=== PATIENT | female | born 1955 | race Caucasian/White ===

== ENCOUNTER → 2020-12-12 08:47 | Outpatient (CLI) | payer MEDICARE, OTHER, SELFPAY ==
--- NOTE | 2020-12-12 08:55 | RAD_ITS ---
STUDY: X-RAY - ESOPHAGUS (BARIUM SWALLOW) WITH FLUOROSCOPY REASON FOR EXAM: Female, 65 years old. DYSPHAGIA FOR YEARS- GETTING WORSE -- 34 FLUORO SEC, 11.52mGy, 20 FLUORO IMAGES TECHNIQUE: 20 view(s) of the esophagus were obtained following swallowing of barium. FLUOROSCOPY TIME (if supplied): (0:34) minutes/seconds COMPARISON: None. FINDINGS: There is no demonstrated esophageal foreign body. There is no demonstrated stricture or mucosal abnormality. There is a small hiatal hernia of the fundus of the stomach. There is evidence of a small weblike stenosis at the gastroesophageal junction. The patient ingested a 12 mm tablet of barium without any difficulty. Normal visualized aortic arch and descending thoracic aorta. Normal visualized pulmonary parenchyma. Normal visualized osseous structures of the thorax. RAD/Esophagus Dual Contrast IMPRESSION: Small sliding hiatal hernia with a mild weblike stenosis at the gastroesophageal junction. The patient ingested a 12 mm tablet of barium without difficulty. Electronically Signed: Marvin Hart MD at 12:44 EST , Service support ,
== END ==
PROVIDERS: PCP Student in an Organized Health Care Education/Training Program; Referring Provider Nurse Practitioner Adult Health; Visit Provider Nurse Practitioner Adult Health
DX: R13.10 Dysphagia, unspecified (principal); R09.89 Other specified symptoms and signs involving the circulatory and respiratory systems
CPT/HCPCS: 74220; 74221

== ENCOUNTER 2022-04-21 10:43 | Emergency (ER) | payer MEDICARE, OTHER, SELFPAY ==
[2022-04-21 10:43] VITALS: BP 115/64; PULSE 67; RESP 16; TEMP 36.3; O2SAT 97; BMI 25.7
--- NOTE | 2022-04-21 11:01 | EKG12_ITS ---
Test Reason : DIZZY Blood Pressure : / mmHG Vent. Rate : 062 BPM Atrial Rate : 062 BPM P-R Int : 160 ms QRS Dur : 074 ms QT Int : 414 ms P-R-T Axes : 036 012 033 degrees QTc Int : 420 ms Normal sinus rhythm Normal ECG Confirmed by GRADY LITTLEJOHN, FELICE ([id number]), editor at large TERRANCE JI ([id number]) on 04/23/2022 9:53:33 AM Referred By: LOPEZ Confirmed By:FELICE RASMUSSEN MD
[2022-04-21 11:10] LABS: Absolute Lymphocyte Count 1.09 X10^3/uL (0.83-4.51); Absolute Neutrophil Count 2.3 X10^3/uL (2.0-7.7); Basophil# 0.03 X10^3/uL; Basophil% 0.8 % (0-1); Eosinophil# 0.11 X10^3/uL; Eosinophils% 2.8 % (0-5); Hematocrit 41.1 % (37-47); Hemoglobin 13.6 g/dL (12.0-15.0); Lymphocyte # 1.09 X10^3/ul (0.83-4.51); Lymphocyte % 27.3 % (19-41); Mean Corp Hgb Conc 33.1 g/dL (32-36); Mean Corpuscular Hgb 28.9 pg (27.0-32.0); Mean Corpuscular Volume 87.4 fL (81-99); Mean Platelet Vol. 10.3 fl (6.2-12.0); Monocyte# 0.44 X10^3/uL; NRBC Flagged by Analyzer 0 % (0-5); Neutrophil # 2.33 X10^3/uL (2.7-7.7); Neutrophil % 58.1 % (47-70); Platelet Count 195 K/mm3 (150-450); RBC Distribution Width CV 13.2 % (11.6-14.6); RBC Distribution Width SD 42.4 fl (35.1-43.9)
--- NOTE | 2022-04-21 11:11 | EKG12_ITS ---
Test Reason : DIZZY Blood Pressure : / mmHG Vent. Rate : 065 BPM Atrial Rate : 065 BPM P-R Int : 156 ms QRS Dur : 074 ms QT Int : 402 ms P-R-T Axes : 048 012 029 degrees QTc Int : 418 ms Normal sinus rhythm Normal ECG When compared with ECG of 25-JAN-2011 05:52, No significant change was found Confirmed by JAGDISH LITTLEJOHN, FABIOLA ([id number]), news video editor TERRANCE JI ([id number]) on 04/25/2022 9:33:18 AM Referred By: LOPEZ Confirmed By:FABIOLA DUBON MD
[2022-04-21] MEDS: 0.9% Normal Saline 1,000 ML 1000 ML IV (11:15)
[2022-04-21] MEDS: Meclizine HCl 25 MG Tablet PO (11:15)
[2022-04-21] MEDS: Ondansetron 4 MG/2 ML Vial IV (11:15)
--- NOTE | 2022-04-21 11:19 | EX.ED.DYSGE1 ---
HPI History of Present Illness Chief Complaint: Dizziness Informant: patient Onset/Context/Timing Onset: Yesterday Context: Gradual Onset Current Severity: Mild Maximum Severity: Moderate Narrative Narrative: Patient present secondary to dizziness. She states last evening she felt like she might be getting a migraine. She woke this morning feeling off balance and when she walks she feels like she is swaying. She has had some mild nausea. No recent head injury or fall. [facility] Medical History (Updated 04/21/22 @ 13:[address] Kirsten Sheth MD) Breast cancer Hypothyroidism Home Medications fluoxetine 20 mg PO DAILY 11/04/17 [History Last Taken Unknown] levothyroxine 88 mcg PO DAILY 11/04/17 [History Last Taken Unknown] hydrocodone-acetaminophen 1 tab PO Q6H PRN PRN #20 tab 11/10/17 [Rx Last Taken Unknown] meclizine 25 mg PO TID PRN #20 tab 04/21/22 [Rx Last Taken Unknown] Allergy/AdvReac Type Severity Reaction Status Date / Time No Known Allergies Allergy Verified 04/21/22 10:46 Social History Smoking Status: Former smoker ROS ROS ED Constitutional Constitutional ED: Denies chills or fever(s) Eyes Eyes: Denies change in vision ENT ENT ED: Denies rhinorrhea or sore throat Cardiovascular Cardiovascular: Denies chest pain or palpitations Respiratory/Chest Respiratory/Chest: Denies cough or dyspnea Gastrointestinal Gastrointestinal: Reports nausea; Denies abdominal pain, diarrhea or vomiting Genitourinary Genitourinary ED: Denies dysuria Musculoskeletal Musculoskeletal: Denies arthralgias or myalgias Integumentary Denies rash Neurologic Neurologic: Denies headache(s), paresthesias or weakness Allergic/Immunologic Allergic/Immunologic ED: Denies urticaria EXAM Physical Exam Const Vital Signs: 04/21/22 10:43 04/21/22 10:57 04/21/22 12:00 Temperature 97.4 F L Temperature Source Temporal Pulse Rate 67 68 Respiratory Rate 16 13 Respiratory Effort Normal Respiratory Pattern Normal Blood Pressure 115/64 116/66 Blood Pressure Mean 81 82 Pulse Ox 97 Positive well nourished and well developed General Appearance ED: well developed HEENT Reports moist mucous membranes Eyes PERRL and EOMs intact bilaterally Neck no lymphadenopathy and supple Chest Wall inspection of chest normal and palpation of chest normal Resp normal respiratory effort and clear to auscultation bilaterally Cardio regular rate and regular rhythm GI non-tender Palpation: soft Extremity normal to inspection Neuro oriented x3 and no sensory deficits noted Sensorium / Orientation: alert Motor Exam: strength 5/5 throughout Psych mental status grossly normal Skin no rashes or lesions noted MDM MDM MDM Narrative Medical decision making narrative: Patient was given IV fluids along with Antivert and Zofran. Lab work obtained. Lab Data Attestation: I reviewed the patient's lab results. Labs: Laboratory Results - last 24 hr 04/21/22 04/21/22 10:55 10:55 WBC 4.0 L RBC 4.70 Hgb 13.6 Hct 41.1 MCV 87.4 MCH 28.9 MCHC 33.1 RDW Std Deviation 42.4 RDW Coeff of Roseline 13.2 Plt Count 195 MPV 10.3 Immature Gran % (Auto) 0.000 Neut % (Auto) 58.1 Lymph % (Auto) 27.3 Elbert % (Auto) 11.0 H Eos % (Auto) 2.8 Baso % (Auto) 0.8 Absolute Neuts (auto) 2.3 Absolute Lymphs (auto) 1.09 Nucleated RBC % 0 Sodium 141 Potassium 4.2 Chloride 108 H Carbon Dioxide 30.0 Anion Gap 3 L BUN 13 Creatinine 0.84 Estim Creat Clear Calc 53.02 Est GFR (MDRD) Af Amer 86 Est GFR (MDRD) Non-Af 71 BUN/Creatinine Ratio 15.4 Glucose 95 Calcium 9.4 EKG Initial EKG: Attestation: I personally reviewed and interpreted this EKG as follows: Interpretation: Sinus Rhythm (Sinus at 62 with no acute ischemia.) Treatment and Re-Evaluation Narrative: On repeat evaluation patient reports significant improvement in her symptoms but just not quite yet back to baseline. She was able to ambulate to the restroom and back without difficulty. She will be treated with Antivert. EKG and lab work are unremarkable. Symptoms are consistent with peripheral vertigo. Discharge Plan Triage Chief Complaint: Dizziness ED Provider: Kirsten Sheth Dx/Rx/DC Orders Clinical Impression: Vertigo Instructions: ED Vertigo, Unspecified Prescriptions: New meclizine 25 mg tablet 25 mg PO TID PRN (Reason: dizziness) Qty: 20 RF: 0 No Action levothyroxine 88 MCG tablet 88 mcg PO DAILY RF: 0 fluoxetine 20 MG capsule 20 mg PO DAILY RF: 0 hydrocodone-acetaminophen 1 TABLET tablet 1 tab PO Q6H PRN PRN (Reason: Pain) Qty: 20 RF: 0 Primary Care Provider: Pablo Bates Referrals: Pablo Bates DO [Primary Care Provider] - 1-2 Weeks Disposition Disposition: Home, Self Care
[2022-04-21 11:22] LABS: Anion Gap 3 (5-15); BUN 13 mg/dL (7-18); BUN/Creat Ratio 15.4 RATIO (10-20); Calcium,Total 9.4 mg/dL (8.5-10.1); Chloride 108 mmol/L (98-107); Creatinine, Serum 0.84 mg/dL (0.55-1.02); EST Glomerular Filtration Rate 71 mL/min (>60); Est Glom Filt Rate - Afr Amer 86 mL/min (>60); Estimated Creatinine Clearance 53.02 ml/min; Glucose 95 mg/dL (74-106); Potassium 4.2 mmol/L (3.5-5.1); Sodium Level 141 mmol/L (136-145)
[2022-04-21 12:00] VITALS: BP 116/66; PULSE 68; RESP 13
[2022-04-21 13:08] LABS: Bacteria 0 SEEN /hpf (None Seen); Mucous, Urine 0 SEEN /hpf (<or=2+); Red Blood Cells-Urine 0 SEEN /hpf (0-5)
[2022-04-21 13:25] LABS: Color, Urine Yellow (Yellow); Glucose, Dipstick Normal (Normal); Ketone-Dipstick Negative (Negative); Leukocyte Esterase-Dipstick 25 /ul (Negative); Nitrite-Dipstick Negative (Negative); Occult Blood-Urine Negative /ul (Negative); Protein-Dipstick Negative (Negative); Specific Gravity, Urine 1.005 (1.002-1.030); Urine Bilirubin Dipstick Negative (Negative); Urine Clarity Clear (Clear); Urine Urobilinogen Normal (Normal)
[2022-04-21 13:48] LABS: Squamous Epithelial Cells - UA 0-5 SEEN /hpf (5-10); White Blood Cells 0-5 SEEN /hpf (0-5)
== END 2022-04-21 13:27 | disposition home or self-care (01) ==
PROVIDERS: Emergency Provider Emergency Medicine; PCP Student in an Organized Health Care Education/Training Program; Visit Provider Emergency Medicine
DX: R42 Dizziness and giddiness (principal); Z87.891 Personal history of nicotine dependence
CPT/HCPCS: 80048; 81001; 85025; 93005; 96361; 96374; 99284; J7030; J2405

== ENCOUNTER 2025-07-02 19:13 | Emergency (ER) | payer MEDICARE, OTHER, SELFPAY ==
[2025-07-02 19:15] VITALS: BP 112/56; PULSE 97; RESP 16; TEMP 36.6; O2SAT 99
--- NOTE | 2025-07-02 20:59 | EDS_ITS ---
HPI History of Present Illness Chief Complaint: Wound Narrative Narrative: 70-year-old female is postoperative day 4 from hiatal hernia repair by Dr. Ayala at [facility]. She states she had her surgery on Thursday, and was released from the hospital on Thursday. She states her pain is appropriate now improving, however she noticed small drainage of pus from 2 of her laparoscopic surgical incisions that were closed with Dermabond. Her noticed increased redness around the 1 in the right lower quadrant, and they noticed a small amount of pus drainage from the left. They placed Band- Aids over them. She denies any fevers or chills, no nausea or vomiting, no other symptoms. [facility] Medical History Breast cancer Hypothyroidism Home Medications ?Medication ?Instructions ?Recorded ?Last Taken ?Type fluoxetine 20 mg capsule 20 mg PO DAILY 11/04/17 Unkn own History levothyroxine 88 mcg tablet 88 mcg PO DAILY 11/04/17 U nknown History meclizine 25 mg tablet 25 mg PO TID PRN dizziness # 20 tabs 04/21/22 Unknown Rx azithromycin 250 mg tablet 250 mg PO QDAY #6 tabs 05/01 Unknown Rx [id number]-[id number] 1 tab PO Q6H PRN 05/01 Unknown History 50 mg-325 mg-40 mg tablet amoxicillin 875 mg-potassium 1 tab PO BID #14 tabs Unknown Rx clavulanate 125 mg tablet Allergy/AdvReac Type Severity Reaction Status Date / Time No Known Allergies Allergy Verified 07/02/25 19:18 Surgical History History of carpal tunnel release History of lumpectomy of right breast (~2017) History of cholecystectomy Social History Smoking Status: Former smoker ROS ROS ED ROS Narrative Review of systems positive for drainage of pus from postsurgical wounds, right lower quadrant wound with increased redness. No fevers or chills, no nausea or vomiting. No pain out of proportion. EXAM Physical Exam Narrative Exam Narrative: Afebrile. Vital signs noted. Nontoxic-appearing. Cardiovascular examination feels regular rate and rhythm. Lungs clear to auscultation bilaterally. The abdomen is soft with appropriate tenderness mainly on the left side of the abdomen, no guarding or rebound. Surgical incision wounds appear clean, dry, and intact with Dermabond. Mild erythema surrounding right lower quadrant surgical wound. No fluctuance. Const Vital Signs: 07/02/25 19:15 Temperature 97.8 F Temperature Source Oral Pulse Rate 97 Respiratory Rate 16 Blood Pressure 112/56 L Blood Pressure Mean 74 Pulse Ox 99 Oxygen Delivery Method Room Air MDM MDM MDM Narrative Medical decision making narrative: Differential diagnosis includes but not limited to hyperemia versus superficial infected surgical wound. I have low clinical suspicion for deep surgical wound or abscess. Given the increased redness, I do not feel that she requires any laboratory work. She is afebrile here. She is only postoperative day 4. I gave her her first dose of Augmentin here and wrote a prescription to take twice a day for the next 7 days. I suggested that she follow-up with her surgeon by calling the office tomorrow to see if they would like her to be evaluated any sooner and agree with the Augmentin. Return instructions to the emergency depar tment were reviewed. Patient and agreeable to the plan. Disposition is discharged home in stable condition. History & Record Review Discussion w/independent historian: Patient Discharge Plan Triage Chief Complaint: Wound ED Provider: Josh Novak Dx/Rx/DC Orders Clinical Impression: Superficial postoperative wound infection, History of repair of hiatal hernia Instructions: ED Wound Infection after surgery Prescriptions: New amoxicillin-pot clavulanate 875-125 mg tablet 1 tab PO BID Qty: 14 0RF No Action [id number]-ceujkpsjevdlr-jtbz 50-325-40 mg tablet 1 tab PO Q6H PRN azithromycin 250 mg tablet 250 mg PO QDAY Qty: 6 0RF Rx Instructions: 2 tablets today, then 1 tablet daily on days 2 through 5 levothyroxine 88 MCG tablet 88 mcg PO DAILY fluoxetine 20 MG capsule 20 mg PO DAILY meclizine 25 mg tablet 25 mg PO TID PRN (Reason: dizziness) Qty: 20 0RF Primary Care Provider: Pablo Bates Referrals: Pablo Bates DO [Primary Care Provider] - Activity Restrictions/Additional Instructions: Follow-up with your hiatal hernia surgeon Dr. Ayala within the next few days. Call the office tomorrow to see if he wants to see you prior to your 2-week postoperative follow-up. Return to the emergency department with fever, increased redness of your surgical wounds, increased drainage of pus, new or worsening symptoms. Antibiotics as directed. Print Language: Tunisian Disposition Disposition: Home, Self Care
[2025-07-02 21:00] VITALS: BP 112/56; PULSE 97; RESP 16; TEMP 36.6; O2SAT 99
--- OUTSIDE RECORDS SUMMARY | 2025-07-02 21:11 | XMS RPT_ITS | CCD ---
Author Organization [facility] Care Team Providers Care Hydroelectric Production Manager Name Role Phone Pablo Bates DO Primary Care Provider Tip LITTLEJOHN MD, Rosalee Unavailable Dolatoya RN, Delmi Unavailable Unavailable Dr. Pablo Bates Primary Care Provider Dr. Pablo Bates Referring Provider ALTON Izquierdo Attending Provider Pablo Bates DO Primary Care Provider Tip LITTLEJOHN MD, Rosalee Unavailable Doup RN, Delmi Unavailable Unavailable Pablo Bates DO Primary Care Provider Pablo Bates DO Primary Care Provider Tpi LITTLEJOHN MD, Rosalee Unavailable Doup RN, Delmi Unavailable Unavailable Pablo Bates DO Primary Care Provider Dolatoya RN, Delmi Unavailable Unavailable Norbert Aguirre Attending Unavailable Pablo Bates Referring Unavailable Pablo Bates Primary Care Unavailable Rosalee Whelan MD Unavailable Pablo Bates DO Primary Care Provider Johnny SLEEP TECHNOLOGIST.Aishwarya MORALES Unavailable Miladis SLEEP TECHNOLOGIST.Cata MORALES Unavailable Leif SLEEP TECHNOLOGIST.Alka MORALES Unavailable SARIKA ARRIETA Referring Unavailable PABLO BATES Primary Care Unavailable PABLO BATES Primary Care Unavailable COSME MONTAÑO Attending Unavailable CATA WHYTE Referring Unavailable PREET GODINEZ Attending Unava ilable KIMAPREET Admitting Unava ilable BATES, PABLO L Primary Care Unavailable BATES, PABLO L Primary Care Unavailable JACQUELINE CALDERON Referring Unavailable BATES, PABLO L Primary Care Unavailable LEIF ALKA KATELYN Referring Unavailable BATES, PABLO L Primary Care Unavailable ALKA YADAV Attending Unavailable BATES, PABLO L Primary Care Unavailable ALKA YADAV Referring Unavailable BATES, PABLO Jose Primary Care Unavailable JACQUELINE CALDERON Referring Unavailable BATES, PABLO Jose Primary Care Unavailable GRETA MONTAÑOEL Jazmin Referring Unavailable BATES, PABLO Jose Primary Care Unavailable COSME MONTAÑO Attending Unavailable BATES, PABLO L Primary Care Unavailable LEIF ALKA KATELYN Referring Unavailable FRANCISCO SONI Attending Unavailable BATES, PABLO L Primary Care Unavailable DANYEL, COSME Jazmin Referring Unavailable BECHUYAPREET Attending Unava ilable BATES, PABLO L Primary Care Unavailable BATSE, PABLO Jose Primary Care Unavailable BEFFAPREET Referring Unava ilable BATES, PABLO L Primary Care Unavailable ALKA YADAV Attending Unavailable BATES, PABLO L Primary Care Unavailable PRIYA YADAVANDA KATELYN Referring Unavailable CATA WHYTE Attending Unavailable BATES, PABLO Jose Primary Care Unavailable BATES, PABLO L Primary Care Unavailable SAMEERA MARTINI Referring Unavailable SAMEERA MARTINI Attending Unavailable BATES, PABLO Garcia Primary Care Unavailable SAMEERA MARTINI Referring Unavailable BATES, PABLO Garcia Primary Care Unavailable JACQUELINE CALDERON Attending Unavailable CATA WHYTE Referring Unavailable BATES, PABLO Jose Primary Care Unavailable JACQUELINE CALDERON Attending Unavailable Medications Current Medications Medication Drug Class(es) Dates Sig (Normalized) Sig (Original) acetaminophen 325 mg / HYDROcodone bitartrate 5 mg oral tablet (1 source) Opioid Agonist Start: 11-10-2017 take 1 tablet by mouth every six hours as needed Hydrocodone-Acetami nophen Active 1 TABLET PO EVERY 6 HOURS NEEDED November 10, 2017 12:57pm atorvastatin 10 mg oral tablet (20 sources) HMG-CoA Reductase Inhibitor Start: 12-18-2021 End: 05-01-2025 atorvastatin (LIPITOR) 10 mg tablet Indications: Mixed hyperlipidemia TAKE 1 TABLET DAILY AT BEDTIME FOR CHOLESTEROL 90 tablet 05/01/2025 Active Comment on above: Take 1 tablet by jose th daily at bedtime. For cholesterol. TAKE 1 TABLET EVERY DAY AT BEDTIME FOR CHOLESTEROL Calcium Carbonate (3 sources) take 1 tablet by mouth twice daily calcium carbonate (CALCIUM 500 PO) Take 1 tablet by mouth two times a day. Active calcium carbonate 625 mg / cholecalciferol 125 unt oral tablet (20 sources) Vitamin D Start: 05-14-2018 take 1 tablet by mouth once daily calcium-cholecalcif rudi, D3, (OSCAL+D 250) 250-125 mg-unit per tablet Take 1 tablet by mouth once daily. 100 tablet 05/14/2018 Active Comment on above: Take 1 tablet by jose th once daily. cetirizine hydrochloride 10 mg oral tablet (1 source) Histamine-1 Receptor Antagonist Start: 05-17-2023 End: 05-31-2023 take 1 tablet by mouth once daily cetirizine (ZYRTEC) 10 mg tablet Take 1 tablet by mouth once daily for 14 days. 14 tablet 0 05/17/2023 05/31/2023 Active Comment on above: Take 1 tablet by jose th once daily for 14 days. cholecalciferol, vitamin D3, (VITAMIN D3 PO) (3 sources) take 1 capsule by mouth once daily cholecalciferol, vitamin D3, (VITAMIN D3 PO) Take 1 capsule by mouth once daily. Active diazePAM 5 mg oral tablet (1 source) Benzodiazepine Start: 03-01-2025 End: 03-31-2025 take 1 tablet by mouth every twelve hours as needed for anxiety and anxiety diazePAM (VALIUM) 5 mg tablet Indications: Situational anxiety Take 1 tablet by mouth two times a day as needed for anxiety for up to 30 days. 20 tablet 03/01/2025 03/31/2025 Active Famotidine (3 sources) Histamine-2 Receptor Antagonist famotidine (PEPCID PO) Take 1 tablet by mouth as needed. Active FLUoxetine 40 mg oral capsule (20 sources) Serotonin Reuptake Inhibitor Start: 08-26-2021 End: 01-12-2025 take 1 capsule by mouth once daily FLUoxetine (PROZAC) 40 mg capsule Indications: IRISH (generalized anxiety disorder) Take 1 capsule by mouth once daily. 90 capsule 1 01/13/2025 Active Start: 11-04-2017 take 20 mg by mouth once daily Fluoxetine Active 20 MG PO DAILY November 04, 2017 9:56am Comment on above: Take 1 capsule by mo [facility] once daily. levothyroxine sodium 0.112 mg oral tablet (20 sources) l-Thyroxine Start: End: take 1 tablet by mouth once daily levothyroxine (SYNTHROID) 112 mcg tablet Take 1 tablet by mouth once daily. 30 tablet 2 04/21/2025 07/20/2025 Active Start: 09-03-2022 End: 04-21-2025 take 1 tablet by mouth once daily for thyroid dysfunction levothyroxine (LEVOXYL) 88 mcg tablet Indications: Hypothyroidism, unspecified type Take 1 tablet by mouth once daily. Take on empty stomach. For Thyroid 90 tablet 3 04/17/2025 04/21/2025 Discontinued (Dosage adjustment) Start: 11-04-2017 End: 02-17-2022 take 1 tablet by mouth once daily for thyroid dysfunction levothyroxine (LEVOXYL) 88 mcg tablet Indications: Hypothyroidism, unspecified type Take 1 tablet by mouth once daily. Take on empty stomach. For Thyroid 90 tablet 1 02/17/2022 Active Comment on above: [facility] Take on empty stomach. For Thyroid meclizine hydrochloride 25 mg oral tablet (20 sources) Antiemetic Start: 04-21-20 End: 06-30-20 take 1 tablet by mouth three times daily as needed for dizziness meclizine (ANTIVERT) 25 mg tab Indications: Dizziness TAKE 1 TABLET BY MOUTH THREE TIMES A DAY NEEDED FOR DIZZINESS 60 tablet 06/30/2022 Active Comment on above: TAKE 1 TABLET BY JOSE THREE TIMES A DAY NEEDED FOR DIZZINESS predniSONE 10 mg oral tablet (6 sources) Start: 04-20-20 End: 05-02-20 take 4 tablets by mouth once daily, then take 3 tablets by mouth once daily, then take 2 tablets by mouth once daily, then take 1 tablet by mouth once daily predniSONE (DELTASONE) 10 mg tablet Indications: Osteoarthritis of spine with radiculopathy, lumbar region , Chronic right-sided low back pain with right-sided sciatica Take 4 tablets by mouth once daily for 3 days, THEN 3 tablets once daily for 3 days, THEN 2 tablets once daily for 3 days, THEN 1 tablet once daily for 3 days. 30 tablet 04/20/2025 05/02/2025 Active Start: 05-17-2023 End: 05-26-2023 predniSONE (DELTASONE) 10 mg tablet Take 4 tabs daily for 3 days, then 2 tabs daily for 3 days, then 1 tab daily for 3 days with food. 21 tablet 0 05/17/2023 05/26/2023 Active Comment on above: Take 4 tabs daily fo r 3 days, then 2 tabs daily for 3 days, then 1 tab daily for 3 days with food. romosozumab (5 sources) Start: 06-08-2025 End: 06-03-2026 romosozumab-aqqg 210 mg injection (EVENITY) Start: 06-08-2025 End: 06-03-2026 210 mg, SUBCUTANEOUS, EVERY 1 MONTH, 12 doses, First dose on Thu06/08/25 at 1130, Last dose on Thu05/04/26 at 1130, Allow to sit for 30 minutes to reach room temperature before injection. Total dose is 2 syringes (210 mg total) injection into abdomen, thigh, or upper arm. Completed/Discontinued Medications Medication Drug Class(es) Dates Sig (Normalized) Sig (Original) acetaminophen 325 mg / butalbital 50 mg / caffeine 40 mg oral tablet (20 sources) Barbiturate, Central Nervous System Stimulant, Methylxanthine Start: 05-10-2025 End: 06-23-2025 take 1 tablet by mouth every four hours as needed acetaminophen 325 mg-caffeine 40 mg-butalbital 50 mg (FIORICET) per tablet Indications: IRISH (generalized anxiety disorder) , Chronic neck pain , Cervical radiculopathy , Migraine without aura, intractable, without status migrainosus Take 1 tablet by mouth every 4 hours as needed for up to 30 days. 60 tablet 1 05/24/2025 06/22/2025 Discontinued Start: 05-01-2025 End: 07-30-2025 take 1 capsule by mouth every four hours as needed for headache acetaminophen 325 mg-caffeine 40 mg-butalbital 50 mg (FIORICET) per capsule Indications: Chronic neck pain , Cervical radiculopathy , Migraine without aura, intractable, without status migrainosus Take 1 capsule by mouth every 4 hours as needed for headache. 30 capsule 2 05/01/2025 07/30/2025 Active Start: 11-01-2020 End: 10-31-2024 take 1 tablet by mouth every four hours as needed for headache acetaminophen 325 mg-caffeine 40 mg-butalbital 50 mg (FIORICET) per tablet Indications: Intractable migraine without aura and without status migrainosus Take 1 tablet by mouth every 4 hours as needed for headache for up to 90 days. 30 tablet 2 08/02/2024 10/31/2024 Active Comment on above: Take 1 tablet by [facility] every 4 hours as needed for Headache. anastrozole 1 mg oral tablet (3 sources) Aromatase Inhibitor Start: 2020 End: 2021 anastrozole (ARIMIDEX) 1 mg tablet TAKE 1 TABLET EVERY DAY 90 tablet 3 08/02/2021 05/20/2022 Discontinued Comment on above: TAKE 1 TABLET EVERY DAY Benzocaine (1 source) Standardized Chemical Allergen Start: 2024 End: 2024 1 spray, TOPICAL, DIRECTED, Starting on Cami 5 at 1200, Until Cami 5/25 at 1559, Dosing as directed for intraprocedural use only - Pharmaceutical Waste: Aerosol -, Intraprocedure calcium chloride 0.0014 meq/ml / potassium chloride 0.004 meq/ml / sodium chloride 0.103 meq/ml / sodium lactate 0.028 meq/ml injectable solution (1 source) Start: 2024 End: 2024 take 30 mL intravenously every hour 30 mL/hr, INTRAVENOUS, CONTINUOUS, Starting on Cami 525 at 1130, Until Cami 5/8/25 at 1212, Preprocedure diphenhydrAMINE (1 source) Histamine-1 Receptor Antagonist Start: 2024 End: 2024 12.5-50 mg, INTRAVENOUS, DIRECTED, Starting on Cami 525 at 1200, Until Cami 5/8/25 at 1559, DOSING DIRECTED BY PHYSICIAN FOR PROCEDURAL SEDATION ONLY, Intraprocedure 1 ml fentaNYL 0.05 mg/ml injection (1 source) Opioid Agonist Start: 2024 End: 2024 25-100 mcg, INTRAVENOUS, DIRECTED, Starting on Cami 03/16/25 at 1200, Until Cami 03/16/25 at 1559, DOSING DIRECTED BY PHYSICIAN FOR PROCEDURAL SEDATION ONLY, Intraprocedure gabapentin 100 mg oral capsule (20 sources) Anti-epileptic Agent Start: 2024 End: 2024 take 2 capsules by mouth once daily at bedtime gabapentin (NEURONTIN) 100 mg capsule Indications: Osteoarthritis of spine with radiculopathy, lumbar region , Chronic right-sided low back pain with right-sided sciatica , Chronic night sweats Take 2 capsules by mouth daily at bedtime for 90 days. 180 each 04/20/2025 06/22/2025 Discontinued (Discontinued by another Health Care Provider) letrozole 2.5 mg oral tablet (20 sources) Aromatase Inhibitor Start: 2021 End: 2024 letrozole (FEMARA) 2.5 mg tablet TAKE 1 TABLET DAILY 90 tablet 3 11/14/2024 04/17/2025 Discontinued (Discontinued by Patient) Comment on above: Take 1 tablet by jose th once daily. 5 ml midazolam 1 mg/ml injection (1 source) Benzodiazepine Start: 2024 End: 2024 1-5 mg, INTRAVENOUS, DIRECTED, Starting on Cami 03/16/25 at 1200, Until Cami 03/16/25 at 1559, DOSING DIRECTED BY PHYSICIAN FOR PROCEDURAL SEDATION ONLY, Intraprocedure naproxen 500 mg oral tablet (15 sources) Nonsteroidal Anti-inflammatory Drug Start: 2023 End: 2024 take 1 tablet by mouth twice daily at mealtime naproxen (NAPROSYN) 500 mg tablet Indications: Cervical radiculopathy , Chronic left shoulder pain , Neck pain , Left arm pain Take 1 tablet by mouth two times a day with meals. Take with food. 28 tablet 01/06/2024 11/16/2024 Discontinued (Other) Comment on above: Take 1 tablet by jose th two times a day with meals. Take with food. omeprazole 20 mg delayed release oral capsule (20 sources) Proton Pump Inhibitor Start: 2022 End: 2024 take 1 capsule by mouth once daily before breakfast omeprazole (PRILOSEC) 20 mg capsule Indications: GERD without esophagitis Take 1 capsule by mouth daily before breakfast. 1/2 hr before meal. 90 capsule 3 04/13/2023 11/16/2024 Discontinued (Other) Comment on above: Take 1 capsule by mo uth daily before breakfast. 1/2 hr before meal. traZODone hydrochloride 50 mg oral tablet (20 sources) Serotonin Reuptake Inhibitor Start: 2020 End: 2022 take 1 tablet by mouth at bedtime as needed traZODone (DESYREL) 50 mg tablet Indications: Chronic insomnia Take 1 tablet by mouth at bedtime as needed for sedation. 90 tablet 2 06/11/2022 09/03/2023 Discontinued Comment on above: Take 1 tablet by jose th at bedtime as needed for sedation. Problems Active Problems Problem Classification Problem Date Documented Da te Episodic/Chronic Abdominal hernia (20 sources) Paraesophageal hernia; Translations: [Diaphragmatic hernia without obstruction or gangrene] Onset: 5 03-17-2025 Episodic Anxiety disorders (20 sources) Generalized anxiety disorder; Translations: [Generalized anxiety disorder] Onset: 5 Chronic Cancer of breast (20 sources) Malignant neoplasm of upper-outer quadrant of female breast; Translations: [Malignant neoplasm of upper-outer quadrant of right female breast] Onset: 8 12-02-2017 Chronic Complications of surgical procedures or medical care (2 sources) Drug-induced hypotension; Translations: [Hypotension due to drugs] Onset: 5 06-22-2025 Episodic Conditions associated with dizziness or vertigo (5 sources) Vertigo; Translations: [Dizziness and giddiness] Onset: 5 Episodic Disorders of lipid metabolism (20 sources) Mixed hyperlipidemia; Translations: [Mixed hyperlipidemia] Onset: 0 Resolved: 5 07-25-2010 Chronic Esophageal disorders (20 sources) Gastroesophageal reflux disease without esophagitis; Translations: [Gastro-esophageal reflux disease without esophagitis] Onset: 5 Chronic Genitourinary symptoms and ill-defined conditions (20 sources) Mixed urinary incontinence; Translations: [Mixed incontinence] Onset: 1 04-01-2011 Chronic Headache; including migraine (20 sources) Refractory migraine; Translations: [Migraine, unspecified, intractable, without status migrainosus] Onset: 5 11-07-2015 Chronic Headache; including migraine (1 source) Headache; Translations: [Headache] Episodic Heart valve disorders (20 sources) Rheumatic mitral valve disease, unspecified; Translations: [Mitral valve disorders] Onset: 3 Resolved: 5 04-09-2006 Chronic Immunizations and screening for infectious disease (2 sources) Contact with and (suspected) exposure to other viral communicable diseases; Translations: [Contact with or suspected exposure to other viral communicable disease] Episodic Malaise and fatigue (2 sources) Fatigue; Translations: [Chronic fatigue, unspecified] Onset: 5 04-20-2025 Chronic Malaise and fatigue (2 sources) Fatigue; Translations: [Other fatigue] Episodic Miscellaneous mental health disorders (1 source) Chronic insomnia; Translations: [Psychophysiologic insomnia] Chronic Nutritional deficiencies (20 sources) Vitamin D deficiency; Translations: [Vitamin D deficiency, unspecified] Onset: 8 02-01-2018 Chronic Osteoarthritis (1 source) Degenerative joint disease involving multiple joints; Translations: [Primary generalized (osteo)arthritis] 06-08-2025 Chronic Osteoporosis (9 sources) Senile osteoporosis; Translations: [Age-related osteoporosis without current pathological fracture] Onset: 5 05-11-2025 Chronic Other aftercare (2 sources) Long-term current use of aromatase inhibitor; Translations: [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] 09-03-2023 Episodic Other aftercare (1 source) Other long term care administrator (current) drug therapy; Translations: [Medication management] Onset: 5 Episodic Other and ill-defined heart disease (20 sources) Diastolic dysfunction; Translations: [Heart disease, unspecified] Onset: 3 03-28-2013 Chronic Other circulatory disease (3 sources) Low blood pressure; Translations: [Hypotension, unspecified] Onset: 5 06-20-2025 Episodic Other connective tissue disease (20 sources) Recurrent falls ; Translations: [Repeated falls] Onset: 5 04-20-2025 Episodic Other connective tissue disease (6 sources) Fibromyalgia; Translations: [Fibromyalgia] 05-11-2025 Episodic Other connective tissue disease (1 source) Fibromyalgia; Translations: [Fibromyalgia] Onset: 5 Episodic Other connective tissue disease (1 source) Repeated falls; Translations: [Falls] Onset: 5 Episodic Other gastrointestinal disorders (1 source) Heartburn; Translations: [Heartburn] 03-16-2025 Episodic Other inflammatory condition of skin (20 sources) Rosacea; Translations: [Rosacea, unspecified] Onset: 8 07-25-2010 Chronic Other inflammatory condition of skin (7 sources) Psoriasis; Translations: [Psoriasis, unspecified] 05-11-2025 Chronic Other inflammatory condition of skin (1 source) Psoriasis, unspecified; Translations: [Psoriasis] Onset: Chronic Other lower respiratory disease (1 source) Dyspnea; Translations: [Shortness of breath] Episodic Other nervous system disorders (4 sources) Disorder of right sciatic nerve 05-11-2025 Chronic Other nervous system disorders (3 sources) Other chronic pain; Translations: [Chronic left shoulder pain] Onset: 5 Chronic Other nervous system disorders (1 source) Paresthesia; Translations: [Paresthesia of skin] 04-20-2025 Episodic Other nervous system disorders (6 sources) Numbness of face; Translations: [Anesthesia of skin] 05-11-2025 Episodic Other nervous system disorders (1 source) Facial paresthesia; Translations: [Paresthesia of skin] 06-22-2025 Episodic Other nervous system disorders (1 source) Other acute postprocedural pain; Translations: [Acute postoperative pain] Onset: 5 Episodic Other nervous system disorders (2 sources) Paresthesia of skin; Translations: [Facial paresthesia] Onset: 5 Episodic Other nervous system disorders (1 source) Anesthesia of skin; Translations: [Facial numbness] Onset: 5 Episodic Other non-traumatic joint disorders (7 sources) Joint pain; Translations: [Pain in unspecified joint] 05-11-2025 Episodic Other non-traumatic joint disorders (3 sources) Pain in right knee; Translations: [Pain in joint, lower leg] Onset: 5 05-11-2025 Episodic Other non-traumatic joint disorders (1 source) Pain in unspecified joint; Translations: [Arthralgia, unspecified joint] Onset: 5 Episodic Other screening for suspected conditions (not mental disorders or infectious disease) (14 sources) Patient encounter status; Translations: [Encounter 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 mammogram for malignant neoplasm of breast] Onset: 4 Episodic Other skin disorders (1 source) Eruption; Translations: [Rash and other nonspecific skin eruption] 05-17-2023 Episodic Other skin disorders (1 source) Night sweats; Translations: [Generalized hyperhidrosis] 04-20-2025 Episodic Other skin disorders (1 source) Generalized hyperhidrosis; Translations: [Chronic night sweats] Onset: 5 Episodic Other upper respiratory infections (2 sources) Acute upper respiratory infection; Translations: [Acute upper respiratory infection, unspecified] Episodic Otitis media and related conditions (1 source) Acute non-suppurative otitis media - serous; Translations: [Acute serous otitis media, left ear] 01-06-2024 Episodic Spondylosis; intervertebral disc disorders; other back problems (20 sources) Disorder of joint of spine; Translations: [Other spondylosis with radiculopathy, lumbar region] Onset: 3 Chronic Spondylosis; intervertebral disc disorders; other back problems (20 sources) Lumbago with sciatica; Translations: [Lumbago with sciatica, right side] Onset: 5 Resolved: 5 08-27-2015 Episodic Thyroid disorders (20 sources) Hypothyroidism; Translations: [Hypothyroidism, unspecified] Onset: 5 Chronic Unclassified (2 sources) Preprocedural examination done 05-03-2025 Unclassified (4 sources) Chronic pain of left upper limb 05-11-2025 Unclassified (4 sources) Chronic pain of right knee 05-11-2025 Unclassified (3 sources) Autogenerated Problem Onset: 5 06-18-2025 Past or Other Problems Problem Classification Problem Date Documented Da te Episodic/Chronic Biliary tract disease (20 sources) Biliary calculus; Translations: [Cholelithiasis] Onset: 09-21-1998 Resolved: 08-18-2012 08-18-2012 Episodic Diabetes mellitus without complication (20 sources) Impaired fasting glycemia; Translations: [Impaired fasting glucose] Onset: 04-14-2023 Episodic Esophageal disorders (20 sources) Disorder of esophagus; Translations: [Disease of esophagus, unspecified] Onset: 03-16-2025 03-16-2025 Episodic Other circulatory disease (20 sources) Finding of sensation of pharynx; Translations: [Other specified symptoms and signs involving the circulatory and respiratory systems] Onset: 03-16-2025 03-16-2025 Episodic Other circulatory disease (1 source) Other specified symptoms and signs involving the circulatory and respiratory systems; Translations: [Throat fullness] Onset: 03-16-2025 Episodic Other connective tissue disease (20 sources) Muscle pain; Translations: [Myalgia and myositis, unspecified] Resolved: 06-20-2025 04-09-2006 Episodic Other connective tissue disease (20 sources) Muscle weakness; Translations: [Muscle weakness (generalized)] Onset: 08-27-2015 08-27-2015 Episodic Other connective tissue disease (20 sources) Pain in left arm; Translations: [Pain in left arm] Onset: 01-19-2024 01-06-2024 Episodic Other connective tissue disease (1 source) Muscle weakness (generalized); Translations: [Muscle weakness (generalized)] Onset: 08-27-2015 Episodic Other gastrointestinal disorders (1 source) Heartburn; Translations: [Heartburn] Onset: 03-16-2025 Episodic Other non-traumatic joint disorders (20 sources) Chronic pain of left upper limb; Translations: [Pain in left shoulder] Onset: 01-19-2024 01-06-2024 Episodic Other non-traumatic joint disorders (1 source) Pain in left shoulder; Translations: [Chronic left shoulder pain] Onset: 01-19-2024 Episodic Other nutritional; endocrine; and metabolic disorders (20 sources) Overweight; Translations: [Overweight] Onset: 03-25-2013 03-25-2013 Episodic Residual codes; unclassified (20 sources) FH: premature coronary heart disease; Translations: [Family history of ischemic heart disease and other diseases of the circulatory system] Onset: 03-25-2013 03-25-2013 Episodic Residual codes; unclassified (1 source) Estrogen receptor positive status [ER+]; Translations: [Malignant neoplasm of upper-outer quadrant of right breast in female, estrogen receptor positive (HCC)] Onset: 12-02-2017 Episodic Screening and history of mental health and substance abuse codes (1 source) Encounter 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 for depression; Translations: [Screening for depression] Onset: 03-01-2025 Episodic Sprains and strains (20 sources) Injury of lower extremity; Translations: [Sprain and strain of unspecified site of knee and leg] Onset: 07-05-2010 Resolved: 06-20-2025 07-05-2010 Episodic Unclassified (1 source) Finding of sensation of pharynx 03-16-2025 Results Test Name Value Interpretation Reference Range Facility Basic metabolic 2000 panelon 06-30-2025 Anion gap [Moles/Vol] 12 mmol/L Normal 8-15 [facility] Comment on above: Order Comment: Speci men Type: BLOOD SPECIMEN Ordering Facility: [facility] Address: [address] [place] [address] Performed By: [id number] #### [facility] CLIA [id number] [address] [place] [address] [place] Calcium [Mass/Vol] 8.0 mg/dL Low 8.5-10.2 [facility] Comment on above: Order Comment: Speci men Type: BLOOD SPECIMEN Ordering Facility: [facility] Address: [address] [place] [address] Performed By: #### 4 5066-8 #### [facility] CLIA [id number] [address] [place] [address] [place] Chloride [Moles/Vol] 101 mmol/L Normal 98-107 [facility] Comment on above: Order Comment: Speci men Type: BLOOD SPECIMEN Ordering Facility: [facility] Address: [address] [place] [address] Performed By: #### 4 5066-8 #### [facility] CLIA [id number] [address] [place] [address] [place] CO2 [Moles/Vol] 20 mmol/L Low 22-30 [facility] Comment on above: Order Comment: Gavino men Type: BLOOD SPECIMEN Ordering Facility: [facility] Address: [address] [place] [address] Performed By: #### 4 5066-8 #### [facility] CLIA [id number] [address] [place] [address] [place] Creatinine [Mass/Vol] 0.49 mg/dL Low 0.58-0.96 [facility] Comment on above: Order Comment: Yuniori men Type: BLOOD SPECIMEN Ordering Facility: [facility] Address: [address] [place] [address] Performed By: #### 4 5066-8 #### [id number] [address] [place] [address] [place] eGFRcr SerPlBld CKD-EPI 2020 100 mL/min/1.73m??? Normal >=60 [facility] Comment on above: Order Comment: Gavino men Type: BLOOD SPECIMEN Ordering Facility: [facility] Address: [address] [place] [address] Result Comment: Saskia mated Glomerular Filtration Rate (eGFR) is calculated using the 2020 CKD-EPI creatinine equation. This equation utilizes serum creatinine, sex, and age as parameters. The creatinine assay has traceable calibration to isotope dilution-mass spectrometry. Refer to KDIGO guidelines for clinical interpretation. In patients with unstable renal function, e.g. those with acute kidney injury, the eGFR may not accurately reflect actual GFR. Performed By: #### 4 5066-8 #### [facility] CLIA [id number] [address] [place] [address] [place] Glucose [Mass/Vol] 119 mg/dL High 74-99 [facility] Comment on above: Order Comment: Yuniori men Type: BLOOD SPECIMEN Ordering Facility: [facility] Address: [address] [place] [address] Result Comment: The [place] Diabetes Association (ADA) provides guidance for cutoff values for fasting glucose and random glucose. The ADA defines fasting as no caloric intake for at least 8 hours. Fasting plasma glucose results between 100 to 125 mg/dL indicate increased risk for diabetes (prediabetes). Fasting plasma glucose results greater than or equal to 126 mg/dL meet the criteria for diagnosis of diabetes. In the absence of unequivocal hyperglycemia, results should be confirmed by repeat testing. In a patient with classic symptoms of hyperglycemia or hyperglycemic crisis, random plasma glucose results greater than or equal to 200 mg/dL meet the criteria for diagnosis of diabetes. Reference: Standards of Medical Care in Diabetes 2016, [place] Diabetes Association. Diabetes Care. 2016.39(Suppl 1). Performed By: #### 4 5066-8 #### [facility] CLIA [id number] [address] [place] [address] [place] Potassium [Moles/Vol] 4.0 mmol/L Normal 3.7-5.1 [facility] Comment on above: Order Comment: Gavino patel Type: BLOOD SPECIMEN Ordering Facility: [facility] Address: [address] [place] [address] Performed By: #### 4 5066-8 #### [facility] [id number] [address] [place] [address] [place] Sodium [Moles/Vol] 133 mmol/L Low 136-144 [facility] Comment on above: Order Comment: Gavino patel Type: BLOOD SPECIMEN Ordering Facility: [facility] Address: [address] [place] [address] Performed By: #### 4 5066-8 #### [facility] CLIA [id number] [address] [place] [address] [place] Urea nitrogen [Mass/Vol] 6 mg/dL Low 7-21 [facility] Comment on above: Order Comment: Gavino patel Type: BLOOD SPECIMEN Ordering Facility: [facility] Address: [address] [place] [address] Performed By: #### 4 5066-8 #### [facility] CLIA [id number] [address] [place] [address] [place] CNDSon 06-30-2025 [facility] HNO ID: [id number] Author: NAZ PEÑA APRN.SERVICE ORDER DISPATCHER CHIEF Service: General Surgery Author Type: Nurse Practitioner Type: Discharge Summary Filed: 06/30/2025 09:10 Note Text: -------- Attestation signed by Preet Godinez MD at 06/30/2025 10:36 AM Attending Note I evaluated the patient and personally participated in the orellana components. I agree with the resident's findings and plan as documented and have discussed the case and management of the patient's care with the resident. Signature: Preet Godinez MD Date: 06/30/2025 Time: 10:36 AM -------- GENERAL SURGERY DISCHARGE SUMMARY PATIENT NAME: Kathryn Whiting ADMISSION DATE: 06/28/2025 DISCHARGE DATE: 06/30/2025 ATTENDING PHYSICIAN: Preet Godinez* Code Status: Not on file Highest Readmission Risk Score: 11 The 30 day readmissions risk score is derived from an internally validated risk model which evaluates patient level characteristics, utilization history, medication orders and lab results up until the day of discharge. Patients with a score of 39 or above are considered highest risk for readmission. Specific patient level drivers will be listed at the bottom of the summary. REASON FOR HOSPITALIZATION: Surgery and recovery OPERATIONS DURING HOSPITALIZATION: Paraesophageal hernia Repair Gastropexy PROCEDURES DURING HOSPITALIZATION: IV access Intubation for surgery Anesthesia administration UGI HOSPITAL COURSE: Kathryn Whiting is a 70-year-old female with a PMHx of HLD, GERD, hypothyroidism, anxiety/depression, migraines, breast cancer s/p lumpectomy, and chronic neck pain who presented on 06/28/2025 for a paraesophageal hernia repair with Dr. Godinez. See operative report for details. She recovered in the PACU and transferred to the [facility] for the remainder of her postoperative care. She was started on a multimodal pain regimen and a CLD. On POD 1 she underwent an UGI study which showed no leak or obstruction. Her diet was advanced to full liquids as tolerated. Once she was tolerating a diet, her pain was controlled and she was voiding freely, she was safe for discharge. She will continue a FLD for 2 weeks until her follow up appointment. PHYSICAL EXAM: BP 107/65 Pulse 101 Temp 36.3 ?C (97.3 ?F) (Oral) Resp 16 Ht 160 cm (5' 3) Wt 66.7 kg (147 lb 0.8 oz) LMP 03/10/2006 SpO2 92% BMI 26.05 kg/m? Gen: Alert, awake, oriented. NAD. Resp: Chest rise symmetrical. Breathing non labored. Card: Well perfused, no edema Abd: Soft, appropriately tender. Non-distended. Incision sites well approximated with skin glue in place. Active Hospital Problems Diagnosis POA Paraesophageal hernia Yes Hypophosphataemia No S/P repair of paraesophageal hernia No Acute postoperative pain No History of breast cancer Yes Gastroesophageal reflux disease without esophagitis Yes Chronic neck pain Yes Mixed hyperlipidemia Yes Hypothyroidism Yes Anxiety and depression Yes Resolved Hospital Problems No resolved problems to display. Transitions of Care Critical Issues: FLD x 2 weeks and F/u in 2 weeks LABS AND PROCEDURES PENDING AT DISCHARGE: No pending results. CONSULTING TEAMS DURING HOSPITALIZATION: None Treatment Team: Attending Provider: Preet Godinez MD Primary Service: JAEL SEGAL Consulting: JAEL SEGAL PATIENT CONDITION AT DISCHARGE: Stable DISCHARGE DISPOSITION: Home with Self Care INFORMATION PROVIDED TO PATIENT: DCI DIET: Full liquids ACTIVITY: Lifting is restricted to: less than 10 lbs for 4-6 weeks May bathe and shower No walking restrictions No driving while on narcotics May use stairs WOUND/SURGICAL SITE CARE: Leave open to air ALLERGIES No Known Allergies DISCHARGE MEDICATION: Medication List START taking these medications ondansetron 4 mg tablet Commonly known as: ZOFRAN Take 1 tablet by mouth every 8 hours as needed for nausea/vomiting for up to 7 days. oxyCODONE 5 mg/5 mL oral solution Commonly known as: ROXICODONE Take 5 mL by mouth every 6 hours as needed for pain for up to 3 days. phosphorus 250 mg tablet Commonly known as: K PHOS NEUTRAL Take 1 tablet by mouth two times a day for 1 day. CONTINUE taking these medications acetaminophen 325 mg-caffeine 40 mg-butalbital 50 mg per capsule Commonly known as: FIORICET Take 1 capsule by mouth every 4 hours as needed for headache. atorvastatin 10 mg tablet Commonly known as: LIPITOR TAKE 1 TABLET DAILY AT BEDTIME FOR CHOLESTEROL CALCIUM 500 PO FLUoxetine 40 mg capsule Commonly known as: PROzac Take 1 capsule by mouth once daily. levothyroxine 112 mcg tablet Commonly known as: SYNTHROID Take 1 tablet by mouth once daily. meclizine 25 mg Tab Commonly known as: ANTIVERT TAKE 1 TABLET BY (more content not included)... Normal [facility] Creatinine Unsp time (U) [Ma ss/Vol]on 06-30-2025 Creatinine (U) [Mass/Vol] 29.6 mg/dL Normal 20.0-300.0 [facility] Comment on above: Order Comment: Speci men Type: URINE SPECIMENOrdering Facility: [facility] Address: [address] [place] [address] Performed By: #### 3 5674-1, 82035-1 ####[facility] [id number] [place] [address] [place] PT EDon 06-30-2025 PT ED HNO ID: [id number] Author: AMARILIS ROSALES DTR Service: Nutrition Therapy Author Type: Cold Roll Inspector Type: Patient Education Filed: 06/30/2025 10:16 Note Text: NUTRITION THERAPY PATIENT EDUCATION SERVICE DATE: 06/30/2025 SERVICE TIME: 949 TOPIC: Diet: Low Acid and Easy to Swallow LEARNING ASSESSMENT Individuals Assessed: Patient Preferred Learning Method: No Preference Barriers to Learning: None Evident LEARNING RESPONSE Instruction Provided to: Patient Patient / Family Response: Verbalizes Understanding Method of Instruction: Written instruction/Handouts Verbal instruction Material(s) Provided to Patient: Education Materials Provided Nutrition Education CCHS: Low Acid and Easy to Swallow Diet MNT Billing: $ Routine Care : 2 units SIGNATURE: Amarilis Rosales DTR PATIENT NAME: Kathryn Whiting DATE: June 30, 2025 TIME: 10:15 AM PAGER: Normal [facility] Sodium ?Tm Ur-sCncon 025 Sodium Unsp time (U) [Moles/Vol] 68 mmol/L Normal 14-216 [facility] Comment on above: Order Comment: Speci men Type: URINE SPECIMENOrdering Facility: [facility] Address: [address] [place] [address] Performed By: #### 3 5674-1, 73970-4 ####[facility] [id number] [place] [address] [place] URINALYSIS, REFLEX MICROSCOP ICon 06-30-2025 Bilirubin Ql (U) Negative Normal [facility] Comment on above: Order Comment: Speci men Type: URINE SPECIMEN Ordering Facility: [facility] Address: [address] [place] [address] Performed By: #### L [id number] #### [facility] CLIA [id number] [address] [place] [address] [place] Clarity (Unsp spec) Clear Normal Clear [facility] Comment on above: Order Comment: Speci men Type: URINE SPECIMEN Ordering Facility: [facility] Address: [address] [place] [address] Performed By: #### L [id number] #### [facility] CLIA [id number] [address] [place] [address] [place] Color (U) Yellow Normal Yellow [facility] Comment on above: Order Comment: Speci men Type: URINE SPECIMEN Ordering Facility: [facility] Address: [address] [place] [address] Performed By: #### L [id number] #### [facility] CLIA [id number] [address] [place] [address] [place] Glucose Test strip (U) [Mass/Vol] Negative Normal Negative [facility] Comment on above: Order Comment: Speci men Type: URINE SPECIMEN Ordering Facility: [facility] Address: [address] [place], [place] [address] Performed By: #### L [id number] #### [facility] CLIA [id number] [address] [place] [address] [place] Hemoglobin Ql (U) Negative Normal Negative [facility] Comment on above: Order Comment: Speci men Type: URINE SPECIMEN Ordering Facility: [facility] Address: [address] [place] [address] Performed By: #### L [id number] #### [facility] CLIA [id number] [address] [place] [address] [place] Ketones Ql (U) Trace Abnormal Negative [facility] Comment on above: Order Comment: Speci men Type: URINE SPECIMEN Ordering Facility: [facility] Address: [address] [place], [place] [address] Performed By: #### L [id number] #### [facility] CLIA [id number] [address] [place] [address] [place] Leukocyte esterase Test strip Ql (U) Negative Normal Negative [facility] Comment on above: Order Comment: Speci men Type: URINE SPECIMEN Ordering Facility: [facility] Address: [address] [place] [address] Performed By: #### L [id number] #### [facility] CLIA [id number] [address] [place], [place] [address] [place] Nitrite Ql (U) Negative Normal Negative [facility] Comment on above: Order Comment: Speci men Type: URINE SPECIMEN Ordering Facility: [facility] Address: [address] [place], [place] [address] Performed By: #### L [id number] #### [facility] CLIA [id number] [address] [place] [address] [place] pH (U) 7.0 [pH] Normal 5.0-8.0 [facility] Comment on above: Order Comment: Speci men Type: URINE SPECIMEN Ordering Facility: [facility] Address: [address] [place] [address] Performed By: #### L [id number] #### [facility] CLIA [id number] [address] [place] [address] [place] Protein (U) [Mass/Vol] Negative Normal Negative [facility] Comment on above: Order Comment: Speci men Type: URINE SPECIMEN Ordering Facility: [facility] Address: [address] [place] [address] Performed By: #### L [id number] #### [facility] CLIA [id number] [address] [place] [address] [place] Specific gravity (U) [Rel density] 1.010 Normal 1.005-1.030 [facility] Comment on above: Order Comment: Speci men Type: URINE SPECIMEN Ordering Facility: [facility] Address: [address] [place] [address] Performed By: #### L [id number] #### [facility] CLIA [id number] [address] [place] [address] [place] Urobilinogen Ql (U) 1.0 EU/dL Normal 0.2-1.0 EU/dL [facility] Comment on above: Order Comment: Speci men Type: URINE SPECIMEN Ordering Facility: [facility] Address: [address] [place] [address] Performed By: #### L [id number] #### [facility] CLIA [id number] [address] [place] [address] [place] Basic metabolic 2000 panelon 06-29-2025 Anion gap [Moles/Vol] 12 mmol/L Normal 8-15 [facility] Comment on above: Order Comment: Speci men Type: URINE SPECIMEN Ordering Facility: [facility] Address: [address] [place], [place] [address] Performed By: #### L [id number] #### [facility] CLIA [id number] [address] [place] [address] [place] Calcium [Mass/Vol] 8.3 mg/dL Low 8.5-10.2 [facility] Comment on above: Order Comment: Speci men Type: URINE SPECIMEN Ordering Facility: [facility] Address: [address] [place] [address] Performed By: #### L [id number] #### [facility] CLIA [id number] [address] [place] [address] [place] Chloride [Moles/Vol] 93 mmol/L Low 98-107 [facility] Comment on above: Order Comment: Speci men Type: URINE SPECIMEN Ordering Facility: [facility] Address: [address] [place] [address] Performed By: #### L [id number] #### [facility] CLIA [id number] [address] [place] [address] [place] CO2 [Moles/Vol] 19 mmol/L Low 22-30 [facility] Comment on above: Order Comment: Speci men Type: URINE SPECIMEN Ordering Facility: [facility] Address: [address] [place] [address] Performed By: #### L [id number] #### [facility] CLIA [id number] [address] [place], [place] [address] [place] Creatinine [Mass/Vol] 0.54 mg/dL Low 0.58-0.96 [facility] Comment on above: Order Comment: Speci men Type: URINE SPECIMEN Ordering Facility: [facility] Address: [address] [place], [place] [address] Performed By: #### L [id number] #### [facility] CLIA [id number] [address] [place], [place] [address] [place] eGFRcr SerPlBld CKD-EPI 2020 98 mL/min/1.73m??? Normal >=60 [facility] Comment on above: Order Comment: Gavino patel Type: URINE SPECIMEN Ordering Facility: [facility] Address: [address] [place] [address] Result Comment: Saskia mated Glomerular Filtration Rate (eGFR) is calculated using the 2020 CKD-EPI creatinine equation. This equation utilizes serum creatinine, sex, and age as parameters. The creatinine assay has traceable calibration to isotope dilution-mass spectrometry. Refer to KDIGO guidelines for clinical interpretation. In patients with unstable renal function, e.g. those with acute kidney injury, the eGFR may not accurately reflect actual GFR. Performed By: #### L [id number] #### [facility] CLIA [id number] [address] [place] [address] [place] Glucose [Mass/Vol] 117 mg/dL High 74-99 [facility] Comment on above: Order Comment: Gavino patel Type: URINE SPECIMEN Ordering Facility: [facility] Address: [address] [place] [address] Result Comment: The [place] Diabetes Association (ADA) provides guidance for cutoff values for fasting glucose and random glucose. The ADA defines fasting as no caloric intake for at least 8 hours. Fasting plasma glucose results between 100 to 125 mg/dL indicate increased risk for diabetes (prediabetes). Fasting plasma glucose results greater than or equal to 126 mg/dL meet the criteria for diagnosis of diabetes. In the absence of unequivocal hyperglycemia, results should be confirmed by repeat testing. In a patient with classic symptoms of hyperglycemia or hyperglycemic crisis, random plasma glucose results greater than or equal to 200 mg/dL meet the criteria for diagnosis of diabetes. Reference: Standards of Medical Care in Diabetes 2016, [place] Diabetes Association. Diabetes Care. 2016.39(Suppl 1). Performed By: #### L [id number] #### [facility] CLIA [id number] [address] [place] [address] [place] Potassium [Moles/Vol] 4.2 mmol/L Normal 3.7-5.1 [facility] Comment on above: Order Comment: Speci men Type: URINE SPECIMEN Ordering Facility: [facility] Address: [address] [place] [address] Performed By: #### L [id number] #### [facility] CLIA [id number] [address] [place] [address] [place] Sodium [Moles/Vol] 124 mmol/L Low 136-144 [facility] Comment on above: Order Comment: Speci men Type: URINE SPECIMEN Ordering Facility: [facility] Address: [address] [place] [address] Performed By: #### L [id number] #### [facility] CLIA [id number] [address] [place] [address] [place] Urea nitrogen [Mass/Vol] 7 mg/dL Normal 7-21 [facility] Comment on above: Order Comment: Speci men Type: URINE SPECIMEN Ordering Facility: [facility] Address: [address] [place] [address] Performed By: #### L [id number] #### [facility] CLIA [id number] [address] [place] [address] [place] CASE MGT INIT ASSESon 2024 CASE MGT INIT ASSES HNO ID: [id number] Author: DOT BENZ RN Service: Care Management Author Type: Registered Nurse Type: Care Mgt Initial Assessment Filed: 06/29/2025 14:51 Note Text: CARE MANAGEMENT: ASSESSMENT AND DISCHARGE PLAN SERVICE DATE: June 29, 2025 SERVICE TIME: 2:48 PM PCP: Pablo Bates DO Primary Contact: Extended Emergency Contact Information Primary Emergency Contact: Roque Whiting Mobile Relation: Spouse Secondary Emergency Contact: [place] Relation: Mother Admission Status: Inpatient Insurance Provider: MEDICARE A AND B Discharge Planning requested by: Per Department Practice Potential Transition Plans No Services Indicated Advance Directives Current Advance Directive: None Fitness Coach Attempted to Assist with AD Completion: Yes Action: Patient Unwilling, Education Provided Current Living Arrangements and Support Lives with: Spouse/significant other Type of Residence: Private Residence (House) Does the patient have to climb stairs at home?: Yes, stairs outside the home, stairs within the home Support: Spouse/significant other, Family members How do you manage to accomplish the following: Independent: Transportation to appointments/community, Medication Management, Going to the bathroom, Meals/Meal Prep, Dress, Bathe/Shower, Ambulation Current Services/Equipment Current Post-Acute Service(s): None Discharge Planning Patient Goal(s): General wellness, Be able to go home, Independent living, Go shopping with little to no assistance, Less pain Kaycee of Choice Explained: Kaycee of Choice Given: No Reason Not Given: No placements necessary Are you interested in bedside delivery of your medications? No Discharge Planning Participant(s): Spouse/significant other, Patient Patient/Family Comments: Caregiver Assessment: Caregiver is ready, willing and able to meet the patient's needs as recommended by the inter-professional team: No Caregiver needed Transport at Discharge: Transportation Arrangements: Car Date of Trip: (pending hospital course) Time of Trip: (TBD) Destination: Home Needs Prior to Discharge: Needs Prior to Discharge: None, Other: See Comment (Medical Clearance) Post-Acute Discharge Plan: Home self care Post-Acute Discharge Plan: Likely return home to prior level of function CM to bedside to introduce self, CM role and to discuss discharge planning and home care needs. Patient alert and oriented and engaged with questioning. Plan to discharge once medically stable, ANTICIPATE NO SKILLED NEEDS. Spouse at bedside and supportive. Questions and concerns addressed. Pt denies any new questions or concerns at this time. Pt reports being independent at home, and denies the need for assistance. Pt declines the use of assistive equipment. CM met with patient at bedside and discussed discharge planning needs. At patient's request: Patient is not medically ready for hospital discharge at this time. Case Management will continue to follow and update with DC plans and needs. Family will provide transportation home. SIGNATURE: Dot Nance RN PATIENT NAME: Kathryn Whiting DATE: June 29, 2025 TIME: 2:48 PM Normal [facility] CBC W Auto Differential pane l (d)on 06-29-2025 Basophils (Bld) [#/Vol] 0.04 10*3/uL Normal <0.11 [facility] Comment on above: Order Comment: Speci men Type: BLOOD SPECIMENOrdering Facility: [facility] Address: [address] [place] [address] Performed By: #### 5 7021-8 ####[facility] [id number] [facility] [place] [address] [place] Basophils/100 WBC (Bld) 0.3 % Normal [facility] Comment on above: Order Comment: Speci men Type: BLOOD SPECIMENOrdering Facility: [facility] Address: [address] [place] [address] Performed By: #### 5 7021-8 ####[facility] [id number] [place] [address] [place] Differential cell count method Nom (Bld) Auto Normal [facility] Comment on above: Order Comment: Speci men Type: BLOOD SPECIMENOrdering Facility: [facility] Address: [address] [place] [address] Performed By: #### 5 7021-8 ####[facility] [id number] [place] [address] [place] Eosinophils (Bld) [#/Vol] 10*3/uL Normal <0.46 [facility] Comment on above: Order Comment: Speci men Type: BLOOD SPECIMENOrdering Facility: [facility] Address: [address] [place] [address] Performed By: #### 5 7021-8 ####[facility] [id number] [place] [address] [place] Eosinophils/100 WBC (Bld) 0.1 % Normal [facility] Comment on above: Order Comment: Speci men Type: BLOOD SPECIMENOrdering Facility: [facility] Address: [address] [place] [address] Performed By: #### 5 7021-8 ####[facility] [id number] [place] [address] [place] Erythrocyte distribution width (RBC) [Ratio] 12.7 % Normal 11.5-15.0 [facility] Comment on above: Order Comment: Speci men Type: BLOOD SPECIMENOrdering Facility: [facility] Address: [address] [place] [address] Performed By: #### 5 7021-8 ####[facility] [id number] [place] [address] [place] Hematocrit (Bld) [Volume fraction] 38.3 % Normal 36.0-46.0 [facility] Comment on above: Order Comment: Speci men Type: BLOOD SPECIMENOrdering Facility: [facility] Address: [address] [place] [address] Performed By: #### 5 7021-8 ####[facility] [id number] [place] [address] [place] Hemoglobin (Bld) [Mass/Vol] 13.0 g/dL Normal 11.5-15.5 [facility] Comment on above: Order Comment: Speci men Type: BLOOD SPECIMENOrdering Facility: [facility] Address: [address] [place] [address] Performed By: #### 5 7021-8 ####[facility] [id number] [place] [address] [place] Immature granulocytes (Bld) [#/Vol] 0.07 10*3/uL Normal <0.10 [facility] Comment on above: Order Comment: Speci men Type: BLOOD SPECIMENOrdering Facility: [facility] Address: [address] [place] [address] Performed By: #### 5 7021-8 ####[facility] [id number] [place] [address] [place] Immature granulocytes/100 WBC (Bld) 0.5 % Normal [facility] Comment on above: Order Comment: Speci men Type: BLOOD SPECIMENOrdering Facility: [facility] Address: [address] [place] [address] Performed By: #### 5 7021-8 ####[facility] [id number] [place] [address] [place] Lymphocytes (Bld) [#/Vol] 0.99 10*3/uL Low 1.00-4.00 [facility] Comment on above: Order Comment: Speci men Type: BLOOD SPECIMENOrdering Facility: [facility] Address: [address] [place] [address] Performed By: #### 5 7021-8 ####[facility] [id number] [place] [address] [place] Lymphocytes/100 WBC (Bld) 6.9 % Normal [facility] Comment on above: Order Comment: Speci men Type: BLOOD SPECIMENOrdering Facility: [facility] Address: [address] [place] [address] Performed By: #### 5 7021-8 ####[facility] [id number] [place] [address] [place] MCH (RBC) [Entitic mass] 29.1 pg Normal 26.0-34.0 [facility] Comment on above: Order Comment: Speci men Type: BLOOD SPECIMENOrdering Facility: [facility] Address: [address] [place] [address] Performed By: #### 5 7021-8 ####[facility] [id number] [place] [address] [place] MCHC (RBC) [Mass/Vol] 33.9 g/dL Normal 30.5-36.0 [facility] Comment on above: Order Comment: Speci men Type: BLOOD SPECIMENOrdering Facility: [facility] Address: [address] [place] [address] Performed By: #### 5 7021-8 ####[facility] [id number] [address] [place] [address] [place] MCV (RBC) [Entitic vol] 85.7 fL Normal 80.0-100.0 [facility] Comment on above: Order Comment: Speci men Type: BLOOD SPECIMENOrdering Facility: [facility] Address: [address] [place] [address] Performed By: #### 5 7021-8 ####[facility] [id number] [address] [place] [address] [place] Monocytes (Bld) [#/Vol] 1.50 10*3/uL High <0.87 [facility] Comment on above: Order Comment: Speci men Type: BLOOD SPECIMENOrdering Facility: [facility] Address: [address] [place] [address] Performed By: #### 5 7021-8 ####[facility] [id number] [address], [facility] [place] Monocytes/100 WBC (Bld) 10.4 % Normal [facility] Comment on above: Order Comment: Speci men Type: BLOOD SPECIMENOrdering Facility: [facility] Address: [address] [place] [address] Performed By: #### 5 7021-8 ####[facility] [id number] [address] [place] [address] [place] Neutrophils (Bld) [#/Vol] 11.78 10*3/uL High 1.45-7.50 [facility] Comment on above: Order Comment: Speci men Type: BLOOD SPECIMENOrdering Facility: [facility] Address: [address] [place] [address] Performed By: #### 5 7021-8 ####[facility] [id number] [address] [place] [address] [place] Neutrophils/100 WBC (Bld) 81.8 % Normal [facility] Comment on above: Order Comment: Speci men Type: BLOOD SPECIMENOrdering Facility: [facility] Address: [address] [place] [address] Performed By: #### 5 7021-8 ####[facility] [id number] [place] [address] [place] Nucleated RBC (Bld) [#/Vol] 10*3/uL Normal <0.01 [facility] Comment on above: Order Comment: Speci men Type: BLOOD SPECIMENOrdering Facility: [facility] Address: [address] [place] [address] Performed By: #### 5 7021-8 ####[facility] [id number] [place] [address] [place] Nucleated RBC/100 WBC (Bld) [Ratio] 0.0 /100 WBC Normal [facility] Comment on above: Order Comment: Speci men Type: BLOOD SPECIMENOrdering Facility: [facility] Address: [address] [place] [address] Performed By: #### 5 7021-8 ####[facility] [id number] [place] [address] [place] Platelet mean volume (Bld) [Entitic vol] 10.1 fL Normal 9.0-12.7 [facility] Comment on above: Order Comment: Speci men Type: BLOOD SPECIMENOrdering Facility: [facility] Address: [address] [place] [address] Performed By: #### 5 7021-8 ####[facility] [id number] [place] [address] [place] Platelets (Bld) [#/Vol] 227 10*3/uL Normal 150-400 [facility] Comment on above: Order Comment: Speci men Type: BLOOD SPECIMENOrdering Facility: [facility] Address: [address] [place] [address] Performed By: #### 5 7021-8 ####[facility] [id number] [place] [id number] [place] RBC (Bld) [#/Vol] 4.47 10*6/uL Normal 3.90-5.20 [facility] Comment on above: Order Comment: Speci men Type: BLOOD SPECIMENOrdering Facility: [facility] Address: [address] [place] [address] Performed By: #### 5 7021-8 ####[facility] [id number] [place] [address] [place] WBC (Bld) [#/Vol] 14.40 10*3/uL High 3.70-11.00 [facility] Comment on above: Order Comment: Speci men Type: BLOOD SPECIMENOrdering Facility: [facility] Address: [address] [place] [address] Performed By: #### 5 7021-8 ####[facility] [id number] [place] [address] [place] Magnesium SerPl-mCncon 06-29 Magnesium [Mass/Vol] 2.2 mg/dL Normal 1.7-2.3 [facility] Comment on above: Order Comment: Speci men Type: URINE SPECIMEN Ordering Facility: [facility] Address: [address] [place] [address] Performed By: #### L [id number] #### [facility] CLIA [id number] [address] [place] [address] [place] Phosphate SerPl-mCncon 06-29 Phosphate [Mass/Vol] 1.8 mg/dL Low 2.7-4.8 [facility] Comment on above: Order Comment: Speci men Type: URINE SPECIMEN Ordering Facility: [facility] Address: [address] [place] [address] Performed By: #### L [id number] #### [facility] CLIA [id number] [address] [place], [place] [address] [place] XR UPPER GI SINGLE CONTRASTo n 06-29-2025 XR UPPER GI SINGLE CONTRAST * * *Final Report* * * DATE OF EXAM: Jun 29 2025 10:30AM HGX [id number] - XR UPPER GI SINGLE CONTRAST / PROCEDURE REASON: Assess for postoperative complication or leak * * * * Physician Interpretation * * * * UPPER GI HISTORY: Status post paraesophageal repair with mesh. COMPARISON: CT abdomen and pelvis 04/14/2025 TECHNIQUE: The patient ingested water-soluble contrast followed by low density barium under intermittent fluoroscopic monitoring. Contrast: ORAL: 25 ml of OMNIPAQUE 350 ORAL: 25 ml of EZPAQUE Fluoroscopy radiation summary: Fluoroscopy time: 2:36 (min:sec). Air kerma: 33.4 mGy. RESULT: Accounts Receivable Clerk: Moderate gaseous distention of the stomach. No gas-filled, dilated loops of bowel. Right upper quadrant surgical clips. Mildly delayed esophageal emptying likely related to postoperative edema. Luminal contrast transits to the stomach without leak or obstruction. The study was performed by PAWAN Cardoso, under the supervision of Dr. Penny, who was present for the critical portion of the exam. Images associated with this study were submitted for interpretation and reviewed by Dr. Penny. IMPRESSION: MODERATE GASEOUS DISTENTION OF THE STOMACH. NO LEAK OR OBSTRUCTION. DELAYED ESOPHAGEAL EMPTYING, LIKELY RELATED TO POSTOPERATIVE EDEMA. 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: GAMA Transcribe Date/Time: Jun 29 2025 10:34A Dictated by : PAWAN CARDOSO This examination was interpreted and the report reviewed and electronically signed by: SELINA PENNY MD on Jun 29 2025 11:11AM EST [id number] Normal [facility] ANES POSTPROC EVALon 025 ANES POSTPROC EVAL HNO ID: [id number] Author: LULI CABALLERO MD Service: ? Author Type: Anesthesiologist Type: Anesthesia Postprocedure Evaluation Filed: 06/28/2025 12:39 Note Text: POST ANESTHESIA EVALUATION NOTE : 1955 Procedure Summary Date: 06/28/25 Room / Location: MAIN OR40 / [facility] Anesthesia Start: 824 Anesthesia Stop: 1132 Procedure: LAPAROSCOPIC RPR PARAESOPHAGEAL HERNIA W/O FUNDOPLASTY W/ MESH (Abdomen) Diagnosis: Preoperative examination Hiatal hernia (Preoperative examination [Z01.818]) (Hiatal hernia [K44.9]) Surgeons: Preet Godinez MD Responsible Provider: Luli Caballero MD Anesthesia Type: general ASA Status: 3 Anesthesia Type: general Airway Type: ETT Last Vitals Vitals Value Taken Time BP 137/63 06/28/25 12:30 Temp 36 06/28/25 12:39 Pulse 95 06/28/25 12:37 Resp 18 06/28/25 12:37 SpO2 98 % 06/28/25 12:37 Vitals shown include unfiled device data. Post Anesthesia Patient Status Patient Evaluation: PACU. PACU/ICU Patient Condition: stable. Anticipated Disposition: phase 2 then home. Neurological Status: aware and responsive. Pulmonary Status: breathing comfortably on supplemental oxygen Airway Control: returned to baseline unsupported. Cardiovascular Status: stable. Pain Management: clinically adequate Postoperative Hydration: acceptable. Intraoperative Events: no significant anesthesia events Post Operative Nausea/Vomiting Status: no significant post operative nausea or vomiting Recommendation: continue current plan of care. Anesthesia Observations No Documentation SIGNATURE: Luli Caballero MD PATIENT NAME: Kathryn Whiting DATE: June 28, 2025 TIME: 12:39 PM CSN: [id number] Normal [facility] ANES PRE-OPon 06-28-2025 ANES PRE-OP HNO ID: [id number] Author: LULI CABALLERO MD Service: ? Author Type: Anesthesiologist Type: Anesthesia Preprocedure Evaluation Filed: 06/28/2025 08:24 Note Text: ANESTHESIOLOGY DAY OF SURGERY NOTE : 1955 Procedure Information Date/Time: 06/28/25829 Procedure: LAPAROSCOPIC RPR PARAESOPHAGEAL HERNIA W/O FUNDOPLASTY W/ MESH (Abdomen) Location: [facility] OR[facility] / [facility] Surgeons: Preet Godinez MD Estimated body mass index is 26.04 kg/m? as calculated from the following: Height as of this encounter: 160 cm (5' 3). Weight as of this encounter: 66.7 kg (147 lb). Most recent hematocrit and potassium results: Hematocrit 41.9 06/19/2025 Potassium 5.2 06/19/2025 Relevant Problems CARDIO (+) Mild mitral regurgitation ENDO (+) Hypothyroidism GI (+) Gastroesophageal reflux disease without esophagitis (+) Paraesophageal hernia I - PHYSICAL EVALUATION AIRWAY Patient intubated: No. Tracheostomy tube not present Mallampati: I. TM distance: >3 FB. Neck ROM: full ROM without neurological symptoms. Mouth opening: adequate. Short neck: no. Thick neck: no DENTAL Dental findings: teeth intact. II - ANESTHESIA PLAN ASA Score: 3 Anesthetic Plan: general Airway type: ETT NPO Status: adequate Beta Chan Monitoring Plan Monitoring plan: standard ASA. Post Procedure Analgesic Plan Postoperative analgesic plan: per surgical service, parenteral or oral opioids and multimodal analgesia. Informed Consent Anesthetic risks, benefits, alternatives, personnel and consent discussed: yes. Patient / Responsible Constitution Party agrees to proceed: yes Patient / Surrogate agrees to blood products: Yes Potential Anesthesia issues that may suggest increased risk of complications or contraindication to planned procedure: none. Vitals Value Taken Time BP 122/57 06/28/25 06:48 Pulse 83 06/28/25 06:48 Resp 18 06/28/25 06:48 Temp 36.4 ?C (97.5 ?F) 06/28/25 06:48 SpO2 97 % 06/28/25 06:48 Facility-Administered Medications as of 06/28/2025 Medication Dose Route Frequency - [COMPLETED] heparin 5,000 Units injection 5,000 Units SUBCUTANEOUS ONCE - lidocaine (PF) 10 mg/mL (1 %) 1-2 mg injection (XYLOCAINE) 0.1-0.2 mL INTRADERMAL PRN Or - lidocaine 1% 0.25 mL subcutaneous j-tip syringe (XYLOCAINE) 0.25 mL SUBCUTANEOUS PRN - lactated ringers iv infusion 5-30 mL/hr INTRAVENOUS CONTINUOUS - NaCl 0.9% iv flush bag 20 mL INTRAVENOUS PRN - ceFAZolin 2 g in dextrose (iso-osmotic) 50 mL (ANCEF,KEFZOL) 2 g INTRAVENOUS Pre-Op Once Outpatient Medications as of 06/28/2025 Medication Sig - atorvastatin (LIPITOR) 10 mg tablet TAKE 1 TABLET DAILY AT BEDTIME FOR CHOLESTEROL - acetaminophen 325 mg-caffeine 40 mg-butalbital 50 mg (FIORICET) per capsule Take 1 capsule by mouth every 4 hours as needed for headache. - levothyroxine (SYNTHROID) 112 mcg tablet Take 1 tablet by mouth once daily. - FLUoxetine (PROZAC) 40 mg capsule Take 1 capsule by mouth once daily. - meclizine (ANTIVERT) 25 mg tab TAKE 1 TABLET BY MOUTH THREE TIMES A DAY NEEDED FOR DIZZINESS I have interviewed and examined the patient. I have reviewed the medical record and/or the pre-anesthesia evaluation, pertinent labs, and test results. This contains updated information obtained within 48 hours of Surgery/Procedure. SIGNATURE: Luli Caballero MD PATIENT NAME: Kathryn Whiting DATE: June 28, 2025 TIME: 8:23 AM CSN: [id number] Normal [facility] BRIEF OP NOTon 06-28-2025 BRIEF OP NOT HNO ID: [id number] Author: BETAA SHAIKH MD Service: General Surgery Author Type: Fellow Type: Brief Op Note Filed: 06/28/2025 11:23 Note Text: BRIEF OPERATIVE / PROCEDURE NOTE LOG ID: [id number] SURGERY/PROCEDURE DATE: 06/28/2025 INCISION/PROCEDURE START TIME: 9:04 AM INCISION CLOSE/PROCEDURE END TIME: 11:13 AM SURGEON(S)/PROCEDURALIST (S) AND AUTOMOTIVE POWER ELECTRONICS ENGINEER(S): Surgeons and Role: * Preet Godinez MD - Primary * Beata Shaikh MD - Fellow No Additional Staff SURGERY/PROCEDURE(S): Paraesophageal hernia Repair Gastropexy ANESTHESIA: General FINDINGS: 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 ESTIMATED BLOOD LOSS: 10 mls SPECIMENS: None COMPLICATIONS: None CLOSURE TECHNIQUE: Primary PRE-OP/PRE-PROCEDURE DIAGNOSIS: Paraesophageal hernia POST-OP/POST-PROCEDURE DIAGNOSIS: Same as Preop Patient was accompanied to the next level of care by a licensed practitioner from the surgical team pending completion of this brief op note (or operative note) SIGNATURE: Beata Shaikh MD PATIENT NAME: Kathryn Whiting DATE: June 28, 2025 TIME: 11:22 AM [facility] Basic metabolic 2000 panelon 06-28-2025 Anion gap [Moles/Vol] 12 mmol/L Normal 8-15 [facility] Comment on above: Order Comment: Speci men Type: URINE SPECIMEN [facility]ing Facility: [facility] Address: [address] [place] [address] Performed By: #### L [id number] #### [facility] CLIA [id number] [address] [place] [address] [place] Calcium [Mass/Vol] 8.5 mg/dL Normal 8.5-10.2 [facility] Comment on above: Order Comment: Speci men Type: URINE SPECIMEN Ordering Facility: [facility] Address: [address] [place] [address] Performed By: #### L [id number] #### [facility] CLIA [id number] [address] [place] [address] [place] Chloride [Moles/Vol] 102 mmol/L Normal 98-107 [facility] Comment on above: Order Comment: Speci men Type: URINE SPECIMEN Ordering Facility: [facility] Address: [address] [place] [address] Performed By: #### L [id number] #### [facility] CLIA [id number] [address] [place] [address] [place] CO2 [Moles/Vol] 20 mmol/L Low 22-30 [facility] Comment on above: Order Comment: Speci men Type: URINE SPECIMEN Ordering Facility: [facility] Address: [address] [place], [place] [id number] Performed By: #### L [id number] #### [facility] CLIA [id number] [address] [place] [address] [place] Creatinine [Mass/Vol] 0.54 mg/dL Low 0.58-0.96 [facility] Comment on above: Order Comment: Speci men Type: URINE SPECIMEN Ordering Facility: [facility] Address: [address] [place] [address] Performed By: #### L [id number] #### [facility] CLIA [id number] [address] [place] [address] [place] eGFRcr SerPlBld CKD-EPI 2020 98 mL/min/1.73m??? Normal >=60 [facility] Comment on above: Order Comment: Gavino patel Type: URINE SPECIMEN Ordering Facility: [facility] Address: [address] [place] [address] Result Comment: Saskia mated Glomerular Filtration Rate (eGFR) is calculated using the 2020 CKD-EPI creatinine equation. This equation utilizes serum creatinine, sex, and age as parameters. The creatinine assay has traceable calibration to isotope dilution-mass spectrometry. Refer to KDIGO guidelines for clinical interpretation. In patients with unstable renal function, e.g. those with acute kidney injury, the eGFR may not accurately reflect actual GFR. Performed By: #### L [id number] #### [facility] CLIA [id number] [address] [place] [address] [place] Glucose [Mass/Vol] 149 mg/dL High 74-99 [facility] Comment on above: Order Comment: Gavino patel Type: URINE SPECIMEN Ordering Facility: [facility] Address: [address] [place] [address] Result Comment: The [place] Diabetes Association (ADA) provides guidance for cutoff values for fasting glucose and random glucose. The ADA defines fasting as no caloric intake for at least 8 hours. Fasting plasma glucose results between 100 to 125 mg/dL indicate increased risk for diabetes (prediabetes). Fasting plasma glucose results greater than or equal to 126 mg/dL meet the criteria for diagnosis of diabetes. In the absence of unequivocal hyperglycemia, results should be confirmed by repeat testing. In a patient with classic symptoms of hyperglycemia or hyperglycemic crisis, random plasma glucose results greater than or equal to 200 mg/dL meet the criteria for diagnosis of diabetes. Reference: Standards of Medical Care in Diabetes 2016, [place] Diabetes Association. Diabetes Care. 2016.39(Suppl 1). Performed By: #### L [id number] #### [facility] CLIA [id number] [address] [place] [address] [place] Potassium [Moles/Vol] 4.5 mmol/L Normal 3.7-5.1 [facility] Comment on above: Order Comment: Speci men Type: URINE SPECIMEN Ordering Facility: [facility] Address: [address] [place] [address] Performed By: #### L [id number] #### [facility] CLIA [id number] [address] [place] [address] [place] Sodium [Moles/Vol] 134 mmol/L Low 136-144 [facility] Comment on above: Order Comment: Speci men Type: URINE SPECIMEN Ordering Facility: [facility] Address: [address] [place] [address] Performed By: #### L [id number] #### [facility] CLIA [id number] [address] [place] [address] [place] Urea nitrogen [Mass/Vol] 12 mg/dL Normal 7-21 [facility] Comment on above: Order Comment: Speci men Type: URINE SPECIMEN Ordering Facility: [facility] Address: [address] [place] [address] Performed By: #### L [id number] #### [facility] CLIA [id number] [address] [place] [address] [place] CBC W Auto Differential pane l (Bld)on 06-28-2025 Basophils (Bld) [#/Vol] 0.03 10*3/uL Normal <0.11 [facility] Comment on above: Order Comment: Speci men Type: URINE SPECIMEN Ordering Facility: [facility] Address: [address] [place] [address] Performed By: #### L [id number] #### [facility] CLIA [id number] [address] [place] [address] [place] Basophils/100 WBC (Bld) 0.2 % Normal [facility] Comment on above: Order Comment: Speci men Type: URINE SPECIMEN Ordering Facility: [facility] Address: [address] [place] [address] Performed By: #### L [id number] #### [facility] CLIA [id number] [address] [place] [address] [place] Differential cell count method Nom (Bld) Auto Normal [facility] Comment on above: Order Comment: Speci men Type: URINE SPECIMEN Ordering Facility: [facility] Address: [address] [place] [address] Performed By: #### L [id number] #### [facility] CLIA [id number] [address] [place] [address] [place] Eosinophils (Bld) [#/Vol] 10*3/uL Normal <0.46 [facility] Comment on above: Order Comment: Speci men Type: URINE SPECIMEN Ordering Facility: [facility] Address: [address] [place] [address] Performed By: #### L [id number] #### [facility] CLIA [id number] [address] [place] [address] [place] Eosinophils/100 WBC (Bld) 0.0 % Normal [facility] Comment on above: Order Comment: Speci men Type: URINE SPECIMEN Ordering Facility: [facility] Address: [address] [place] [address] Performed By: #### L [id number] #### [facility] CLIA [id number] [address] [place] [address] [place] Erythrocyte distribution width (RBC) [Ratio] 13.0 % Normal 11.5-15.0 [facility] Comment on above: Order Comment: Speci men Type: URINE SPECIMEN Ordering Facility: [facility] Address: [address] [place] [address] Performed By: #### L [id number] #### [facility] CLIA [id number] [address] [place] [address] [place] Hematocrit (Bld) [Volume fraction] 37.5 % Normal 36.0-46.0 [facility] Comment on above: Order Comment: Speci men Type: URINE SPECIMEN Ordering Facility: [facility] Address: [address] [place] [address] Performed By: #### L [id number] #### [facility] CLIA [id number] [address] [place] [address] [place] Hemoglobin (Bld) [Mass/Vol] 12.6 g/dL Normal 11.5-15.5 [facility] Comment on above: Order Comment: Speci men Type: URINE SPECIMEN Ordering Facility: [facility] Address: [address] [place] [address] Performed By: #### L [id number] #### [facility] CLIA [id number] [address] [place] [address] [place] Immature granulocytes (Bld) [#/Vol] 0.06 10*3/uL Normal <0.10 [facility] Comment on above: Order Comment: Speci men Type: URINE SPECIMEN Ordering Facility: [facility] Address: [address] [place] [address] Performed By: #### L [id number] #### [facility] CLIA [id number] [address] [place] [address] [place] Immature granulocytes/100 WBC (Bld) 0.4 % Normal [facility] Comment on above: Order Comment: Speci men Type: URINE SPECIMEN Ordering Facility: [facility] Address: [address] [place] [address] Performed By: #### L [id number] #### [facility] CLIA [id number] [address] [place] [address] [place] Lymphocytes (Bld) [#/Vol] 0.55 10*3/uL Low 1.00-4.00 [facility] Comment on above: Order Comment: Speci men Type: URINE SPECIMEN Ordering Facility: [facility] Address: [address] [place] [address] Performed By: #### L [id number] #### [facility] CLIA [id number] [address] [place] [address] [place] Lymphocytes/100 WBC (Bld) 4.0 % Normal [facility] Comment on above: Order Comment: Speci men Type: URINE SPECIMEN Ordering Facility: [facility] Address: [address] [place] [address] Performed By: #### L [id number] #### [facility] CLIA [id number] [address] [place] [address] [place] MCH (RBC) [Entitic mass] 29.4 pg Normal 26.0-34.0 [facility] Comment on above: Order Comment: Speci men Type: URINE SPECIMEN Ordering Facility: [facility] Address: [address] [place] [address] Performed By: #### L [id number] #### [facility] CLIA [id number] [address] [place] [address] [place] MCHC (RBC) [Mass/Vol] 33.6 g/dL Normal 30.5-36.0 [facility] Comment on above: Order Comment: Speci men Type: URINE SPECIMEN Ordering Facility: [facility] Address: [address] [place] [address] Performed By: #### L [id number] #### [facility] CLIA [id number] [address] [place] [address] [place] MCV (RBC) [Entitic vol] 87.4 fL Normal 80.0-100.0 [facility] Comment on above: Order Comment: Speci men Type: URINE SPECIMEN Ordering Facility: [facility] Address: [address] [place] [address] Performed By: #### L [id number] #### [facility] CLIA [id number] [address] [place] [address] [place] Monocytes (Bld) [#/Vol] 1.06 10*3/uL High <0.87 [facility] Comment on above: Order Comment: Speci men Type: URINE SPECIMEN Ordering Facility: [facility] Address: [address] [place] [address] Performed By: #### L [id number] #### [facility] CLIA [id number] [address] [place] [address] [place] Monocytes/100 WBC (Bld) 7.8 % Normal [facility] Comment on above: Order Comment: Speci men Type: URINE SPECIMEN Ordering Facility: [facility] Address: [address] [place] [address] Performed By: #### L [id number] #### [facility] CLIA [id number] [address] [place] [address] [place] Neutrophils (Bld) [#/Vol] 11.97 10*3/uL High 1.45-7.50 [facility] Comment on above: Order Comment: Speci men Type: URINE SPECIMEN Ordering Facility: [facility] Address: [address] [place] [address] Performed By: #### L [id number] #### [facility] CLIA [id number] [address] [place] [address] [place] Neutrophils/100 WBC (Bld) 87.6 % Normal [facility] Comment on above: Order Comment: Speci men Type: URINE SPECIMEN Ordering Facility: [facility] Address: [address] [place] [address] Performed By: #### L [id number] #### [facility] CLIA [id number] [address] [place] [address] [place] Nucleated RBC (Bld) [#/Vol] 10*3/uL Normal <0.01 [facility] Comment on above: Order Comment: Speci men Type: URINE SPECIMEN Ordering Facility: [facility] Address: [address] [place] [address] Performed By: #### L [id number] #### [facility] CLIA [id number] [address] [place] [address] [place] Nucleated RBC/100 WBC (Bld) [Ratio] 0.0 /100 WBC Normal [facility] Comment on above: Order Comment: Speci men Type: URINE SPECIMEN Ordering Facility: [facility] Address: [address] [place] [address] Performed By: #### L [id number] #### [facility] CLIA [id number] [address] [place] [address] [place] Platelet mean volume (Bld) [Entitic vol] 9.9 fL Normal 9.0-12.7 [facility] Comment on above: Order Comment: Speci men Type: URINE SPECIMEN Ordering Facility: [facility] Address: [address] [place] [address] Performed By: #### L [id number] #### [facility] CLIA [id number] [address] [place] [address] [place] Platelets (Bld) [#/Vol] 213 10*3/uL Normal 150-400 [facility] Comment on above: Order Comment: Speci men Type: URINE SPECIMEN Ordering Facility: [facility] Address: [address] [place] [address] Performed By: #### L [id number] #### [facility] CLIA [id number] [address] [place] [address] [place] RBC (Bld) [#/Vol] 4.29 10*6/uL Normal 3.90-5.20 [facility] Comment on above: Order Comment: Speci men Type: URINE SPECIMEN Ordering Facility: [facility] Address: [address] [place] [address] Performed By: #### L [id number] #### [facility] CLIA [id number] [address] [place] [address] [place] WBC (Bld) [#/Vol] 13.67 10*3/uL High 3.70-11.00 [facility] Comment on above: Order Comment: Speci men Type: URINE SPECIMEN Ordering Facility: [facility] Address: [address] [place] [address] Performed By: #### L [id number] #### [facility] CLIA [id number] [address] [place] [address] [place] CONFIRM BLOOD TYPEon 025 ABO O Normal [facility] Comment on above: Order Comment: Speci men Type: BLOOD SPECIMENOrdering Facility: [facility] Address: [address] [place] [address] Result Comment: Bharati ected result: Previously reported as Invalid on 06/28/2025 at 9:45 AM EDT. Performed By: #### C ONABO ####[facility]IA [id number] [place] [address] [place] Rh Nom (Bld) Negative Normal [facility] Comment on above: Order Comment: Speci men Type: BLOOD SPECIMENOrdering Facility: [facility] Address: [address] [place] [address] Performed By: #### C ONABO ####[facility]ANKCLIA [id number] [place] [address] [place] Magnesium SerPl-mCncon 06-28 Magnesium [Mass/Vol] 1.8 mg/dL Normal 1.7-2.3 [facility] Comment on above: Order Comment: Speci men Type: BLOOD SPECIMEN Ordering Facility: [facility] Address: [address] [place] [address] Performed By: #### 3 3935-8 #### [facility] CLIA [id number] [address] [place] [address] [place] OPERATIVE NOon 06-28-2025 OPERATIVE NO HNO ID: [id number] Author: PREET GODINEZ MD Service: General Surgery Author Type: Physician Type: Operative Report Filed: 06/28/2025 16:31 Note Text: OPERATIVE/PROCEDURE REPORT LOG ID: [id number] SURGERY/PROCEDURE DATE: 06/28/2025 INCISION/PROCEDURE START TIME: 9:04 AM INCISION CLOSE/PROCEDURE END TIME: 11:13 AM SURGEON(S)/PROCEDURALIST (S) AND AUTOMOTIVE POWER ELECTRONICS ENGINEER(S): Surgeons and Role: * Preet Godinez MD - Primary * Beata Shaikh MD - Fellow No Additional Staff SURGERY/PROCEDURE(S): Laparoscopic paraesophageal hernia repair with mesh ANESTHESIA: General SURGERY/PROCEDURE DETAILS: The patient was supine, padded and secured to the bed. Safety check performed. General anesthesia was induced. Ernst placed. The patient was then placed in split leg and secured to the bed. The abdomen was widely prepped and draped. A time out procedure was performed. The abdomen was entered in the right hypochondrium, utilizing a 5 mm optical-viewing trocar. Upon safe entry into the abdomen, it was insufflated completely. Under direct visualization, a 12 mm trocar was placed off of midline, 10 cm below the xiphoid process. 5 mm trocars were placed in the left and right subcostal regions. An custody assistant 5 mm trocar was placed in the left lower abdomen. A 5 mm Romana-Pencer Margaux Flex liver retractor was placed through the lateral 5 mm trocar and utilized to retract the left lobe of the liver anteriorly. It was held in position with a laparoscopic holding device clamped to the side of the bed. Beginning at the twelve o'clock position on the donya, the hernia sac was grasped and reduced form the mediastinum. The hernia sac was divided to enter the plane between the sac and the mediastinum. The hernia sac was divided towards the left and right with continued traction on the hernia sac to reduce it. A mediastinal dissection was performed to further reduce the hernia sac which facilitated reduction of the stomach as well. The hernia sac was disconnected from the right and left crura and subsequently, the hernia sac was dissected from the stomach and esophagus, and excised. The left donya was further delineated. A retroesophageal window was created and a 1/4? Lonny drain was used to encircle the esophagus for retraction. A high, circumferential mediastinal dissection was performed in an effort to mobilize the esophagus and provide for adequate intraabdominal esophageal length. The mediastinal dissection was performed bluntly, with little to no thermal energy. The anterior and posterior vagus nerves were both identified and preserved. The crural defect was reapproximated with multiple, interrupted, 0 Ethibond sutures (5 posterior). The crural pillars came together well without tearing of the adjacent diaphragmatic tissue. Next a Ovitex mesh was open, trimmed, and cut to accommodate the esophagus. It was placed into the reverse C position, covering the anterior and posterior elements of the diaphragm. It was glued into place with Tisseal. A anterior gastropexy was performed with two 2-0 prolene sutures in transfascial fashion. The operative field was inspected for hemostasis. The Bangor drain was removed along with the liver retractor. A figure of eight 0 vicryl suture was used on a suture passer to close the 12 mm port site fascia. The peritoneal cavity was desufflated and the trocars removed. The incisions were closed with 4-0 Monocryl subcuticular sutures and skin glue. I was present and participated in all critical portions of the case. No qualified residents were available to assist with this complex procedure thus the fellow was required to assist with this case. The custody assistant performed retraction and assisted with exposure. PRE-OP/PRE-PROCEDURE DIAGNOSIS: Symptomatic type III PEH POST-OP/POST-PROCEDURE DIAGNOSIS: Same as Preop ESTIMATED BLOOD LOSS: 10 mls SPECIMENS: None IMPLANTABLE DEVICES: Ovitex DRAINS: None COMPLICATIONS: None CLOSURE TECHNIQUE: Primary PARTICIPATION IN SURGERY/PROCEDURE: I/primary surgeon/proceduralist performed the procedure with assistance. SIGNATURE: Preet Godinez MD PATIENT NAME: Kathryn Whiting DATE: June 28, 2025 TIME: 4:21 PM Normal [facility] Phosphate SerPl-mCncon 06-28 Phosphate [Mass/Vol] 2.3 mg/dL Low 2.7-4.8 [facility] Comment on above: Order Comment: Speci men Type: BLOOD SPECIMEN Ordering Facility: [facility] Address: [address] [place] [address] [place] [address] Performed By: #### 3 3935-8 #### [facility] CLIA [id number] [address] [place] [address] [place] [id number] [facility] CNOVon 06-22-2025 CNOV Office Visit (FAMPWS ) -------- JOHANNEKATHRYN CABRERA ([id number]) 1955 F Date Time Provider Department 06/22/25 12:20 PM [facility] During your visit today, we recorded the following information about you: Pulse Respiration Blood pressure Weight 88/minute 16/minute 100/64 67.2 kg Alka Yadav, BRUNO.SERVICE ORDER DISPATCHER CHIEF 06/22/2025 1:03 PM Signed This is a 70 year old female who presents today with: Kathryn Roe Johanne is a 70-year-old female with a history of hypothyroidism, osteoarthritis, and migraines, presenting for follow-up on lab results and symptoms of facial numbing and night sweats HISTORY OF PRESENT ILLNESS: Facial Numbness: - Persistent facial numbness, left sided mostly - No improvement after increasing Synthroid dosage 2 months ago - Carotid artery ultrasound showed no abnormalities. - Reports episodes of facial numbness without associated migraines. Hypothyroidism: - Recent increase in Synthroid dosage x2 months. - doing fine on current dose Osteoarthritis: - Diagnosed with osteoarthritis in the knee and back. - X-rays of ankles and knees showed no abnormalities; ankles described as weak. - Using Voltaren for knee pain. - Taking calcium and vitamin D supplements. - Receiving Evenity injections monthly for a year. Migraines: - History of migraines with aura, described as fuzz eyes. - Recent increase in frequency and duration of migraines. Night Sweats: - Previously taking gabapentin 2 capsules at bedtime for night sweats. - Discontinued gabapentin due to low blood pressure readings and per telephone note increased migraines and dizziness - Reports partial relief from night sweats with gabapentin and would be open to looking into another intervention at a later date Upcoming Surgery: - Scheduled for paraesophageal hernia repair on the PAST MEDICAL HISTORY: PAST MEDICAL HISTORY Diagnosis Date Breast cancer (HCC) Diarrhea Hypercholesteraemia 03/2015 Migraine, unspecified, with intractable migraine, so stated, without mention of status migrainosus Migraine Mild diastolic dysfunction echo 03/2013 Mild mitral regurgitation echo 03/2013 Mild tricuspid regurgitation echo 03/2013 Mitral valve disorders(424.0) MVP Myalgia and myositis, unspecified Panic disorder without agoraphobia Panic disorder Unspecified hypothyroidism PAST SURGICAL HISTORY Procedure Laterality Date BREAST LUMPECTOMY HX 11/10/2017 with lymph node removal CHOLECYSTECTOMY Cholecystectomy -- lap (Dr. Bear?) COLONOSCOPY FLX DX W/COLLJ SPEC WHEN PFRMD 09/16/2007 COLONOSCOPY FLX DX W/COLLJ SPEC WHEN PFRMD 03/17/2019 normal EGD W/O BRSH SPEC VARICIES INJ 03/16/2025 ESOPHAGOGASTRODUODENOSCO PY TRANSORAL DIAGNOSTIC 09/01/2013 EGD ESOPHAGOGASTRODUODENOSCO PY TRANSORAL DIAGNOSTIC 03/17/2019 EGD NEUROPLASTY AND/TRANSPOS MEDIAN NRV CARPAL TUNNE Carpal tunnel decomp, Right REDUCTION OF LARGE BREAST Breast reduction REVISE MEDIAN N/CARPAL TUNNEL SURG Right ALLERGIES Patient has no known allergies. MEDICATIONS Current Outpatient Medications Medication Sig calcium carbonate (CALCIUM 500 PO) Take 1 tablet by mouth two times a day. cholecalciferol, vitamin D3, (VITAMIN D3 PO) Take 1 capsule by mouth once daily. famotidine (PEPCID PO) Take 1 tablet by mouth as needed. atorvastatin (LIPITOR) 10 mg tablet TAKE 1 TABLET DAILY AT BEDTIME FOR CHOLESTEROL acetaminophen 325 mg-caffeine 40 mg-butalbital 50 mg (FIORICET) per capsule Take 1 capsule by mouth every 4 hours as needed for headache. levothyroxine (SYNTHROID) 112 mcg tablet Take 1 tablet by mouth once daily. FLUoxetine (PROZAC) 40 mg capsule Take 1 capsule by mouth once daily. meclizine (ANTIVERT) 25 mg tab TAKE 1 TABLET BY MOUTH THREE TIMES A DAY NEEDED FOR DIZZINESS Current Facility-Administered Medications Medication Dose Route Frequency romosozumab-aqqg 210 mg injection (EVENITY) 210 mg SUBCUTANEOUS q 1 MONTH FAMILY HISTORY Problem Relation Age of Onset Thyroid Mother Mother's side of family Anesthesia Mother Heart disease Mother Heart Mother atrial fibrilation Heart Father other (Multiple myeloma) Father 1983 -- multiple myeloma in remission, then amyloidosis Coronary Artery Disease Sister 2 TN's, starting age 40 Breast Cancer Paternal Aunt Cancer Paternal Aunt Leukemia other (Multiple myeloma) Paternal Uncle Heart Other Mother's side of family Anesthesia Problems No Family History SOCIAL HISTORY[1] REVIEW OF SYSTEMS Constitutional: (+) night sweats Head: (+) migraines Neurological: (+) facial numbness, (+) ankle weakness See HPI EXAM: BP 100/64 Pulse 88 Resp 16 Wt 67.2 kg (148 lb 3.2 oz) LMP 03/10/2006 BMI 26.25 kg/m? PHYSICAL EXAM: General Appearance: Well appearing, alert, in no acute distress, well-hydrated, well nourished.. Lungs: Lungs clear (more content not included)... Normal [facility] CBC W Auto Differential pane l (Bld)on 06-19-2025 Basophils (Bld) [#/Vol] 0.05 10*3/uL Normal <0.11 [facility] Comment on above: Order Comment: Speci men Type: BLOOD SPECIMEN Ordering Facility: [facility] Address: [address] [place] [address] Performed By: #### 4 5066-8 #### [facility] CLIA [id number] [address] [place] [address] [place] Basophils/100 WBC (Bld) 0.7 % Normal [facility] Comment on above: Order Comment: Speci men Type: BLOOD SPECIMEN Ordering Facility: [facility] Address: [address] [place] [address] Performed By: #### 4 5066-8 #### [facility] CLIA [id number] [address] [place] [address] [place] Differential cell count method Nom (Bld) Auto Normal [facility] Comment on above: Order Comment: Speci men Type: BLOOD SPECIMEN Ordering Facility: [facility] Address: [address] [place] [address] Performed By: #### 4 5066-8 #### [facility] CLIA [id number] [address] [place] [address] [place] Eosinophils (Bld) [#/Vol] 0.14 10*3/uL Normal <0.46 [facility] Comment on above: Order Comment: Speci men Type: BLOOD SPECIMEN Ordering Facility: [facility] Address: [address] [place] [address] Performed By: #### 4 5066-8 #### [facility] CLIA [id number] [address] [place] [address] [place] Eosinophils/100 WBC (Bld) 2.0 % Normal [facility] Comment on above: Order Comment: Speci men Type: BLOOD SPECIMEN Ordering Facility: [facility] Address: [address] [place] [address] Performed By: #### 4 5066-8 #### [facility] CLIA [id number] [address] [place] [address] [place] Erythrocyte distribution width (RBC) [Ratio] 13.2 % Normal 11.5-15.0 [facility] Comment on above: Order Comment: Speci men Type: BLOOD SPECIMEN Ordering Facility: [facility] Address: [address] [place] [address] Performed By: #### 4 5066-8 #### [facility] CLIA [id number] [address] [place] [address] [place] Hematocrit (Bld) [Volume fraction] 41.9 % Normal 36.0-46.0 [facility] Comment on above: Order Comment: Speci men Type: BLOOD SPECIMEN Ordering Facility: [facility] Address: [address] [place] [address] Performed By: #### 4 5066-8 #### [facility] CLIA [id number] [address] [place] [address] [place] Hemoglobin (Bld) [Mass/Vol] 13.7 g/dL Normal 11.5-15.5 [facility] Comment on above: Order Comment: Speci men Type: BLOOD SPECIMEN Ordering Facility: [facility] Address: [address] [place] [address] Performed By: #### 4 5066-8 #### [facility] CLIA [id number] [address] [place] [address] [place] Immature granulocytes (Bld) [#/Vol] 10*3/uL Normal <0.10 [facility] Comment on above: Order Comment: Speci men Type: BLOOD SPECIMEN Ordering Facility: [facility] Address: [address] [place] [address] Performed By: #### 4 5066-8 #### [facility] [id number] [address] [place] [address] [place] Immature granulocytes/100 WBC (Bld) 0.3 % Normal [facility] Comment on above: Order Comment: Speci men Type: BLOOD SPECIMEN Ordering Facility: [facility] Address: [address] [place] [address] Performed By: #### 4 5066-8 #### [facility] CLIA [id number] [address] [place] [address] [place] Lymphocytes (Bld) [#/Vol] 1.18 10*3/uL Normal 1.00-4.00 [facility] Comment on above: Order Comment: Speci men Type: BLOOD SPECIMEN Ordering Facility: [facility] Address: [address] [place] [address] Performed By: #### 4 5066-8 #### [facility] [id number] [address] [place] [address] [place] Lymphocytes/100 WBC (Bld) 17.2 % Normal [facility] Comment on above: Order Comment: Speci men Type: BLOOD SPECIMEN Ordering Facility: [facility] Address: [address] [place] [address] [place] [address] Performed By: #### 4 5066-8 #### [facility] CLIA [id number] [address] [place] [address] [place] [facility] MCH (RBC) [Entitic mass] 29.2 pg Normal 26.0-34.0 [facility] Comment on above: Order Comment: Speci men Type: BLOOD SPECIMEN Ordering Facility: [facility] Address: [address] [place] [address] Performed By: #### 4 5066-8 #### [facility] CLIA [id number] [address] [place] [address] [place] MCHC (RBC) [Mass/Vol] 32.7 g/dL Normal 30.5-36.0 [facility] Comment on above: Order Comment: Speci men Type: BLOOD SPECIMEN Ordering Facility: [facility] Address: [address] [place] [address] Performed By: #### 4 5066-8 #### [facility] [id number] [address] [place] [address] [place] MCV (RBC) [Entitic vol] 89.3 fL Normal 80.0-100.0 [facility] Comment on above: Order Comment: Speci men Type: BLOOD SPECIMEN Ordering Facility: [facility] Address: [address] [place] [address] Performed By: #### 4 5066-8 #### [facility] CLIA [id number] [address] [place] [address] [place] Monocytes (Bld) [#/Vol] 0.54 10*3/uL Normal <0.87 [facility] Comment on above: Order Comment: Speci men Type: BLOOD SPECIMEN Ordering Facility: [facility] Address: [address] [place] [address] Performed By: #### 4 5066-8 #### [facility] CLIA [id number] [address] [place] [address] [place] Monocytes/100 WBC (Bld) 7.9 % Normal [facility] Comment on above: Order Comment: Speci men Type: BLOOD SPECIMEN Ordering Facility: [facility] Address: [address] [place] [address] Performed By: #### 4 5066-8 #### [facility] CLIA [id number] [address] [place] [address] [place] Neutrophils (Bld) [#/Vol] 4.93 10*3/uL Normal 1.45-7.50 [facility] Comment on above: Order Comment: Speci men Type: BLOOD SPECIMEN Ordering Facility: [facility] Address: [address] [place] [address] Performed By: #### 4 5066-8 #### [facility] CLIA [id number] [address] [place] [address] [place] Neutrophils/100 WBC (Bld) 71.9 % Normal [facility] Comment on above: Order Comment: Speci men Type: BLOOD SPECIMEN Ordering Facility: [facility] Address: [address] [place] [address] Performed By: #### 4 5066-8 #### [facility] [id number] [address] [place] [address] [place] Nucleated RBC (Bld) [#/Vol] 10*3/uL Normal <0.01 [facility] Comment on above: Order Comment: Speci men Type: BLOOD SPECIMEN Ordering Facility: [facility] Address: [address] [place] [address] Performed By: #### 4 5066-8 #### [facility] CLIA [id number] [address] [place] [address] [place] Nucleated RBC/100 WBC (Bld) [Ratio] 0.0 /100 WBC Normal [facility] Comment on above: Order Comment: Speci men Type: BLOOD SPECIMEN Ordering Facility: [facility] Address: [address] [place] [address] Performed By: #### 4 5066-8 #### [facility] CLIA [id number] [address] [place] [address] [place] Platelet mean volume (Bld) [Entitic vol] 9.8 fL Normal 9.0-12.7 [facility] Comment on above: Order Comment: Speci men Type: BLOOD SPECIMEN Ordering Facility: [facility] Address: [address] [place], [place] [address] Performed By: #### 4 5066-8 #### [facility] CLIA [id number] [address] [place] [address] [place] Platelets (Bld) [#/Vol] 211 10*3/uL Normal 150-400 [facility] Comment on above: Order Comment: Speci men Type: BLOOD SPECIMEN Ordering Facility: [facility] Address: [address] [place], [place] [address] Performed By: #### 4 5066-8 #### [facility] CLIA [id number] [address] [place] [address] [place] RBC (Bld) [#/Vol] 4.69 10*6/uL Normal 3.90-5.20 [facility] Comment on above: Order Comment: Speci men Type: BLOOD SPECIMEN Ordering Facility: [facility] Address: [address] [place] [address] Performed By: #### 4 5066-8 #### [facility] CLIA [id number] [address] [place] [address] [place] WBC (Bld) [#/Vol] 6.86 10*3/uL Normal 3.70-11.00 [facility] Comment on above: Order Comment: Speci men Type: BLOOD SPECIMEN Ordering Facility: [facility] Address: [address] [place] [address] Performed By: #### 4 5066-8 #### [facility] RAKESH [id number] [address] Nanci 06-19-2025 BETO Telephone (MARIANNAO) -------- KATHRYN WHITING ([id number]) 1955 F Date Time Provider Department 06/19/25 TAMANNA LION During your visit today, we recorded the following information about you: Tamanna Lion APRN.CNP 06/19/2025 12:[address] Bates, I saw Ms. Whiting June 19, 2025 in [facility] for pre-testing as she is scheduled for a laparoscopic paraesophageal hernia repair with Dr. Godinez on 06/28/25. Patient's BP was lower than normal at today's visit. She reports she was recently started on Gabapentin for night sweats but is unsure if it is helping. She has noticed some increase in lightheaded and dizziness and also an increase in migraines. She is unsure if these symptoms are related to the start of Gabapentin. The patient reports she is able to check her BP at home and will do so 1-2 x day. I advised I would check in with her in a couple of days to see how her BP was doing and how she is feeling. Is there anything further you would advise at this time? Thank you for your time. Tamanna Lion APRN.CARMEN Last 10 Encounter BP Readings: Date: BP: 06/19/2025 88/62 AND 88/64 06/08/2025 113/76 05/11/2025 110/68 05/01/2025 143/63 04/20/2025 128/62 03/16/2025 136/65 03/01/2025 107/73[bp machine reading[ 11/16/2024 106/73 01/06/2024 118/82 09/03/2023 105/65 Pablo Bates DO 06/20/2025 1:38 PM Signed Patient can hold the gabapentin to see if her symptoms improve. Her BLOOD PRESSURE overall is stable below, no major concerns that I can see DO Aleah Torres [place], [place] 06/20/2025 2:37 PM Signed PT INFORMED, VERBALIZED UNDERSTANDING. FUNMI León Kim E, LPN 06/27/2025 2:45 PM Signed Patient called back with blood pressure readings for Tamanna. Patient notified of 's recommendations. Home blood pressures: 06/21/25 104/72 06/22/25 102/71 06/23/25 124/71 06/24/25 100/72 06/25/25 124/73 06/26/25 100/68 06/27/25 96/63 Please review and advise further Torri Meyers LPN Allergies As of Date: 06/19/2025 (No Known Allergies) Date Reviewed: 06/19/2025 Reviewed by: Tamanna Lion APRN.SERVICE ORDER DISPATCHER CHIEF - Fully Assessed Reason for Visit: Pre-Op Update [997] Prescriptions as of 06/27/2025 - calcium carbonate (CALCIUM 500 PO) Take 1 tablet by mouth two times a day. - cholecalciferol, vitamin D3, (VITAMIN D3 PO) Take 1 capsule by mouth once daily. - famotidine (PEPCID PO) Take 1 tablet by mouth as needed. - atorvastatin (LIPITOR) 10 mg tablet TAKE 1 TABLET DAILY AT BEDTIME FOR CHOLESTEROL - acetaminophen 325 mg-caffeine 40 mg-butalbital 50 mg (FIORICET) per capsule Take 1 capsule by mouth every 4 hours as needed for headache. - levothyroxine (SYNTHROID) 112 mcg tablet Take 1 tablet by mouth once daily. - FLUoxetine (PROZAC) 40 mg capsule Take 1 capsule by mouth once daily. - meclizine (ANTIVERT) 25 mg tab TAKE 1 TABLET BY MOUTH THREE TIMES A DAY NEEDED FOR DIZZINESS Facility-Administered Medications as of 06/27/2025 - romosozumab-aqqg 210 mg injection (EVENITY) Problem List As Of Date 06/19/2025 Noted Resolved Rosacea [L71.9] 07/19/1998 Cholelithiasis [574] 09/21/1998 08/18/2012 Hypothyroidism [E03.9] MITRAL VALVE DISORDER [I05.9] PANIC DISORDER WITHOUT AGORAPHOBIA [F41.0] Intractable migraine [G43.919] MYALGIA AND MYOSITIS NOS [[id number]] Sprain and Strain of Unspecified Site of Knee a*07/05/2010 Routine general medical examination at [facility]*07/25/2010 08/18/2012 Class: Chronic Routine gynecological examination [Z01.419] 07/25/2010 08/18/2012 Class: Chronic Mixed Hyperlipidemia [E78.2] 07/25/2010 Mixed stress and urge urinary incontinence [N39*04/01/2011 Hyperlipidemia [E78.5] 03/25/2013 Family history of premature coronary heart dise*03/25/2013 Overweight [E66.3] 03/25/2013 Mild diastolic dysfunction [I51.9] 03/28/2013 Mild tricuspid regurgitation [I07.1] 03/28/2013 Mild mitral regurgitation [I34.0] 03/28/2013 Right-sided low back pain with right-sided scia*08/27/2015 Muscle weakness (generalized) [M62.81] 08/27/2015 Malignant neoplasm of upper-outer quadrant of r*12/02/2017 Vitamin D deficiency [E55.9] 02/01/2018 Osteoarthritis of spine with radiculopathy, lum*04/14/2023 Chronic neck pain [M54.2, G89.29] 04/14/2023 Chronic midline low back pain with bilateral sc*04/14/2023 IFG (impaired fasting glucose) [R73.01] 04/14/2023 Cervical radiculopathy [M54.12] 01/19/2024 Chronic left shoulder pain [M25.512, G89.29] 01/19/2024 Neck pain [M54.2] 01/19/2024 Left arm pain [M79.602] 01/19/2024 Esophageal spasm [K22.4] 03/16/2025 Esophagus disorder [K22.9] 03/16/2025 Gastroesophageal reflux disease without esophag*03/16/2025 Throat fullness [R09.89] 03/16/2025 Paraesophageal hernia [K44.9] 05/01/2025 Falls [R29.6] 05/09/2025 Encounter Status:Closed by TAMANNA LION on 06/19 (more content not included)... Normal [facility] Comprehensive metabolic 2000 panelon 06-19-2025 Albumin [Mass/Vol] 4.5 g/dL Normal 3.9-4.9 [facility] Comment on above: Order Comment: Speci men Type: BLOOD SPECIMEN Ordering Facility: [facility] Address: [address] [place] [address] Performed By: #### 4 5066-8 #### [facility] CLIA [id number] [address] [place] [address] [place] ALP [Catalytic activity/Vol] 133 U/L High 34-123 [facility] Comment on above: Order Comment: Speci men Type: BLOOD SPECIMEN Ordering Facility: [facility] Address: [address] [place] [address] Performed By: #### 4 5066-8 #### [facility] CLIA [id number] [address] [place] [address] [place] ALT [Catalytic activity/Vol] 10 U/L Normal 7-38 [facility] Comment on above: Order Comment: Speci men Type: BLOOD SPECIMEN Ordering Facility: [facility] Address: [address] [place] [address] Performed By: #### 4 5066-8 #### [facility] CLIA [id number] [address] [place] [address] [place] Anion gap [Moles/Vol] 13 mmol/L Normal 8-15 [facility] Comment on above: Order Comment: Speci men Type: BLOOD SPECIMEN Ordering Facility: [facility] Address: [facility] [place] [address] Performed By: #### 4 5066-8 #### [facility] CLIA [id number] [address] [place] [address] [place] AST [Catalytic activity/Vol] 17 U/L Normal 13-35 [facility] Comment on above: Order Comment: Speci men Type: BLOOD SPECIMEN Ordering Facility: [facility] Address: [address] [place] [address] Performed By: #### 4 5066-8 #### [facility] CLIA [id number] [address] [place] [address] [place] Bilirubin [Mass/Vol] 0.7 mg/dL Normal 0.2-1.3 [facility] Comment on above: Order Comment: Speci men Type: BLOOD SPECIMEN Ordering Facility: [facility] Address: [address] [place] [address] Performed By: #### 4 5066-8 #### [facility] CLIA [id number] [address] [place] [address] [place] Calcium [Mass/Vol] 9.8 mg/dL Normal 8.5-10.2 [facility] Comment on above: Order Comment: Speci men Type: BLOOD SPECIMEN Ordering Facility: [facility] Address: [address] [place] [address] Performed By: #### 4 5066-8 #### [facility] CLIA [id number] [address] [place] [address] [place] Chloride [Moles/Vol] 103 mmol/L Normal 98-107 [facility] Comment on above: Order Comment: Speci men Type: BLOOD SPECIMEN Ordering Facility: [facility] Address: [address] [place] [address] Performed By: #### 4 5066-8 #### [facility] CLIA [id number] [address] [place] [address] [place] CO2 [Moles/Vol] 24 mmol/L Normal 22-30 [facility] Comment on above: Order Comment: Speci men Type: BLOOD SPECIMEN Ordering Facility: [facility] Address: [address] [place] [address] Performed By: #### 4 5066-8 #### [facility] [id number] [address] [place] [address] [place] Creatinine [Mass/Vol] 0.79 mg/dL Normal 0.58-0.96 [facility] Comment on above: Order Comment: Gavino patel Type: BLOOD SPECIMEN Ordering Facility: [facility] Address: [address] [place] [address] Performed By: #### 4 5066-8 #### [facility] [id number] [address] [place] [address] [place] eGFRcr SerPlBld CKD-EPI 2020 80 mL/min/1.73m??? Normal >=60 [facility] Comment on above: Order Comment: Gavino patel Type: BLOOD SPECIMEN Ordering Facility: [facility] Address: [address] [place] [address] Result Comment: Saskia mated Glomerular Filtration Rate (eGFR) is calculated using the 2020 CKD-EPI creatinine equation. This equation utilizes serum creatinine, sex, and age as parameters. The creatinine assay has traceable calibration to isotope dilution-mass spectrometry. Refer to KDIGO guidelines for clinical interpretation. In patients with unstable renal function, e.g. those with acute kidney injury, the eGFR may not accurately reflect actual GFR. Performed By: #### 4 5066-8 #### [facility] CLIA [id number] [address] [place] [address] [place] Glucose [Mass/Vol] 104 mg/dL High 74-99 [facility] Comment on above: Order Comment: Gavino patel Type: BLOOD SPECIMEN Ordering Facility: [facility] Address: [address] [place] [address] Result Comment: The [place] Diabetes Association (ADA) provides guidance for cutoff values for fasting glucose and random glucose. The ADA defines fasting as no caloric intake for at least 8 hours. Fasting plasma glucose results between 100 to 125 mg/dL indicate increased risk for diabetes (prediabetes). Fasting plasma glucose results greater than or equal to 126 mg/dL meet the criteria for diagnosis of diabetes. In the absence of unequivocal hyperglycemia, results should be confirmed by repeat testing. In a patient with classic symptoms of hyperglycemia or hyperglycemic crisis, random plasma glucose results greater than or equal to 200 mg/dL meet the criteria for diagnosis of diabetes. Reference: Standards of Medical Care in Diabetes 2016, [place] Diabetes Association. Diabetes Care. 2016.39(Suppl 1). Performed By: #### 4 5066-8 #### [facility] CLIA [id number] [address] [place] [address] [place] Potassium [Moles/Vol] 5.2 mmol/L High 3.7-5.1 [facility] Comment on above: Order Comment: Gavino patel Type: BLOOD SPECIMEN Ordering Facility: [facility] Address: [address] [place] [address] Performed By: #### 4 5066-8 #### [facility] [id number] [address] [place] [address] [place] Protein [Mass/Vol] 7.2 g/dL Normal 6.3-8.0 [facility] Comment on above: Order Comment: Gavino patel Type: BLOOD SPECIMEN Ordering Facility: [facility] Address: [address] [place] [address] Performed By: #### 4 5066-8 #### [facility] [id number] [address] [place] [address] [place] Sodium [Moles/Vol] 140 mmol/L Normal 136-144 [facility] Comment on above: Order Comment: Gavino patel Type: BLOOD SPECIMEN Ordering Facility: [facility] Address: [address] [place] [address] Performed By: #### 4 5066-8 #### [facility] CLIA [id number] [address] [place] [address] [place] Urea nitrogen [Mass/Vol] 9 mg/dL Normal 7-21 [facility] Comment on above: Order Comment: Speci men Type: BLOOD SPECIMEN Ordering Facility: [facility] Address: [facility] [place] [address] Performed By: #### 4 5066-8 #### [facility] CLIA [id number] [address] [id number] 06-19-2025 ECG01 Ventricular Rate : 8 7 BPM Atrial Rate : 87 BPM P-R Interval : 134 ms QRS Duration : 74 ms Q-T Interval : 360 ms QTC Calculation(Bazett) : 433 ms Calculated P [place] : 42 degrees Calculated R [place] : 8 degrees Calculated T [place] : 42 degrees NORMAL SINUS RHYTHM POSSIBLE LEFT ATRIAL ENLARGEMENT BORDERLINE ECG Confirmed by MD NESBITT QARAB ([id number]) on 06/20/2025 9:53:07 AM NAME : KATHRYN WHITING PID : [id number] : 1955 Gender : Female Race : ORD : Procedure Date : Jun 19 2025 10:22:46 Edit Date : Jun 20 2025 09:53:12 Diagnosis: NORMAL SINUS RHYTHM POSSIBLE LEFT ATRIAL ENLARGEMENT BORDERLINE ECG Confirmed by MD NESBITT QARAB ([id number]) on 06/20/2025 9:53:07 AM Test Reason : Location : 6 : [facility] Overread By : MD NESBITT QARAB Edited By : MD NESBITT QARAB Referred By : PRETE GODINEZ Acquired by : Sheri lucio [facility] HISTORY PHYSICALon HISTORY PHYSICAL HNO ID: [id number] Author: TAMANNA LION APRN.SERVICE ORDER DISPATCHER CHIEF Service: ? Author Type: Nurse Practitioner Type: H&P Filed: 06/20/2025 16:12 Note Text: [facility] HISTORY AND PHYSICAL EXAMINATION SERVICE DATE: 06/19/2025 SERVICE TIME: 9:53 AM PRIMARY CARE PHYSICIAN: Pablo Bates DO Assessment Patient has the following medical conditions which may affect justyna-operative course: 1. Mixed hyperlipidemia (E78.2) - Stable on atorvastatin 10 mg daily. 2. Paraesophageal hernia (K44.9) 3. Gastroesophageal reflux disease without esophagitis (K21.9) - Scheduled for surgical repair on the . - GERD symptoms currently stable on Rx. - Reports dyspnea and a fullness in her chest at times making it difficult to take a deep breath due to the hernia. - CT scan shows most of the stomach has herniated into the chest. 4. Acquired hypothyroidism (E03.9) - Compliant with levothyroxine 112 mcg daily. Lab Results Component Value Date TSH 0.331 05/15/2025 TSH 23.500 (H) 04/20/2025 TSH 0.201 (L) 03/12/2023 5. Malignant neoplasm of upper-outer quadrant of right breast in female, estrogen receptor positive (HCC) (C50.411) - History of breast cancer with prior lumpectomy and radiation. 6. Intractable migraine without aura and without status migrainosus (G43.019) - Increased frequency and duration of migraines over the past month; currently managed with Fioricet PRN. - Patient thinks potentially related to initiation of Gabapentin. 7. Anxiety and depression (F41.9) - Compliant with Rx. Feels mood is stable. Patient is pleasant and appropriate during today's appointment. 8. Hypotension, unspecified hypotension type (I95.9) - BP lower than normal at today's visit. Patient does report lightheaded and dizziness which has worsened since the initiation of Gabapentin. No syncopal episodes. - Advised to monitor blood pressure at home daily and maintain adequate hydration. Confirmed patient has BP cuff at home. - Advised to contact primary care if blood pressure readings are lower than usual or if symptoms worsen; instructed to go to the emergency department if fainting or passing out occurs. - Will follow up in a few days to review blood pressure readings. - Will coordinate with Dr. Bates for additional recommendations. Addendum June 20, 2025 - Per Dr. Bates, patient instructed to hold Gabapentin to see if symptoms improve. BP overall is stable, no major concerns. 9. Chronic neck pain (M54.2) - Chronic osteoarthritis contributing to neck pain; good range of motion on exam. ANESTHESIA FINDINGS: Intubation History: No history of difficult intubation. No abnormal airway history Significant Anesthesia Considerations: potential slow emergence Airway History: No history of difficult airway No abnormal airway history Avila Activity Status Index: METS: Walk indoors, such as around the house (1.75 METs) Do light work around the house, such as dusting or washing dishes (2.70 METs) Take care of self; that is eating, dressing, bathing, using the toilet (2.75 METs) Walk a block or two on level ground (2.75 METs) Do moderate work around the house, such as vacuuming, sweeping floors, or carrying in groceries (3.50 METs) Cannot do yardwork, such as raking leaves, weeding, or pushing a power mower Cannot climb a flight of stairs or walk up a hill DASI Score: 13.45 Patient denies any chest pain or undue shortness of breath with the above physical activity. Clinical Frailty Scale: 4. Apparently vulnerable STOP-Bang Score: Patient over 50 years old Denies snoring loudly Denies feeling tired, fatigued, or sleepy during the daytime Has not been observed to stop breathing or choking/gasping during sleep Denies having high blood pressure BMI less than or equal to 35 kg/m2 Does not have a large neck Non-male patient STOP-Bang Score: 1 I - PHYSICAL EVALUATION AIRWAY Patient intubated: No. Tracheostomy tube not present Mallampati: I. TM distance: >3 FB. Neck ROM: full ROM without neurological symptoms. Mouth opening: adequate. Short neck: no. Thick neck: no Kuhn present: no Lip Bite Test: II Microretrognathia/Micron agthia/Recessed Chin: No DENTAL Dental findings: teeth intact. Additional comments: Implant. II - ANESTHESIA PLAN Beta Chan Monitoring Plan Post Procedure Analgesic Plan Prepared for Surgery: optimally prepared for surgery, pending [see comment]. Labs and EKG ordered by the surgeon Addendum June 20, 2025 3:59 PM Labs and EKG reviewed and acceptable for proposed procedure. CONSULTS: Patient does not require consults for optimization at this time Planned Anesthetic: anesthesia choice The Following Tests/Procedures Have Been Initiated: Orders Placed This Encounter calcium carbonate (CALCIUM 500 PO) Sig: Take 1 tablet by mouth two times a day. cholecalcifer (more content not included)... Normal [facility] PT panel Coag (PPP)on 2024 INR Coag (PPP) [Relative time] 1.0 {INR} Normal 0.9-1.3 [facility] Comment on above: Order Comment: Gavino patel Type: BLOOD SPECIMENOrdering Facility: [facility] Address: [address] [place], [place] [id number] Result Comment: Kelley min K Antagonist (VKA) Therapeutic Range: INR 2 to 3 (Target INR of 2.5) Note: For patients treated with VKA drugs, such as warfarin, the [employer] 2012 Guideline recommends a therapeutic INR range of 2 to 3 (target INR of 2.5). This recommendation includes high-risk patients with antiphospholipid syndrome with previous arterial or venous thromboembolism, current-generation mechanical or bioprosthetic aortic heart valve replacement. Note: Patients with mechanical aortic valve replacement and additional risk factors for thromboembolic events (atrial fibrillation, previous thromboembolism, LV dysfunction, hypercoagulable conditions) or an older generation mechanical AVR (i.e., ball in-Cage) or any mechanical MVR should have a INR therapeutic range of 2.5 to 3.5 (target INR of 3). Rob GH, et al. Chest 2012, 141:7S-47S Paul RA, et al. [facility] 2017, 70: 252-289 Performed By: #### 1 4979-9, 56008-2 ####[facility] [id number] [place] [address] [place] PT Coag (PPP) [Time] 10.4 s Normal <13.1 [facility] Comment on above: Order Comment: Gavino patel Type: BLOOD SPECIMENOrdering Facility: [facility] Address: [address] [place], [place] [id number] Performed By: #### 1 4979-9, 38707-0 ####[facility] [id number] [place] [address] [place] TYPE AND SCREEN,30 DAYon ABO O Normal [facility] Comment on above: Order Comment: Gavino patel Type: BLOOD SPECIMEN Ordering Facility: [facility] Address: [address] [place] [address] Result Comment: Bharati ected result: Previously reported as Invalid on 06/19/2025 at 7:19 PM EDT. Performed By: #### T SCR30 #### [facility] CLIA [id number] [address] [place], [place] [address] [address] [place] Rh Nom (Bld) Negative Normal [facility] Comment on above: Order Comment: Speci men Type: BLOOD SPECIMEN Ordering Facility: [facility] Address: [address] [place] [address] Result Comment: Bharati ected result: Previously reported as Invalid on 06/19/2025 at 7:19 PM EDT. Performed By: #### T SCR30 #### [facility] CLIA [id number] [address] [place] [address] [place] aPTT PPPon 06-19-2025 aPTT Coag (PPP) [Time] 25.0 s Normal 23.0-32.4 [facility] Comment on above: Order Comment: Speci men Type: BLOOD SPECIMENOrdering Facility: [facility] Address: [address] [place] [address] Performed By: #### 1 4979-9, 13582-3 ####[facility] [id number] [place] [address] [place] CNOVon 06-08-2025 CNOV Office Visit (RHWSTR ) -------- KATHRYN WHITING ([id number]) 1955 F Date Time Provider Department 06/08/25 10:30 AM JACQUELINE CALDERON RHWSTR During your visit today, we recorded the following information about you: Pulse Blood pressure Weight 98/minute 113/76 66.7 kg Jacqueline Calderon PA-C 06/08/2025 8:43 PM Signed Rheumatology Clinic Visit June 08, 2025 Last seen: 05/11/2025 (with Jacqueline Calderon) CC: Established Patient HPI: Kathryn Whiting is a 69 year old female who follows with rheumatology for joint pain (osteoarthritis/fibromya lgia) as well as osteoporosis . Brief Rheum history: - bilateral shoulder, bilateral neck, low back pain/sciatica without joint swelling - occsional weakness in ankles and knee giving out - History of psoriasis - Labs from consultation: Rf negative, CCP negative, RUFINO negative, CK/aldolase normal, ESR/CRP normal Imaging from consultation: normal ankle XR - no significant osteoarthritis Knee XR osteoarthritis progressing Osteoporosis history: Severe osteoporosis - T-score of -3.8, particularly in the femoral neck. - No history of fractures. Increased risk due to postmenopausal status and previous anastrozole use. - Prior breast cancer - No history of TN/CVA in last year - Labs neg for secondary causes - normal phosphorus, SPEP, UPEP magnesium, Current Rheum treatment: Tylenol 1000 mg TID prn Avoid NSAID d/t hiatal hernia Bone Health Treatment: No prior osteoporosis treatment Started Vitamin D 1000 international unit(s) Calcium 1200 mg daily divided doses Planning for Evenity injection #1 today Past treatments: N/A Current clinical: reviewed results No obvious rheum etiology of symptoms, weakness, joint pain. Knee pain comes and goes. Takes tylenol as needed. Still has weakness in ankles and occasional facial numbness. Prior workup with Carotid ultrasound negative. Thyroid function negative. ? Neurologic etiology - FU with PCP Monitoring: Labs 05/15 labs reviewed CTX: Latest Ref Rng 05/15/2025 C Telopeptide, Beta Cross Linked 152 - 858 pg/mL 330 Latest Ref Rng 05/15/2025 Osteocalcin 8.6 - 37.6 ng/mL 17.6 Last Bone Density: 10/14/2023 Sed rate/CRP Latest Ref Rng AND Units 05/15/2025 ESR, WSR WSR 0 - 20 mm/hr 5 Latest Ref Rng AND Units 03/27/2015 05/15/2025 CRP CRP <0.9 mg/dL 0.2 <0.3 Review Of Systems: RHEUMATOLOGIC REVIEW OF SYSTEMS (From consult 05/11/25): + skin photosensenitivity No history of blood clots No miscarriages + fatigue No history of Raynaud's - feet, finger, and noes feel cold, but no color changes + history of psoriasis Not significant morning stiffness + neuropathy PROMIS Assessments 08/02/2019 04/20/2023 01/19/2024 PROMIS Assessments Physical Health Percentile 53.19 31 22 Mental Health Percentile 33.72 26 19 Pain Score 2 4 4 Physical Function Percentile 12 14 Proxy-reported PAST MEDICAL HISTORY Diagnosis Date Breast cancer (HCC) Diarrhea Hypercholesteraemia 03/2015 Migraine, unspecified, with intractable migraine, so stated, without mention of status migrainosus Migraine Mild diastolic dysfunction echo 03/2013 Mild mitral regurgitation echo 03/2013 Mild tricuspid regurgitation echo 03/2013 Mitral valve disorders(424.0) MVP Myalgia and myositis, unspecified Panic disorder without agoraphobia Panic disorder Unspecified hypothyroidism PAST SURGICAL HISTORY Procedure Laterality Date BREAST LUMPECTOMY HX 11/10/2017 CHOLECYSTECTOMY Cholecystectomy -- lap (Dr. Bear?) COLONOSCOPY FLX DX W/COLLJ SPEC WHEN PFRMD 09/16/2007 COLONOSCOPY FLX DX W/COLLJ SPEC WHEN PFRMD 03/17/2019 normal EGD W/O BRSH SPEC VARICIES INJ 03/16/2025 ESOPHAGOGASTRODUODENOSCO PY TRANSORAL DIAGNOSTIC 09/01/2013 EGD ESOPHAGOGASTRODUODENOSCO PY TRANSORAL DIAGNOSTIC 03/17/2019 EGD NEUROPLASTY AND/TRANSPOS MEDIAN NRV CARPAL TUNNE Carpal tunnel decomp, Right REDUCTION OF LARGE BREAST Breast reduction REVISE MEDIAN N/CARPAL TUNNEL SURG Right Family history: Denies family history of RA, SLE, and IBD. Grandmother with PsO SOCIAL HISTORY: Marital status: Tobacco: Tobacco Use: Medium Risk (06/08/2025) Patient History Smoking Tobacco Use: Former Smokeless Tobacco Use: Never Passive Exposure: Not on file ETOH: Alcohol Use: Not At Risk (03/01/2025) AUDIT-C Frequency of Alcohol Consumption: Never Average Number of Drinks: Patient does not drink Frequency of Binge Drinking: Never Allergies: ALLERGIES No Known Allergies Medications: Current Outpatient Medications Medication Sig acetaminophen 325 mg-caffeine 40 mg-butalbital 50 mg (FIORICET) per tablet Take 1 tablet by mouth every 4 hours as needed for up to 30 days. atorvastatin (LIPITOR) 10 mg tablet TAKE 1 TABLET DAILY AT BEDTIME FOR CHOLESTEROL levothyroxine (SYNTHROID) 112 mcg tablet Take 1 tablet by mouth once daily. gabapent (more content not included)... Normal [facility] 05-23-2025 [facility] KATHRYN WHITING ([id number]) 1955 F Date Time Provider Department 05/23/25 [facility]KA [facility]ADAV [facility] During your visit today, we recorded the following information about you: Allergies As of Date: 05/23/2025 (No Known Allergies) Date Reviewed: 05/11/2025 Reviewed by: Isabell Torres, AYDIN - Fully Assessed Prescriptions as of 05/23/2025 - acetaminophen 325 mg-caffeine 40 mg-butalbital 50 mg (FIORICET) per tablet Take 1 tablet by mouth every 4 hours as needed for up to 30 days. - acetaminophen 325 mg-caffeine 40 mg-butalbital 50 mg (FIORICET) per tablet Take 1 tablet by mouth every 4 hours as needed for up to 30 days. - atorvastatin (LIPITOR) 10 mg tablet TAKE 1 TABLET DAILY AT BEDTIME FOR CHOLESTEROL - acetaminophen 325 mg-caffeine 40 mg-butalbital 50 mg (FIORICET) per capsule Take 1 capsule by mouth every 4 hours as needed for headache. - levothyroxine (SYNTHROID) 112 mcg tablet Take 1 tablet by mouth once daily. - gabapentin (NEURONTIN) 100 mg capsule Take 2 capsules by mouth daily at bedtime for 90 days. - FLUoxetine (PROZAC) 40 mg capsule Take 1 capsule by mouth once daily. - meclizine (ANTIVERT) 25 mg tab TAKE 1 TABLET BY MOUTH THREE TIMES A DAY NEEDED FOR DIZZINESS Problem List As Of Date 05/23/2025 Noted Resolved Rosacea [L71.9] 07/19/1998 Cholelithiasis [574] 09/21/1998 08/18/2012 Hypothyroidism [E03.9] MITRAL VALVE DISORDER [I05.9] PANIC DISORDER WITHOUT AGORAPHOBIA [F41.0] Intractable migraine [G43.919] MYALGIA AND MYOSITIS NOS [[id number]] Sprain and Strain of Unspecified Site of Knee a*07/05/2010 Routine general medical examination at [facility]*07/25/2010 08/18/2012 Class: Chronic Routine gynecological examination [Z01.419] 07/25/2010 08/18/2012 Class: Chronic Mixed Hyperlipidemia [E78.2] 07/25/2010 Mixed stress and urge urinary incontinence [N39*04/01/2011 Hyperlipidemia [E78.5] 03/25/2013 Family history of premature coronary heart dise*03/25/2013 Overweight [E66.3] 03/25/2013 Mild diastolic dysfunction [I51.9] 03/28/2013 Mild tricuspid regurgitation [I07.1] 03/28/2013 Mild mitral regurgitation [I34.0] 03/28/2013 Right-sided low back pain with right-sided scia*08/27/2015 Muscle weakness (generalized) [M62.81] 08/27/2015 Malignant neoplasm of upper-outer quadrant of r*12/02/2017 Vitamin D deficiency [E55.9] 02/01/2018 Osteoarthritis of spine with radiculopathy, lum*04/14/2023 Chronic neck pain [M54.2, G89.29] 04/14/2023 Chronic midline low back pain with bilateral sc*04/14/2023 IFG (impaired fasting glucose) [R73.01] 04/14/2023 Cervical radiculopathy [M54.12] 01/19/2024 Chronic left shoulder pain [M25.512, G89.29] 01/19/2024 Neck pain [M54.2] 01/19/2024 Left arm pain [M79.602] 01/19/2024 Esophageal spasm [K22.4] 03/16/2025 Esophagus disorder [K22.9] 03/16/2025 Gastroesophageal reflux disease without esophag*03/16/2025 Throat fullness [R09.89] 03/16/2025 Paraesophageal hernia [K44.9] 05/01/2025 Falls [R29.6] 05/09/2025 Encounter Status:Closed by ALKA YADAV on 05/23/25 Normal [facility] 25(OH)D3 SerPl-mCncon 2024 25-hydroxyvitamin D3 [Mass/Vol] 31.2 ng/mL Normal 31.0-80.0 [facility] Comment on above: Order Comment: Gavino patel Type: BLOOD SPECIMEN Ordering Facility: [facility] Address: [address] [place] [address] Result Comment: Clas sification of 25 [place] Vitamin D status: Deficiency/Insufficiency: < or = 30 ng/ml. Sufficiency/Optimal Levels: 31-80 ng/mL Toxicity: > 100 ng/mL. Test performed by chemiluminescent immunoassay. Performed By: #### 3 3935-8 #### [facility] CLIA [id number] [address] [place] [address] [place] RUFINO BY IFA SCREENon 05-15-20 25 Nuclear Ab Ql (S) Negative Normal Negative [facility] Comment on above: Order Comment: Yuniori jorge Type: BLOOD SPECIMEN Ordering Facility: [facility] Address: [address] [place] [address] Result Comment: Anti -nuclear antibody test is used as an aid in diagnosis of systemic autoimmune diseases. Where positive and clinically warranted, follow-up using disease-specific testing is recommended. Low positive titers are not uncommon with advanced age, certain chronic infections, and malignancies among others. Test methodology: Indirect fluorescence immunoassay (IFA) using HEp-2 cells. Performed By: #### 3 3935-8 #### [facility] CLIA [id number] [address] [place] [address] [place] Aldolase SerPl-cCncon 2024 Aldolase [Catalytic activity/Vol] 3.3 mU/mL Normal 1.5-8.1 [facility] Comment on above: Order Comment: Gavino patel Type: BLOOD SPECIMEN Ordering Facility: [facility] Address: [address] [place] [address] Result Comment: This test was developed, and its performance characteristics determined by the [facility] Department of Pathology and Laboratory Medicine. It has not been cleared or approved by the FDA. The [facility] Department of Pathology and Laboratory Medicine is regulated under CLIA as qualified to perform high-complexity testing. This test is used for clinical purposes. It should not be regarded as investigational or for research. Performed By: #### 3 3935-8 #### [facility] CLIA [id number] [address] [place] [address] [place] CK SerPl-cCncon 05-15-2025 CK [Catalytic activity/Vol] 58 U/L Normal 42-196 [facility] Comment on above: Order Comment: Speci men Type: BLOOD SPECIMEN Ordering Facility: [facility] Address: [address] [place] [address] Performed By: #### 3 3935-8 #### [facility] CLIA [id number] [address] [place] [address] OF [place] CNPMarybel 05-15-2025 CNPN Telephone (FAMPBR) -------- KATHRYN WHITING ([id number]) 1955 F Date Time Provider Department 05/15/25 PABLO BATES [facility] During your visit today, we recorded the following information about you: Riya Rubin RN 05/15/2025 4:09 PM Signed [facility] calling from [phone] regarding reference number [id number]. [facility] does not Fioricet. The alternatives are meloxicam, ibuprofen or naproxen. Please advise if an alternative can be sent Ricarda Palma 05/16/2025 1:48 PM Addendum [facility] called due to Fioricet is not covered under her plan. They stated the PCP can submit a prior authorization to see if this can get covered. Please see message below. [employer] stated if they submit a prior authorization, a new prescription must be sent to them due to they do not hold on to the previous denied prescription. Aishwarya Turner APRN.CARMEN 05/17/2025 9:13 AM Signed Please call patient and see what she would like us to do. Thank you, Aishwarya Turner APRN.Dorothy Segal MA 05/24/2025 1:14 PM Signed Reviewed chart to see if PA was started since pharmacy faxed another request. No one called patient and I gave message below regarding fiorcet not covered. [facility] and will pay out pocket. Made new encounter Dorothy Hargrove MA Allergies As of Date: 05/15/2025 (No Known Allergies) Date Reviewed: 05/11/2025 Reviewed by: Isabell Torres, AYDIN - Fully Assessed Reason for Visit: Medication Problem [65] Prescriptions as of 05/24/2025 - acetaminophen 325 mg-caffeine 40 mg-butalbital 50 mg (FIORICET) per tablet Take 1 tablet by mouth every 4 hours as needed for up to 30 days. - acetaminophen 325 mg-caffeine 40 mg-butalbital 50 mg (FIORICET) per tablet Take 1 tablet by mouth every 4 hours as needed for up to 30 days. - atorvastatin (LIPITOR) 10 mg tablet TAKE 1 TABLET DAILY AT BEDTIME FOR CHOLESTEROL - acetaminophen 325 mg-caffeine 40 mg-butalbital 50 mg (FIORICET) per capsule Take 1 capsule by mouth every 4 hours as needed for headache. - levothyroxine (SYNTHROID) 112 mcg tablet Take 1 tablet by mouth once daily. - gabapentin (NEURONTIN) 100 mg capsule Take 2 capsules by mouth daily at bedtime for 90 days. - FLUoxetine (PROZAC) 40 mg capsule Take 1 capsule by mouth once daily. - meclizine (ANTIVERT) 25 mg tab TAKE 1 TABLET BY MOUTH THREE TIMES A DAY NEEDED FOR DIZZINESS Problem List As Of Date 05/15/2025 Noted Resolved Rosacea [L71.9] 07/19/1998 Cholelithiasis [574] 09/21/1998 08/18/2012 Hypothyroidism [E03.9] MITRAL VALVE DISORDER [I05.9] PANIC DISORDER WITHOUT AGORAPHOBIA [F41.0] Intractable migraine [G43.919] MYALGIA AND MYOSITIS NOS [QEC0838] Sprain and Strain of Unspecified Site of Knee a*07/05/2010 Routine general medical examination at [facility]*07/25/2010 08/18/2012 Class: Chronic Routine gynecological examination [Z01.419] 07/25/2010 08/18/2012 Class: Chronic Mixed Hyperlipidemia [E78.2] 07/25/2010 Mixed stress and urge urinary incontinence [N39*04/01/2011 Hyperlipidemia [E78.5] 03/25/2013 Family history of premature coronary heart dise*03/25/2013 Overweight [E66.3] 03/25/2013 Mild diastolic dysfunction [I51.9] 03/28/2013 Mild tricuspid regurgitation [I07.1] 03/28/2013 Mild mitral regurgitation [I34.0] 03/28/2013 Right-sided low back pain with right-sided scia*08/27/2015 Muscle weakness (generalized) [M62.81] 08/27/2015 Malignant neoplasm of upper-outer quadrant of r*12/02/2017 Vitamin D deficiency [E55.9] 02/01/2018 Osteoarthritis of spine with radiculopathy, lum*04/14/2023 Chronic neck pain [M54.2, G89.29] 04/14/2023 Chronic midline low back pain with bilateral sc*04/14/2023 IFG (impaired fasting glucose) [R73.01] 04/14/2023 Cervical radiculopathy [M54.12] 01/19/2024 Chronic left shoulder pain [M25.512, G89.29] 01/19/2024 Neck pain [M54.2] 01/19/2024 Left arm pain [M79.602] 01/19/2024 Esophageal spasm [K22.4] 03/16/2025 Esophagus disorder [K22.9] 03/16/2025 Gastroesophageal reflux disease without esophag*03/16/2025 Throat fullness [R09.89] 03/16/2025 Paraesophageal hernia [K44.9] 05/01/2025 Falls [R29.6] 05/09/2025 Encounter Status:Closed by RIYA RUBIN on 05/15/25 Normal [facility] CRP SerPl-mCncon 05-15-2025 CRP [Mass/Vol] mg/L Normal <0.9 [facility] Comment on above: Order Comment: Speci men Type: BLOOD SPECIMEN Ordering Facility: [facility] Address: [address] [place] [address] Performed By: #### 3 3935-8 #### [facility] CLIA [id number] [address] [place] [address] [place] Collagen crosslinked C-telop eptide [Mass/Vol]on 05-15-2025 C TELOPEPTIDE, BETA CROSS LINKED 330 pg/mL Normal 152-858 [facility] Comment on above: Order Comment: Speci men Type: BLOOD SPECIMENOrdering Facility: [facility] Address: [address] [place] [address] Performed By: #### 4 1171-0 ####[facility] [id number] [place] [address] [place] Cyclic citrullinated peptide IgG Qnon 05-15-2025 CCP ANTIBODY IGG QUALITATIVE Negative Normal Negative [facility] Comment on above: Order Comment: Speci men Type: BLOOD SPECIMEN Ordering Facility: [facility] Address: [address] [place] [address] Performed By: #### 3 3935-8 #### [facility] CLIA [id number] [address] [place] [address] [place] ESR Westergren method (Bld) [Velocity]on 05-15-2025 ESR (Bld) [Velocity] 5 mm/h Normal 0-20 [facility] Comment on above: Order Comment: Speci men Type: BLOOD SPECIMENOrdering Facility: [facility] Address: [address] [place] [address] Performed By: #### 4 537-7 ####[facility] [id number] [place] [address] [place] Magnesium SerPl-mCncon 05-15 Magnesium [Mass/Vol] 1.9 mg/dL Normal 1.7-2.3 [facility] Comment on above: Order Comment: Speci men Type: BLOOD SPECIMEN Ordering Facility: [facility] Address: [address] [place] [address] Performed By: #### 3 3935-8 #### [facility] CLIA [id number] [address] [place] [address] [place] Osteocalcin SerPl-mCncon Osteocalcin [Mass/Vol] 17.6 ng/mL Normal 8.6-37.6 [facility] Comment on above: Order Comment: Speci men Type: BLOOD SPECIMEN Ordering Facility: [facility] Address: [address] [place] [address] Performed By: #### 2 697-1 #### [facility] CLIA [id number] [address] [place] [address] [place] PROTEIN ELECTROPHORESIS SERU M (P)on 05-15-2025 Albumin [Mass/Vol] 3.97 g/dL Normal 3.43-5.41 [facility] Comment on above: Order Comment: Speci men Type: URINE SPECIMEN Ordering Facility: [facility] Address: [address] [place] [address] Performed By: #### L [id number] #### [facility] CLIA [id number] [address] [place] [address] [place] Alpha 1 globulin Elph [Mass/Vol] 0.27 g/dL Normal 0.18-0.43 [facility] Comment on above: Order Comment: Speci men Type: URINE SPECIMEN Ordering Facility: [facility] Address: [address] [place] [address] Performed By: #### L [id number] #### [facility] CLIA [id number] [address] [place] [address] [place] Alpha 2 globulin Elph [Mass/Vol] 0.65 g/dL Normal 0.42-0.98 [facility] Comment on above: Order Comment: Speci men Type: URINE SPECIMEN Ordering Facility: [facility] Address: [address] [place] [address] Performed By: #### L [id number] #### [facility] CLIA [id number] [address] [place] [address] [place] Beta globulin Elph [Mass/Vol] 0.86 g/dL Normal 0.61-1.17 [facility] Comment on above: Order Comment: Speci men Type: URINE SPECIMEN Ordering Facility: [facility] Address: [address] [place] [address] Performed By: #### L [id number] #### [facility] CLIA [id number] [address] [place] [address] [place] Gamma globulin Elph [Mass/Vol] 0.64 g/dL Normal 0.53-1.51 [facility] Comment on above: Order Comment: Speci men Type: URINE SPECIMEN Ordering Facility: [facility] Address: [address] [place] [address] Performed By: #### L [id number] #### [facility] CLIA [id number] [address] [place] [address] [place] M-PROTEIN LOCATION Normal [facility] Comment on above: Order Comment: Speci men Type: URINE SPECIMEN Ordering Facility: [facility] Address: [address] [place] [address] Result Comment: Not Applicable. Performed By: #### L [id number] #### [facility] CLIA [id number] [address] [place] [address] [place] Protein Fractions [Interp] No definitive M protein is identified on protein electrophoresis. Normal No definitive M protein is identified on protein electrophoresi s. [facility] Comment on above: Order Comment: Speci men Type: URINE SPECIMEN Ordering Facility: [facility] Address: [address] [place] [address] Performed By: #### L [id number] #### [facility] CLIA [id number] [address] [place] [address] [place] Protein.monoclonal Elph [Mass/Vol] 0.00 g/dL Normal <=0.00 [facility] Comment on above: Order Comment: Speci men Type: URINE SPECIMEN Ordering Facility: [facility] Address: [address] [place] [address] Performed By: #### L [id number] #### [facility] CLIA [id number] [address] [place] [address] [place] SPE STAFF REVIEW Reviewed by Marquita Ferrari MD [facility] Comment on above: Order Comment: Speci men Type: URINE SPECIMEN Ordering Facility: [facility] Address: [address] [place] [address] Performed By: #### L [id number] #### [facility] CLIA [id number] [address] [place] [address] [place] Phosphate SerPl-mCncon 05-15 Phosphate [Mass/Vol] 2.9 mg/dL Normal 2.7-4.8 [facility] Comment on above: Order Comment: Speci men Type: BLOOD SPECIMEN Ordering Facility: [facility] Address: [address] [place] [address] Performed By: #### 3 3935-8 #### [facility] CLIA [id number] [address] [place] [address] [place] Prot SerPl-mCncon 05-15-2025 Protein [Mass/Vol] 6.4 g/dL Normal 6.3-8.0 [facility] Comment on above: Order Comment: Speci men Type: BLOOD SPECIMEN Ordering Facility: [facility] Address: [address] [place] [address] Performed By: #### 3 3935-8 #### [facility] CLIA [id number] [address] [id number] [place] Prot Ur-mCncon 05-15-2025 Protein (U) [Mass/Vol] 7 mg/dL Normal 0-20 [facility] Comment on above: Order Comment: Speci men Type: URINE SPECIMENOrdering Facility: [facility] Address: [address] [place] [address] Performed By: #### 2 888-6 ####[facility] [id number] [place] [address] [place] Rheumatoid fact SerPl-aCncon 05-15-2025 Rheumatoid factor Qn [IU]/mL Normal <16 [facility] Comment on above: Order Comment: Speci men Type: BLOOD SPECIMEN Ordering Facility: [facility] Address: [address] [place] [address] Performed By: #### 4 5066-8 #### [facility] CLIA [id number] [address] [place] [address] [place] T3Free SerPl-mCncon 05-15-20 25 Free T3 [Mass/Vol] 2.9 pg/mL Normal 2.3-4.1 [facility] Comment on above: Order Comment: Speci men Type: BLOOD SPECIMEN Ordering Facility: [facility] Address: [address] [place] [address] Performed By: #### 4 5066-8 #### [facility] CLIA [id number] [address] [place] [address] [place] T4 Free SerPl-mCncon 025 Free T4 [Mass/Vol] 1.7 ng/dL Normal 0.9-1.7 [facility] Comment on above: Order Comment: Speci men Type: BLOOD SPECIMEN Ordering Facility: [facility] Address: [address] [place] [address] Performed By: #### 4 5066-8 #### [facility] [id number] [address] [place] [address] [place] TSH SerPl-aCncon 05-15-2025 TSH Qn 0.331 m[IU]/L Normal 0.270-4.200 [facility] Comment on above: Order Comment: Speci men Type: BLOOD SPECIMEN Ordering Facility: [facility] Address: [address] [place] [address] Performed By: #### 4 5066-8 #### [facility] CLIA [id number] [address] [place] [address] [place] URINE PROTEIN ELECTROPHORESI S RANDOM (P)on 05-15-2025 Albumin Elph (U) [Mass fraction] 46.96 % Normal [facility] Comment on above: Order Comment: Speci men Type: URINE SPECIMEN Ordering Facility: [facility] Address: [address] [place] [address] Performed By: #### L [id number] #### [facility] CLIA [id number] [address] [place] [address] [place] Alpha 1 globulin Elph (U) [Mass fraction] 5.50 % Normal [facility] Comment on above: Order Comment: Speci men Type: URINE SPECIMEN Ordering Facility: [facility] Address: [address] [place] [address] Performed By: #### L [id number] #### [facility] CLIA [id number] [address] [place] [address] [place] Alpha 2 globulin Elph (U) [Mass fraction] 19.05 % Normal [facility] Comment on above: Order Comment: Speci men Type: URINE SPECIMEN Ordering Facility: [facility] Address: [address] [place] [address] Performed By: #### L [id number] #### [facility] CLIA [id number] [address] [place] [address] [place] Beta globulin Elph (U) [Mass fraction] 18.66 % Normal [facility] Comment on above: Order Comment: Speci men Type: URINE SPECIMEN Ordering Facility: [facility] Address: [address] [place] [address] Performed By: #### L [id number] #### [facility] CLIA [id number] [address] [place] [address] [place] Gamma globulin Elph (U) [Mass fraction] 9.83 % Normal [facility] Comment on above: Order Comment: Speci men Type: URINE SPECIMEN Ordering Facility: [facility] Address: [address] [place] [address] Performed By: #### L [id number] #### [facility] CLIA [id number] [address] [place] [address] STATES [facility] INTERPRETATION COMMENT FOR PROTEIN ELECTROPHORESIS The absence of M-protein on urine protein electrophoresis does not entirely exclude the presence of monoclonal gammopathy in urine. Monoclonal protein analysis (immunofixation), a more definitive test to exclude monoclonal gammopathy, may be requested on this specimen if clinically indicated. Normal [facility] Comment on above: Order Comment: Speci men Type: URINE SPECIMEN Ordering Facility: [facility] Address: [address] [place] [address] Performed By: #### L [id number] #### [facility] CLIA [id number] [address] [place] [address] Protein Fractions Elph Otto (U) [Interp] No definitive M protein is identified on protein electrophoresis. Normal No definitive M protein is identified on protein electrophoresi s. [facility] Comment on above: Order Comment: Speci men Type: URINE SPECIMEN Ordering Facility: [facility] Address: [address] [place] [address] Performed By: #### L [id number] #### [facility] CLIA [id number] [address] [place] [address] OF [place] STAFF REVIEW (URINE ELECTRO) Reviewed by Marquita Ferrari MD Normal [facility] Comment on above: Order Comment: Speci men Type: URINE SPECIMEN Ordering Facility: [facility] Address: [address] [place] [address] Performed By: #### L [id number] #### [facility] CLIA [id number] [address] [place] [address] [place] cCP IgG SerPl-aCncon 025 Cyclic citrullinated peptide IgG Qn <15 Normal <20 [facility] Comment on above: Order Comment: Speci men Type: BLOOD SPECIMEN Ordering Facility: [facility] Address: [address] [place] [address] Performed By: #### 3 3935-8 #### [facility] CLIA [id number] [address] [place] [address] OF [place] CNOVon 05-11-2025 CNOV Office Visit (RHWSTR ) -------- KATHRYN WHITING ([id number]) 1955 F Date Time Provider Department 05/11/25 11:00 AM JACQUELINE CALDERON RHWSTR During your visit today, we recorded the following information about you: Pulse Respiration Blood pressure Weight 90/minute 17/minute 110/68 66.9 kg Jacqueline Calderon PA-C 05/11/2025 12:32 PM Signed Rheumatology CONSULTATION Date of Service: 05/11/2025 Patient: Kathryn Whiting Medical Record: [id number] Primary Care Physician: Pablo Bates DO Last Rheumatology visit: None at [facility] Referring Provider: Cata Whyte [address] [place] [address] Kathryn Whiting is here today at request of Cata Whyte APRN.SERVICE ORDER DISPATCHER CHIEF specifically for consultation of my opinion in regards to the chief complaint listed below. Correspondence will be shared today via the [employer] electronic health record or through regular mail, where applicable. Recording using 24h00 software for draft documentation of the visit was discussed with the patient/authorized arborist representative; all questions welcomed and answered. Patient/authorized arborist representative agreed to proceed History of Present Illness Kathryn Whiting is a 69-year-old female with a history of osteoarthritis, degenerative disc disease, sciatica, and psoriasis, presenting for evaluation of joint and muscle pain. Kathryn reports a current pain level of 3 . She describes the pain as Dull, Aching, Stiffness. The pain is Continuous . Kathryn is RF negative - 9 (03/27/2015). Her most recent RUFINO was negative (03/27/2015). Kathryn reports chronic joint and muscle pain, primarily in both shoulders, neck, and lower back, with a history of a left shoulder injury at work several years ago. She was previously diagnosed with fibromyalgia but did not pursue treatment at that time. She notes that the pain is exacerbated by activity and occasionally experiences flare-ups. She denies visible swelling in the joints but describes a persistent aching sensation, particularly in the left shoulder and muscles. She also reports weakness in her ankles and occasional episodes of her right knee giving out. Kathryn has a history of sciatica, currently undergoing physical therapy, and recently completed a prednisone pack. She takes Tylenol 1000 mg once daily as needed for pain, which provides variable relief. She is also on gabapentin 2 capsules at bedtime for hot flashes, which has not alleviated her sciatica symptoms. Kathryn reports a significant reaction to a COVID-19 vaccine in her left arm and a flu shot in her right arm last year, resulting in an inability to lift her arms for months. She underwent physical therapy for this issue and notes that while her arm function has improved, she still experiences a sensation of weakness and a sprain-like feeling in her arms. Kathryn has a history of psoriasis diagnosed by dermatology 5-10 years ago, previously treated with shampoo but currently not causing issues. She denies current rashes or sun sensitivity but notes increased skin sensitivity and redness due to rosacea. She reports hair loss with regrowth and denies nail changes, nosebleeds, or mouth sores. Kathryn experiences dysphagia associated with a hiatal hernia, scheduled for repair in June. She reports heartburn and three episodes of severe abdominal pain, prompting the decision for surgical intervention. She denies diarrhea, hematuria, or hematochezia. Kathryn reports chronic fatigue, moderate in severity, and wakes up feeling unrefreshed. She experiences moderate difficulty with thinking and memory. She denies depression but reports frequent headaches and occasional numbness on the left side of her face, unrelated to her migraines. A recent carotid artery ultrasound was clear. She denies Raynaud's phenomenon but notes cold extremities without color changes. Kathryn has a history of osteoporosis, with a bone density scan in 2022 showing a T-score of -3.8. She has not received treatment for osteoporosis but previously took vitamin D supplements while on estrogen-blocking medication for breast cancer. She denies current calcium supplementation and has not had recent dental extractions or implants. She denies a history of fractures since childhood, when she broke her wrist. Kathryn is postmenopausal, having gone through menopause at age 52-53, and reports more frequent hot flashes now than during menopause. She denies a history of blood clots or miscarriages. Kathryn denies a family history of autoimmune diseases, rheumatoid arthritis, lupus, Crohn's disease, or colitis. She, has a family history of psoriasis in her grandmother and cousin. Current medications include furosemide, Antivert, fluoxetine, gabapentin, Synthroid, and Lipitor. She denies a history of cardiac disease. She is scheduled for cataract surgery after her hiatal hernia repa (more content not included)... Normal [facility] 05-11-2025 [facility] Telephone (RHWSTR) -------- KATHRYN WHITING ([id number]) 1955 F Date Time Provider Department 05/11/25 ISABELL TORRES RENUKA During your visit today, we recorded the following information about you: Isabell Torres RN 05/11/2025 1:33 PM Signed Referral placed for [facility]. IsabellAYDIN Titus Danelle, RN 05/15/2025 8:02 AM Signed Precertification is not required. The referral has been updated. The Pharmacy Prior Authorization Team. Allergies As of Date: 05/11/2025 (No Known Allergies) Date Reviewed: 05/11/2025 Reviewed by: Isabell Torres RN - Fully Assessed Reason for Visit: Evenity Referral [Other] Prescriptions as of 05/24/2025 - acetaminophen 325 mg-caffeine 40 mg-butalbital 50 mg (FIORICET) per tablet Take 1 tablet by mouth every 4 hours as needed for up to 30 days. - acetaminophen 325 mg-caffeine 40 mg-butalbital 50 mg (FIORICET) per tablet Take 1 tablet by mouth every 4 hours as needed for up to 30 days. - atorvastatin (LIPITOR) 10 mg tablet TAKE 1 TABLET DAILY AT BEDTIME FOR CHOLESTEROL - acetaminophen 325 mg-caffeine 40 mg-butalbital 50 mg (FIORICET) per capsule Take 1 capsule by mouth every 4 hours as needed for headache. - levothyroxine (SYNTHROID) 112 mcg tablet Take 1 tablet by mouth once daily. - gabapentin (NEURONTIN) 100 mg capsule Take 2 capsules by mouth daily at bedtime for 90 days. - FLUoxetine (PROZAC) 40 mg capsule Take 1 capsule by mouth once daily. - meclizine (ANTIVERT) 25 mg tab TAKE 1 TABLET BY MOUTH THREE TIMES A DAY NEEDED FOR DIZZINESS Problem List As Of Date 05/11/2025 Noted Resolved Rosacea [L71.9] 07/19/1998 Cholelithiasis [574] 09/21/1998 08/18/2012 Hypothyroidism [E03.9] MITRAL VALVE DISORDER [I05.9] PANIC DISORDER WITHOUT AGORAPHOBIA [F41.0] Intractable migraine [G43.919] MYALGIA AND MYOSITIS NOS [FFA2290] Sprain and Strain of Unspecified Site of Knee a*07/05/2010 Routine general medical examination at [facility]*07/25/2010 08/18/2012 Class: Chronic Routine gynecological examination [Z01.419] 07/25/2010 08/18/2012 Class: Chronic Mixed Hyperlipidemia [E78.2] 07/25/2010 Mixed stress and urge urinary incontinence [N39*04/01/2011 Hyperlipidemia [E78.5] 03/25/2013 Family history of premature coronary heart dise*03/25/2013 Overweight [E66.3] 03/25/2013 Mild diastolic dysfunction [I51.9] 03/28/2013 Mild tricuspid regurgitation [I07.1] 03/28/2013 Mild mitral regurgitation [I34.0] 03/28/2013 Right-sided low back pain with right-sided scia*08/27/2015 Muscle weakness (generalized) [M62.81] 08/27/2015 Malignant neoplasm of upper-outer quadrant of r*12/02/2017 Vitamin D deficiency [E55.9] 02/01/2018 Osteoarthritis of spine with radiculopathy, lum*04/14/2023 Chronic neck pain [M54.2, G89.29] 04/14/2023 Chronic midline low back pain with bilateral sc*04/14/2023 IFG (impaired fasting glucose) [R73.01] 04/14/2023 Cervical radiculopathy [M54.12] 01/19/2024 Chronic left shoulder pain [M25.512, G89.29] 01/19/2024 Neck pain [M54.2] 01/19/2024 Left arm pain [M79.602] 01/19/2024 Esophageal spasm [K22.4] 03/16/2025 Esophagus disorder [K22.9] 03/16/2025 Gastroesophageal reflux disease without esophag*03/16/2025 Throat fullness [R09.89] 03/16/2025 Paraesophageal hernia [K44.9] 05/01/2025 Falls [R29.6] 05/09/2025 Encounter Status:Closed by MANUEL ANTUNEZ on 05/24/25 Normal [facility] XR ANKLE 3V AP/LAT/OBL LTon 05-11-2025 XR ANKLE 3V AP/LAT/OBL LT * * *Final Report* * * DATE OF EXAM: May 11 2025 12:52PM [id number] - XR ANKLE 3V AP/LAT/OBL LT / PROCEDURE REASON: multiple diagnoses * * * * Physician Interpretation * * * * EXAMINATION / TECHNIQUE: XR ANKLE 3V AP/LAT/OBL RT, XR ANKLE 3V AP/LAT/OBL LT HISTORY: PT STATES BILAT ANKLE WEAKNESS Chronic left shoulder pain Chronic left shoulder pain Neck pain Muscle weakness (generalized) COMPARISON: None RESULT: No acute fracture or malalignment in either ankle. Joint spaces are maintained bilaterally. Plantar calcaneal enthesophytes. COMBINED IMPRESSION: No acute bony abnormality. 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: [employer] Transcribe Date/Time: May 18 2025 8:40P Dictated by : GETACHEW BARNETT MD This examination was interpreted and the report reviewed and electronically signed by: GETACHEW BARNETT MD on May 18 2025 8:41PM EST [id number] Normal [facility] XR ANKLE 3V AP/LAT/OBL RTon 05-11-2025 XR ANKLE 3V AP/LAT/OBL RT * * *Final Report* * * DATE OF EXAM: May 11 2025 12:51PM [id number] - XR ANKLE 3V AP/LAT/OBL RT / PROCEDURE REASON: multiple diagnoses * * * * Physician Interpretation * * * * EXAMINATION / TECHNIQUE: XR ANKLE 3V AP/LAT/OBL RT, XR ANKLE 3V AP/LAT/OBL LT HISTORY: PT STATES BILAT ANKLE WEAKNESS Chronic left shoulder pain Chronic left shoulder pain Neck pain Muscle weakness (generalized) COMPARISON: None RESULT: No acute fracture or malalignment in either ankle. Joint spaces are maintained bilaterally. Plantar calcaneal enthesophytes. COMBINED IMPRESSION: No acute bony abnormality. 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: [employer] Transcribe Date/Time: May 18 2025 8:40P Dictated by : GETACHEW BARNETT MD This examination was interpreted and the report reviewed and electronically signed by: GETACHEW BARNETT MD on May 18 2025 8:41PM EST [id number] Normal [facility] XR KNEE 4V AP/PA BOTH+LAT/ME R RTon 05-11-2025 XR KNEE 4V AP/PA BOTH+LAT/CHITO RT * * *Final Report* * * DATE OF EXAM: May 11 2025 12:49PM WRX [id number] - XR KNEE 4V AP/PA BOTH+LAT/CHITO RT / PROCEDURE REASON: multiple diagnoses * * * * Physician Interpretation * * * * PROCEDURE: Right knee INDICATION: ).PT STATES RIGHT KNEE PAIN TECHNIQUE: XR KNEE 4V AP/PA BOTH+LAT/CHITO RT COMPARISON: 09/30/2010 FINDINGS: Moderate lateral and mild patellofemoral joint compartment narrowing with minimal marginal spurring. No fracture or dislocation. No joint effusion. IMPRESSION: Osteoarthrosis, showing interval progression 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: [employer] Transcribe Date/Time: May 18 2025 7:16A Dictated by : UBALDO WONG MD This examination was interpreted and the report reviewed and electronically signed by: UBALDO WONG MD on May 18 2025 7:17AM EST [id number] Normal [facility] [id number] 05-09-2025 [id number] HNO ID: [id number] Author: FRANCISCO SONI PT Service: ? Author Type: Physical Therapist Type: [id number] Filed: 05/09/2025 09:24 Note Text: [facility] Physical Therapy Plan of Care Certification Patient Name: Kathryn Whiting : 1955 [facility] #: [id number] Date: 05/08/2025 To: Alka Yadav AP* From Therapist: Francisco Soni PT RE: Patient Certification/ Recertification Your review, approval and electronic signature are required in order to comply with Payor: MEDICARE / Plan: MEDICARE A AND B / Product Type: Medicare / regulations. The identified Physical Therapy PLAN OF CARE for the patient is as follows: M47.26 Osteoarthritis of spine with radiculopathy, lumbar region M54.41, G89.29 Chronic right-sided low back pain with right-sided sciatica R29.6 Falls PLAN OF CARE: Assessment: Kathryn Whiting presents with chief complaint of LBP and RLE radiculopathy that interferes with standing, walking . The patient presents with impairments in coordination, independence in exercise, range of motion, and strength. Patient did not complete the PROMIS? (Patient Reported Outcome Measures Information System). Prognosis for therapy is Good due to: current objective clinical presentation . Pt demonstrates some hypermobility at segments L4 and L5 with PA assessment. The patient will benefit from skilled therapy services to meet the goals established for this plan of care as noted below. Classification Pain Mechanism Classification: Neuropathic Goals for Episode of Care: established 05/08/25 Patient will decrease pain rating by 2 points to meet minimal clinical important difference for numeric pain rating scale. Restore pain-free lumbar ROM to WNL to allow for ease of bending, twisting and lifting Stand / Walk for 1 hour without pain/symptoms. Pt will demo RA strength of 4/5 or greater for improved lumbar stability and decreased nerve compression with ADLs Patient Goals: Get rid of the pain Time Frame for Goals and Treatment : 07/03/25 Planned Interventions, Frequency, and Duration: Current Frequency: 1x/week Duration: 4 weeks Total Number of Visits Planned: 4 Planned Treatment Interventions: Therapeutic exercise (64237), Therapeutic activities (77715), Manual therapy (80218), Neuromuscular re-education (41787), Self-fpc management (64472), Gait Training (14249), Patient/Family/Caregiver Education PLAN FOR NEXT VISIT: Trial lumbar traction Patient demonstrates good understanding of plan of care and treatment. The above goals and plan of care were discussed and agreed upon by patient/family. For further details regarding this patient refer to the Physical Therapy electronically documented visit dated 05/08/2025. Provider Attestation I have reviewed the treatment plan for Kathryn Roe Johanne, [facility]# [id number] for the period of 05/09/25 -- 06/13/25, established on 05/08/2025. Signature certifies the need for therapy services. Normal [facility] KATHRYN WHITING ([id number]) 1955 F Date Time Provider Department 05/09/25 ANTONETTE ZUNIGA During your visit today, we recorded the following information about you: Antonette Zuniga PA-C 05/09/2025 2:35 PM Signed Let patient know that her Carotid US is stable. Thanks. HIRAL Frazier Amanda, RN 05/09/2025 4:07 PM Signed Called and left a voicemail for the Patient to call back and ask for a nurse to receive the providers message. AYDIN Strickland Krystle, RN 05/10/2025 3:21 PM Signed Patient calls and notified of results. Patient verbalizes understanding. Yenifer Batista RN Allergies As of Date: 05/09/2025 (No Known Allergies) Date Reviewed: 05/01/2025 Reviewed by: Carolynn Carrasco - Fully Assessed Reason for Visit: Results [95] Prescriptions as of 05/10/2025 - acetaminophen 325 mg-caffeine 40 mg-butalbital 50 mg (FIORICET) per tablet Take 1 tablet by mouth every 4 hours as needed for up to 30 days. - atorvastatin (LIPITOR) 10 mg tablet TAKE 1 TABLET DAILY AT BEDTIME FOR CHOLESTEROL - acetaminophen 325 mg-caffeine 40 mg-butalbital 50 mg (FIORICET) per capsule Take 1 capsule by mouth every 4 hours as needed for headache. - levothyroxine (SYNTHROID) 112 mcg tablet Take 1 tablet by mouth once daily. - gabapentin (NEURONTIN) 100 mg capsule Take 2 capsules by mouth daily at bedtime for 90 days. - FLUoxetine (PROZAC) 40 mg capsule Take 1 capsule by mouth once daily. - meclizine (ANTIVERT) 25 mg tab TAKE 1 TABLET BY MOUTH THREE TIMES A DAY NEEDED FOR DIZZINESS Problem List As Of Date 05/09/2025 Noted Resolved Rosacea [L71.9] 07/19/1998 Cholelithiasis [574] 09/21/1998 08/18/2012 Hypothyroidism [E03.9] MITRAL VALVE DISORDER [I05.9] PANIC DISORDER WITHOUT AGORAPHOBIA [F41.0] Intractable migraine [G43.919] MYALGIA AND MYOSITIS NOS [[id number]] Sprain and Strain of Unspecified Site of Knee a*07/05/2010 Routine general medical examination at [facility]*07/25/2010 08/18/2012 Class: Chronic Routine gynecological examination [Z01.419] 07/25/2010 08/18/2012 Class: Chronic Mixed Hyperlipidemia [E78.2] 07/25/2010 Mixed stress and urge urinary incontinence [N39*04/01/2011 Hyperlipidemia [E78.5] 03/25/2013 Family history of premature coronary heart dise*03/25/2013 Overweight [E66.3] 03/25/2013 Mild diastolic dysfunction [I51.9] 03/28/2013 Mild tricuspid regurgitation [I07.1] 03/28/2013 Mild mitral regurgitation [I34.0] 03/28/2013 Right-sided low back pain with right-sided scia*08/27/2015 Muscle weakness (generalized) [M62.81] 08/27/2015 Malignant neoplasm of upper-outer quadrant of r*12/02/2017 Vitamin D deficiency [E55.9] 02/01/2018 Osteoarthritis of spine with radiculopathy, lum*04/14/2023 Chronic neck pain [M54.2, G89.29] 04/14/2023 Chronic midline low back pain with bilateral sc*04/14/2023 IFG (impaired fasting glucose) [R73.01] 04/14/2023 Cervical radiculopathy [M54.12] 01/19/2024 Chronic left shoulder pain [M25.512, G89.29] 01/19/2024 Neck pain [M54.2] 01/19/2024 Left arm pain [M79.602] 01/19/2024 Esophageal spasm [K22.4] 03/16/2025 Esophagus disorder [K22.9] 03/16/2025 Gastroesophageal reflux disease without esophag*03/16/2025 Throat fullness [R09.89] 03/16/2025 Paraesophageal hernia [K44.9] 05/01/2025 Falls [R29.6] 05/09/2025 Encounter Status:Closed by YENIFER BATISTA on 05/10/25 [facility] CNTHERAPYon 05-08-2025 CNTHERAPY OT/PT/Speech Visit (PTWS) -------- KATHRYN WHITING ([id number]) 1955 F Date Time Provider Department 05/08/25 3:30 PM FRANCISCO SONI PTWS Date Time Provider Department Center 05/08/2025 3:30 PM [id number], COREY PTWS Margaux James Reason for Visit: PT Isael [[id number]] Visit Diagnoses:Osteoarthritis of spine with radiculopathy, lumbar region [M47.26] Chronic right-sided low back pain with right-sided sciatica [M54.41, G89.29] Falls [R29.6] Allergies As of Date: 05/08/2025 (No Known Allergies) Date Reviewed: 05/01/2025 Reviewed by: Carolynn Carrasco - Fully Assessed Prescriptions as of 05/09/2025 - atorvastatin (LIPITOR) 10 mg tablet TAKE 1 TABLET DAILY AT BEDTIME FOR CHOLESTEROL - acetaminophen 325 mg-caffeine 40 mg-butalbital 50 mg (FIORICET) per capsule Take 1 capsule by mouth every 4 hours as needed for headache. - levothyroxine (SYNTHROID) 112 mcg tablet Take 1 tablet by mouth once daily. - gabapentin (NEURONTIN) 100 mg capsule Take 2 capsules by mouth daily at bedtime for 90 days. - FLUoxetine (PROZAC) 40 mg capsule Take 1 capsule by mouth once daily. - meclizine (ANTIVERT) 25 mg tab TAKE 1 TABLET BY MOUTH THREE TIMES A DAY NEEDED FOR DIZZINESS Manager Event: Therapy (PT/OT/Speech/Resp) ID: [id number] 05/08/2025 4:22 PM Author: FRANCISCO SONI Signed by FRANCISCO SONI PT on 05/08/2025 at 4:22 PM Document text: Program_ID:[id number] Access Code: [email or web address] URL: [email or web address] [employer]/ Date: 05-08-2025 Prepared By: Francisco Soni Program Notes Exercises - Supine March with Posterior Pelvic Tilt - 1 x daily - 7 x weekly - 4 sets - 10 reps - Supine March with Posterior Pelvic Tilt - 1 x daily - 7 x weekly - 4 sets - 10 reps Normal [facility] THERAPY NTon 05-08-2025 THERAPY NT HNO ID: [id number] Author: FRANCISCO SONI PT Service: ? Author Type: Physical Therapist Type: Therapy (PT/OT/Speech/Resp) Filed: 05/08/2025 16:22 Note Text: Program_ID:[id number] Access Code: [email or web address] URL: [email or web address] [employer]/ Date: 05-08-2025 Prepared By: Francisco Soni Program Notes Exercises - Supine January with Posterior Pelvic Tilt - 1 x daily - 7 x weekly - 4 sets - 10 reps - Supine January with Posterior Pelvic Tilt - 1 x daily - 7 x weekly - 4 sets - 10 reps Normal [facility] US CAROTID ARTERIES [facility]on 05-08-2025 US CAROTID ARTERIES [facility] Non-Invasive Vascular Laboratory [facility] Carotid Duplex Bilateral/Complete Date of service/time: 05/08/2025 2:36:07 PM Name: MRS. KATHRYN WHITING Date of : 1955 Age: 69 years Gender: F Clinical Indication Numbness. TECHNIQUE -------- A carotid duplex ultrasound examination was performed, including grayscale imaging and color Doppler and spectral Doppler examination of the below mentioned arteries. FINDINGS -------- RIGHT SIDE Common carotid artery: Origin: PSV: 92 cm/s. EDV: 22 cm/s. Proximal: PSV: 87 cm/s. EDV: 21 cm/s. Mid: PSV: 86 cm/s. EDV: 24 cm/s. Distal: PSV: 77 cm/s. EDV: 24 cm/s. Internal carotid artery: Origin: PSV: 55 cm/s. EDV: 19 cm/s. Proximal: PSV: 82 cm/s. EDV: 33 cm/s. Mid: PSV: 72 cm/s. EDV: 30 cm/s. Distal: PSV: 76 cm/s. EDV: 28 cm/s. ICA/CCA Ratio: 1.1 External carotid artery: Proximal: PSV: 69 cm/s. EDV: 9 cm/s. Subclavian artery: Proximal: PSV: 106 cm/s. EDV: 0 cm/s. Mild heterogeneous plaque at origin. Innominate artery: PSV: 97 cm/s. EDV: 0 cm/s. Vertebral artery: PSV: 48 cm/s. EDV: 13 cm/s. LEFT SIDE Common carotid artery: Proximal: PSV: 94 cm/s. EDV: 24 cm/s. Mid: PSV: 100 cm/s. EDV: 29 cm/s. Distal: PSV: 78 cm/s. EDV: 27 cm/s. Internal carotid artery: Origin: PSV: 70 cm/s. EDV: 21 cm/s. Proximal: PSV: 71 cm/s. EDV: 28 cm/s. Mid: PSV: 100 cm/s. EDV: 41 cm/s. Distal: PSV: 67 cm/s. EDV: 22 cm/s. Mild heterogeneous plaque at origin. ICA/CCA Ratio: 0.9 External carotid artery: Proximal: PSV: 82 cm/s. EDV: 11 cm/s. Subclavian artery: Proximal: PSV: 146 cm/s. Vertebral artery: PSV: 76 cm/s. EDV: 22 cm/s. IMPRESSION Please note: the new carotid interpretation criteria are used as recommended by [employer]. When compared with the prior study, of 07/03/2022 no significant change is noted on the right side and no significant change is noted on the left side. RIGHT SIDE Common carotid artery: Patent. Internal carotid artery: Normal study. External carotid artery: Patent. Vertebral artery: Patent and antegrade flow noted. Innominate artery: Patent. Subclavian artery: Plaque visualized without evidence of hemodynamically significant stenosis. LEFT SIDE Common carotid artery: Patent. Internal carotid artery: <50% stenosis consistent with mild carotid artery disease. External carotid artery: Patent. Vertebral artery: Patent and antegrade flow noted. Subclavian artery: Patent. Technologist: Shanita Esquivel RVT Ordering physician: ALKA YADAV Interpreting physician: Dionisio Andre MD, RPVI Final CC [facility] Image : [id number] ID See Link below for Image Normal [facility] CNOVon 05-01-2025 CNOV Office Visit (GENN ) -------- KATHRYN WHITING ([id number]) 1955 F Date Time Provider Department 05/01/25 10:00 AM [facility] During your visit today, we recorded the following information about you: Temperature Pulse Blood pressure Weight 97.6 degrees 66/minute 143/63 67.3 kg Height 1.605 m Carolynn Carrasco 05/01/2025 10:44 AM Signed What is the reason for your visit today? consult Who is your referring physician? SELF Are you having poor oral intake? NO Have you had unintentional weight loss of 15 lbs/7 Kg in the last 3-6 months? NO Bowels: regular Wound: clean AND dry Temperature: No Drains: No Dequan Devi 05/01/2025 10:30 AM Signed GENERAL SURGERY HP 05/01/2025 HPI: Kathryn Whiting is a female with a history of a paraesophageal hernia, presenting to discuss potential surgical intervention. Kathryn reports three episodes of severe pain in the stomach area, described as very, very painful. She also experiences dysphagia, with a sensation of food getting stuck in the throat, and frequent heartburn. She denies cough, wheezing, hematemesis, or melena. She has not experienced any weight loss. Kathryn has a history of a lap cholecystectomy and a lumpectomy for breast cancer. 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 ROS: Constitutional: (-) weight loss Respiratory: (-) cough, (-) wheezing Gastrointestinal: (+) abdominal pain, (+) dysphagia, (+) heartburn, (-) hematemesis, (-) hematochezia .Review of Systems Constitutional: Negative. HENT: Negative. Eyes: Negative. Endocrine: Negative. Genitourinary: Negative. Musculoskeletal: Negative. Allergic/Immunologic: Negative. Neurological: Negative. Hematological: Negative. Psychiatric/Behavioral: Negative. Physical Exam: Physical Exam HENT: Head: Normocephalic. Nose: Nose normal. Mouth/Throat: Mouth: Mucous membranes are moist. Cardiovascular: Rate and Rhythm: Normal rate and regular rhythm. Pulmonary: Effort: Pulmonary effort is normal. No respiratory distress. Breath sounds: No wheezing. Skin: General: Skin is warm. Capillary Refill: Capillary refill takes less than 2 seconds. Neurological: General: No focal deficit present. Mental Status: She is alert and oriented to person, place, and time. Abd: No masses palpated, scars from prior cholecystectomy noted. Diagnostics: Tests EGD: Paraesophageal hernia identified; otherwise unremarkable. Imaging CT Scan: Nearly the entire stomach herniated into the chest, consistent with a large hiatal hernia. Assessment/Plan: 1. 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 CT scan shows most of the stomach has herniated into the chest. Patient is symptomatic with episodes of severe pain, dysphagia - Discussed minimally invasive paraesophageal hernia repair, potentially using mesh or pledgets - Surgery to be performed minimally invasively via laparoscopy or robotics. - Hospital stay expected to be approximately 2 days; post-operative contrast study to ensure no complications. - Initiate full liquid diet for 2 weeks post-surgery, followed by gradual reintroduction of solid foods. - Scheduled follow-up in 2 weeks post-surgery with EGD to assess the hiatal aperture. - Discussed participation in a study comparing mesh vs. pledgets during surgery. - Advised no heavy lifting post-surgery; patient may need assistance with caregiving duties. 2. Dysphagia (R13.10) Experiencing sensation of food getting stuck in the throat. 3. Heartburn (R12) Frequent episodes reported. 4. Personal history of malignant neoplasm of breast (Z85.3) History of breast cancer treated with lumpectomy. Final plan: Plan for minimally invasive paraesophageal hernia repair. Discussed participation on MVP trial. Dequan Devi MD General Surgery [facility], Preet York MD 05/01/2025 10:44 AM Signed Consultation requested by Dr. Pablo Bates for an opinion regarding paraesophageal hernia. My final recommendations will be communicated back to the requesting physician by way of shared medical record or letter via US mail. Kathryn Whiting is a 69 year old female who presents with a type III PEH. She reports mostly dysphagia, and some early satiety. Intermittent GERD that is well controlled with intermittent Pepcid. GERD is not her major complaint. No previous repairs. I dicussed surgery and the recurrence rates being very high. She understands and wishes to proceed with lap or robotic PEH, possible EGD, possible mesh, possible open I have seen and evaluated the patient and discussed the case with the resident physician. I agree with the assessment and plan as documented in the resident?s note including a ROS that was reviewed and negative other than what was indicated in our notes. P (more content not included)... Normal [facility] CBC panel Auto (Bld)on 04-20 Erythrocyte distribution width (RBC) [Ratio] 14.1 % Normal 11.5-15.0 [facility] Comment on above: Order Comment: Speci men Type: BLOOD SPECIMEN Ordering Facility: [facility] Address: [address] [place] [address] Performed By: #### 2 697-1 #### [facility] CLIA [id number] [address] [place] [address] [place] Hematocrit (Bld) [Volume fraction] 42.0 % Normal 36.0-46.0 [facility] Comment on above: Order Comment: Speci men Type: BLOOD SPECIMEN Ordering Facility: [facility] Address: [address] [place] [address] Performed By: #### 2 697-1 #### [facility] CLIA [id number] [address] [place] [address] [place] Hemoglobin (Bld) [Mass/Vol] 13.4 g/dL Normal 11.5-15.5 [facility] Comment on above: Order Comment: Speci men Type: BLOOD SPECIMEN Ordering Facility: [facility] Address: [address] [place] [address] Performed By: #### 2 697-1 #### [facility] CLIA [id number] [address] [place] [address] [place] MCH (RBC) [Entitic mass] 28.7 pg Normal 26.0-34.0 [facility] Comment on above: Order Comment: Speci men Type: BLOOD SPECIMEN Ordering Facility: [facility] Address: [address] [place] [address] Performed By: #### 2 697-1 #### [facility] CLIA [id number] [address] [place] [address] [place] MCHC (RBC) [Mass/Vol] 31.9 g/dL Normal 30.5-36.0 [facility] Comment on above: Order Comment: Speci men Type: BLOOD SPECIMEN Ordering Facility: [facility] Address: [address] [place] [address] Performed By: #### 2 697-1 #### [facility] CLIA [id number] [address] [place] [address] [place] MCV (RBC) [Entitic vol] 89.9 fL Normal 80.0-100.0 [facility] Comment on above: Order Comment: Speci men Type: BLOOD SPECIMEN Ordering Facility: [facility] Address: [address] [place] [address] Performed By: #### 2 697-1 #### [facility] CLIA [id number] [address] [place] [address] [place] Nucleated RBC (Bld) [#/Vol] 10*3/uL Normal <0.01 [facility] Comment on above: Order Comment: Speci men Type: BLOOD SPECIMEN Ordering Facility: [facility] Address: [address] [place] [address] Performed By: #### 2 697-1 #### [facility] CLIA [id number] [address] [place] [address] [place] Platelet mean volume (Bld) [Entitic vol] 10.9 fL Normal 9.0-12.7 [facility] Comment on above: Order Comment: Speci men Type: BLOOD SPECIMEN Ordering Facility: [facility] Address: [address] [place] [address] Performed By: #### 2 697-1 #### [facility] CLIA [id number] [address] [place] [address] [place] Platelets (Bld) [#/Vol] 235 10*3/uL Normal 150-400 [facility] Comment on above: Order Comment: Speci men Type: BLOOD SPECIMEN Ordering Facility: [facility] Address: [address] [place] [address] Performed By: #### 2 697-1 #### [facility] CLIA [id number] [address] [place] [address] [place] RBC (Bld) [#/Vol] 4.67 10*6/uL Normal 3.90-5.20 [facility] Comment on above: Order Comment: Speci men Type: BLOOD SPECIMEN Ordering Facility: [facility] Address: [address] [place] [address] Performed By: #### 2 697-1 #### [facility] CLIA [id number] [address] [place] [address] [place] WBC (Bld) [#/Vol] 5.79 10*3/uL Normal 3.70-11.00 [facility] Comment on above: Order Comment: Speci men Type: BLOOD SPECIMEN Ordering Facility: [facility] Address: [address] [place] [address] Performed By: #### 2 697-1 #### [facility] CLIA [id number] [address] [place] [address] [place] [id number] [facility] CNOVon 04-20-2025 CNOV Office Visit (FAMPWS ) -------- JOHANNEKATHRYN VALENZUELA ([id number]) 1955 F Date Time Provider Department 04/20/25 10:20 AM ALKA YADAV During your visit today, we recorded the following information about you: Pulse Respiration Blood pressure Weight 89/minute 14/minute 128/62 66.8 kg Alka Yadav, BRUNO.SERVICE ORDER DISPATCHER CHIEF 04/20/2025 2:23 PM Signed This is a 69 year old female who presents today with: Kathryn Roe Johanne is a 69-year-old female with a history of osteoporosis, fibromyalgia, and breast cancer, presenting for evaluation of right-sided sciatica, facial numbness, and night sweats. HISTORY OF PRESENT ILLNESS: Sciatica: - Right-sided sciatica pain, radiating from the buttock down to the foot. - Pain exacerbated by bending over and gardening activities. - Reports foot turning inward and locking sensation. - Nocturnal mild pain present but not significantly disruptive to sleep. - Last lumbar spine X-ray in 2022. - Diagnosed with plantar fasciitis 6 months ago; managed with orthotics and two prior injections. Fibromyalgia: -has been told she may have this, she has a consult with rheumatology in May, says she is in pain almost all the time Breast Cancer: - Completed 7 years of Femara treatment, discontinued in January. Night Sweats: - Severe nocturnal diaphoresis, waking up drenched. - Requests non-estrogenic treatment options. Facial Numbness: - Intermittent left-sided facial numbness, occurring at rest. - Associated with generalized weakness, fatigue, and balance issues. - Recent falls resulting in injuries, including a black eye. - History of migraines and frequent headaches. - Carotid artery study in 2021 showed left-sided mild stenosis skilled nursing history of femara use s/p breast CA (stopped in january) No longer taking calcium and vitamin D Degenerative changes and scoliosis xray 04/13/2023 OA of spine with radiculopathy Labs are in process, obtained this morning PAST MEDICAL HISTORY: PAST MEDICAL HISTORY Diagnosis Date Breast cancer (HCC) Diarrhea Hypercholesteraemia 03/2015 Migraine, unspecified, with intractable migraine, so stated, without mention of status migrainosus Migraine Mild diastolic dysfunction echo 03/2013 Mild mitral regurgitation echo 03/2013 Mild tricuspid regurgitation echo 03/2013 Mitral valve disorders(424.0) MVP Myalgia and myositis, unspecified Panic disorder without agoraphobia Panic disorder Unspecified hypothyroidism PAST SURGICAL HISTORY Procedure Laterality Date BREAST LUMPECTOMY HX 11/10/2017 CHOLECYSTECTOMY Cholecystectomy -- lap (Dr. Bear?) COLONOSCOPY FLX DX W/COLLJ SPEC WHEN PFRMD 09/16/2007 COLONOSCOPY FLX DX W/COLLJ SPEC WHEN PFRMD 03/17/2019 normal EGD W/O BRSH SPEC VARICIES INJ 03/16/2025 ESOPHAGOGASTRODUODENOSCO PY TRANSORAL DIAGNOSTIC 09/01/2013 EGD ESOPHAGOGASTRODUODENOSCO PY TRANSORAL DIAGNOSTIC 03/17/2019 EGD NEUROPLASTY AND/TRANSPOS MEDIAN NRV CARPAL TUNNE Carpal tunnel decomp, Right REDUCTION OF LARGE BREAST Breast reduction REVISE MEDIAN N/CARPAL TUNNEL SURG Right ALLERGIES Patient has no known allergies. MEDICATIONS Current Outpatient Medications Medication Sig levothyroxine (LEVOXYL) 88 mcg tablet Take 1 tablet by mouth once daily. Take on empty stomach. For Thyroid atorvastatin (LIPITOR) 10 mg tablet TAKE 1 TABLET DAILY AT BEDTIME FOR CHOLESTEROL FLUoxetine (PROZAC) 40 mg capsule Take 1 capsule by mouth once daily. acetaminophen 325 mg-caffeine 40 mg-butalbital 50 mg (FIORICET) per capsule Take by mouth every 4 hours as needed. meclizine (ANTIVERT) 25 mg tab TAKE 1 TABLET BY MOUTH THREE TIMES A DAY NEEDED FOR DIZZINESS gabapentin (NEURONTIN) 100 mg capsule Take 2 capsules by mouth daily at bedtime for 90 days. predniSONE (DELTASONE) 10 mg tablet Take 4 tablets by mouth once daily for 3 days, THEN 3 tablets once daily for 3 days, THEN 2 tablets once daily for 3 days, THEN 1 tablet once daily for 3 days. No current facility-administered medications for this visit. FAMILY HISTORY Problem Relation Age of Onset Heart Father other (Multiple myeloma) Father 1983 -- multiple myeloma in remission, then amyloidosis Thyroid Mother Mother's side of family Anesthesia Mother Heart disease Mother Heart Mother atrial fibrilation Breast Cancer Paternal Aunt Cancer Paternal Aunt Leukemia Heart Other Mother's side of family Coronary Artery Disease Sister 2 TN's, starting age 40 other (Multiple myeloma) Paternal Uncle Social History Tobacco Use Smoking status: Former Current packs/day: 0.00 Average packs/day: 0.5 packs/day for 10.0 years (5.0 ttl pk-yrs) Types: Cigarettes Start date: 08/13/1980 Quit date: 08/13/1990 Years since quittin.7 Smokeless tobacco: Never Vaping Use Vaping status: Never Used Substance Use Topics Alcohol use: No Drug u (more content not included)... Normal [facility] Comprehensive metabolic 2000 panelon 04-20-2025 Albumin [Mass/Vol] 4.3 g/dL Normal 3.9-4.9 [facility] Comment on above: Order Comment: Speci jorge Type: BLOOD SPECIMEN Ordering Facility: [facility] Address: [address] [place] [address] Performed By: #### 4 5066-8 #### [facility] [id number] [address] [place] [address] [place] ALP [Catalytic activity/Vol] 106 U/L Normal 34-123 [facility] Comment on above: Order Comment: Speci men Type: BLOOD SPECIMEN Ordering Facility: [facility] Address: [address] [place] [address] Performed By: #### 4 5066-8 #### [facility] [id number] [address] [place] [address] [place] ALT [Catalytic activity/Vol] 10 U/L Normal 7-38 [facility] Comment on above: Order Comment: Speci men Type: BLOOD SPECIMEN Ordering Facility: [facility] Address: [address] [place] [address] Performed By: #### 4 5066-8 #### [facility] CLIA [id number] [address] [place] [address] [place] Anion gap [Moles/Vol] 12 mmol/L Normal 8-15 [facility] Comment on above: Order Comment: Speci men Type: BLOOD SPECIMEN Ordering Facility: [facility] Address: [address] [place] [id number] Performed By: #### 4 5066-8 #### [facility] CLIA [id number] [address] [place] [address] [place] AST [Catalytic activity/Vol] 24 U/L Normal 13-35 [facility] Comment on above: Order Comment: Speci men Type: BLOOD SPECIMEN Ordering Facility: [facility] Address: [facility] [place] [id number] Performed By: #### 4 5066-8 #### [facility] CLIA [id number] [address] [place] [address] [place] Bilirubin [Mass/Vol] 1.3 mg/dL Normal 0.2-1.3 [facility] Comment on above: Order Comment: Speci men Type: BLOOD SPECIMEN Ordering Facility: [facility] Address: [address] [place] [address] Performed By: #### 4 5066-8 #### [facility] CLIA [id number] [address] [place] [address] [place] Calcium [Mass/Vol] 9.5 mg/dL Normal 8.5-10.2 [facility] Comment on above: Order Comment: Speci men Type: BLOOD SPECIMEN Ordering Facility: [facility] Address: [address] [place] [address] Performed By: #### 4 5066-8 #### [facility] CLIA [id number] [address] [place] [address] [place] Chloride [Moles/Vol] 102 mmol/L Normal 98-107 [facility] Comment on above: Order Comment: Speci men Type: BLOOD SPECIMEN Ordering Facility: [facility] Address: [address] [place] [address] Performed By: #### 4 5066-8 #### [facility] CLIA [id number] [address] [place] [address] [place] CO2 [Moles/Vol] 22 mmol/L Normal 22-30 [facility] Comment on above: Order Comment: Speci men Type: BLOOD SPECIMEN Ordering Facility: [facility] Address: [address] [place] [address] Performed By: #### 4 5066-8 #### [facility] CLIA [id number] [address] [place] [address] [place] Creatinine [Mass/Vol] 0.79 mg/dL Normal 0.58-0.96 [facility] Comment on above: Order Comment: Speci men Type: BLOOD SPECIMEN Ordering Facility: [facility] Address: [address] [place] [address] Performed By: #### 4 5066-8 #### [facility] CLIA [id number] [address] [place] [address] OF [facility] Creatinine and Glomerular filtration rate.predicted panel (S/P/Bld) 80 mL/min/1.73m??? Normal >=60 [facility] Comment on above: Order Comment: Speci men Type: BLOOD SPECIMEN Ordering Facility: [facility] Address: [address] [place] [address] Result Comment: Saskia mated Glomerular Filtration Rate (eGFR) is calculated using the 2020 CKD-EPI creatinine equation. This equation utilizes serum creatinine, sex, and age as parameters. The creatinine assay has traceable calibration to isotope dilution-mass spectrometry. Refer to KDIGO guidelines for clinical interpretation. In patients with unstable renal function, e.g. those with acute kidney injury, the eGFR may not accurately reflect actual GFR. Performed By: #### 4 5066-8 #### [facility] CLIA [id number] [address] [place] [address] [place] Glucose [Mass/Vol] 98 mg/dL Normal 74-99 [facility] Comment on above: Order Comment: Gavino patel Type: BLOOD SPECIMEN Ordering Facility: [facility] Address: [address] [place] [address] Result Comment: The [place] Diabetes Association (ADA) provides guidance for cutoff values for fasting glucose and random glucose. The ADA defines fasting as no caloric intake for at least 8 hours. Fasting plasma glucose results between 100 to 125 mg/dL indicate increased risk for diabetes (prediabetes). Fasting plasma glucose results greater than or equal to 126 mg/dL meet the criteria for diagnosis of diabetes. In the absence of unequivocal hyperglycemia, results should be confirmed by repeat testing. In a patient with classic symptoms of hyperglycemia or hyperglycemic crisis, random plasma glucose results greater than or equal to 200 mg/dL meet the criteria for diagnosis of diabetes. Reference: Standards of Medical Care in Diabetes 2016, [place] Diabetes Association. Diabetes Care. 2016.39(Suppl 1). Performed By: #### 4 5066-8 #### [facility] [id number] [address] [place] [address] [place] Potassium [Moles/Vol] 4.3 mmol/L Normal 3.7-5.1 [facility] Comment on above: Order Comment: Gavino patel Type: BLOOD SPECIMEN Ordering Facility: [facility] Address: [address] [place], [place] [address] Performed By: #### 4 5066-8 #### [facility] [id number] [address] [place] [address] [place] Protein [Mass/Vol] 7.4 g/dL Normal 6.3-8.0 [facility] Comment on above: Order Comment: Gavino patel Type: BLOOD SPECIMEN Ordering Facility: [facility] Address: [address] [place], [place] [address] Performed By: #### 4 5066-8 #### [facility] CLIA [id number] [address] [place] [address] [place] Sodium [Moles/Vol] 136 mmol/L Normal 136-144 [facility] Comment on above: Order Comment: Speci men Type: BLOOD SPECIMEN Ordering Facility: [facility] Address: [address] [place] [address] Performed By: #### 4 5066-8 #### [facility] CLIA [id number] [address] [place] [address] [place] Urea nitrogen [Mass/Vol] 12 mg/dL Normal 7-21 [facility] Comment on above: Order Comment: Speci men Type: BLOOD SPECIMEN Ordering Facility: [facility] Address: [address] [place] [address] Performed By: #### 4 5066-8 #### [facility] CLIA [id number] [address] [place] [address] [place] HbA1c (Bld)on 04-20-2025 Average glucose Estimated from glycated hemoglobin (Bld) [Mass/Vol] 108 mg/dL Normal [facility] Comment on above: Order Comment: Speci men Type: BLOOD SPECIMEN Ordering Facility: [facility] Address: [address] [place] [address] Result Comment: eAG: (Estimated average glucose) is a calculated value from HgbA1c and is arborist representative of the average blood glucose level in the last 2-3 month period. Performed By: #### 4 5066-8 #### [facility] CLIA [id number] [address] [place] [address] [place] HbA1c (Bld) [Mass fraction] 5.4 % Normal 4.3-5.6 [facility] Comment on above: Order Comment: Yuniori men Type: BLOOD SPECIMEN Ordering Facility: [facility] Address: [address] [place] [address] Result Comment: Amer ican Diabetes Association guidelines indicate that patients with HgbA1c in the range 5.7-6.4% are at increased risk for development of diabetes, and intervention by lifestyle modification may be beneficial. HgbA1c greater or equal to 6.5% is considered diagnostic of diabetes. Performed By: #### 4 5066-8 #### [facility] CLIA [id number] [address] [place] [address] [place] Lipid 1996 panelon 5 Cholesterol [Mass/Vol] 217 mg/dL High <200 [facility] Comment on above: Order Comment: Gavino patel Type: BLOOD SPECIMEN Ordering Facility: [facility] Address: [address] [place] [address] Result Comment: <200 mg/dL, Desirable 200-239 mg/dL, Borderline high >239 mg/dL, High Performed By: #### 4 5066-8 #### [facility] CLIA [id number] [address] [place] [address] [place] Cholesterol in HDL [Mass/Vol] 71 mg/dL Normal >39 [facility] Comment on above: Order Comment: Gavino patel Type: BLOOD SPECIMEN Ordering Facility: [facility] Address: [address] [place] [address] Result Comment: 40-5 9 mg/dL, Acceptable >59 mg/dL, High: Negative risk factor for coronary heart disease <40 mg/dL, Low: Positive risk factor for coronary heart disease Performed By: #### 4 5066-8 #### [facility] CLIA [id number] [address] [place] [address] [place] Cholesterol in LDL [Mass/Vol] 123 mg/dL High <100 [facility] Comment on above: Order Comment: Gavino patel Type: BLOOD SPECIMEN Ordering Facility: [facility] Address: [address] [place] [address] Result Comment: <100 mg/dL, Optimal 100-129 mg/dL, Near optimal/above optimal 130-159 mg/dL, Borderline high 160-189 mg/dL, High >189 mg/dL, Very high Secondary prevention optimal LDL Cholesterol levels are recommended to be <70 mg/dL LDL cholesterol is calculated using the Haque-NIH equation. Performed By: #### 4 5066-8 #### [facility] CLIA [id number] [address] [place] [address] [place] Cholesterol in LDL/Cholesterol in HDL [Mass ratio] 1.73 {ratio} Normal <2.54 [facility] Comment on above: Order Comment: Gavino patel Type: BLOOD SPECIMEN Ordering Facility: [facility] Address: [address] [place] [address] Result Comment: Vikas gay: 1. National Cholesterol Education Program ATP III Guideline At-A-Glance Quick Desk Reference: National Heart, Lung, and Blood [place]. National Institutes of Health. 2001: NIH Publication No. 01-3305. 2. An International Atherosclerosis Society position paper: global recommendations for the management of dyslipidemia: executive summary, Atherosclerosis. 2014: 232(2):410-413. Performed By: #### 4 5066-8 #### [facility] [id number] [address] [place] [address] [place] Cholesterol in VLDL [Mass/Vol] 23 mg/dL Normal <30 [facility] Comment on above: Order Comment: Gavino patel Type: BLOOD SPECIMEN Ordering Facility: [facility] Address: [address] [place] [address] Performed By: #### 4 5066-8 #### [facility] [id number] [address] [place] [address] [place] Cholesterol non HDL [Mass/Vol] 146 mg/dL High <130 [facility] Comment on above: Order Comment: Gavino patel Type: BLOOD SPECIMEN Ordering Facility: [facility] Address: [address] [place] [address] Result Comment: <130 mg/dL, Optimal 130-159 mg/dL, Near optimal/above optimal 160-189 mg/dL, Borderline high 190-219 mg/dL, High >219 mg/dL, Very high Secondary prevention optimal non HDL Cholesterol levels are recommended to be <100 mg/dL Performed By: #### 4 5066-8 #### [facility] CLIA [id number] [address] [place] [address] Cholesterol.total/Ch olesterol in HDL [Mass ratio] 3.06 {ratio} Normal <5.10 [facility] Comment on above: Order Comment: Speci men Type: BLOOD SPECIMEN Ordering Facility: [facility] Address: [address] [place] [address] Performed By: #### 4 5066-8 #### [facility] CLIA [id number] [address] [place] [address] [place] FASTING TIME 14 hrs Normal [facility] Comment on above: Order Comment: Speci men Type: BLOOD SPECIMEN Ordering Facility: [facility] Address: [address] [place] [address] Performed By: #### 4 5066-8 #### [facility] [id number] [address] [place] [address] [place] Triglyceride [Mass/Vol] 133 mg/dL Normal <150 [facility] Comment on above: Order Comment: Speci men Type: BLOOD SPECIMEN Ordering Facility: [facility] Address: [address] [place] [address] Result Comment: <150 mg/dL, Normal 150-199 mg/dL, Borderline high 200-499 mg/dL, High >499 mg/dL, Very high Performed By: #### 4 5066-8 #### [facility] [id number] [address] [place] [address] [place] [facility] 04-20-20 25 Free T3 [Mass/Vol] 1.6 pg/mL Low 2.3-4.1 [facility] Comment on above: Order Comment: Speci men Type: URINE SPECIMEN Ordering Facility: [facility] Address: [address] [place] [address] Performed By: #### L [id number] #### [facility] CLIA [id number] [address] [place] [address] [place] TSH SerPl-aCncon 04-20-2025 TSH Qn 23.500 m[IU]/L High 0.270-4.200 [facility] Comment on above: Order Comment: Speci men Type: URINE SPECIMEN Ordering Facility: [facility] Address: [address] [place] [address] Performed By: #### L [id number] #### [facility] CLIA [id number] [address] [place], [place] [address] [place] Vit B12 SerPl-mCncon 025 Cobalamin (Vitamin B12) [Mass/Vol] 459 pg/mL Normal 232-1245 [facility] Comment on above: Order Comment: Speci men Type: URINE SPECIMEN Ordering Facility: [facility] Address: [address] [place] [address] Performed By: #### L [id number] #### [facility] CLIA [id number] [address] [place] [address] [place] XR LUMBAR 3V AP/LAT/L5-S1on 04-20-2025 XR LUMBAR 3V AP/LAT/L5-S1 * * *Final Report* * * DATE OF EXAM: Apr 20 2025 12:19PM WOX [id number] - XR LUMBAR 3V AP/LAT/L5-S1 / PROCEDURE REASON: multiple diagnoses * * * * Physician Interpretation * * * * EXAM: LUMBAR SPINE, 3 VIEWS CLINICAL: 69-year-old female with osteoarthritis and radiculopathy lumbar region TECHNIQUE: AP, lateral coned down lateral COMPARISON: 04/13/2023 RESULTS: Counting reference: Anatomic Variant: None. L4-5 is considered the level of the iliac crest and assume there are 5 lumbar-type vertebrae. Levoscoliosis centered at L3/L4. Marked disc space narrowing at L1/L2 through L4/L5. 5 mm, grade 1 anterolisthesis of L5 on S1. Osteophytes throughout the lumbar spine. Vertebral bodies and pedicles are intact. Facet degenerative changes at L3/L4 through L5/S1 on the right L4/L5 and L5/S1 on the left. Surgical clips right upper quadrant. Degenerative changes in visualized thoracic spine. IMPRESSION: MULTILEVEL DEGENERATIVE DISC AND FACET DISEASE. LEVOSCOLIOSIS, NO CHANGE COMPARED TO THE PREVIOUS EXAM.. 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: GAMA Transcribe Date/Time: Apr 26 2025 3:56P Dictated by : GORAN PEÑALOZA MD This examination was interpreted and the report reviewed and electronically signed by: GORAN PEÑALOZA MD on Apr 26 2025 3:58PM EST [id number] Normal [facility] CT ABD/PEL W IVCONon 025 CT ABD/PEL W IVCON * * *Final Report* * * DATE OF EXAM: Apr 14 2025 3:05PM [facility] 0530 - CT ABD/PEL W IVCON / PROCEDURE REASON: Paraesophageal hernia * * * * Physician Interpretation * * * * EXAMINATION: CT ABDOMEN AND PELVIS WITH IV CONTRAST CLINICAL HISTORY: Paraesophageal hernia TECHNIQUE: CT of the abdomen and pelvis was performed using standard technique, scanning from just above the dome of the diaphragm to the upper thighs. Contrast: IV: 100 ml of Omnipaque 350 Oral: 10 ml of Omni 240 10-25ml diluted with water CT Radiation dose: Integrated Dose-length product (DLP) for this visit = 582 mGy*cm. CT Dose Reduction Employed: Automated exposure control(AEC) and iterative recon COMPARISON: None FINDINGS: LOWER CHEST: There is what appears to be a large hiatal hernia containing nearly the entirety of the stomach. The GE is not well seen due to limitation of CT facial resolution. However, appears to be above the esophageal hiatus (5:16). HEPATOBILIARY: A subcentimeter hypodensity at the lateral periphery of segment 6 measures water attenuation and likely reflects a small cyst. Otherwise, the liver is normal in appearance. The gallbladder is absent. No biliary ductal dilatation. SPLEEN, PANCREAS, ADRENAL GLANDS: Within normal limits. KIDNEYS, URETERS, BLADDER: Symmetric parenchymal enhancement with no obstructing calculus or hydronephrosis. Ureters and bladder within normal limits. UTERUS, ADNEXA: The uterus is unremarkable. No adnexal mass. BOWEL: No evidence of obstruction. Normal appendix. PERITONEAL/EXTRAPERITONE AL SPACE: No free air or free fluid. LYMPH NODES: No adenopathy. VASCULAR: Grossly unremarkable. Retroaortic left renal vein noted, normal variant. ABDOMINAL WALL: Free of hernias. MUSCULOSKELETAL: No acute osseous abnormality. Multilevel degenerative disease of the thoracolumbar spine is noted. IMPRESSION: Large likely hiatal hernia containing nearly the entirety of the stomach. Though the GE junction is not well seen due to the limitations of CT spatial resolution, it appears to be above the esophageal hiatus. 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: PSCB Transcribe Date/Time: Apr 19 2025 8:32P Dictated by : ALLYSON LIND MD This examination was interpreted and the report reviewed and electronically signed by: ALLYSON LIND MD on Apr 19 2025 8:40PM EST [id number] Normal [facility] Creatinine + eGFR Pnl SerPlB ldon 04-14-2025 Creatinine and Glomerular filtration rate.predicted panel (S/P/Bld) 83 mL/min/1.73m??? Normal >=60 [facility] Comment on above: Order Comment: Speci jorge Type: BLOOD SPECIMEN Ordering Facility: [facility] Address: [address] [place] [address] Result Comment: Saskia mated Glomerular Filtration Rate (eGFR) is calculated using the 2020 CKD-EPI creatinine equation. This equation utilizes serum creatinine, sex, and age as parameters. The creatinine assay has traceable calibration to isotope dilution-mass spectrometry. Refer to KDIGO guidelines for clinical interpretation. In patients with unstable renal function, e.g. those with acute kidney injury, the eGFR may not accurately reflect actual GFR. Performed By: #### 4 5066-8 #### [facility] CLIA [id number] [address] [place] [address] [place] Creatinine and Glomerular fi ltration rate.predicted panel (S/P/Bld)on 04-14-2025 Creatinine [Mass/Vol] 0.77 mg/dL Normal 0.58-0.96 [facility] Comment on above: Order Comment: Gavino patel Type: BLOOD SPECIMEN Ordering Facility: [facility] Address: [address] [place] [address] Performed By: #### 4 5066-8 #### [facility] RAKESH [id number] [address] OF [facility] CNOVon 04-04-2025 CNOV Office Visit (GENSWS ) -------- KATHRYN WHITING ([id number]) 1955 F Date Time Provider Department 04/04/25 2:00 PM COSME MONTAÑO GENSWS During your visit today, we recorded the following information about you: Cosme Montaño MD 04/05/2025 7:27 AM Signed Subjective: Patient is status post an EGD completed on 03/16/2025. This showed a significant change in her hiatal hernia area. I believe she has a paraesophageal hernia now significantly larger than it was when she was scoped previously. She is not having any symptoms. All the biopsies that I did of the esophagus as well as the stomach and duodenum were all normal. Objective:Last menstrual period 03/10/2006. Abdomen is soft nontender Assessment:Paraesophagea l hernia (primary encounter diagnosis) Plan: I am going to refer her up to the main campus for evaluation of a paraesophageal hernia. I have not ordered any other test such as manometry nor a 48-hour pH study. Cosme Montaño MD 04/07/2025 10:08 AM Signed Addended by: COSME MONTAÑO on: 04/07/2025 10:08 AM Modules accepted: Orders Allergies As of Date: 04/04/2025 (No Known Allergies) Date Reviewed: 04/04/2025 Reviewed by: Tracie Moreno, RN - Fully Assessed Reason for Visit: Follow Up (DSRS) [180] Cmt: EGD follow up. 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 Discontinue saline lock post exam. If Pt. has a central line or IVAD, may access for administration according to line specific nursing protocol. Once exam is complete flush line and de-access according to line specific nursing protocol in theCT contrast administration guidelines link.Disp: 1 eachRfl: 0 enteric contrast (will be provided with radiology test)For CT ABD/PEL W IVCON Routine order Administer, As Directed One Time Only, via Oral, Rectal, both Oral and Rectal, Enteric Tube, Stoma or Indwelling Catheter, Enteric Contrast as designated per enteric contrast guidelinesDisp: 1 eachRfl: 0 CREATININE BLD [SQCRET] Order #: [id number] FUTURE Prescriptions as of 04/07/2025 - iv contrast (will be provided with radiology test) CT ABD/PEL -Inject, intravenously, once for 1 dose.No IV access, insert saline lock prior to the beginning of sedation, infusion, injection of imaging exam. Discontinue saline lock post exam. If Pt. has a central line or IVAD, may access for administration according to line specific nursing protocol. Once exam is complete flush line and de-access according to line specific nursing protocol in theCT contrast administration guidelines link. - enteric contrast (will be provided with radiology test) For CT ABD/PEL W IVCON Routine order Administer, As Directed One Time Only, via Oral, Rectal, both Oral and Rectal, Enteric Tube, Stoma or Indwelling Catheter, Enteric Contrast as designated per enteric contrast guidelines - atorvastatin (LIPITOR) 10 mg tablet TAKE 1 TABLET DAILY AT BEDTIME FOR CHOLESTEROL - FLUoxetine (PROZAC) 40 mg capsule Take 1 capsule by mouth once daily. - acetaminophen 325 mg-caffeine 40 mg-butalbital 50 mg (FIORICET) per capsule Take by mouth every 4 hours as needed. - letrozole (FEMARA) 2.5 mg tablet TAKE 1 TABLET DAILY - levothyroxine (LEVOXYL) 88 mcg tablet Take 1 tablet by mouth once daily. Take on empty stomach. For Thyroid - meclizine (ANTIVERT) 25 mg tab TAKE 1 TABLET BY MOUTH THREE TIMES A DAY NEEDED FOR DIZZINESS Problem List As Of Date 04/04/2025 Noted Resolved Rosacea [L71.9] 07/19/1998 Cholelithiasis [574] 09/21/1998 08/18/2012 Hypothyroidism [E03.9] MITRAL VALVE DISORDER [I05.9] PANIC DISORDER WITHOUT AGORAPHOBIA [F41.0] Intractable migraine [G43.919] MYALGIA AND MYOSITIS NOS [TTZ0747] Sprain and Strain of Unspecified Site of Knee a*07/05/2010 Routine general medical examination at [facility]*07/25/2010 08/18/2012 Class: Chronic Routine gynecological examination [Z01.419] 07/25/2010 08/18/2012 Class: Chronic Mixed Hyperlipidemia [E78.2] 07/25/2010 Mixed stress and urge urinary incontinence [N39*04/01/2011 Hyperlipidemia [E78.5] 03/25/2013 Family history of premature coronary heart dise*03/25/2013 Overweight [E66.3] 03/25/2013 Mild diastolic dysfunction [I51.9] 03/28/2013 Mild tricuspid regurgitation [I07.1] 03/28/2013 Mild mitral regurgitation [I34.0] 03/28/2013 Right-sided low back pain with right-sided scia*08/27/2015 Muscle weakness (generalized) [M62.81] 08/27/2015 Malignant neoplasm of upper-outer quadrant of r*12/02/2017 Vitamin D deficiency [E55.9] 02/01/2018 Osteoarthritis of spine with radiculopathy, lum*04/14/2023 Chron (more content not included)... Normal [facility] [id number] 03-16-2025 [id number] HNO ID: [id number] Author: DELFINA BARTLETT RN Service: ? Author Type: Registered Nurse Type: [id number] Filed: 03/16/2025 12:17 Note Text: The patient received a copy of EGD discharge instructions that contain information for how to contact the physician who performed the procedure and when to seek medical care. Normal [facility] EGD Study observation Narrat viry [facility] Patient Name: Kathryn Whiting Procedure Date: 03/16/2025 11:39 AM Date of : 1955 Admit Type: Outpatient Age: 69 Gender: Female Note Status: Finalized Procedure: Upper GI endoscopy Indications: Dysphagia Providers: Cosme Montaño MD Patient Profile: This is a 69 year old female. Refer to note in patient chart for documentation of history and physical. Referring Physician: Cata Whyte (Referring MD) Medicines: Fentanyl 50 micrograms IV, Midazolam 5 mg IV, Diphenhydramine 50 mg IV Complications: No immediate complications. Estimated blood loss: Minimal. Requesting Provider: Procedure: Pre-Anesthesia Assessment: - Prior to the procedure, a History and Physical was performed, and patient medications and allergies were reviewed. The patient's tolerance of previous anesthesia was also reviewed. The risks and benefits of the procedure and the sedation options and risks were discussed with the patient. All questions were answered, and informed consent was obtained. Prior Anticoagulants: The patient has taken no anticoagulant or antiplatelet agents. ASA Grade Assessment: III - A patient with severe systemic disease. After reviewing the risks and benefits, the patient was deemed in satisfactory condition to undergo the procedure. After obtaining informed consent, the endoscope was passed under direct vision. Throughout the procedure, the patient's blood pressure, pulse, and oxygen saturations were monitored continuously. The Endoscope was introduced through the mouth, and advanced to the second part of duodenum. The upper GI endoscopy was accomplished without difficulty. The patient tolerated the procedure well. Moderate Sedation: The administration of moderate sedation was initiated at 11:49. Moderate (conscious) sedation was personally administered by the endoscopist. The following parameters were monitored: oxygen saturation, heart rate, blood pressure, respiratory rate, EKG, adequacy of pulmonary ventilation, and response to care. Total physician intraservice time was 9 minutes. Findings: The Z-line was regular and was found 34 cm from the incisors. Biopsies were taken with a cold forceps for histology. A medium-sized paraesophageal hernia was found. The proximal extent of the gastric folds (end of tubular esophagus) was 35 cm from the incisors. The hiatal narrowing was 38 cm from the incisors. The Z-line was 34 cm from the incisors. Biopsies were taken with a cold forceps for histology. The examined duodenum was normal. Biopsies for histology were taken with a cold forceps for evaluation of celiac disease. Impression: - Z-line regular, 34 cm from the incisors. Biopsied. - Medium-sized paraesophageal hernia. Biopsied. - Normal examined duodenum. Biopsied. Recommendation: - Patient has a contact number available for emergencies. The signs and symptoms of potential delayed complications were discussed with the patient. Return to normal activities tomorrow. Written discharge instructions were provided to the patient. - Resume previous diet. - Continue present medications. - Await pathology results. - Repeat upper endoscopy PRN for surveillance. - Refer to a surgeon at appointment to be scheduled. Procedure Code(s): --- Professional --- 06358, Esophagogastroduodenosco py, flexible, transoral; with biopsy, single or multiple Diagnosis Code(s): --- Professional --- K44.9, Diaphragmatic hernia without obstruction or gangrene R13.10, Dysphagia, unspecified CPT copyright 2020 [employer]. All rights reserved. The codes documented in this report are preliminary and upon computer language coder review may be revised to meet current compliance requirements. Attending Participation: I personally performed the entire proce (more content not included)... PROVATION [facility] Radiology Study observation (narrative) [facility] HISTORY PHYSICALon HISTORY PHYSICAL HNO ID: [id number] Author: COSME MONTAÑO MD Service: General Surgery Author Type: Physician Type: H&P Filed: 03/16/2025 11:01 Note Text: Chief Complaint Patient presents with: Medicare Wellness Exam: Stress, epigastric pain HPI Kathryn Whiting is a 69 year old female who presents here today for Above Complaints.. Pt reports increase in anxiety recently d/t caring for her mother who recently needed a feeding tube placed. Takes prozac 40mg once daily and tolerating well, wishes to continue with this. States she needs something more on certain days to help control her anxiety. Would like script for valium, has taken this in the past which helped. Throat fullness- Patient complains of throat fullness and a tightness sensation in her chest. Reports that food will get stuck in her throat and feels like nothing will move, will have to gag herself sometimes to get it out. Has had GERD for a long time, but states this feels different than usual. Past medical history, appointments, medications, allergies reviewed. Previous Medical History PAST MEDICAL HISTORY PAST MEDICAL HISTORY Diagnosis Date Breast cancer (HCC) Diarrhea Hypercholesteraemia 03/2015 Migraine, unspecified, with intractable migraine, so stated, without mention of status migrainosus Migraine Mild diastolic dysfunction echo 03/2013 Mild mitral regurgitation echo 03/2013 Mild tricuspid regurgitation echo 03/2013 Mitral valve disorders(424.0) MVP Myalgia and myositis, unspecified Panic disorder without agoraphobia Panic disorder Unspecified hypothyroidism Previous Surgical History PAST SURGICAL HISTORY PAST SURGICAL HISTORY Procedure Laterality Date BREAST LUMPECTOMY HX 11/10/2017 CHOLECYSTECTOMY Cholecystectomy -- lap (Dr. Bear?) COLONOSCOPY FLX DX W/COLLJ SPEC WHEN PFRMD 09/16/07 COLONOSCOPY FLX DX W/COLLJ SPEC WHEN PFRMD 03/17/2019 normal ESOPHAGOGASTRODUODENOSCO PY TRANSORAL DIAGNOSTIC 09/01/13 EGD ESOPHAGOGASTRODUODENOSCO PY TRANSORAL DIAGNOSTIC 03/17/2019 EGD NEUROPLASTY AND/TRANSPOS MEDIAN NRV CARPAL TUNNE Carpal tunnel decomp, Right REDUCTION OF LARGE BREAST Breast reduction Family History FAMILY HISTORY FAMILY HISTORY Problem Relation Age of Onset Heart Father other (Multiple myeloma) Father 1983 -- multiple myeloma in remission, then amyloidosis Thyroid Mother Mother's side of family Anesthesia Mother Heart disease Mother Heart Mother atrial fibrilation Breast Cancer Paternal Aunt Cancer Paternal Aunt Leukemia Heart Other Mother's side of family Coronary Artery Disease Sister 2 TN's, starting age 40 other (Multiple myeloma) Paternal Uncle Patient Allergies ALLERGIES ALLERGIES No Known Allergies Current Medications Current Outpatient Medications on File Prior to Visit Medication Sig atorvastatin (LIPITOR) 10 mg tablet TAKE 1 TABLET DAILY AT BEDTIME FOR CHOLESTEROL FLUoxetine (PROZAC) 40 mg capsule Take 1 capsule by mouth once daily. acetaminophen 325 mg-caffeine 40 mg-butalbital 50 mg (FIORICET) per capsule Take by mouth every 4 hours as needed. letrozole (FEMARA) 2.5 mg tablet TAKE 1 TABLET DAILY levothyroxine (LEVOXYL) 88 mcg tablet Take 1 tablet by mouth once daily. Take on empty stomach. For Thyroid meclizine (ANTIVERT) 25 mg tab TAKE 1 TABLET BY MOUTH THREE TIMES A DAY NEEDED FOR DIZZINESS calcium-cholecalciferol, D3, (OSCAL+D 250) 250-125 mg-unit per tablet Take 1 tablet by mouth once daily. (Patient not taking: Reported on 11/16/2024) No current facility-administered medications on file prior to visit. Social History SOCIAL HISTORY Social History Tobacco Use Smoking status: Former Current packs/day: 0.00 Average packs/day: 0.5 packs/day for 10.0 years (5.0 ttl pk-yrs) Types: Cigarettes Start date: 08/13/1980 Quit date: 08/13/1990 Years since quittin.5 Smokeless tobacco: Never Vaping Use Vaping status: Never Used Substance Use Topics Alcohol use: No Drug use: No Review of Symptoms REVIEW OF SYSTEMS See HPI, otherwise negative EXAM: BP 107/73 (BP Site: Right Arm, BP Position: Sitting, BP Cuff Size: Regular Adult) Pulse 95 Ht 160.5 cm (5' 3.19) Wt 66.2 kg (146 lb) LMP 03/10/2006 SpO2 97% BMI 25.71 kg/m? General Appearance: Well appearing, alert, in no acute distress, well-hydrated, well nourished.. Lungs: Lungs clear to auscultation. No wheezing, rhonchi, rales.. Heart: RRR without murmur, gallop, or rubs. No ectopy. Psychiatric: [facility] Health Maintenance List Depression Screening Never done Hepatitis C Screening Never done Pneumococcal Vaccine: 50+(1 of 1 - PCV) Never done DTaP,Tdap,Td Vaccine(2 - Td or Tdap) due on 07/01/2017 Covid-19 Vaccine(2023- season) due on 07/10/2024 Mammogram Screening due on 10/17/2025 Annual PCP Team Chronic Disease Visit due on 03/01/2026 Diabetes Screening due on 03/12/2026 Lipid Screening (more content not included)... Normal [facility] Pathology biopsy report Otto (Tiss)on 03-16-2025 AP DISCLAIMER Normal [facility] Comment on above: Order Comment: Speci men Type: TISSUE SPECIMENOrdering Facility: [facility] Address: [address] [place] [address] Result Comment: Deena ferguson Developed Test (LDT) Disclaimer: Performance characteristics of immunohistochemical, immunofluorescent, and chromogenic in-situ hybridization tests have been determined by the performing laboratory within [facility]'s [facility] Holder [facility] Laboratory Medicine Department ([facility], [facility], [facility], [facility], [facility], [facility], or [facility]) in a manner consistent with CLIA requirements. One or more of these tests may not have been cleared or approved by the FDA. [facility] is regulated under CLIA as qualified to perform high-complexity testing. These tests are used for clinical purposes. These should not be regarded as investigational or for research. Positive and negative controls stain appropriately. Performed By: #### 6 6121-5 ####[facility] LABCLIA [id number] [address] LABCLIA [id number] [address] STATES OF [place] CASE REPORT Normal [facility] Comment on above: Order Comment: Speci men Type: TISSUE SPECIMENOrdering Facility: [facility] Address: [address] [place] [address] Result Comment: Surg [facility] Pathology Report Case: [id number] Authorizing Provider: Cosme Montaño MD Collected: 03/16/2025 11:55 AM Ordering Location: Ambulatory Surgery Received: 03/16/2025 12:22 PM Pathologist: Mulugeta Jones MD Specimens: A) - Small Bowel, Duodenum, Biopsy B) - Stomach, Antrum, Biopsy, Antral for H/H C) - Esophagus, Distal, Biopsy D) - Esophagus, Mid, Biopsy Performed By: #### 6 6121-5 ####[facility] LABCLIA [id number] [address] LABCLIA [id number] [address] FINAL DIAGNOSIS Normal [facility] Comment on above: Order Comment: Speci men Type: TISSUE SPECIMENOrdering Facility: [facility] Address: [address] [place] [address] Result Comment: A. D uodenum, biopsy: - No significant pathologic change. B. Gastric antrum, biopsy: - No significant pathologic change. - No morphologic evidence of Helicobacter pylori. C-D. Distal and mid esophagus, biopsies: - Fragments of unremarkable squamous mucosa. - No evidence of eosinophilia. JRG/bs 03/17/2025 at 1152 EDT Performed By: #### 6 6121-5 ####[facility] LABCLIA [id number] [address] LABCLIA [id number] [address] OF [place] FINAL PERFORMING LAB Normal [facility] Comment on above: Order Comment: Speci men Type: TISSUE SPECIMENOrdering Facility: [facility] Address: [address] [place] [address] Result Comment: Diag nostic interpretation performed at: [facility], [address] [place] [address] CLIA# [id number] Corporation Officer: Al Linares MD Performed By: #### 6 6121-5 ####[facility] LABCLIA [id number] [address] LABCLIA [id number] [address] GROSS DESCRIPTION Normal [facility] Comment on above: Order Comment: Speci men Type: TISSUE SPECIMENOrdering Facility: [facility] Address: [address] [place] [address] Result Comment: A. S mall Bowel, Duodenum, Biopsy Received in formalin is one piece of [place], soft tissue measuring 0.5 x 0.4 x 0.2 cm. Totally submitted in one cassette. B. Stomach, Antrum, Biopsy Received in formalin is one piece of [place], soft tissue measuring 0.4 x 0.4 x 0.2 cm. Totally submitted in one cassette. C. Esophagus, Distal, Biopsy Received in formalin are two pieces of [place], soft tissue aggregating to 0.6 x 0.3 x 0.2 cm. Totally submitted in one cassette. D. Esophagus, Mid, Biopsy Received in formalin is one piece of [place], soft tissue measuring 0.5 x 0.3 x 0.1 cm. Totally submitted in one cassette. SS March 16, 2025 9:03 PM Gross examination performed at [facility], [address] [place] [address] Performed By: #### 6 6121-5 ####[facility] LABCLIA [id number] [place] [id number] [facility] LABCLIA [id number] [facility] [address] Upper GI endoscopyon 08-2 025 Upper GI endoscopy [facility] Gastrointestinal Endoscopy Patient Name: Kathryn Whiting Procedure Date: 03/16/2025 11:39 AM Date of : 1955 Admit Type: Outpatient Age: 69 Gender: Female Note Status: Finalized Procedure: Upper GI endoscopy Indications: Dysphagia Providers: Cosme Montaño MD Patient Profile: This is a 69 year old female. Refer to note in patient chart for documentation of history and physical. Referring Physician: Cata (carmen) Miladis (Referring MD) Medicines: Fentanyl 50 micrograms IV, Midazolam 5 mg IV, Diphenhydramine 50 mg IV Complications: No immediate complications. Estimated blood loss: Minimal. Requesting Provider: Procedure: Pre-Anesthesia Assessment: - Prior to the procedure, a History and Physical was performed, and patient medications and allergies were reviewed. The patient's tolerance of previous anesthesia was also reviewed. The risks and benefits of the procedure and the sedation options and risks were discussed with the patient. All questions were answered, and informed consent was obtained. Prior Anticoagulants: The patient has taken no anticoagulant or antiplatelet agents. ASA Grade Assessment: III - A patient with severe systemic disease. After reviewing the risks and benefits, the patient was deemed in satisfactory condition to undergo the procedure. After obtaining informed consent, the endoscope was passed under direct vision. Throughout the procedure, the patient's blood pressure, pulse, and oxygen saturations were monitored continuously. The Endoscope was introduced through the mouth, and advanced to the second part of duodenum. The upper GI endoscopy was accomplished without difficulty. The patient tolerated the procedure well. Moderate Sedation: The administration of moderate sedation was initiated at 11:49. Moderate (conscious) sedation was personally administered by the endoscopist. The following parameters were monitored: oxygen saturation, heart rate, blood pressure, respiratory rate, EKG, adequacy of pulmonary ventilation, and response to care. Total physician intraservice time was 9 minutes. Findings: The Z-line was regular and was found 34 cm from the incisors. Biopsies were taken with a cold forceps for histology. A medium-sized paraesophageal hernia was found. The proximal extent of the gastric folds (end of tubular esophagus) was 35 cm from the incisors. The hiatal narrowing was 38 cm from the incisors. The Z-line was 34 cm from the incisors. Biopsies were taken with a cold forceps for histology. The examined duodenum was normal. Biopsies for histology were taken with a cold forceps for evaluation of celiac disease. Impression: - Z-line regular, 34 cm from the incisors. Biopsied. - Medium-sized paraesophageal hernia. Biopsied. - Normal examined duodenum. Biopsied. Recommendation: - Patient has a contact number available for emergencies. The signs and symptoms of potential delayed complications were discussed with the patient. Return to normal activities tomorrow. Written discharge instructions were provided to the patient. - Resume previous diet. - Continue present medications. - Await pathology results. - Repeat upper endoscopy PRN for surveillance. - Refer to a surgeon at appointment to be scheduled. Procedure Code(s): --- Professional --- 70066, Esophagogastroduodenosco py, flexible, transoral; with biopsy, single or multiple Diagnosis Code(s): --- Professional --- K44.9, Diaphragmatic hernia without obstruction or gangrene R13.10, Dysphagia, unspecified CPT copyright 2020 [employer]. All rights reserved. The codes documented in this report are preliminary and upon computer language coder review may be revised to meet current compliance requirements. Attending Participation: I personally performed the entire procedure. Scope In: 11:54:12 AM Scope Out: 11:58:20 AM MD Cosme Palm MD 03/16/2025 12:05:05 PM This report has been signed electronically by Cosme Montaño MD Number of Addenda: 0 Note Initiated On: 03/16/2025 11:39 AM Estimated Blood Loss: Estimated blood loss was minimal. Normal [facility] 03-02-2025 [facility] Telephone (INTMWS) -------- KATHRYN WHITING ([id number]) 1955 F Date Time Provider Department 03/02/25 PABLO BATES INTMWS During your visit today, we recorded the following information about you: Sheba Ramon LPN 03/02/2025 8:27 AM Signed Electronic PA rec'd and completed for diazepam. This was approved with pts insurance. Prior authorization approved Payer: [facility] Note from payer: Approved. This drug has been approved under the Member's Medicare Part D benefit. Approved quantity: 20 units per 10 day(s). You may fill up to a 90 day supply except for those on Specialty Tier 5, which can be filled up to a 30 day supply. Please call the pharmacy to process the prescription claim. Approval Details Authorized from February 15, 2025 to June 29, 2025 Electronic appeal: Not supported View History Notes Time User Attachment Attachment received from payer. 03/01/2025 6:58 PM [facility], Rx Priorauth In Document Medication Being Authorized diazePAM (VALIUM) 5 mg tablet Take 1 tablet by mouth two times a day as needed for anxiety for up to 30 days. Dispense: 20 tablet Refills: 0 Start: 03/01/2025 End: 03/31/2025 Class: Normal Diagnoses: Situational anxiety This order has been released to its destination. To be filled at: [facility] [place] [address] [id number] [facility] [phone] Allergies As of Date: 03/02/2025 (No Known Allergies) Date Reviewed: 03/01/2025 Reviewed by: Melanie Bullard MA - Fully Assessed Reason for Visit: Insurance Authorization [[id number]] Prescriptions as of 03/02/2025 - diazePAM (VALIUM) 5 mg tablet Take 1 tablet by mouth two times a day as needed for anxiety for up to 30 days. - atorvastatin (LIPITOR) 10 mg tablet TAKE 1 TABLET DAILY AT BEDTIME FOR CHOLESTEROL - FLUoxetine (PROZAC) 40 mg capsule Take 1 capsule by mouth once daily. - acetaminophen 325 mg-caffeine 40 mg-butalbital 50 mg (FIORICET) per capsule Take by mouth every 4 hours as needed. - letrozole (FEMARA) 2.5 mg tablet TAKE 1 TABLET DAILY - levothyroxine (LEVOXYL) 88 mcg tablet Take 1 tablet by mouth once daily. Take on empty stomach. For Thyroid - meclizine (ANTIVERT) 25 mg tab TAKE 1 TABLET BY MOUTH THREE TIMES A DAY NEEDED FOR DIZZINESS Problem List As Of Date 03/02/2025 Noted Resolved Rosacea [L71.9] 07/19/1998 Cholelithiasis [574] 09/21/1998 08/18/2012 Hypothyroidism [E03.9] MITRAL VALVE DISORDER [I05.9] PANIC DISORDER WITHOUT AGORAPHOBIA [F41.0] Intractable migraine [G43.919] MYALGIA AND MYOSITIS NOS [LZU9983] Sprain and Strain of Unspecified Site of Knee a*07/05/2010 Routine general medical examination at [facility]*07/25/2010 08/18/2012 Class: Chronic Routine gynecological examination [Z01.419] 07/25/2010 08/18/2012 Class: Chronic Mixed Hyperlipidemia [E78.2] 07/25/2010 Mixed stress and urge urinary incontinence [N39*04/01/2011 Hyperlipidemia [E78.5] 03/25/2013 Family history of premature coronary heart dise*03/25/2013 Overweight [E66.3] 03/25/2013 Mild diastolic dysfunction [I51.9] 03/28/2013 Mild tricuspid regurgitation [I07.1] 03/28/2013 Mild mitral regurgitation [I34.0] 03/28/2013 Right-sided low back pain with right-sided scia*08/27/2015 Muscle weakness (generalized) [M62.81] 08/27/2015 Malignant neoplasm of upper-outer quadrant of r*12/02/2017 Vitamin D deficiency [E55.9] 02/01/2018 Osteoarthritis of spine with radiculopathy, lum*04/14/2023 Chronic neck pain [M54.2, G89.29] 04/14/2023 Chronic midline low back pain with bilateral sc*04/14/2023 IFG (impaired fasting glucose) [R73.01] 04/14/2023 Cervical radiculopathy [M54.12] 01/19/2024 Chronic left shoulder pain [M25.512, G89.29] 01/19/2024 Neck pain [M54.2] 01/19/2024 Left arm pain [M79.602] 01/19/2024 Encounter Status:Closed by SHEBA RAMON on 03/02/25 Normal [facility] CNOVon 03-01-2025 CNOV Office Visit (FAMPWS ) -------- KATHRYN WHITING ([id number]) 1955 F Date Time Provider Department 03/01/25 2:40 PM CATA WHYTE During your visit today, we recorded the following information about you: Pulse Blood pressure Weight Height 95/minute 107/73 66.2 kg 1.605 m Cata Whyte APRN.SERVICE ORDER DISPATCHER CHIEF 03/02/2025 1:08 PM Signed Kathryn Whiting is a 69 year old female here for a Medicare wellness visit. Medicare Health Risk Assessment General Health Fair Exercise: Minutes/Day 0 min Exercise: Days/Week 0 days Alcohol: Daily Use Never Alcohol: Drinks/Day Patient does not drink Alcohol: 6 or more drinks Never Feel off balance Yes Concerns: Teeth/Dentures No Concerns: Sexual function No Troubled by feelings Stressed Frequency: Eating healthy diet Several days ADLs requiring help None of the above Safety precautions in home/vehicle Yes Smoke, vape, chews tobacco No Difficulty hearing Yes Difficulty seeing Yes (last eye exam 1 month ago) Current Providers Specialists: I have reviewed specialist-related care of the patient in the medical record. Medical/Family history review Reviewed and updated problem list, medical/surgical/family/ social history, medications, and allergies. Opioid use review Opioid Medications (last 90 days) No data to display Anxiety/Depression screening PHQ-2 Score: 0 (Lower risk for depression) Recommendation: no further intervention at this time Cognitive screening Mini Cog Score: 4 Cognitive screening reviewed and No further action needed (score 3-5). Functional Observation Was the patient's Timed Up AND Go test unsteady or >= 12 seconds? No Advance Care Planning Surrogate decision maker and/or advance care plan documented - Roque Mario Measurements BP 107/73 (BP Site: Right Arm, BP Position: Sitting, BP Cuff Size: Regular Adult) Pulse 95 Ht 160.5 cm (5' 3.19) Wt 66.2 kg (146 lb) LMP 03/10/2006 SpO2 97% BMI 25.71 kg/m? Vision Screening: Follows with optometry/ophthalmology, Last eye exam x1 month ago Assessment/Plan Medicare annual wellness visit, subsequent (Z00.00) - Counseled on healthy diet and regular exercise - Fall avoidance information provided - Personalized prevention plan provided RICO Hanley Rebekah, APRN.CNP 03/02/2025 1:08 PM Signed Chief Complaint Patient presents with: Medicare Wellness Exam: Stress, epigastric pain HPI Kathryn Whiting is a 69 year old female who presents here today for Above Complaints.. Pt reports increase in anxiety recently d/t caring for her mother who recently needed a feeding tube placed. Takes prozac 40mg once daily and tolerating well, wishes to continue with this. States she needs something more on certain days to help control her anxiety. Would like script for valium, has taken this in the past which helped. Throat fullness- Patient complains of throat fullness and a tightness sensation in her chest. Reports that food will get stuck in her throat and feels like nothing will move, will have to gag herself sometimes to get it out. Has had GERD for a long time, but states this feels different than usual. Past medical history, appointments, medications, allergies reviewed. Previous Medical History PAST MEDICAL HISTORY Diagnosis Date Breast cancer (HCC) Diarrhea Hypercholesteraemia 03/2015 Migraine, unspecified, with intractable migraine, so stated, without mention of status migrainosus Migraine Mild diastolic dysfunction echo 03/2013 Mild mitral regurgitation echo 03/2013 Mild tricuspid regurgitation echo 03/2013 Mitral valve disorders(424.0) MVP Myalgia and myositis, unspecified Panic disorder without agoraphobia Panic disorder Unspecified hypothyroidism Previous Surgical History PAST SURGICAL HISTORY Procedure Laterality Date BREAST LUMPECTOMY HX 11/10/2017 CHOLECYSTECTOMY Cholecystectomy -- lap (Dr. Bear?) COLONOSCOPY FLX DX W/COLLJ SPEC WHEN PFRMD 09/16/07 COLONOSCOPY FLX DX W/COLLJ SPEC WHEN PFRMD 03/17/2019 normal ESOPHAGOGASTRODUODENOSCO PY TRANSORAL DIAGNOSTIC 09/01/13 EGD ESOPHAGOGASTRODUODENOSCO PY TRANSORAL DIAGNOSTIC 03/17/2019 EGD NEUROPLASTY AND/TRANSPOS MEDIAN NRV CARPAL TUNNE Carpal tunnel decomp, Right REDUCTION OF LARGE BREAST Breast reduction Family History FAMILY HISTORY Problem Relation Age of Onset Heart Father other (Multiple myeloma) Father 1983 -- multiple myeloma in remission, then amyloidosis Thyroid Mother Mother's side of family Anesthesia Mother Heart disease Mother Heart Mother atrial fibrilation Breast Cancer Paternal Aunt Cancer Paternal Aunt Leukemia Heart Other Mother's side of family Coronary Artery Disease Sister 2 TN's, starting age 40 other (Multiple myeloma) Paternal Uncle Patient Allergies ALLERGIES No Known Allergies (more content not included)... Normal [facility] CNOVSPon 11-16-2024 CNOVSP Visit (SP) Office (ROBERTO) -------- KATHRYN WHITING ([id number]) 1955 F Date Time Provider Department 11/16/24 1:00 PM SAMEERA MARTINI During your visit today, we recorded the following information about you: Temperature Pulse Blood pressure Weight 97.7 degrees 83/minute 106/73 66.5 kg Sameera Martini APRN.SERVICE ORDER DISPATCHER CHIEF 11/16/2024 1:39 PM Signed Chief Complaint Patient presents with: Established Patient HPI: Kathryn Whiting is a 69 year old female who presents here today for follow up breast cancer. Per Dr. Winchester's previous note: H/o hypercholesterinemia presented with stage I, ER/NV positive HER-2 negative breast cancer. Patient has been getting annual mammograms and self breast examinations. she presented last fall with an abnormal right breast mammograms/US and underwent 10/05/17 US guided needle core breast biopsy. Mammograms - asymetry in the right breast at 11:00 middle depth US right breast 6mm x 4mm right breast lesion, 10:00 middle depth, hypoechoic with posterior acoustic shadowing. Pathology revealed - (upper outer quadrant) Right breast, ultrasound-guided needle core biopsy: Invasive lobular carcinoma: Maximal length - 9 mm Nuclear Grade - 2/3 Other findings - atypical lobular hyperplasia. ER (clone [id number]) >95%, strong NV (clone 16/1E2) >95%, strong Her-2Neu (clone [id number]) 0 MRI breast:showed a 0.6 cm irregular mass in the right breast is consistent with the known carcinoma and is a known biopsy positive for malignancy. A surgical consult is recommended. Please note the biopsy clip appears migrated posterior from the biopsy site. As such, a post biopsy right mammogram is recommended for correlation of findings/clip placement prior to potential wire localization and surgical intervention. No MRI evidence of malignancy in the left breast. She had a right breast lumpectomy and sentinel lymph node biopsy on 11/10/17. Pathology reveals - Invasive tumor size: 9 x 4 x 3 mm, Grade 1 (total score of 5),Margins: Uninvolved by invasive carcinoma. Distance from closest (inferior-anterior) margin - 2.0 mm Distance from next closest (posterior ) margin - 2.5 mm, Lymph-Vascular invasion: Not identified Dermal lymph-vascular invasion: Not applicable , ER: >95%, strong NV: >95%, strong Fxy9xhs: negative [address] negative The patient is recovering well from her surgery with no complications. Minimal postoperative pain no numbness, swelling or lymphedema. menstrual history: Menarche at age 11, first at age 15, menopause age 53. She was on control for 10 years, no hormonal replacement therapy after menopause. No family history of breast or ovarian cancer. Last colonoscopy 7 years ago-normal Recent pelvic exam last year; normal with no abnormal discharge or uterine bleeding. bone density - 2007 showed osteopenia RADIATION:12/21/17 to 01/18/18 Current therapy:Femara Began May 2022. Previous therapy:arimidex Began after radiation. No new concerns today. Appetite:It's fine. Wt. stable. Energy level:I could have more. Denies fevers or recent illness. Resp:denies cough or sob Cardiac:denies chest pain/palpitations GI:denies abd pain, n/v, moving bowels regularly :denies dysuria/hematuria Extrem:denies pain, +plantar fascitis, h/o fibromyalgia-has not been followed for this in a long time Endo:+hot flashes-At night. Neuro:denies symptoms of neuropathy, L hand carpal tunnel Skin:denies rashes/lesions Heme:denies bleeding The ROS is otherwise negative. Past medical history, appointments, medications, allergies reviewed. No changes. EXAM: BP 106/73 Pulse 83 Temp 36.5 ?C (97.7 ?F) (Temporal) Wt 66.5 kg (146 lb 9.7 oz) LMP 03/10/2006 SpO2 97% BMI 25.98 kg/m? APPEARANCE Well appearing, alert, in no acute distress, well-hydrated, well nourished. HEART RRR with normal S1 and S2, no murmurs LUNG clear to auscultation BREAST FEMALE no mass/nodule b/l, R radiation changes LYMPH NODES No cervical lymphadenopathy, No supraclavicular lymphadenopathy, and No axillary lymphadenopathy. ABDOMEN bowel sounds normoactive, soft, non-tender EXTREMITIES No edema NEURO Awake, alert and oriented x 3, Normal gait, and No involuntary motions. SKIN Skin color, texture, turgor normal, no suspicious rashes or lesions ASSESSMENT/PLAN: 1. Malignant neoplasm of upper-outer quadrant of right breast in female, estrogen receptor positive (HCC) - ICD9: 174.4, V86.0, ICD10: C50.411, Z17.0 (primary diagnosis) Stage I, pT2, pN0, ER NV positive HER-2 negative, Invasive ductal carcinoma - No concerning findings on exam. - Tolerated arimidex fair except for fatigue and word finding issues. - Tolerating femara overall well. - Reviewed mammogram with pt. - Continue femara through January 2025-will then complete 7 years of therapy. - Mammogram due in (more content not included)... Normal [facility] DBT Breast - bilateral haley pierre 10-17-2024 IMPRESSION: There is no mammographic evidence of malignancy. Routine screening mammogram is recommended. Annual mammogram will be due in 1 year. BI-RADS Category 2: Benign Interpreting Radiologist: Anne Minaya M.D. Electronically signed on: 10/17/2024 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: KIKO Transcribe Date/Time: Oct 17 2024 1:25P Dictated by: ANNE MINAYA MD This examination was interpreted and the report reviewed and electronically signed by: ANNE MINAYA MD on Oct 17 2024 3:05PM [facility] DIVISION OF RADIOLOGY * * *Final Report* * * DATE OF EXAM: Oct 17 2024 1:36PM [facility] 0582 - [facility] SCREENING W ROSEANNA / PROCEDURE REASON: multiple diagnoses * * * * Physician Interpretation * * * * RESULT: [place] [address] #[id number] - [facility] SCREENING W ROSEANNA HISTORY: Patient is 69 years old and is seen 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 and is asymptomatic in both breasts. The patient has a history of right breast cancer. COMPARISON STUDIES: The present examination has been compared to prior imaging studies dated 10/01/2020 (mammogram), 10/10/2021 (mammogram), 10/13/2022 (mammogram) and 10/14/2023 (mammogram). MAMMOGRAM TECHNIQUE: The study was acquired using full field digital technology and interpreted from soft copy. Digital Breast Tomosynthesis (DBT) images were obtained and used to assist in the interpretation of this examination. Computer-aided detection was utilized by the radiologist in the interpretation of this examination. MAMMOGRAM FINDINGS: There are scattered areas of fibroglandular density. There are post-operative changes in the right breast. No suspicious masses, calcifications or other abnormalities are seen in either breast. DIVISION OF RADIOLOGY Provider, [facility] - 10/17/2024 * * *Final Report* * * DATE OF EXAM: Oct 17 2024 1:36PM [facility] 0582 - [facility] SCREENING W ROSEANNA / PROCEDURE REASON: multiple diagnoses * * * * Physician Interpretation * * * * RESULT: [facility] [address] [place] [address] #[id number] - [facility] SCREENING W ROSEANNA HISTORY: Patient is 69 years old and is seen 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 and is asymptomatic in both breasts. The patient has a history of right breast cancer. COMPARISON STUDIES: The present examination has been compared to prior imaging studies dated 10/01/2020 (mammogram), 10/10/2021 (mammogram), 10/13/2022 (mammogram) and 10/14/2023 (mammogram). MAMMOGRAM TECHNIQUE: The study was acquired using full field digital technology and interpreted from soft copy. Digital Breast Tomosynthesis (DBT) images were obtained and used to assist in the interpretation of this examination. Computer-aided detection was utilized by the radiologist in the interpretation of this examination. MAMMOGRAM FINDINGS: There are scattered areas of fibroglandular density. There are post-operative changes in the right breast. No suspicious masses, calcifications or other abnormalities are seen in either breast. IMPRESSION IMPRESSION: There is no mammographic evidence of malignancy. Routine screening mammogram is recommended. Annual mammogram will be due in 1 year. BI-RADS Category 2: Benign Interpreting Radiologist: Anne Minaya M.D. Electronically signed on: 10/17/2024 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: KIKO Transcribe Date/Time: Oct 17 2024 1:25P Dictated by: ANNE MINAYA MD This examination was interpreted and the report reviewed and electronically signed by: ANNE MINAYA MD on Oct 17 2024 3:05PM EST [facility] Radiology Study observation (narrative) [facility] DBT Breast - bilateral scree ningOrdered By: Ccf Provider on 10-17-2024 [facility] SCREENING W TOMOon 10-17 [facility] SCREENING W ROSEANNA * * *Final Report* * * DATE OF EXAM: Oct 17 2024 1:36PM W 0582 - [facility] SCREENING W ROSEANNA / PROCEDURE REASON: multiple diagnoses * * * * Physician Interpretation * * * * RESULT: [facility] [address] [place] [address] #[id number] - [facility] SCREENING W ROSEANNA HISTORY: Patient is 69 years old and is seen 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 and is asymptomatic in both breasts. The patient has a history of right breast cancer. COMPARISON STUDIES: The present examination has been compared to prior imaging studies dated 10/01/2020 (mammogram), 10/10/2021 (mammogram), 10/13/2022 (mammogram) and 10/14/2023 (mammogram). MAMMOGRAM TECHNIQUE: The study was acquired using full field digital technology and interpreted from soft copy. Digital Breast Tomosynthesis (DBT) images were obtained and used to assist in the interpretation of this examination. Computer-aided detection was utilized by the radiologist in the interpretation of this examination. MAMMOGRAM FINDINGS: There are scattered areas of fibroglandular density. There are post-operative changes in the right breast. No suspicious masses, calcifications or other abnormalities are seen in either breast. IMPRESSION: There is no mammographic evidence of malignancy. Routine screening mammogram is recommended. Annual mammogram will be due in 1 year. BI-RADS Category 2: Benign Interpreting Radiologist: Anne Minaya M.D. Electronically signed on: 10/17/2024 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: KIKO Transcribe Date/Time: Oct 17 2024 1:25P Dictated by: ANNE MINAYA MD This examination was interpreted and the report reviewed and electronically signed by: ANNE MINAYA MD on Oct 17 2024 3:05PM EST [id number] Normal [facility] Nanci 08-05-2024 BETO Telephone (ROBERTO) -------- KATHRYN WHITING ([id number]) 1955 F Date Time Provider Department 08/05/24 SAMEERA MARTINI During your visit today, we recorded the following information about you: Marjorie Ireland 08/05/2024 2:[address] mamm order and advise patient for scheduling. Madelin North LPN 08/05/2024 2:29 PM Signed Please sign order. JESSICA Da Silva Darby, APRN.CARMEN 08/08/2024 7:50 AM Signed Done. Sameera Martini APRN.Karen Lopez 08/08/2024 9:36 AM Signed Left message for patient to return call. When patient calls, felipe advise her mammogram needs to be no sooner than 10/15/24 for insurance purposes and schedule accordingly. Alexa Ho 08/08/2024 11:54 AM Signed Patient called back and scheduled Alexa Calerolins Allergies As of Date: 08/05/2024 (No Known Allergies) Date Reviewed: 01/06/2024 Reviewed by: Cata Whyte APRN.SERVICE ORDER DISPATCHER CHIEF - Fully Assessed Reason for Visit: Orders [681] Primary Visit Diagnosis:Encounter 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 mammogram for high-risk patient [Z12.31] Other Visit Diagnosis:Malignant neoplasm of upper-outer quadrant of right breast in female, estrogen receptor positive (HCC) [C50.411, Z17.0] Order(s):[facility] SCREENING W ROSEANNA [[id number]] Order #: [id number] FUTURE Prescriptions as of 08/08/2024 - acetaminophen 325 mg-caffeine 40 mg-butalbital 50 mg (FIORICET) per tablet Take 1 tablet by mouth every 4 hours as needed for headache for up to 90 days. - FLUoxetine (PROZAC) 40 mg capsule Take 1 capsule by mouth once daily. - FLUoxetine (PROZAC) 40 mg capsule Take 1 capsule by mouth once daily. - levothyroxine (LEVOXYL) 88 mcg tablet Take 1 tablet by mouth once daily. Take on empty stomach. For Thyroid - atorvastatin (LIPITOR) 10 mg tablet TAKE 1 TABLET EVERY DAY AT BEDTIME FOR CHOLESTEROL - naproxen (NAPROSYN) 500 mg tablet Take 1 tablet by mouth two times a day with meals. Take with food. - letrozole (FEMARA) 2.5 mg tablet Take 1 tablet by mouth once daily. - omeprazole (PRILOSEC) 20 mg capsule Take 1 capsule by mouth daily before breakfast. 1/2 hr before meal. - levothyroxine (LEVOXYL) 88 mcg tablet Take 1 tablet by mouth once daily. Take on empty stomach. For Thyroid - levothyroxine (LEVOXYL) 88 mcg tablet Take 1 tablet by mouth once daily. Take on empty stomach. For Thyroid - meclizine (ANTIVERT) 25 mg tab TAKE 1 TABLET BY MOUTH THREE TIMES A DAY NEEDED FOR DIZZINESS - calcium-cholecalciferol, D3, (OSCAL+D 250) 250-125 mg-unit per tablet Take 1 tablet by mouth once daily. Problem List As Of Date 08/05/2024 Noted Resolved Rosacea [L71.9] 07/19/1998 Cholelithiasis [574] 09/21/1998 08/18/2012 Hypothyroidism [E03.9] MITRAL VALVE DISORDER [I05.9] PANIC DISORDER WITHOUT AGORAPHOBIA [F41.0] Intractable migraine [G43.919] MYALGIA AND MYOSITIS NOS [ACR8008] Sprain and Strain of Unspecified Site of Knee a*07/05/2010 Routine general medical examination at [facility]*07/25/2010 08/18/2012 Class: Chronic Routine gynecological examination [Z01.419] 07/25/2010 08/18/2012 Class: Chronic Mixed Hyperlipidemia [E78.2] 07/25/2010 Mixed stress and urge urinary incontinence [N39*04/01/2011 Hyperlipidemia [E78.5] 03/25/2013 Family history of premature coronary heart dise*03/25/2013 Overweight [E66.3] 03/25/2013 Mild diastolic dysfunction [I51.9] 03/28/2013 Mild tricuspid regurgitation [I07.1] 03/28/2013 Mild mitral regurgitation [I34.0] 03/28/2013 Right-sided low back pain with right-sided scia*08/27/2015 Muscle weakness (generalized) [M62.81] 08/27/2015 Malignant neoplasm of upper-outer quadrant of r*12/02/2017 Vitamin D deficiency [E55.9] 02/01/2018 Osteoarthritis of spine with radiculopathy, lum*04/14/2023 Chronic neck pain [M54.2, G89.29] 04/14/2023 Chronic midline low back pain with bilateral sc*04/14/2023 IFG (impaired fasting glucose) [R73.01] 04/14/2023 Cervical radiculopathy [M54.12] 01/19/2024 Chronic left shoulder pain [M25.512, G89.29] 01/19/2024 Neck pain [M54.2] 01/19/2024 Left arm pain [M79.602] 01/19/2024 Encounter Status:Closed by ALEXA ESCOBAR on 08/08/24 Normal [facility] No Panel Informationon 01-06 Radiology Study observation (narrative) [facility] XR Cervical spine AP and Lat eral and obliqueon 01-06-2024 IMPRESSION: 1. No acute osseous findings or significant change 2. Disc space and facet joint degeneration as above and secondary degenerative bony foraminal encroachment as above. Left foramina better profiled today. 3. Nonprogressive C3-4 degenerative listhesis 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: GAMA Transcribe Date/Time: Jan 06 2024 1:17P Dictated by : CY CHAVEZ MD This examination was interpreted and the report reviewed and electronically signed by: CY CHAVEZ MD on Jan 06 2024 1:29PM [facility] DIVISION OF RADIOLOGY * * *Final Report* * * DATE OF EXAM: Jan 06 2024 1:05PM [facility] [id number] - XR CERVICAL 4V AP/LAT/OBL / PROCEDURE REASON: multiple diagnoses * * * * Physician Interpretation * * * * EXAMINATION: XR CERVICAL 4V AP/LAT/OBL HISTORY: Neck pain x6 months, no known injury. Cervical radiculopathy Chronic left shoulder pain Chronic left shoulder pain Neck pain. TECHNIQUE: XR CERVICAL 4V AP/LAT/OBL Laterality: NOT APPLICABLE Number of different views (projections): 4 M: XB_1 COMPARISON: Cervical spine radiographs 04/13/2023 RESULT: 4 images. Include obliques. Images unlabeled regarding weightbearing/upright or recumbant. No identified acute osseous abnormality and no significant change. Counting reference: Craniocervical junction. Anatomic Variants: None. No cervical scoliosis. Straightened lordosis. Degenerative C3-4 mild anterolisthesis. Disc space degeneration as follows. C3-4 mild disc space narrowing and mild posterior/uncovertebral osteophytosis. C4-5 moderate to severe disc space narrowing, mild to moderate anterior osteophytosis, mild to moderate predominantly leftward posterior/uncovertebral osteophytosis. C5-6 moderate to severe disc space narrowing, mild to moderate anterior osteophytosis, mild to moderate predominantly rightward posterior/uncovertebral osteophytosis. C6-7 moderate to severe disc space narrowing, mild anterior osteophytosis, probably mild posterior/intervertebral osteophytosis. Facet joint degeneration moderate left C3-4 and mild to moderate left C2-3. Minimal to mild otherwise. Provided oblique views. Left foramina better profiled today. Osseous degenerative left foraminal encroachment mild C2-3, mild to moderate C3-4, mild to moderate C4-5. On the right, bony foraminal encroachment mild C3-4, C4-5, C5-6, C6-7 DIVISION OF RADIOLOGY [facility] * * *Final Report* * * DATE OF EXAM: Jan 06 2024 1:05PM [facility] [id number] - XR CERVICAL 4V AP/LAT/OBL / PROCEDURE REASON: multiple diagnoses * * * * Physician Interpretation * * * * EXAMINATION: XR CERVICAL 4V AP/LAT/OBL HISTORY: Neck pain x6 months, no known injury. Cervical radiculopathy Chronic left shoulder pain Chronic left shoulder pain Neck pain. TECHNIQUE: XR CERVICAL 4V AP/LAT/OBL Laterality: NOT APPLICABLE Number of different views (projections): 4 M: XB_1 COMPARISON: Cervical spine radiographs 04/13/2023 RESULT: 4 images. Include obliques. Images unlabeled regarding weightbearing/upright or recumbant. No identified acute osseous abnormality and no significant change. Counting reference: Craniocervical junction. Anatomic Variants: None. No cervical scoliosis. Straightened lordosis. Degenerative C3-4 mild anterolisthesis. Disc space degeneration as follows. C3-4 mild disc space narrowing and mild posterior/uncovertebral osteophytosis. C4-5 moderate to severe disc space narrowing, mild to moderate anterior osteophytosis, mild to moderate predominantly leftward posterior/uncovertebral osteophytosis. C5-6 moderate to severe disc space narrowing, mild to moderate anterior osteophytosis, mild to moderate predominantly rightward posterior/uncovertebral osteophytosis. C6-7 moderate to severe disc space narrowing, mild anterior osteophytosis, probably mild posterior/intervertebral osteophytosis. Facet joint degeneration moderate left C3-4 and mild to moderate left C2-3. Minimal to mild otherwise. Provided oblique views. Left foramina better profiled today. Osseous degenerative left foraminal encroachment mild C2-3, mild to moderate C3-4, mild to moderate C4-5. On the right, bony foraminal encroachment mild C3-4, C4-5, C5-6, C6-7 IMPRESSION IMPRESSION: 1. No acute osseous findings or significant change 2. Disc space and facet joint degeneration as above and secondary degenerative bony foraminal encroachment as above. Left foramina better profiled today. 3. Nonprogressive C3-4 degenerative listhesis 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: J[facility] MEMORIAL HOSPITALEric Transcribe Date/Time: Jan 06 2024 1:17P Dictated by : CY CHAVEZ MD This examination was interpreted and the report reviewed and electronically signed by: CY CHAVEZ MD on Jan 06 2024 1:29PM [facility] XR Shoulder - left 3 Viewson 01-06-2024 IMPRESSION: 1. Minimal glenohumeral osteoarthritis. 2. No acute osseous findings 3. Suboptimal Grashey view; no provided external rotation view of the proximal humerus and therefore limited assessment of the humeral medial articular surface and the humeral greater tuberosity. 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: GAMA Transcribe Date/Time: Jan 06 2024 1:11P Dictated by : CY CHAVEZ MD This examination was interpreted and the report reviewed and electronically signed by: CY CHAVEZ MD on Jan 06 2024 1:17PM [facility] DIVISION OF RADIOLOGY * * *Final Report* * * DATE OF EXAM: Jan 06 2024 1:05PM [facility] 5252 - XR SHLDR >/=3V AP/LAKSHMI AP/OTHR LT / PROCEDURE REASON: multiple diagnoses * * * * Physician Interpretation * * * * EXAMINATION: XR SHLDR >/=3V AP/LAKSHMI AP/OTHR LT HISTORY: Left shoulder pain x6 months. No known injury. Cervical radiculopathy Chronic left shoulder pain Chronic left shoulder pain Neck pain. TECHNIQUE: XR SHLDR >/=3V AP/LAKSHMI AP/OTHR LT Laterality: LEFT Number of different views (projections): 3 M: XB_1 COMPARISON: Chest radiograph 09/24/2021 RESULT: 3 images including Grashey and axillary. Grashey view humerus internally rotated as opposed to usual external rotation. No identified acute osseous abnormality. Maintained joint spaces. Minimal inferior glenoid osteophytosis. No unusual soft tissue calcification. Unremarkable regional soft tissue planes. DIVISION OF RADIOLOGY Provider, [facility] - 01/06/2024 * * *Final Report* * * DATE OF EXAM: Jan 06 2024 1:05PM [facility] 5252 - XR SHLDR >/=3V AP/LAKSHMI AP/OTHR LT / PROCEDURE REASON: multiple diagnoses * * * * Physician Interpretation * * * * EXAMINATION: XR SHLDR >/=3V AP/LAKSHMI AP/OTHR LT HISTORY: Left shoulder pain x6 months. No known injury. Cervical radiculopathy Chronic left shoulder pain Chronic left shoulder pain Neck pain. TECHNIQUE: XR SHLDR >/=3V AP/LAKSHMI AP/OTHR LT Laterality: LEFT Number of different views (projections): 3 M: XB_1 COMPARISON: Chest radiograph 09/24/2021 RESULT: 3 images including Grashey and axillary. Grashey view humerus internally rotated as opposed to usual external rotation. No identified acute osseous abnormality. Maintained joint spaces. Minimal inferior glenoid osteophytosis. No unusual soft tissue calcification. Unremarkable regional soft tissue planes. IMPRESSION IMPRESSION: 1. Minimal glenohumeral osteoarthritis. 2. No acute osseous findings 3. Suboptimal Grashey view; no provided external rotation view of the proximal humerus and therefore limited assessment of the humeral medial articular surface and the humeral greater tuberosity. 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: PSCB Transcribe Date/Time: Jan 06 2024 1:11P Dictated by : CY CHAVEZ MD This examination was interpreted and the report reviewed and electronically signed by: CY CHAVEZ MD on Jan 06 2024 1:17PM EST [facility] XR Shoulder - left 3 ViewsOr dered By: Ccf Provider on 01-06-2024 [facility] DXA-AXIAL SKELETONon 12-06-2 023 LOWEST T-SCORE -3.8 [facility] Urgent Care Visit Reporton 1 12-15-2022 Urgent Care Visit Report [facility] [address], [address] [place] [address] OFFICE VISIT Date of Service: 10/14/23 MR#: [id number] Acct: [id number] Name: KATHRYN WHITING Rep #: [id number] : 1955 Provider: ALTON Garcia Age/Sex: 68/F Location: [facility] [place] Status: Signed Intake Vital Signs 04/21/22 10:43 10/14/23 11:16 Height 5 ft 3 in 5 ft 3 in Weight: 148 lb 4 oz BMI 26.2 BP 112/62 Blood Pressure Location Lt brachial Position Sitting Respiration 17 Pulse 90 Pulse Source NIBP Temp 98.1 F Temp Source Temporal Pulse Oximetry (%) 97 Oxygen Delivery Method room air Intake Visit Reasons: LEFT EAR CONCERN Chief Complaint: left ear, left face, ST 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 Is patient in pain?: No Allergies No Known Allergies Allergy (Verified 10/14/23 11:17) Medications fluoxetine 20 mg capsule 20 mg PO DAILY 11/04/17 [History Confirmed 10/14/23] levothyroxine 88 mcg tablet 88 mcg PO DAILY 11/04/17 [History Confirmed 10/14/23] meclizine 25 mg tablet 25 mg PO TID PRN dizziness #20 tabs 04/21/22 [Rx Confirmed 10/14/23] azithromycin 250 mg tablet 250 mg PO QDAY #6 tabs 10/14/23 [Rx Confirmed 10/14/23] butalbital-acetaminophen -caffeine 50 mg-325 mg-40 mg tablet 1 tab PO Q6H PRN 10/14/23 [History Confirmed 10/14/23] Is last menstrual period known: No Post menopausal: Yes Patient : No Nurse's Note: ANGELES, left ear discomfort, left face puffiness, ST denies mucus PFSH Medical History (Updated 04/29/22 @ 00:00 by Regulo Stein) Breast cancer Hypothyroidism Surgical History (Updated 10/14/23 @ 11:19 by Destinee Vera) History of carpal tunnel release History of cholecystectomy History of lumpectomy of right breast ( 2017) Social History Smoking Status: Former smoker HPI HPI Chief Complaint: left ear, left face, ST Details: KATHRYN WHITING, is a 68 F who presents to the office today for initial evaluation approximately 1- week history of progressively worsening left facial pressure/congestion with purulent postnasal drip, sore throat, and left ear pressure. No complaints of fever, chills, myalgias, fatigue, runny nose, or nausea/vomiting/diarrhea . No complaints of chest pain/shortness of breath/dyspnea on exertion. Requesting COVID-19 screening. Nonsmoker. No close contacts with similar complaints. No other associated symptoms and no other alleviating/aggravating factors. ROS Const Constitutional: No other (as above) Exam Const General: cooperative, healthy appearing and no acute distress Nutritional Appearance: average body habitus Orientation: alert, awake and oriented x3 HENMT Head: normal to inspection Ears: hearing grossly normal bilaterally, external ears normal, TM's normal bilaterally and EAC's normal Nose: external nose normal, nares normal, septum normal and no nasal discharge Face and sinus: normal facial exam, sinuses nontender (Though left maxillary fullness to palpation) and face symmetric Mouth: oral mucosae normal, lip normal, tongue normal and oropharynx normal Throat: posterior oropharynx normal, tonsils normal, uvula midline and postnasal drainage (scant amount purulent) Eyes General: appearance normal, both eyes and all related structures Neck Neck: normal visual inspection, full ROM, no meningeal signs, supple and lymphadenopathy (L>R anterior cervical lymph node swelling/nontender to palpation) Neck mass: No Thyroid: thyroid normal Chest Chest palpation inspection: normal inspection of the chest Resp Effort Inspection: normal respiratory effort and able to speak in complete sentences Auscultation: Bilateral: Clear to Auscultation Cardio Palpation: normal PMI Rate: regular rate Rhythm: regular rhythm Heart Sounds: S1 normal, S2 normal, no gallops, no murmurs and no rubs Pulses: radial pulses present GI Inspection: normal to inspection Skin General: no rashes or lesions noted Neuro General: patient alert, patient awake and patient oriented x3 Cognition: normal cognition Speech: speech normal Psych Appearance: grossly normal Mental Status: mental status grossly normal Mood: congruent mood Affect: normal affect Speech and Movement: speech and movement normal Attitude: cooperative Diagnoses Acute maxillary sinusitis, unspecified J01.00 Contact with and (suspected) exposure to other viral communicable diseases Z20.828 Assessment and Plan Assessment and Plan (1) Acute maxillary sinusitis, unspecified: Status: Acute (2) Contact with and (suspected) exposure to other viral communicable diseases: Status: Acute Plan: See POC results. Azithromycin as prescribed today. Supportive measures as instructed today. Follow-up with PCP in 3 to 5 days should symptoms n (more content not included)... Normal [facility] XR Cervical spine AP and Lat eral and obliqueon 04-15-2023 IMPRESSION: MULTILEV EL ADVANCED DEGENERATIVE DISC DISEASE. MULTILEVEL FACET DEGENERATIVE CHANGES. NEUROFORAMINAL NARROWING. 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: PSCEric Transcribe Date/Time: Apr 15 2023 8:09P Dictated by : GORAN PEÑALOZA MD This examination was interpreted and the report reviewed and electronically signed by: GORAN PEÑALOZA MD on Apr 15 2023 8:11PM [facility] DIVISION OF RADIOLOGY * * *Final Report* * * DATE OF EXAM: Apr 13 2023 1:46PM WOX 5311 - XR CERVICAL 4V AP/LAT/OBL / PROCEDURE REASON: multiple diagnoses * * * * Physician Interpretation * * * * EXAM: CERVICAL SPINE, 4 VIEWS CLINICAL: 67-year-old female with chronic neck pain TECHNIQUE: AP, lateral, obliques COMPARISON: None RESULTS: Counting reference: Craniocervical junction.. Bones are osteopenic. Straightening of normal lumbar lordosis. Marked narrowing of L4/L5 through C6/C7 disc spaces with anterior osteophytes and uncovertebral. 2 mm anterior subluxation C3 and C4. Facet degenerative changes throughout the cervical spine. Oblique views ON the left are under rotated however there is neuroforaminal narrowing levels. Mild neuroforaminal narrowing at C3/C4 and C5/C6 and C6/C7 on the right. DIVISION OF RADIOLOGY Provider, [facility] - 04/15/2023 * * *Final Report* * * DATE OF EXAM: Apr 13 2023 1:46PM WOX 5311 - XR CERVICAL 4V AP/LAT/OBL / PROCEDURE REASON: multiple diagnoses * * * * Physician Interpretation * * * * EXAM: CERVICAL SPINE, 4 VIEWS CLINICAL: 67-year-old female with chronic neck pain TECHNIQUE: AP, lateral, obliques COMPARISON: None RESULTS: Counting reference: Craniocervical junction.. Bones are osteopenic. Straightening of normal lumbar lordosis. Marked narrowing of L4/L5 through C6/C7 disc spaces with anterior osteophytes and uncovertebral. 2 mm anterior subluxation C3 and C4. Facet degenerative changes throughout the cervical spine. Oblique views ON the left are under rotated however there is neuroforaminal narrowing levels. Mild neuroforaminal narrowing at C3/C4 and C5/C6 and C6/C7 on the right. IMPRESSION IMPRESSION: MULTILEVEL ADVANCED DEGENERATIVE DISC DISEASE. MULTILEVEL FACET DEGENERATIVE CHANGES. NEUROFORAMINAL NARROWING. 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: [employer] Transcribe Date/Time: Apr 15 2023 8:09P Dictated by : GORAN PEÑALOZA MD This examination was interpreted and the report reviewed and electronically signed by: GORAN PEÑALOZA MD on Apr 15 2023 8:11PM [facility] [place] XR Lumbar spine 3 Viewson * * *Final Report* * * DATE OF EXAM: Apr 13 2023 1:46PM WOX 5228 - XR LUMBAR 3V AP/LAT/L5-S1 / PROCEDURE REASON: multiple diagnoses * * * * Physician Interpretation * * * * Examination: XR LUMBAR 3V AP/LAT/L5-S1 History: Osteoarthritis of spine with radiculopathy, 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 Chronic midline low back pain with bilateral sciatica Chronic midline low back pain with bilateral sciatica Technique: XR LUMBAR 3V AP/LAT/L5-S1 Comparison: 07/22/2015 RESULT: 5 nonrib-bearing lumbar-type vertebrae. For numbering purposes, L4-5 is at the level of the iliac crest. Levoscoliosis in the lower lumbar region of 14 degrees as measured from inferior L2 to superior L5. Moderate to severe disc space narrowing throughout the lumbar region. No fracture or focal bony abnormality. Diffuse osteopenia. Degenerative change involving the posterior elements from L4 through S1. DIVISION OF RADIOLOGY Provider, [facility] - 04/14/2023 * * *Final Report* * * DATE OF EXAM: Apr 13 2023 1:46PM WOX 5228 - XR LUMBAR 3V AP/LAT/L5-S1 / PROCEDURE REASON: multiple diagnoses * * * * Physician Interpretation * * * * Examination: XR LUMBAR 3V AP/LAT/L5-S1 History: Osteoarthritis of spine with radiculopathy, 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 Chronic midline low back pain with bilateral sciatica Chronic midline low back pain with bilateral sciatica Technique: XR LUMBAR 3V AP/LAT/L5-S1 Comparison: 07/22/2015 RESULT: 5 nonrib-bearing lumbar-type vertebrae. For numbering purposes, L4-5 is at the level of the iliac crest. Levoscoliosis in the lower lumbar region of 14 degrees as measured from inferior L2 to superior L5. Moderate to severe disc space narrowing throughout the lumbar region. No fracture or focal bony abnormality. Diffuse osteopenia. Degenerative change involving the posterior elements from L4 through S1. IMPRESSION IMPRESSION: DEGENERATIVE CHANGES AND SCOLIOSIS DESCRIBED. SOME PROGRESSION FROM THE PRIOR STUDY 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: GAMA Transcribe Date/Time: Apr 14 2023 10:49A Dictated by : SERGIO AYALA MD This examination was interpreted and the report reviewed and electronically signed by: SERGIO AYALA MD on Apr 14 2023 10:57AM EST [facility] XR Lumbar spine 3 ViewsOrder ed By: [facility] Provider on 04-14-2023 [facility] No Panel Informationon 04-13 Radiology Study observation (narrative) [facility] XR LUMBAR GENERAL 3V AP/LAT/ L5-S1on 04-13-2023 [facility] KARAN SCREENING W TOMOon 10-13 [facility] Absolute lymphocyte counton 04-21-2022 Lymphocytes Auto (Unsp spec) [#/Vol] 1.09 10*3/uL 0.83-4.51 [facility] Work Phone: Basophil percentageon 2021 Basophils/100 WBC (Bld) 0.8 % 0-1 [facility] Work Phone: Chloride [Moles/Vol] 108 mmol/L 98-107 [facility] Work Phone: Eosinophils/100 WBC (Bld) 2.8 % 0-5 [facility] Work Phone: Glucose [Mass/Vol] 95 mg/dL 74-106 [facility] Work Phone: Neutrophils (Bld) [#/Vol] 2.3 10*3/uL 2.0-7.7 [facility] Work Phone: Neutrophils/100 WBC (Bld) 58.1 % 47-70 [facility] Work Phone: Potassium [Moles/Vol] 4.2 mmol/L 3.5-5.1 [facility] Work Phone: Comment on above: Moderate Hemolysis, Result may be falsely increased. Sodium [Moles/Vol] 141 mmol/L 136-145 [facility] Work Phone: WBC (Bld) [#/Vol] 4.0 10*3/uL 4.4-11.0 [facility] Work Phone: Blood erythrocytes count (nu mber/volume)on 04-21-2022 RBC (Bld) [#/Vol] 4.70 10*6/uL 4.2-5.4 [facility] Work Phone: Blood hemoglobin measurement (mass/volume)on 04-21-2022 Hemoglobin (Bld) [Mass/Vol] 13.6 g/dL 12.0-15.0 [facility] Work Phone: Blood lymphocytes/100 leukoc yteson 04-21-2022 Lymphocytes/100 WBC (Bld) 27.3 % 19-41 [facility] Work Phone: Blood monocytes/100 leukocyt eson 04-21-2022 Monocytes/100 WBC (Bld) 11.0 % 0-10 [facility] Work Phone: Blood platelet mean volumeon 04-21-2022 Platelet mean volume (Bld) [Entitic vol] 10.3 fL 6.2-12.0 [facility] Work Phone: Determination of erythrocyte mean corpuscular volume (MCV)on 04-21-2022 MCV (RBC) [Entitic vol] 87.4 fL 81-99 [facility] Work Phone: [phone] Hematocrit Auto (Bld) [Volum e fraction]on 04-21-2022 Hematocrit (Bld) [Volume fraction] 41.1 % 37-47 [facility] Work Phone: [phone] Laboratory - Chemistry and C hemistry - challengeon 04-21-2022 CO2 [Moles/Vol] 30.0 mmol/L 21.0-32.0 [facility] Work Phone: [phone] Urea nitrogen/Creatinine [Mass ratio] 15.4 mg/mg 10-20 [facility] Work Phone: [phone] Laboratory - Hematology and Cell countson 04-21-2022 Erythrocyte distribution width (RBC) [Entitic vol] 42.4 fL 35.1-43.9 [facility] Work Phone: [phone] Erythrocyte distribution width (RBC) [Ratio] 13.2 % 11.6-14.6 [facility] Work Phone: [phone] Immature granulocytes/100 WBC (Bld) 0.000 % 0.0-0.9 [facility] Work Phone: [phone] Comment on above: IG% - Immature Granu locytes (promyelocytes, myelocytes and metamyelocytes) > 1% indicates that a LEFT SHIFT is Present. MCH (RBC) [Entitic mass] 28.9 pg 27.0-32.0 [facility] Work Phone: [phone] Nucleated RBC/100 WBC (Bld) [Ratio] 0 % 0-5 [facility] Work Phone: [phone] MCHC Auto (RBC) [Mass/Vol]on 04-21-2022 MCHC (RBC) [Mass/Vol] 33.1 g/dL 32-36 [facility] Work Phone: [phone] No Panel Informationon 04-21 Estimated Creatinine Clearance Calc 53.02 ml/min [facility] Work Phone: [phone] Estimated GFR (MDRD) Amer 86 mL/min >60 [facility] Work Phone: [phone] Comment on above: GFR Calc Estimated GFR (MDRD) Non-Af Amer 71 mL/min >60 [facility] Work Phone: Comment on above: Non- GFR Calc Platelets bldon 04-21-2022 Platelets (Bld) [#/Vol] 195 10*3/uL 150-450 [facility] Work Phone: Serum or plasma calcium grisel urement (mass/volume)on 04-21-2022 Calcium [Mass/Vol] 9.4 mg/dL 8.5-10.1 [facility] Work Phone: Serum or plasma creatinine m easurement (mass/volume)on 04-21-2022 Creatinine [Mass/Vol] 0.84 mg/dL 0.55-1.02 [facility] Work Phone: Comment on above: The validity of the calculated GFR & GFRAA in patients over 70 years has not been determined. Clinical correlation is essential. Serum or plasma urea nitroge n measurement (mass/volume)on 04-21-2022 Urea nitrogen [Mass/Vol] 13 mg/dL 7-18 [facility] Work Phone: Thin prep Papanicolaou smear with manual screeningon 04-21-2022 Thin prep Papanicolaou smear with manual screening 3 5-15 [facility] Work Phone: Laboratory - Microbiology an d Antimicrobial susceptibilityon 02-21-2022 SARS-CoV-2 (COVID-19) RNA DARIUS+probe Ql (Unsp spec) Not detected [facility] Work Phone: No Panel Informationon 02-21 Influenza Types A,B Rapid (Clinic) Not detected [facility] Work Phone: XR CHEST 2V FRONTAL/LATon XR CHEST 2V FRONTAL/LAT * * *Final Report* * * DATE OF EXAM: Sep 24 2021 12:05PM ANTONIO 5291 - XR CHEST 2V FRONTAL/LAT / PROCEDURE REASON: multiple diagnoses * * * * Physician Interpretation * * * * EXAMINATION: CHEST RADIOGRAPH (2 VIEW FRONTAL and LATERAL) CLINICAL HISTORY: Cough Dyspnea and respiratory abnormalities MQ: XC2_6 EXAM DATE/TIME: 09/24/2021 12:05 PM COMPARISON: No relevant prior studies available. RESULT: Lines, tubes, and devices: None. Lungs and pleura: No consolidation. No lung mass. No pleural effusion. No pneumothorax. Cardiomediastinal silhouette: Normal cardiomediastinal silhouette. Bones and soft tissues: Hiatal hernia.. IMPRESSION: No acute radiographic abnormality. 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: GAMA Transcribe Date/Time: Sep 24 2021 12:13P Dictated by : UBALDO WONG MD This examination was interpreted and the report reviewed and electronically signed by: UBALDO WONG MD on Sep 24 2021 12:13PM EST [id number] Normal [facility] NM CARDIAC PERF STRESS/PHARM on 10-25-2020 NM CARDIAC PERF STRESS/PHARM * * *Final Report* * * DATE OF EXAM: Oct 25 2020 2:05PM JUAN 0006 - NM CARDIAC PERF STRESS/PHARM / PROCEDURE REASON: multiple diagnoses * * * * Physician Interpretation * * * * PATIENT: Name: MRS. KATHRYN WHITING Age: 65 years Gender: F CONCLUSIONS: 1. SPECT Perfusion Study: Normal. 2. There is no scintigraphic evidence for inducible ischemia. 3. No evidence of scarred myocardium. 4. Left ventricle is normal in size. The left ventricle systolic function is hyperdynamic. 5. This is a low risk scan. LVEF % 77 Prior Study Comparison No prior nuclear cardiology exam available for comparison. Nuclear Med Report:1-Day Tc-Tetrofosmin Gated SPECT Myocardial Perfusion with Regadenoson Stress: Myocardial perfusion imaging was performed at rest 30 minutes following the IV injection of Tc-99m tetrofosmin. The patient received 0.4 mg of regadenoson, via rapid IV push, immediately followed by Tc-99m tetrofosmin IV. Gated post stress tomographic imaging was performed 30 to 60 minutes later. See administered doses below. [facility] Date of service: 10/25/2020 12:32:31 PM Ordering Physician: Bonita Ingram Requesting Physician: Indication: of breath produced by exertion or stress; Chest pain or palpitations, high prob, uninterpretable ECG or cannot exercise Interpreting physician: Radha Nesbitt MD Height: 157.48 cm BSA: 1.78 m? Weight: 72.58 kg BMI: 29.3 kg/m? Imaging Protocol Limitation Reason Breast attenuation. Exam Type: Rest Stress Radiopharm: Tc-99m Tetrofosmin Tc-99m Tetrofosmin Dosage(mCi): 12.4 32.2 Atten Correction: not performed not performed Stress Agent: Regadenoson 0.4mg Supply provided from [facility] Resting Blood Press: 123/60 mmHg Image Quality The overall study imaging quality was deemed to be good. The following technical issues were noted: Breast attenuation. FINDINGS: LVEF: 77 % LEFT VENTRICLE The left ventricle is normal in size. Left ventricular systolic function is hyperdynamic. Stress Test Findings: There is no scintigraphic evidence for inducible ischemia. There is no evidence of scarring. Final -- Stress ECG Report: [facility] Date of service: 10/25/2020 12:32:31 PM Ordering physician: BONITA INGRAM Specialist: Madelin Dale Milking Machine Technician: Xena Rodriguez Stress ECG interpreting physician: Radha Nesbitt MD PATIENT: Name: MRS. KATHRYN WHITING Age: 65 years Gender: F Height: 157.48 cm BSA: 1.78 m? Weight: 72.58 kg BMI: 29.3 kg/m? STRESS ECG CONCLUSION: Conclusion: Normal STRESS ECG SUMMARY: The patient's resting heart rate was 59 bpm and blood pressure was 123/60 mmHg. The maximum heart rate was 96 bpm, which is 63% predicted for age. The double product achieved was [address]. Peak heart rate was 96 bpm and peak blood pressure was 129/64 mmHg. STRESS ECG FINDINGS: Indications: Dyspnea Diagnosis: Hyperlipidemia, Mitral Regurgitation, Tricuspid Regurgitation and Hypothyroidism Medications: potassium, magnesium and calcium supplements and Antidepressants Resting ECG: Normal Sinus Rhythm Pharamcologic Protocol: Regadenoson Stress Test: +----+--+---+---+ Step HR SYS ÁNGEL +----+--+---+---+ 1 94 129 64 +----+--+---+---+ 2 96 119 66 +----+--+---+---+ 3 85 112 59 +----+--+---+---+ 4 88 114 67 +----+--+---+---+ 5 82 101 57 +----+--+---+---+ 6 83 110 66 +----+--+---+---+ +-----+--+---+---+ HR SYS ÁNGEL +-----+--+---+---+ Final 96 129 64 +-----+--+---+---+ Resting HR: 59 bpm Peak HR: 96 bpm (63% MPHR) Resting BP: 123 / 60 mmHg Peak BP: 129 / 64 mmHg Chronotropic response index (CRI): 0.52 Rate Pressure Product (RPP): 66354 Reason for test termination: End of Protocol. Symptoms during test: No symptoms. Final -- Stress Flare Breaker Report: [facility] Date of service: 10/25/2020 12:32:31 PM Supervising physician: Radha Nesbitt MD PATIENT: Name: MRS. KATHRYN WHITING Age: 65 years Gender: F The supervising physician was present during the stress procedure. Final 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: ANGELA Transcribe Date/Time: Oct 25 2020 12:32P Dictated by : RADHA NESBITT MD This examination was interpreted and the report reviewed and electronically signed by: RADHA NESBITT MD on Oct 25 2020 5:17PM EST [id number] [facility] 10-24-2020 CNPN Telephone ([facility]ME) -------- KATHRYN WHITING ([id number]) 1955 F Date Time Provider Department 10/24/20 MADELIN DALE (RN) CDLBME During your visit today, we recorded the following information about you: Madelin Dale RN, RN 10/24/2020 1:04 PM Signed Left message regarding reminder for stress test tomorrow and given instructions. Allergies As of Date: 10/24/2020 (No Known Allergies) Date Reviewed: 10/22/2020 Reviewed by: Ranjit Quiroz LPN - Fully Assessed Reason for Visit: Reminder Call [[id number]] Prescriptions as of 10/24/2020 Sig: BUTALBITAL-ACETAMINOPHEN -CAFF* Take 1 tablet by mouth every * DIAZEPAM 5 MG TABLET Take 1 tablet by mouth once d* OMEPRAZOLE 20 MG CAPSULE,JEANETH* Take 1 capsule by mouth daily* LEVOTHYROXINE 75 MCG TABLET Take 1 tablet by mouth once d* FLUOXETINE 20 MG CAPSULE Take 1 capsule by mouth once * ANASTROZOLE 1 MG TABLET Take 1 tablet by mouth once d* CALCIUM CARBONATE-VITAMIN D3 * Take 1 tablet by mouth once d* Problem List As Of Date 10/24/2020 Noted Resolved Rosacea [L71.9] 07/19/1998 Cholelithiasis [574] 09/21/1998 08/18/2012 Hypothyroidism [E03.9] MITRAL VALVE DISORDER [I05.9] PANIC DISORDER WITHOUT AGORAPHOBIA [F41.0] More... Intractable migraine [G43.919] More... MYALGIA AND MYOSITIS NOS [[id number]] Sprain and Strain of Unspecified Site of Knee a*07/05/2010 Routine general medical examination at [facility]*07/25/2010 08/18/2012 Class: Chronic More... Routine gynecological examination [Z01.419] 07/25/2010 08/18/2012 Class: Chronic More... Mixed Hyperlipidemia [E78.2] 07/25/2010 Mixed stress and urge urinary incontinence [N39*04/01/2011 Hyperlipidemia [E78.5] 03/25/2013 Family history of premature coronary heart dise*03/25/2013 Overweight [E66.3] 03/25/2013 Mild diastolic dysfunction [I51.9] 03/28/2013 Mild tricuspid regurgitation [I07.1] 03/28/2013 Mild mitral regurgitation [I34.0] 03/28/2013 Right-sided low back pain with right-sided scia*08/27/2015 Muscle weakness (generalized) [M62.81] 08/27/2015 Malignant neoplasm of upper-outer quadrant of r*12/02/2017 Vitamin D deficiency [E55.9] 02/01/2018 Encounter Status:Closed by MADELIN DALE on 10/24/20 [facility] Vital Signs Date Time Vital Sign Value Performing Clinician Facility 06-22-2025 12:07-0400 Body mass index (BMI) [Ratio] 26.25 kg/m2 Alka Yadav APRN.CNP Work Phone: [facility] 06-22-2025 12:07-0400 Body weight 67.22 kg Alka Yadav APRN.CNP Work Phone: [facility] 06-22-2025 12:07-0400 Diastolic blood pressure 64 mm[Hg] Alka Yadav APRN.CNP Work Phone: [facility] 06-22-2025 12:07-0400 Heart rate 88 /min Alka Yadav APRN.SERVICE ORDER DISPATCHER CHIEF Work Phone: [facility] 06-22-2025 12:07-0400 Respiratory rate 16 /min Alka Yadav APRN.CNP Work Phone: [facility] 06-22-2025 12:07-0400 Systolic blood pressure 100 mm[Hg] Alka Yadav APRN.SERVICE ORDER DISPATCHER CHIEF Work Phone: [facility] 06-19-2025 10:34-0400 Diastolic blood pressure 62 mm[Hg] Pacc 1 Work Phone: [facility] 06-19-2025 10:34-0400 Systolic blood pressure 88 mm[Hg] Pacc 1 Work Phone: [facility] 06-19-2025 09:52-0400 Body height 160 cm Pacc 1 Work Phone: [facility] 06-19-2025 09:52-0400 Body mass index (BMI) [Ratio] 26.04 kg/m2 Pacc 1 Work Phone: [facility] 06-19-2025 09:52-0400 Body temperature 96.91 [degF] Pacc 1 Work Phone: [facility] 06-19-2025 09:52-0400 Body weight 66.68 kg Pacc 1 Work Phone: [facility] 06-19-2025 09:52-0400 Heart rate 91 /min Pacc 1 Work Phone: [facility] 06-19-2025 09:52-0400 Respiratory rate 14 /min Pacc 1 Work Phone: [facility] 06-19-2025 09:52-0400 SaO2% (BldA) [Mass fraction] 95 % Pacc 1 Work Phone: [facility] 06-08-2025 10:51-0400 Body mass index (BMI) [Ratio] 25.88 kg/m2 Jacqueline Kvng PA-C Work Phone: [facility] 06-08-2025 10:51-0400 Body weight 66.68 kg Jacqueline Kvng PA-C Work Phone: [facility] 06-08-2025 10:51-0400 Diastolic blood pressure 76 mm[Hg] Jacqueline Kvng PA-C Work Phone: [facility] 06-08-2025 10:51-0400 Heart rate 98 /min Jacqueline Kvng PA-C Work Phone: [facility] 06-08-2025 10:51-0400 SaO2% (BldA) [Mass fraction] 97 % Jacqueline Kvng PA-C Work Phone: [facility] 06-08-2025 10:51-0400 Systolic blood pressure 113 mm[Hg] Jacqueline Kvng PA-C Work Phone: [facility] 05-11-2025 10:55-0400 Body mass index (BMI) [Ratio] 25.95 kg/m2 Jacqueline Kvng PA-C Work Phone: [facility] 05-11-2025 10:55-0400 Body weight 66.86 kg Jacqueline Kvng PA-C Work Phone: [facility] 05-11-2025 10:55-0400 Diastolic blood pressure 68 mm[Hg] Jacqueline Kvng PA-C Work Phone: [facility] 05-11-2025 10:55-0400 Heart rate 90 /min Jacqueline Kvng PA-C Work Phone: [facility] 05-11-2025 10:55-0400 Respiratory rate 17 /min Jacqueline Kvng PA-C Work Phone: [facility] 05-11-2025 10:55-0400 SaO2% (BldA) [Mass fraction] 96 % Jacqueline Kvng PA-C Work Phone: [facility] 05-11-2025 10:55-0400 Systolic blood pressure 110 mm[Hg] Jacqueline Kvng PA-C Work Phone: [facility] 05-01-2025 09:30-0400 Body height 160.5 cm Preet Godinez MD Work Phone: [facility] 05-01-2025 09:30-0400 Body mass index (BMI) [Ratio] 26.13 kg/m2 Preet Godinez MD Work Phone: [facility] 05-01-2025 09:30-0400 Body temperature 97.59 [degF] Preet Godinez MD Work Phone: [facility] 05-01-2025 09:30-0400 Body weight 67.31 kg Preet Godinez MD Work Phone: [facility] 05-01-2025 09:30-0400 Diastolic blood pressure 63 mm[Hg] Preet Godinez MD Work Phone: [facility] 05-01-2025 09:30-0400 Heart rate 66 /min Preet Godinez MD Work Phone: [facility] 05-01-2025 09:30-0400 Systolic blood pressure 143 mm[Hg] Preet Godinez MD Work Phone: [facility] 04-20-2025 10:38-0400 Body mass index (BMI) [Ratio] 25.92 kg/m2 Alka Leif 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 Work Phone: [facility] 04-20-2025 10:38-0400 Body weight 66.77 kg Alka Leif 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 Work Phone: [facility] 04-20-2025 10:38-0400 Diastolic blood pressure 62 mm[Hg] Alka Leif 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 Work Phone: [facility] 04-20-2025 10:38-0400 Heart rate 89 /min Alka Leif 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 Work Phone: [facility] 04-20-2025 10:38-0400 Respiratory rate 14 /min Alka Leif 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 Work Phone: [facility] 04-20-2025 10:38-0400 SaO2% (BldA) [Mass fraction] 97 % Alka Leif 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 Work Phone: [facility] 04-20-2025 10:38-0400 Systolic blood pressure 128 mm[Hg] Alka Leif 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 Work Phone: [facility] 03-16-2025 12:35-0400 Diastolic blood pressure 65 mm[Hg] Cosme Montaño MD Work Phone: [facility] 03-16-2025 12:35-0400 Heart rate 72 /min Cosme Montaño MD Work Phone: [facility] 03-16-2025 12:35-0400 Respiratory rate 16 /min Cosme Montaño MD Work Phone: [facility] 03-16-2025 12:35-0400 SaO2% (BldA) [Mass fraction] 96 % Cosme Montaño MD Work Phone: [facility] 03-16-2025 12:35-0400 Systolic blood pressure 136 mm[Hg] Cosme Montaño MD Work Phone: [facility] 03-16-2025 11:12-0400 Body temperature 97.5 [degF] Cosme Montaño MD Work Phone: [facility] 11-16-2024 13:05-0500 Body mass index (BMI) [Ratio] 25.98 kg/m2 Sameera Martini 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 Work Phone: [facility] 11-16-2024 13:05-0500 Body temperature 97.7 [degF] Sameera Martini 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 Work Phone: [facility] 11-16-2024 13:05-0500 Body weight 66.5 kg Sameera Martini 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 Work Phone: [facility] 11-16-2024 13:05-0500 Diastolic blood pressure 73 mm[Hg] Sameera Martini 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 Work Phone: [facility] 11-16-2024 13:05-0500 Heart rate 83 /min Sameera Martini 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 Work Phone: [facility] 11-16-2024 13:05-0500 SaO2% (BldA) [Mass fraction] 97 % Sameera Martini 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 Work Phone: [facility] 11-16-2024 13:05-0500 Systolic blood pressure 106 mm[Hg] Mayville Martini 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 Work Phone: [facility] 01-06-2024 12:08-0500 Body weight 68.86 kg Cata Miladis 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 Work Phone: [facility] 01-06-2024 12:08-0500 Diastolic blood pressure 82 mm[Hg] Cata Miladis 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 Work Phone: [facility] 01-06-2024 12:08-0500 Heart rate 91 /min Cata Miladis 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 Work Phone: [facility] 01-06-2024 12:08-0500 Respiratory rate 16 /min Cata Miladis 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 Work Phone: [facility] 01-06-2024 12:08-0500 SaO2% (BldA) [Mass fraction] 94 % Cata Miladis 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 Work Phone: [facility] 01-06-2024 12:08-0500 Systolic blood pressure 118 mm[Hg] Cata Miladis 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 Work Phone: [facility] 09-03-2023 11:26-0400 Body height 160 cm Mayville Martini 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 Work Phone: [facility] 09-03-2023 11:26-0400 Body temperature 98.01 [degF] Mayville Martini 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 Work Phone: [facility] 09-03-2023 11:26-0400 Body weight 67.13 kg Sameera Martini 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 Work Phone: [facility] 09-03-2023 11:26-0400 Diastolic blood pressure 65 mm[Hg] Mayville Martini 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 Work Phone: [facility] 09-03-2023 11:26-0400 Heart rate 54 /min Sameera Martini 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 Work Phone: [facility] 09-03-2023 11:26-0400 Systolic blood pressure 105 mm[Hg] Sameera Martini SLEEP TECHNOLOGISTNellySERVICE ORDER DISPATCHER CHIEF Work Phone: [facility] 05-17-2023 11:11-0400 Body temperature 98.71 [degF] Brianda Athy PA-C Work Phone: [facility] 05-17-2023 11:11-0400 Body weight 64.86 kg Brianda Athy PA-C Work Phone: [facility] 05-17-2023 11:11-0400 Diastolic blood pressure 80 mm[Hg] Brianda Athy PA-C Work Phone: [facility] 05-17-2023 11:11-0400 Heart rate 80 /min Brianda Athy PA-C Work Phone: [facility] 05-17-2023 11:11-0400 Respiratory rate 16 /min Brianda Athy PA-C Work Phone: [facility] 05-17-2023 11:11-0400 SaO2% (BldA) [Mass fraction] 97 % Brianda Athy PA-C Work Phone: [facility] 05-17-2023 11:11-0400 Systolic blood pressure 122 mm[Hg] Brianda Athy PA-C Work Phone: [facility] 04-13-2023 11:51-0400 Body temperature 97 [degF] Pablo Bates DO Work Phone: [facility] 04-13-2023 11:51-0400 Body weight 64.86 kg Pablo Bates DO Work Phone: [facility] 04-13-2023 11:51-0400 Diastolic blood pressure 82 mm[Hg] Pablo Bates DO Work Phone: [facility] 04-13-2023 11:51-0400 Heart rate 76 /min Pablo Bates DO Work Phone: [facility] 04-13-2023 11:51-0400 Respiratory rate 16 /min Pablo Bates DO Work Phone: [facility] 04-13-2023 11:51-0400 Systolic blood pressure 120 mm[Hg] Pablo Bates DO Work Phone: [facility] 01-07-2023 11:10-0500 Body weight 66.13 kg Aishwarya Turner 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 Work Phone: [facility] 01-07-2023 11:10-0500 Diastolic blood pressure 60 mm[Hg] Aishwarya Turner 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 Work Phone: [facility] 01-07-2023 11:10-0500 Heart rate 68 /min Aishwarya Turner 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 Work Phone: [facility] 01-07-2023 11:10-0500 Respiratory rate 14 /min Aishwarya Turner 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 Work Phone: [facility] 01-07-2023 11:10-0500 Systolic blood pressure 110 mm[Hg] Aishwarya Turner 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 Work Phone: [facility] 06-30-2022 13:40-0400 Diastolic blood pressure 62 mm[Hg] Aishwarya Zurawick 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 Work Phone: [facility] 06-30-2022 13:40-0400 Systolic blood pressure 90 mm[Hg] Aishwarya Zurawick 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 Work Phone: [facility] 06-30-2022 13:03-0400 Body weight 63.96 kg Aishwarya Zurawick 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 Work Phone: [facility] 06-30-2022 13:03-0400 Heart rate 62 /min Aishwarya Zurawick 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 Work Phone: [facility] 06-30-2022 13:03-0400 Respiratory rate 14 /min Aishwarya Zurawick 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 Work Phone: [facility] 04-30-2022 13:26-0400 Body temperature 97.81 [degF] Mayville Martini 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 Work Phone: [facility] 04-30-2022 13:26-0400 Body weight 65.09 kg Sameera Jeronimoenter 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 Work Phone: [facility] 04-30-2022 13:26-0400 Diastolic blood pressure 60 mm[Hg] Sameera Martini 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 Work Phone: [facility] 04-30-2022 13:26-0400 Heart rate 68 /min Sameera Martini 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 Work Phone: [facility] 04-30-2022 13:26-0400 Systolic blood pressure 127 mm[Hg] Sameera Jeronimoenter 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 Work Phone: [facility] 04-21-2022 12:00-0400 Diastolic blood pressure 66 mm[Hg] Dr. Pablo Bates Work Phone: [facility] Work Phone: 04-21-2022 12:00-0400 Heart rate 68 /min Dr. Pablo Bates Work Phone: [facility] Work Phone: 04-21-2022 12:00-0400 Respiratory rate 13 /min Dr. Pablo Bates Work Phone: [facility] Work Phone: 04-21-2022 12:00-0400 Systolic blood pressure 116 mm[Hg] Dr. Pbalo Bates Work Phone: [facility] Work Phone: 04-21-2022 10:43-0400 Body height 160.[address] Pablo Bates Work Phone: [facility] Work Phone: 04-21-2022 10:43-0400 Body mass index (BMI) [Ratio] 25.7 kg/m2 Dr. Pablo Bates Work Phone: [facility] Work Phone: 04-21-2022 10:43-0400 Body temperature 97.4 [degF] Dr. Pablo Bates Work Phone: [facility] Work Phone: 04-21-2022 10:43-0400 Body weight 65.[address] Pablo Bates Work Phone: [facility] Work Phone: 04-21-2022 10:43-0400 SaO2% (BldA) [Mass fraction] 97 % Dr. Pablo Bates Work Phone: [facility] Work Phone: 02-21-2022 12:03-0400 Body mass index (BMI) [Ratio] 25.7 kg/m2 Dr. Pablo Bates Work Phone: [facility] Work Phone: 02-21-2022 12:03-0400 Body temperature 98 [degF] Dr. Pablo Bates Work Phone: [facility] Work Phone: 02-21-2022 12:03-0400 Body weight 65.[address] Pablo Bates Work Phone: [facility] Work Phone: 02-21-2022 12:03-0400 Diastolic blood pressure 74 mm[Hg] Dr. Pablo Bates Work Phone: [facility] Work Phone: 02-21-2022 12:03-0400 Heart rate 78 /min Dr. Pablo Bates Work Phone: [facility] Work Phone: 02-21-2022 12:03-0400 Respiratory rate 16 /min Dr. Pablo Bates Work Phone: [facility] Work Phone: 02-21-2022 12:03-0400 SaO2% (BldA) [Mass fraction] 98 % Dr. Pablo Bates Work Phone: [facility] Work Phone: 02-21-2022 12:03-0400 Systolic blood pressure 108 mm[Hg] Dr. Pablo Bates Work Phone: [facility] Work Phone: Encounters Encounter Date Encounter Type Care Provider Facility Start: 06-28-2025 End: 06-30-2025 Evaluation and management of inpatient PREET GODINEZ Facility:[facility] Start: 06-22-2025 End: 06-22-2025 Office outpatient visit 25 minutes Alka Yadav APRN.CNP Work Phone: [facility] [place] Comment on above: Osteoarthritis of sp ine with radiculopathy, lumbar region (Primary Dx); Hypotension due to drugs; Migraine with aura, not intractable, without status migrainosus; Facial paresthesia; Malignant neoplasm of upper-outer quadrant of right breast in female, estrogen receptor positive (HCC); Acquired hypothyroidism; Osteoporosis without current pathological fracture, unspecified osteoporosis type Start: 06-22-2025 End: 06-22-2025 ambulatory PABLO BATES Facility:[facility] Start: 06-19-2025 End: 06-19-2025 Telephone encounter Tamanna Lion APRN.SERVICE ORDER DISPATCHER CHIEF Work Phone: Pre Anesthesia Comment on above: Pre-Op Update Start: 06-19-2025 Encounter for other preprocedural examination [facility] Start: 06-19-2025 End: 06-19-2025 [place]mission to [place] [id number] Work Phone: Pre Anesthesia Start: 06-19-2025 End: 06-19-2025 Anesthesia consultation [place] [id number] Work Phone: Pre Anesthesia Comment on above: Paraesophageal herni a (Primary Dx); Mixed hyperlipidemia; Gastroesophageal reflux disease without esophagitis; Acquired hypothyroidism; Malignant neoplasm of upper-outer quadrant of right breast in female, estrogen receptor positive (HCC); Intractable migraine without aura and without status migrainosus; Anxiety and depression; Hypotension, unspecified hypotension type; Chronic neck pain Start: 06-19-2025 End: 06-19-2025 ambulatory [facility] Facility:[facility] Start: 06-08-2025 End: 06-08-2025 ambulatory PABLO BATES Facility:[facility] Start: 06-08-2025 End: 06-08-2025 Patient encounter procedure Jacquelineakila Calderon PA-C Work Phone: Rheumatology Comment on above: Age-related osteopor osis without current pathological fracture (Primary Dx); Arthralgia, unspecified joint; Psoriasis; Primary osteoarthritis involving multiple joints Start: 06-06-2025 End: 06-06-2025 ambulatory Jacquelineakila Calderon PA-C Work Phone: Rheumatology Start: 06-06-2025 End: 06-06-2025 E-mail encounter from caregiver Jacquelineradha Marshalllen BLACKMAN Work Phone: Rheumatology Start: 05-24-2025 End: 05-24-2025 Refill Pablo Bates DO Work Phone: [facility] [place] Comment on above: Refill Request Start: 05-23-2025 End: 05-23-2025 Telephone encounter Alka Yadav APRN.CNP Work Phone: [facility] [place] Start: 05-15-2025 End: 05-15-2025 Telephone encounter Pablo Bates DO Work Phone: [facility] Comment on above: Medication Problem Refill Request (Wait ing for mail order, requesting short-term supply only) Start: 05-15-2025 End: 05-15-2025 ambulatory PABLO BATES Facility:[facility] Start: 05-11-2025 End: 05-24-2025 Telephone encounter Isabell Torres RN Rheumatology Comment on above: Evenity Referral Start: 05-11-2025 ambulatory PABLO BATES Facil ity:[facility] Start: 05-11-2025 End: 05-11-2025 Subsequent hospital visit by physician Leander [facility] [place] Work Phone: Radiology Comment on above: Chronic left shoulde r pain [M25.512, G89.29] Start: 05-11-2025 End: 05-11-2025 Patient encounter procedure Jacqueline DANG-C Work Phone: Rheumatology Comment on above: Arthralgia, unspecif ied joint (Primary Dx); Chronic left shoulder pain; Chronic pain of right knee; Neck pain; Muscle weakness (generalized); Facial numbness; Age-related osteoporosis without current pathological fracture; Hiatal hernia; Vitamin D deficiency; Fibromyalgia; Sciatica of right side; Psoriasis Start: 05-11-2025 End: 05-11-2025 ambulatory PABLO BATES Facility:[facility] Start: 05-09-2025 End: 05-09-2025 E-mail encounter from caregiver Jacqueline Calderon HIRAL Work Phone: Rheumatology Start: 05-09-2025 End: 05-10-2025 Patient encounter procedure Jacqueline Marshalllen BLACKMAN Work Phone: Rheumatology Comment on above: Upcoming Rheumatolog y Appointment Refill Request Start: 05-09-2025 End: 05-10-2025 Telephone encounter Antonette Zuniga PA-C Work Phone: [facility] [place] Comment on above: Results Start: 05-08-2025 End: 05-08-2025 ambulatory Francisco Soni PT Work Phone: [place] [facility] Physical Therapy Comment on above: Osteoarthritis of sp ine with radiculopathy, lumbar region; Chronic right-sided low back pain with right-sided sciatica; Falls Start: 05-08-2025 End: 05-08-2025 ambulatory PABLO BATES Facility:[facility] Start: 05-02-2025 End: 05-03-2025 ambulatory Preet Godinez MD Work Phone: [facility] Comment on above: 06.28.25 Cure (Lap P araesophageal Hernia Repair/EGD 4 hours los 1) Start: 05-02-2025 End: 05-03-2025 Preprocedural examination done Preet Godinez MD Work Phone: [facility] Start: 05-01-2025 End: 05-01-2025 Office outpatient new 45 minutes Preet Godinez MD Work Phone: General Surgery Comment on above: Paraesophageal herni a (Primary Dx) Start: 05-01-2025 End: 05-01-2025 Refill Pablo L Bates DO Work Phone: [facility] [place] Comment on above: Refill Request Start: 04-21-2025 End: 04-24-2025 Follow-up encounter Alka Yadav APRN.CNP Work Phone: [facility] [place] Start: 04-20-2025 ambulatory PABLO L BATES Facil ity:[facility] Start: 04-20-2025 End: 04-20-2025 Subsequent hospital visit by physician Xr [facility] [place] Work Phone: Radiology Comment on above: Osteoarthritis of sp ine with radiculopathy, lumbar region [M47.26] Start: 04-20-2025 End: 04-20-2025 Office outpatient visit 40 minutes Alka Yadav APRN.CNP Work Phone: [facility] [place] Comment on above: Osteoarthritis of sp ine with radiculopathy, lumbar region (Primary Dx); Chronic right-sided low back pain with right-sided sciatica; Dizziness; Vitamin D deficiency; Chronic night sweats; Paresthesia; Chronic fatigue; Falls Start: 04-20-2025 End: 04-20-2025 ambulatory PABLO L BATES Facility:[facility] Start: 04-17-2025 End: 04-17-2025 Refill Pablo L Bates DO Work Phone: [facility] [place] Comment on above: Refill Request Start: 04-14-2025 End: 04-14-2025 ambulatory PABLO L BATES Facility:[facility] Start: 04-14-2025 End: 04-14-2025 Subsequent hospital visit by physician Ct Prep [facility] Comment on above: Paraesophageal herni a [K44.9] Start: 04-04-2025 End: 04-04-2025 ambulatory PABLO L BATES Facility:[facility] Start: 04-04-2025 End: 04-04-2025 Patient encounter procedure Cosme Montaño MD Work Phone: General Surgery Comment on above: Paraesophageal herni a (Primary Dx) Start: 03-16-2025 ambulatory PABLO BATES [facility] it:[facility] Start: 03-16-2025 End: 03-16-2025 Subsequent hospital visit by physician Cosme Montaño MD Work Phone: Ambulatory Surgery Comment on above: Throat fullness [R09 .89] Start: 03-01-2025 End: 03-01-2025 ambulatory [facility] Facility:[facility] Start: 03-01-2025 Patient encounter procedure [facility] Start: 02-13-2025 End: 02-13-2025 Refill Aishwarya Turner 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 Work Phone: [facility] Comment on above: Refill Request Start: 01-12-2025 End: 01-13-2025 Refill Pablo Bates DO Work Phone: [facility] Comment on above: Refill Request Start: 11-16-2024 End: 11-16-2024 ambulatory Sameera Martini 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 Work Phone: Hematology/Oncology Comment on above: Malignant neoplasm o f upper-outer quadrant of right breast in female, estrogen receptor positive (HCC) (Primary Dx); Encounter 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 mammogram for high-risk patient Start: 11-16-2024 End: 11-16-2024 Patient encounter procedure Sameera Martini 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 Work Phone: Hematology/Oncology Start: 11-14-2024 End: 11-14-2024 Refill Sameera Martini 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 Work Phone: Hematology/Oncology Comment on above: Refill Request Start: 10-17-2024 End: 10-17-2024 ambulatory PABLO BATES Facility:[facility] Start: 10-17-2024 End: 10-17-2024 Subsequent hospital visit by physician Screen Mammo [facility] Mammogram Comment on above: Encounter for screen ing mammogram for high-risk patient [Z12.31] Start: 08-05-2024 End: 08-08-2024 Telephone encounter Sameera Martini 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 Work Phone: Hematology/Oncology Comment on above: Orders Start: 08-01-2024 End: 08-02-2024 Refill Pablo Bates DO Work Phone: [facility] [place] Comment on above: Refill Request Start: 06-14-2024 Refill Pablo ward DO Work Phone: [facility] [place] Comment on above: Refill Request Start: 05-30-2024 Telephone encounter Pablo nathan DO Work Phone: [facility] [place] Comment on above: Pharmacy Call Start: 05-25-2024 Refill Pablo ward DO Work Phone: [facility] [place] Comment on above: Refill Request Start: 02-18-2024 End: 02-18-2024 ambulatory Francisco Soni PT Work Phone: [facility] Physical Therapy Comment on above: Cervical radiculopat hy (Primary Dx); Chronic left shoulder pain; Neck pain; Left arm pain Start: 02-17-2024 Refill Pablo marlow MD Work Phone: [facility] Comment on above: Refill Request Start: 02-11-2024 End: 02-11-2024 ambulatory Francisco Soni PT Work Phone: [facility] Physical Therapy Comment on above: Cervical radiculopat hy (Primary Dx); Chronic left shoulder pain; Neck pain; Left arm pain Start: 01-19-2024 End: 01-19-2024 ambulatory Francisco Soni PT Work Phone: [facility] Physical Therapy Comment on above: Cervical radiculopat hy; Chronic left shoulder pain; Neck pain; Left arm pain Start: 01-11-2024 Telephone encounter Cata Cisneros APRN.SERVICE ORDER DISPATCHER CHIEF Work Phone: [facility] Comment on above: Results Start: 01-06-2024 End: 01-06-2024 Subsequent hospital visit by physician Leander [facility] [place] Work Phone: Radiology Comment on above: Cervical radiculopat hy [M54.12] Start: 01-06-2024 End: 01-06-2024 Patient encounter procedure Cata Whyte APRN.SERVICE ORDER DISPATCHER CHIEF Work Phone: [facility] [place] Comment on above: Cervical radiculopat hy (Primary Dx); Chronic left shoulder pain; Neck pain; Left arm pain; Non-recurrent acute serous otitis media of left ear Start: 12-10-2023 Refill Sameera Carpny r 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 Work Phone: Hematology/Oncology Comment on above: Refill Request Start: 10-14-2023 End: 10-14-2023 ambulatory Norbert DANG Facility:[facility] [place] Start: 10-14-2023 End: 10-14-2023 Subsequent hospital visit by physician Bone Density [facility] Work Phone: Radiology Comment on above: Malignant neoplasm o f upper-outer quadrant of right breast in female, estrogen receptor positive (HCC) [C50.411, Z17.0] Encounter for screen ing mammogram for high-risk patient [Z12.31] Start: 09-03-2023 End: 09-03-2023 ambulatory Sameera Martini APRN.SERVICE ORDER DISPATCHER CHIEF Work Phone: Hematology/Oncology Comment on above: Malignant neoplasm o f upper-outer quadrant of right breast in female, estrogen receptor positive (HCC) (Primary Dx); Encounter 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 mammogram for high-risk patient; skilled nursing (current) use of aromatase inhibitors Start: 09-03-2023 End: 09-03-2023 Patient encounter procedure Sameera Martini APRN.SERVICE ORDER DISPATCHER CHIEF Work Phone: [facility] Start: 08-25-2023 Refill Sameera Gordon r 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 Work Phone: Hematology/Oncology Comment on above: Refill Request Start: 05-17-2023 End: 05-17-2023 Patient encounter procedure Brianda Hernández PA-C Work Phone: [facility] Comment on above: Rash (Primary Dx) Start: 04-27-2023 Refill Pablo Jackson son DO Work Phone: [facility] Comment on above: Refill Request Start: 04-14-2023 Telephone encounter Pablo nathan DO Work Phone: [facility] Comment on above: Shingles (Vaccine up date ) Start: 04-13-2023 End: 04-13-2023 Subsequent hospital visit by physician Xr [facility] [place] Work Phone: Radiology Comment on above: Osteoarthritis of sp ine with radiculopathy, lumbar region [M47.26] Start: 04-13-2023 End: 04-13-2023 Patient encounter procedure Pablo Bates DO Work Phone: [facility] Comment on above: IFG (impaired fastin g glucose) (Primary Dx); GERD without esophagitis; Hypothyroidism, unspecified type; Osteoarthritis of spine with radiculopathy, lumbar region; Chronic neck pain; Chronic midline low back pain with bilateral sciatica; Mixed hyperlipidemia Start: 03-04-2023 Refill Pablo ward DO Work Phone: [facility] Comment on above: Refill Request Start: 02-04-2023 Refill Aishwarya Turner APRN.SERVICE ORDER DISPATCHER CHIEF Work Phone: [facility] Comment on above: Refill Request Start: 01-07-2023 End: 01-07-2023 Patient encounter procedure Aishwarya Turner APRN.SERVICE ORDER DISPATCHER CHIEF Work Phone: [facility] Comment on above: GERD without esophag itis (Primary Dx) Start: 10-13-2022 End: 10-13-2022 Subsequent hospital visit by physician Screen Mammo [facility] M[facility]ogram Comment on above: Malignant neoplasm o f upper-outer quadrant of right breast in female, estrogen receptor positive (HCC) [C50.411, Z17.0] Start: 10-06-2022 Refill Pablo ward DO Work Phone: [facility] Comment on above: Refill Request Start: 09-03-2022 Telephone encounter Aishwarya meza APRN.SERVICE ORDER DISPATCHER CHIEF Work Phone: [facility] Comment on above: Results Start: 08-12-2022 Refill Sameera melissa 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 Work Phone: Hematology/Oncology Comment on above: Refill Request Start: 07-04-2022 Telephone encounter Aishwarya meza 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 Work Phone: [facility] Comment on above: Results Start: 06-30-2022 End: 06-30-2022 Patient encounter procedure Aishwarya Greene 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 Work Phone: [facility] Comment on above: Dizziness (Primary D x); Mixed hyperlipidemia; Intractable migraine without aura and without status migrainosus; Hypothyroidism, unspecified type; IFG (impaired fasting glucose) Start: 06-23-2022 Telephone encounter Pablo nathan DO Work Phone: [facility] Comment on above: change in appointmen t (Appointment moved from [facility] to [facility]) Appointment Start: 06-19-2022 Refill Aishwarya roe 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 Work Phone: [facility] Comment on above: Refill Request Start: 06-10-2022 Refill Pablo wrad DO Work Phone: [facility] Comment on above: Prescription Refills Start: 05-19-2022 Telephone encounter Sameera zaldivar APRN.SERVICE ORDER DISPATCHER CHIEF Work Phone: Hematology/Oncology Comment on above: Patient Update Start: 04-30-2022 End: 04-30-2022 ambulatory Sameera Martini APRN.SERVICE ORDER DISPATCHER CHIEF Work Phone: Hematology/Oncology Comment on above: Malignant neoplasm o f upper-outer quadrant of right breast in female, estrogen receptor positive (HCC) (Primary Dx); Encounter 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 mammogram for high-risk patient Start: 04-30-2022 End: 04-30-2022 Patient encounter procedure Sameera Martini APRN.SERVICE ORDER DISPATCHER CHIEF Work Phone: [facility] Start: 04-21-2022 End: 04-21-2022 Emergency department patient visit Dr. Pablo Bates Work Phone: [facility] Start: 02-21-2022 End: 02-21-[address] Pablo Bates Work Phone: [facility] Start: 02-17-2022 Refill Pablo Jackson ed DO Work Phone: [facility] Comment on above: Prescription Refills Start: 07-25-2010 End: 08-18-2012 Patient encounter status Pablo Bates DO Work Phone: [facility] Procedures Date Procedure Procedure Detail Performing Clinician Start: 06-19-2025 Antibody screen SARIKA ARRIETA Comment on above: Order Comment: Specimen Type: BLOOD SPEC IMEN Ordering Facility: [facility] Address: [address] [place] [address] Performed By: #### T [id number] #### [facility] CLIA [id number] [address] [place] [address] [place] Start: 04-20-2025 Lipid 1996 panel - Serum or Plasma Roberto Carlos Gordon 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 Work Phone: Start: 03-16-2025 Esophagogastroduodenoscopy transoral diagnostic Cata Whyte APRN.SERVICE ORDER DISPATCHER CHIEF Work Phone: Start: 03-01-2025 Adult depression screening assessment Cosme Montaño MD Work Phone: Start: 10-17-2024 Screening digital breast tomosynthesis yesy Martini 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 Work Phone: Start: 01-06-2024 Radex spine cervical 4 or 5 views Mercedes Whyte APRN.SERVICE ORDER DISPATCHER CHIEF Work Phone: Start: 10-14-2023 Dxa bone density study 1/> sites axial kirsty Martini APRN.SERVICE ORDER DISPATCHER CHIEF Work Phone: Start: 04-13-2023 Radex spine cervical 4 or 5 views Pablo Bates DO Work Phone: Start: 03-12-2023 Lipid 1996 panel - Serum or Plasma Sameera Martini APRN.SERVICE ORDER DISPATCHER CHIEF Work Phone: Start: 10-13-2022 KARAN SCREENING W ROSEANNA Martini 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 Work Phone: Start: 10-13-2022 Mammography Aishwarya Turner 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 Work Phone: Start: 06-30-2022 Adult depression screening assessment Aishwarya Greene 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 Work Phone: Start: 10-10-2021 Mammography Pablo Bates DO Work Phone: Start: 08-02-2019 Adult depression screening assessment Pablo Bates DO Work Phone: Start: 03-17-2019 Colonoscopy Pablo Bates DO Work Phone: Plan of Treatment Date Care Activity Detail Author Start: 04-20-2030 Lipid panel Lipid Screening [facility] Start: 03-17-2029 Colonoscopy COLONOSCOPY [facility] Start: 03-17-2029 COLORECTAL CANCER SCREENING COLORECTAL CANCER SCREENING [facility] Start: 03-17-2029 Screening for malignant neoplasm of colon [facility] Start: 06-19-2028 Diabetes Screening Diabetes Screening [facility] Start: 2028 RSV Vaccine (1 - 1-dose 75+ series) RSV Vaccine (1 - 1-dose 75+ series) [facility] Start: 04-20-2028 Diabetes Screening Diabetes Screening [facility] Start: 03-12-2028 Lipid 1996 panel - Serum or Plasma Lipid Screening [facility] Start: 03-12-2028 Lipid panel Lipid Screening [facility] Start: 03-12-2028 LIPID SCREEN LIPID SCREEN [facility] Start: 07-03-2027 LIPID SCREEN LIPID SCREEN [facility] Start: 10-22-2026 LIPID SCREEN LIPID SCREEN [facility] Start: 06-22-2026 Annual PCP Team Chronic Disease Visit Annual PCP Team Chronic Disease Visit [facility] Start: 04-20-2026 Annual PCP Team Chronic Disease Visit Annual PCP Team Chronic Disease Visit [facility] Start: 04-20-2026 Covid-19 Vaccine ( season) Covid-19 Vaccine () [facility] Comment on above: Postponed from 07/10/2024 (Declined at t his time) Start: 04-20-2026 Hepatitis C screening Hepatitis C Screening [facility] Comment on above: Postponed from 1971 (Declined at t his time) Start: 04-20-2026 Pneumococcal Vaccine: 50+ (1 of 1 - PCV) Pneumococcal Vaccine: 50+ (1 of 1 - PCV) [facility] Comment on above: Postponed from 2003 (Declined at t his time) Start: 04-20-2026 Urine microalbumin profile DTaP,Tdap,Td Vaccine (2 - Td or Tdap) [facility] Comment on above: Postponed from 07/01/2017 (Declined at t his time) Start: 03-12-2026 DIABETES SCREEN DIABETES SCREEN [facility] Start: 03-12-2026 Diabetes Screening Diabetes Screening [facility] Start: 03-01-2026 Annual PCP Team Chronic Disease Visit Annual PCP Team Chronic Disease Visit [facility] Start: 03-01-2026 Depression Screening Depression Screening [facility] Start: 03-01-2026 Medicare Annual Wellness Visit Medicare Annual Wellness Visit [facility] Start: 02-20-2026 End: 02-20-2026 Patient encounter procedure 02/20/2026 1:00 PM EDT Office Visit [facility] [address] [place] [address] Pablo Bates, [address] [place] [address] medicare wellness [facility] Comment on above: medicare wellness Start: 10-19-2025 End: 10-19-2025 Patient encounter procedure 10/19/2025 1:05 PM EST Appointment Radiology [address] [place] [id number] Chronic left shoulder pain [M25.512, G89.29]; Neck pain [M54.2]; Muscle weakness (generalized) [M62.81]; Arthralgia, unspecified joint [M25.50]; Facial numbness [R20.0]; Age-related osteoporosis without current pathological fracture [M81.0]; Chronic pain of right knee [M25.561, G89.29] Radiology Comment on above: Chronic left shoulder pain [M25.512, G89 .29]; Neck pain [M54.2]; Muscle weakness (generalized) [M62.81]; Arthralgia, unspecified joint [M25.50]; Facial numbness [R20.0]; Age-related osteoporosis without current pathological fracture [M81.0]; Chronic pain of right knee [M25.561, G89.29] Start: 10-18-2025 End: 10-18-2025 Patient encounter procedure 10/18/2025 1:00 PM EST Appointment Mammogram [address] [place] [address] [facility] Mammogram Comment on above: [facility] Start: 10-17-2025 Screening for malignant neoplasm of breast Mammogram Screening [facility] Start: 10-14-2025 Screening for osteoporosis Bone Density Screening [facility] Start: 09-07-2025 End: 09-07-2025 Patient encounter procedure 09/07/2025 2:00 PM EDT Office Visit Rheumatology [address] [place] [address] Jacqueline Calderon PA-C [address] [place] [address] follow up - [facility] Rheumatology Comment on above: follow up - [facility] Start: 08-15-2025 End: 12-23-2025 Thyrotropin [Units/volume] in Serum or Plasma THYROID STIMULATING HORMONE Lab Routine Acquired hypothyroidism Expected: 08/15/2025, Expires: 12/23/2025 [facility] Work Phone: Comment on above: Expected: 08/15/2025, Expires: Start: 08-15-2025 End: 12-23-2025 Thyroxine (T4) free [Mass/volume] in Serum or Plasma T4 FREE/FREE THYROXINE Lab Routine Acquired hypothyroidism Expected: 08/15/2025, Expires: 12/23/2025 [facility] Comment on above: Expected: 08/15/2025, Expires: Start: 08-03-2025 End: 08-03-2025 ambulatory 08/03/2025 1:30 PM EDT Procedure Rheumatology [address] [place] [address] [facility]3 Rheumatology Comment on above: [facility] #3 Start: 07-10-2025 Influenza vaccination Influenza Vaccine (#1) [facility] Start: 07-06-2025 End: 07-06-2025 ambulatory 07/06/2025 1:30 PM EDT Procedure Rheumatology [address] [place] [address] [facility] # 2 Rheumatology Comment on above: Even[facility] # 2 Start: 07-03-2025 DIABETES SCREEN DIABETES SCREEN [facility] Start: 06-28-2025 End: 06-28-2025 Admission to same day surgery center 06/28/2025 1:15 PM EDT - 06/28/2025 6:15 PM EDT Surgery Admitting [address] [place] [address] Preet Godinez MD [address] [place] [address] LAPAROSCOPIC RPR PARAESOPHAGEAL HERNIA W/O FUNDOPLASTY W/ MESH Admitting Comment on above: LAPAROSCOPIC RPR PARAESOPHAGEAL HERNIA W /O FUNDOPLASTY W/ MESH Start: 06-28-2025 End: 06-28-2025 Laps rpr paraesphgl hrna incl fundplsty w/mesh LAPAROSCOPIC RPR PARAESOPHAGEAL HERNIA W/O FUNDOPLASTY W/ MESH Preoperative examination Hiatal hernia 06/28/2025 1:15 PM EDT [facility] Start: 06-28-2025 End: 06-28-2025 Admission to same day surgery center 06/28/2025 8:30 AM EDT - 06/28/2025 1:15 PM EDT Surgery Admitting [address] [place] [address] Preet Godinez MD [address] [place], [place] [id number] LAPAROSCOPIC RPR PARAESOPHAGEAL HERNIA W/O FUNDOPLASTY W/ MESH Admitting Comment on above: LAPAROSCOPIC RPR PARAESOPHAGEAL HERNIA W /O FUNDOPLASTY W/ MESH Start: 06-28-2025 End: 06-28-2025 Laps rpr paraesphgl hrna incl fundplsty w/mesh LAPAROSCOPIC RPR PARAESOPHAGEAL HERNIA W/O FUNDOPLASTY W/ MESH Preoperative examination Hiatal hernia 06/28/2025 8:30 AM EDT [facility] Start: 06-28-2025 Subsequent hospital visit by physician Admitting Comment on above: Preoperative examination [Z01.818], Hiat al hernia [K44.9] Start: 06-22-2025 End: 06-22-2025 Patient encounter procedure 06/22/2025 12:20 PM EDT Office Visit [facility] [address] [place] [address] Alka Yadav APRN.SERVICE ORDER DISPATCHER CHIEF [address] [place], [place] [address] f/u lab [facility] Comment on above: f/u lab Start: 06-19-2025 End: 06-19-2025 ambulatory 06/19/2025 10:45 AM EDT Results Only [facility] [address] [place] [address] pre op labs [facility] Comment on above: pre op labs Start: 06-19-2025 End: 06-19-2025 Anesthesia consultation Pre Anesthesia Comment on above: Pre op Pre op EKG Pacc Start: 06-12-2025 End: 09-24-2025 aPTT in Platelet poor plasma by Coagulation assay ACTIVATED PARTIAL THROMBOPLASTIN TIME Lab Routine Preoperative examination Hiatal hernia Abnormal coagulation profile Expected: 06/12/2025, Expires: 09/24/2025 [facility] Comment on above: Expected: 06/12/2025, Expires: Start: 06-12-2025 End: 09-24-2025 CBC W Auto Differential panel - Blood COMPLETE BLOOD COUNT AND DIFFERENTIAL Lab Routine Preoperative examination Hiatal hernia Expected: 06/12/2025, Expires: 09/24/2025 [facility] Comment on above: Expected: 06/12/2025, Expires: Start: 06-12-2025 End: 09-24-2025 Comprehensive metabolic 2000 panel - Serum or Plasma COMPREHENSIVE METABOLIC PANEL Lab Routine Preoperative examination Hiatal hernia Expected: 06/12/2025, Expires: 09/24/2025 [facility] Comment on above: Expected: 06/12/2025, Expires: Start: 06-12-2025 End: 09-24-2025 PT panel - Platelet poor plasma by Coagulation assay PROTHROMBIN TIME Lab Routine Preoperative examination Hiatal hernia Abnormal results of liver function studies Expected: 06/12/2025, Expires: 09/24/2025 [facility] Comment on above: Expected: 06/12/2025, Expires: Start: 06-12-2025 End: 09-24-2025 TYPE AND SCREEN,30 DAY TYPE AND SCREEN,30 DAY Blood Bank Routine Preoperative examination Hiatal hernia Expected: 06/12/2025, Expires: 09/24/2025 [facility] Comment on above: Expected: 06/12/2025, Expires: Start: 06-09-2025 End: 06-09-2025 ambulatory 06/09/2025 11:45 AM EDT OT/PT/Speech Visit [facility] [address] [place] [address] Francisco Soni, PT [address] [place] [address] Osteoarthritis of spine with radiculopathy, lumbar region [M47.26] [facility] Comment on above: Osteoarthritis of spine with radiculopat hy, lumbar region [M47.26] Start: 06-08-2025 End: 06-08-2025 Patient encounter procedure 06/08/2025 10:30 AM EDT Office Visit Rheumatology [address] [place] [address] Jacqueline Caldreon PA-C [address] [place] [address] 3 Weeks F/U Rheumatology Comment on above: 3 Weeks F/U Start: 06-02-2025 End: 06-02-2025 ambulatory 06/02/2025 1:15 PM EDT OT/PT/Speech Visit [facility] [address] [place] [address] Cinthia Pacheco, OIL RAG WASHER [address] [place] [address] Osteoarthritis of spine with radiculopathy, lumbar region [M47.26] [facility] Comment on above: Osteoarthritis of spine with radiculopat hy, lumbar region [M47.26] Start: 06-01-2025 End: 06-01-2025 Patient encounter procedure 06/01/2025 10:30 AM EDT Office Visit Rheumatology [address] [place] [address] Jacqueline Calderon PA-C [address] [place] [address] 3 Weeks F/U Rheumatology Comment on above: 3 Weeks F/U Start: 05-26-2025 End: 05-26-2025 ambulatory 05/26/2025 11:45 AM EDT OT/PT/Speech Visit [facility] [address] [place] [address] Cinthia Pacheco, OIL RAG WASHER [address] [place] [address] Osteoarthritis of spine with radiculopathy, lumbar region [M47.26] [facility] Comment on above: Osteoarthritis of spine with radiculopat hy, lumbar region [M47.26] Start: 05-25-2025 End: 07-22-2025 Thyrotropin [Units/volume] in Serum or Plasma THYROID STIMULATING HORMONE Lab Routine Hypothyroidism, unspecified type Expected: 05/25/2025, Expires: 07/22/2025 [facility] Work Phone: Comment on above: Expected: 05/25/2025, Expires: Start: 05-25-2025 End: 09-13-2025 Thyroxine (T4) free [Mass/volume] in Serum or Plasma T4 FREE/FREE THYROXINE Lab Routine Hypothyroidism, unspecified type Expected: 05/25/2025, Expires: 07/22/2025 [facility] Comment on above: Expected: 05/25/2025, Expires: Start: 05-25-2025 End: 07-22-2025 Triiodothyronine (T3) Free [Mass/volume] in Serum or Plasma T3, FREE Lab Routine Hypothyroidism, unspecified type Expected: 05/25/2025, Expires: 07/22/2025 [facility] Comment on above: Expected: 05/25/2025, Expires: Start: 05-19-2025 End: 05-19-2025 ambulatory 05/19/2025 11:45 AM EDT OT/PT/Speech Visit [facility] [address] [place] [place], [place] [id number] Francisco Soni, PT [address] [place], [place] [id number] Osteoarthritis of spine with radiculopathy, lumbar region [M47.26] [facility] Comment on above: Osteoarthritis of spine with radiculopat hy, lumbar region [M47.26] Start: 05-18-2025 End: 05-18-2025 Patient encounter procedure 05/18/2025 11:20 AM EDT Office Visit [address] [phone] Alka Yadav APRN.SERVICE ORDER DISPATCHER CHIEF [address] [place], [place] [phone] 4 wk follow up (sciatica, face numbness, unsteady) Family [facility] Comment on above: 4 wk follow up (sciatica, face numbness, unsteady) Start: 05-11-2025 End: 08-10-2025 25-hydroxyvitamin D3 [Mass/volume] in Serum or Plasma VITAMIN D 25 HYDROXY Lab Routine Arthralgia, unspecified joint Chronic left shoulder pain Chronic pain of right knee Neck pain Muscle weakness (generalized) Facial numbness Age-related osteoporosis without current pathological fracture Hiatal hernia Vitamin D deficiency Fibromyalgia Sciatica of right side Psoriasis Expected: 05/11/2025, Expires: 08/10/2025 [facility] Comment on above: Expected: 05/11/2025, Expires: Start: 05-11-2025 End: 08-10-2025 Aldolase [Enzymatic activity/volume] in Serum or Plasma ALDOLASE BLD Lab Routine Arthralgia, unspecified joint Chronic left shoulder pain Chronic pain of right knee Neck pain Muscle weakness (generalized) Facial numbness Age-related osteoporosis without current pathological fracture Hiatal hernia Vitamin D deficiency Fibromyalgia Sciatica of right side Psoriasis Expected: 05/11/2025, Expires: 08/10/2025 [facility] Comment on above: Expected: 05/11/2025, Expires: Start: 05-11-2025 End: 08-10-2025 RUFINO BY IFA SCREEN RUFINO BY IFA SCREEN Lab Routine Arthralgia, unspecified joint Chronic left shoulder pain Chronic pain of right knee Neck pain Muscle weakness (generalized) Facial numbness Age-related osteoporosis without current pathological fracture Hiatal hernia Vitamin D deficiency Fibromyalgia Sciatica of right side Psoriasis Expected: 05/11/2025, Expires: 08/10/2025 [facility] Comment on above: Expected: 05/11/2025, Expires: Start: 05-11-2025 End: 08-10-2025 C reactive protein [Mass/volume] in Serum or Plasma C-REACTIVE PROTEIN Lab Routine Arthralgia, unspecified joint Chronic left shoulder pain Chronic pain of right knee Neck pain Muscle weakness (generalized) Facial numbness Age-related osteoporosis without current pathological fracture Hiatal hernia Vitamin D deficiency Fibromyalgia Sciatica of right side Psoriasis Expected: 05/11/2025, Expires: 08/10/2025 [facility] Comment on above: Expected: 05/11/2025, Expires: Start: 05-11-2025 End: 08-10-2025 Collagen crosslinked C-telopeptide [Mass/volume] in Serum or Plasma C TELOPEPTIDE, BETA Lab Routine Arthralgia, unspecified joint Chronic left shoulder pain Chronic pain of right knee Neck pain Muscle weakness (generalized) Facial numbness Age-related osteoporosis without current pathological fracture Hiatal hernia Vitamin D deficiency Fibromyalgia Sciatica of right side Psoriasis Expected: 05/11/2025, Expires: 08/10/2025 [facility] Comment on above: Expected: 05/11/2025, Expires: Start: 05-11-2025 End: 08-10-2025 Creatine kinase [Enzymatic activity/volume] in Serum or Plasma CREATINE KINASE/CK Lab Routine Arthralgia, unspecified joint Chronic left shoulder pain Chronic pain of right knee Neck pain Muscle weakness (generalized) Facial numbness Age-related osteoporosis without current pathological fracture Hiatal hernia Vitamin D deficiency Fibromyalgia Sciatica of right side Psoriasis Expected: 05/11/2025, Expires: 08/10/2025 [facility] Work Phone: Comment on above: Expected: 05/11/2025, Expires: Start: 05-11-2025 End: 08-10-2025 Cyclic citrullinated peptide IgG Ab [Units/volume] in Serum or Plasma CCP ANTIBODY IGG Lab Routine Arthralgia, unspecified joint Chronic left shoulder pain Chronic pain of right knee Neck pain Muscle weakness (generalized) Facial numbness Age-related osteoporosis without current pathological fracture Hiatal hernia Vitamin D deficiency Fibromyalgia Sciatica of right side Psoriasis Expected: 05/11/2025, Expires: 08/10/2025 [facility] Comment on above: Expected: 05/11/2025, Expires: Start: 05-11-2025 End: 08-10-2025 Erythrocyte sedimentation rate SEDIMENTATION RATE, WESTERGREN Lab Routine Arthralgia, unspecified joint Chronic left shoulder pain Chronic pain of right knee Neck pain Muscle weakness (generalized) Facial numbness Age-related osteoporosis without current pathological fracture Hiatal hernia Vitamin D deficiency Fibromyalgia Sciatica of right side Psoriasis Expected: 05/11/2025, Expires: 08/10/2025 [facility] Comment on above: Expected: 05/11/2025, Expires: Start: 05-11-2025 End: 08-10-2025 Magnesium [Mass/volume] in Serum or Plasma MAGNESIUM Lab Routine Arthralgia, unspecified joint Chronic left shoulder pain Chronic pain of right knee Neck pain Muscle weakness (generalized) Facial numbness Age-related osteoporosis without current pathological fracture Hiatal hernia Vitamin D deficiency Fibromyalgia Sciatica of right side Psoriasis Expected: 05/11/2025, Expires: 08/10/2025 [facility] Comment on above: Expected: 05/11/2025, Expires: Start: 05-11-2025 End: 08-10-2025 Osteocalcin [Mass/volume] in Serum or Plasma OSTEOCALCIN BLD Lab Routine Arthralgia, unspecified joint Chronic left shoulder pain Chronic pain of right knee Neck pain Muscle weakness (generalized) Facial numbness Age-related osteoporosis without current pathological fracture Hiatal hernia Vitamin D deficiency Fibromyalgia Sciatica of right side Psoriasis Expected: 05/11/2025, Expires: 08/10/2025 [facility] Comment on above: Expected: 05/11/2025, Expires: Start: 05-11-2025 End: 08-10-2025 Phosphate [Mass/volume] in Serum or Plasma PHOSPHORUS INORGANIC Lab Routine Arthralgia, unspecified joint Chronic left shoulder pain Chronic pain of right knee Neck pain Muscle weakness (generalized) Facial numbness Age-related osteoporosis without current pathological fracture Hiatal hernia Vitamin D deficiency Fibromyalgia Sciatica of right side Psoriasis Expected: 05/11/2025, Expires: 08/10/2025 [facility] Comment on above: Expected: 05/11/2025, Expires: Start: 05-11-2025 End: 08-10-2025 PROTEIN ELECT RND UR W/INTERP PROTEIN ELECT RND UR W/INTERP Lab Routine Arthralgia, unspecified joint Chronic left shoulder pain Chronic pain of right knee Neck pain Muscle weakness (generalized) Facial numbness Age-related osteoporosis without current pathological fracture Hiatal hernia Vitamin D deficiency Fibromyalgia Sciatica of right side Psoriasis Expected: 05/11/2025, Expires: 08/10/2025 [facility] Comment on above: Expected: 05/11/2025, Expires: Start: 05-11-2025 End: 08-10-2025 PROTEIN ELECTROPHORESIS SERUM W/INTERP PROTEIN ELECTROPHORESIS SERUM W/INTERP Lab Routine Arthralgia, unspecified joint Chronic left shoulder pain Chronic pain of right knee Neck pain Muscle weakness (generalized) Facial numbness Age-related osteoporosis without current pathological fracture Hiatal hernia Vitamin D deficiency Fibromyalgia Sciatica of right side Psoriasis Expected: 05/11/2025, Expires: 08/10/2025 [facility] Comment on above: Expected: 05/11/2025, Expires: Start: 05-11-2025 End: 08-10-2025 Rheumatoid factor [Units/volume] in Serum or Plasma RHEUMATOID FACTOR Lab Routine Arthralgia, unspecified joint Chronic left shoulder pain Chronic pain of right knee Neck pain Muscle weakness (generalized) Facial numbness Age-related osteoporosis without current pathological fracture Hiatal hernia Vitamin D deficiency Fibromyalgia Sciatica of right side Psoriasis Expected: 05/11/2025, Expires: 08/10/2025 [facility] Comment on above: Expected: 05/11/2025, Expires: Start: 05-11-2025 End: 05-11-2025 Patient encounter procedure 05/11/2025 11:00 AM EDT Office Visit Rheumatology [address] [place] [address] Jacqueline Calderon PA-C [address] [place], [place] [id number] Chronic left shoulder pain [M25.512, G89.29]; Neck pain [M54.2]; Muscle weakness (generalized) [M62.81]; Arthralgia, unspecified joint [M25.50] Rheumatology Comment on above: Chronic left shoulder pain [M25.512, G89 .29]; Neck pain [M54.2]; Muscle weakness (generalized) [M62.81]; Arthralgia, unspecified joint [M25.50] Start: 05-08-2025 End: 05-08-2025 ambulatory 05/08/2025 3:30 PM EDT OT/PT/Speech Visit [facility] [address] [place], [place] [address] Francisco Soni, PT [address] [place] [id number] Osteoarthritis of spine with radiculopathy, lumbar region [M47.26]; Chronic right-sided low back pain with right-sided sciatica [M54.41, G89.29]; Falls [R29.6] [facility] Comment on above: Osteoarthritis of spine with radiculopat hy, lumbar region [M47.26]; Chronic right-sided low back pain with right-sided sciatica [M54.41, G89.29]; Falls [R29.6] Start: 05-08-2025 End: 05-08-2025 Patient encounter procedure 05/08/2025 2:30 PM EDT Office Visit Vasculary Surgery [address] [place] [address] Dizziness [R42] Vasculary Surgery Comment on above: Dizziness [R42] Start: 05-01-2025 End: 05-01-2025 Patient encounter procedure 05/01/2025 10:00 AM EDT Office Visit General Surgery [address] [address] Preet Godinez MD [address] [place] [address] Hernia General Surgery Comment on above: Hernia Start: 04-20-2025 End: 07-20-2025 25-hydroxyvitamin D3 [Mass/volume] in Serum or Plasma VITAMIN D 25 HYDROXY Lab Routine Vitamin D deficiency Chronic fatigue Expected: 04/20/2025, Expires: 07/20/2025 [facility] Comment on above: Expected: 04/20/2025, Expires: Start: 04-20-2025 End: 07-20-2025 Cobalamin (Vitamin B12) [Mass/volume] in Serum or Plasma VITAMIN B12 Lab Routine Paresthesia Chronic fatigue Expected: 04/20/2025, Expires: 07/20/2025 [facility] Comment on above: Expected: 04/20/2025, Expires: Start: 04-20-2025 End: 04-20-2026 US Carotid arteries - bilateral US CAROTID ARTERIES [facility] Vascular Lab Routine Dizziness Expected: 04/20/2025, Expires: 04/20/2026 [facility] Comment on above: Expected: 04/20/2025, Expires: Start: 04-20-2025 End: 04-20-2025 Patient encounter procedure 04/20/2025 10:20 AM EDT Office Visit [facility] [address] [place] [address] Alka Yadav APRN.SERVICE ORDER DISPATCHER CHIEF [address] [place] [address] sciatica flare up [facility] [facility] Comment on above: sciatica flare up Start: 04-17-2025 End: 07-18-2025 CBC panel - Blood by Automated count COMPLETE BLOOD COUNT Lab Routine Medication management Expected: 04/17/2025, Expires: 07/18/2025 [facility] Comment on above: Expected: 04/17/2025, Expires: Start: 04-17-2025 End: 07-18-2025 Comprehensive metabolic 2000 panel - Serum or Plasma COMPREHENSIVE METABOLIC PANEL Lab Routine Hypothyroidism, unspecified type Mixed hyperlipidemia IFG (impaired fasting glucose) Medication management Expected: 04/17/2025, Expires: 07/18/2025 [facility] Comment on above: Expected: 04/17/2025, Expires: Start: 04-17-2025 End: 07-18-2025 Hemoglobin A1c in Blood HEMOGLOBIN A1C Lab Routine Mixed hyperlipidemia IFG (impaired fasting glucose) Expected: 04/17/2025, Expires: 07/18/2025 [facility] Comment on above: Expected: 04/17/2025, Expires: Start: 04-17-2025 End: 07-18-2025 Lipid 1996 panel - Serum or Plasma LIPID PANEL, FASTING Lab Routine Mixed hyperlipidemia Medication management Expected: 04/17/2025, Expires: 07/18/2025 [facility] Comment on above: Expected: 04/17/2025, Expires: Start: 04-17-2025 End: 07-18-2025 Thyrotropin [Units/volume] in Serum or Plasma THYROID STIMULATING HORMONE Lab Routine Medication management Expected: 04/17/2025, Expires: 07/18/2025 [facility] Work Phone: Comment on above: Expected: 04/17/2025, Expires: Start: 04-17-2025 End: 07-18-2025 Triiodothyronine (T3) Free [Mass/volume] in Serum or Plasma T3, FREE Lab Routine Medication management Expected: 04/17/2025, Expires: 07/18/2025 [facility] Comment on above: Expected: 04/17/2025, Expires: Start: 04-04-2025 End: 04-04-2025 Patient encounter procedure 04/04/2025 2:00 PM EDT Office Visit General Surgery [address] [place] [address] Cosme Montaño MD [address] [place] [address] 03-16 EGD follow up with D[facility] General Surgery Comment on above: 03-16 EGD follow up with Danyel Start: 01-06-2025 Annual PCP Team Chronic Disease Visit Annual PCP Team Chronic Disease Visit [facility] Start: 11-16-2024 End: 11-16-2024 ambulatory 11/16/2024 1:00 PM EST Visit (SP) Office Hematology/Oncology [address] [place] [address] Sameera Martini APRN.SERVICE ORDER DISPATCHER CHIEF [address] [place] [address] 1 YEAR OV* R/S FROM 09/06, r/s from 10/25 Hematology/Oncology Comment on above: 1 YEAR OV* R/S FROM 09/06, r/s from 10/09 7 Start: 10-14-2024 Screening for malignant neoplasm of breast Mammogram Screening [facility] Start: 09-21-2024 End: 09-21-2024 ambulatory 09/21/2024 1:30 PM EST Visit (SP) Office Hematology/Oncology [address] [place] [address] Sameera Martini APRN.SERVICE ORDER DISPATCHER CHIEF [address] [place] [address] 1 YEAR OV* R/S FROM 09/06 Hematology/Oncology Comment on above: 1 YEAR OV* R/S FROM 09/06 Start: 09-19-2024 End: 09-19-2024 Patient encounter procedure 09/19/2024 1:10 PM EST Appointment Mammogram [address] [place] [address] Encounter 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 mammogram for high-risk patient [Z12.31] Mammogram Comment on above: Encounter 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 mammogram for hi gh-risk patient [Z12.31] Start: 09-06-2024 End: 09-06-2024 ambulatory 09/06/2024 1:30 PM EDT Visit (SP) Office Hematology/Oncology [address] [place] [address] Sameera Martini APRN.SERVICE ORDER DISPATCHER CHIEF [address] [place] [address] 1 YEAR OV* Hematology/Oncology Comment on above: 1 YEAR OV* Start: 09-05-2024 End: 09-05-2024 ambulatory 09/05/2024 11:30 AM EDT Visit (SP) Office Hematology/Oncology [address] [place] [address] Sameera Martini APRN.SERVICE ORDER DISPATCHER CHIEF [address] [place] [address] 1 YEAR OV* Hematology/Oncology Comment on above: 1 YEAR OV* Start: 08-21-2024 DIABETES SCREEN DIABETES SCREEN [facility] Start: 07-10-2024 Covid-19 Vaccine ( season) Covid-19 Vaccine ( season) [facility] Start: 07-10-2024 Covid-19 Vaccine ( season) Covid-19 Vaccine ( season) [facility] Start: 07-10-2024 Influenza vaccination Influenza Vaccine (#1) [facility] Start: 04-13-2024 ANNUAL PCP TEAM CHRONIC DISEASE VISIT ANNUAL PCP TEAM CHRONIC DISEASE VISIT [facility] Start: 02-20-2024 Covid-19 Vaccine ( season) Covid-19 Vaccine () [facility] Start: 01-08-2024 ANNUAL PCP TEAM CHRONIC DISEASE VISIT ANNUAL PCP TEAM CHRONIC DISEASE VISIT [facility] Start: 11-09-2023 Behavioral Health Screening Behavioral Health Screening [facility] Start: 11-09-2023 Depression Assessment Depression Assessment [facility] Start: 10-13-2023 Mammography [facility] Start: 07-10-2023 Covid-19 Vaccine () Covid-19 Vaccine () [facility] Start: 07-10-2023 Influenza vaccination [facility] Start: 06-30-2023 Adult depression screening assessment DEPRESSION SCREENING [facility] Start: 06-30-2023 ANNUAL PCP TEAM CHRONIC DISEASE VISIT ANNUAL PCP TEAM CHRONIC DISEASE VISIT [facility] Start: 06-30-2023 Urine microalbumin profile DTAP,TDAP,TD (2 - Td or Tdap) [facility] Comment on above: Postponed from 07/01/2017 (Declined at t his time) Start: 03-04-2023 End: 05-04-2023 CBC panel - Blood by Automated count CBC Lab Routine Hypothyroidism, unspecified type Expected: 03/04/2023, Expires: 05/04/2023 [facility] Work Phone: Comment on above: Expected: 03/04/2023, Expires: 3 Start: 03-04-2023 End: 05-04-2023 Comprehensive metabolic 2000 panel - Serum or Plasma COMP METABOLIC PANEL Lab Routine Hypothyroidism, unspecified type Expected: 03/04/2023, Expires: 05/04/2023 [facility] Work Phone: Comment on above: Expected: 03/04/2023, Expires: 3 Start: 03-04-2023 End: 05-04-2023 Hemoglobin A1c in Blood HGB A1C Lab Routine IFG (impaired fasting glucose) Expected: 03/04/2023, Expires: 05/04/2023 [facility] Work Phone: Comment on above: Expected: 03/04/2023, Expires: 3 Start: 03-04-2023 End: 05-04-2023 Lipid 1996 panel - Serum or Plasma LIPID PANEL BASIC Lab Routine Dyslipidemia Expected: 03/04/2023, Expires: 05/04/2023 [facility] Work Phone: Comment on above: Expected: 03/04/2023, Expires: 3 Start: 03-04-2023 End: 05-04-2023 Thyrotropin [Units/volume] in Serum or Plasma TSH BLD Lab Routine Hypothyroidism, unspecified type Expected: 03/04/2023, Expires: 05/04/2023 [facility] Work Phone: Comment on above: Expected: 03/04/2023, Expires: 3 Start: 03-04-2023 End: 05-04-2023 Thyroxine (T4) free [Mass/volume] in Serum or Plasma T4 FREE/FREE THYROX Lab Routine Hypothyroidism, unspecified type Expected: 03/04/2023, Expires: 05/04/2023 [facility] Work Phone: Comment on above: Expected: 03/04/2023, Expires: 3 Start: 03-04-2023 End: 05-04-2023 Triiodothyronine (T3) [Mass/volume] in Serum or Plasma T3 BLD Lab Routine Hypothyroidism, unspecified type Expected: 03/04/2023, Expires: 05/04/2023 [facility] Work Phone: Comment on above: Expected: 03/04/2023, Expires: 3 Start: 01-22-2023 ANNUAL PCP TEAM CHRONIC DISEASE VISIT ANNUAL PCP TEAM CHRONIC DISEASE VISIT [facility] Start: 12-05-2022 COVID-19 VACCINE (5 - Moderna series) COVID-19 VACCINE (5 - Moderna series) [facility] Start: 11-09-2022 ADVANCE DIRECTIVE DISCUSSION ADVANCE DIRECTIVE DISCUSSION [facility] Start: 10-10-2022 Mammography MAMMOGRAM [facility] Start: 07-10-2022 Influenza vaccination INFLUENZA (#1) [facility] Start: 07-04-2022 End: 09-03-2022 Thyrotropin [Units/volume] in Serum or Plasma TSH BLD Lab Routine Hypothyroidism, unspecified type Expected: 07/04/2022, Expires: 09/03/2022 [facility] Work Phone: Comment on above: Expected: 07/04/2022, Expires: 2 Start: 07-04-2022 End: 09-03-2022 Thyroxine (T4) free [Mass/volume] in Serum or Plasma T4 FREE/FREE THYROX Lab Routine Hypothyroidism, unspecified type Expected: 07/04/2022, Expires: 09/03/2022 [facility] Work Phone: Comment on above: Expected: 07/04/2022, Expires: 2 Start: 07-04-2022 End: 09-03-2022 Triiodothyronine (T3) [Mass/volume] in Serum or Plasma T3 BLD Lab Routine Hypothyroidism, unspecified type Expected: 07/04/2022, Expires: 09/03/2022 [facility] Work Phone: Comment on above: Expected: 07/04/2022, Expires: 2 Start: 06-30-2022 End: 08-30-2022 CBC panel - Blood by Automated count CBC Lab Routine Dizziness Expected: 06/30/2022, Expires: 08/30/2022 [facility] Work Phone: Comment on above: Expected: 06/30/2022, Expires: 2 Start: 06-30-2022 End: 08-30-2022 Comprehensive metabolic 2000 panel - Serum or Plasma COMP METABOLIC PANEL Lab Routine Dizziness Expected: 06/30/2022, Expires: 08/30/2022 [facility] Work Phone: Comment on above: Expected: 06/30/2022, Expires: 2 Start: 06-30-2022 End: 08-30-2022 Hemoglobin A1c in Blood HGB A1C Lab Routine IFG (impaired fasting glucose) Expected: 06/30/2022, Expires: 08/30/2022 [facility] Work Phone: Comment on above: Expected: 06/30/2022, Expires: 2 Start: 06-30-2022 End: 08-30-2022 Lipid 1996 panel - Serum or Plasma LIPID PANEL BASIC Lab Routine Mixed hyperlipidemia Expected: 06/30/2022, Expires: 08/30/2022 [facility] Work Phone: Comment on above: Expected: 06/30/2022, Expires: 2 Start: 06-30-2022 End: 08-30-2022 Thyrotropin [Units/volume] in Serum or Plasma TSH BLD Lab Routine Hypothyroidism, unspecified type Expected: 06/30/2022, Expires: 08/30/2022 [facility] Work Phone: Comment on above: Expected: 06/30/2022, Expires: 2 Start: 06-30-2022 End: 08-30-2022 Thyroxine (T4) free [Mass/volume] in Serum or Plasma T4 FREE/FREE THYROX Lab Routine Hypothyroidism, unspecified type Expected: 06/30/2022, Expires: 08/30/2022 [facility] Work Phone: Comment on above: Expected: 06/30/2022, Expires: 2 Start: 06-30-2022 End: 08-30-2022 Triiodothyronine (T3) [Mass/volume] in Serum or Plasma T3 BLD Lab Routine Hypothyroidism, unspecified type Expected: 06/30/2022, Expires: 08/30/2022 [facility] Work Phone: Comment on above: Expected: 06/30/2022, Expires: 2 Start: 12-10-2021 COVID-19 VACCINE (4 - Booster for Moderna series) COVID-19 VACCINE (4 - Booster for Moderna series) [facility] Start: 12-02-2021 COVID-19 VACCINE (4 - Booster for Moderna series) COVID-19 VACCINE (4 - Booster for Moderna series) [facility] Start: 11-09-2021 ADVANCE DIRECTIVE DISCUSSION ADVANCE DIRECTIVE DISCUSSION [facility] Start: 11-09-2021 DEPRESSION ASSESSMENT DEPRESSION ASSESSMENT [facility] Start: 11-04-2021 COVID-19 VACCINE (4 - Booster for Moderna series) COVID-19 VACCINE (4 - Booster for Moderna series) [facility] Start: 08-02-2020 Adult depression screening assessment DEPRESSION SCREENING [facility] Start: 06-17-2018 SHINGRIX VACCINE (2 of 2) SHINGRIX VACCINE (2 of 2) [facility] Start: 2018 Pneumococcal Vaccine: 65+ (1 - PCV) Pneumococcal Vaccine: 65+ (1 - PCV) [facility] Start: 2018 Pneumococcal Vaccine: 65+ (1 of 1 - PCV) Pneumococcal Vaccine: 65+ (1 of 1 - PCV) [facility] Start: 2018 PNEUMOCOCCAL: 65+ (1 - PCV) PNEUMOCOCCAL: 65+ (1 - PCV) [facility] Start: 2018 PNEUMOVAX AGE 65 AND OVER WITH 5YR LOOKBACK (#1) PNEUMOVAX AGE 65 AND OVER WITH 5YR LOOKBACK (#1) [facility] Start: 07-01-2017 Urine microalbumin profile [facility] Start: 2013 RSV Vaccine (1 - 1-dose 60+ series) RSV Vaccine (1 - 1-dose 60+ series) [facility] Start: 2003 Pneumococcal Vaccine: 50+ (1 of 1 - PCV) Pneumococcal Vaccine: 50+ (1 of 1 - PCV) [facility] Start: 1998 COLOGUARD (FIT-DNA) COLOGUARD (FIT-DNA) [facility] Start: [address] COLONOGRAPHY [facility] Start: 1998 FECAL OCCULT BLOOD FECAL OCCULT BLOOD [facility] Start: 1998 Screening for malignant neoplasm of colon [facility] Start: 1998 SIGMOIDOSCOPY SIGMOIDOSCOPY [facility] Start: 1971 Depression Screening Depression Screening [facility] Start: 1971 HEPATITIS C SCREENING HEPATITIS C SCREENING [facility] Start: 1971 Hepatitis C screening Hepatitis C Screening [facility] Start: 1959 PNEUMOCOCCAL: 65+ (1 - PCV) PNEUMOCOCCAL: 65+ (1 - PCV) [facility] End: 06-10-2026 BD DXA TRABECULAR BONE SCORE (TBS) BD DXA TRABECULAR BONE SCORE (TBS) Radiology Routine Arthralgia, unspecified joint Chronic left shoulder pain Chronic pain of right knee Neck pain Muscle weakness (generalized) Facial numbness Age-related osteoporosis without current pathological fracture Hiatal hernia Vitamin D deficiency Fibromyalgia Sciatica of right side Psoriasis 1 Occurrences starting 05/11/2025 until 06/10/2026 [facility] Comment on above: 1 Occurrences starting 05/11/2025 until 06/10/2026 CT Abdomen and Pelvi s W contrast IV CT ABD/PEL W IVCON Radiology Routine Paraesophageal hernia 04/14/2025 3:05 PM EDT [facility] Work Phone: End: 09-04-2025 DBT Breast - bilateral screening KARAN SCREENING W ROSEANNA Radiology Routine Encounter 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 mammogram for high-risk patient Malignant neoplasm of upper-outer quadrant of right breast in female, estrogen receptor positive (HCC) 1 Occurrences starting 08/08/2024 until 09/04/2025 [facility] Work Phone: Comment on above: 1 Occurrences starting 08/08/2024 until 09/04/2025 End: 12-16-2025 DBT Breast - bilateral screening KARAN SCREENING W ROSEANNA Radiology Routine Malignant neoplasm of upper-outer quadrant of right breast in female, estrogen receptor positive (HCC) Encounter 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 mammogram for high-risk patient 1 Occurrences starting 11/16/2024 until 12/16/2025 [facility] Work Phone: Comment on above: 1 Occurrences starting 11/16/2024 until 12/16/2025 End: 06-10-2026 DXA Skeletal system.axial Views for bone density DXA-AXIAL SKELETON Radiology Routine Arthralgia, unspecified joint Chronic left shoulder pain Chronic pain of right knee Neck pain Muscle weakness (generalized) Facial numbness Age-related osteoporosis without current pathological fracture Hiatal hernia Vitamin D deficiency Fibromyalgia Sciatica of right side Psoriasis 1 Occurrences starting 05/11/2025 until 06/10/2026 [facility] Comment on above: 1 Occurrences starting 05/11/2025 until 06/10/2026 End: 10-02-2024 DXA-AXIAL SKELETON DXA-AXIAL SKELETON Radiology Routine Malignant neoplasm of upper-outer quadrant of right breast in female, estrogen receptor positive (HCC) 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 1 Occurrences starting 09/03/2023 until 10/02/2024 [facility] Work Phone: Comment on above: 1 Occurrences starting 09/03/2023 until 10/02/2024 End: 05-02-2026 ECG COMPLETE ECG COMPLETE ECG Routine Preoperative examination Hiatal hernia 1 Occurrences starting 05/03/2025 until 05/02/2026 [facility] Comment on above: 1 Occurrences starting 05/03/2025 until 05/02/2026 Laps rpr paraesphgl hrna incl fundplsty w/mesh LAPAROSCOPIC RPR PARAESOPHAGEAL HERNIA W/O FUNDOPLASTY W/ MESH Preoperative examination Hiatal hernia [facility] End: 05-30-2023 KARAN SCREENING W ROSEANNA KARAN SCREENING W ROSEANNA Radiology Routine Malignant neoplasm of upper-outer quadrant of right breast in female, estrogen receptor positive (HCC) Encounter 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 mammogram for high-risk patient 1 Occurrences starting 04/30/2022 until 05/30/2023 [facility] Work Phone: Comment on above: 1 Occurrences starting 04/30/2022 until 05/30/2023 End: 10-02-2024 KARAN SCREENING W ROSEANNA KARAN SCREENING W [facility]AN[facility] Radiology Routine Encounter 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 mammogram for high-risk patient Malignant neoplasm of upper-outer quadrant of right breast in female, estrogen receptor positive (HCC) 1 Occurrences starting 09/03/2023 until 10/02/2024 [facility] Work Phone: Comment on above: 1 Occurrences starting 09/03/2023 until 10/02/2024 KARAN SCREENING W ROSEANNA KARAN SCREENI NG W RO[facility]ANNA Radiology Routine Encounter 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 mammogram for high-risk patient Malignant neoplasm of upper-outer quadrant of right breast in female, estrogen receptor positive (HCC) 10/14/2023 10:20 AM EST [facility] Work Phone: Patient Education ED Vertigo, Unspecified [facility] Work Phone: Patient referral [facility] Work Phone: End: 05-12-2024 Radex spine cervical 4 or 5 views XR CERV OTHER 4V AP/LAT/OBL Radiology Routine Chronic neck pain 1 Occurrences starting 04/13/2023 until 05/12/2024 [facility] Work Phone: Comment on above: 1 Occurrences starting 04/13/2023 until 05/12/2024 Radex spine cervical 4 or 5 views XR CERV OTHER 4V AP/LAT/OBL Radiology Routine Chronic neck pain 04/13/2023 1:46 PM EDT [facility] Work Phone: REFER FOR ADMIT INTERVIEW REFER FOR ADMIT INTERVIEW Procedures Routine Preoperative examination Hiatal hernia Ordered: 05/03/2025 [facility] Work Phone: Comment on above: Ordered: 05/03/2025 Tissue Pathology bio psy report [facility] Work Phone: Comment on above: Release Upon Ordering for 1 Occurrences starting 03/16/2025, 1 completed End: 06-30-2023 US CAROTID ARTERIES [facility] US CAROTID ARTERIES [facility] Vascular Lab Routine Dizziness 1 Occurrences starting 06/30/2022 until 06/30/2023 [facility] Work Phone: Comment on above: 1 Occurrences starting 06/30/2022 until 06/30/2023 End: 06-10-2026 XR Ankle - left AP and Lateral and oblique XR ANKLE GENERAL 3V AP/LAT/OBL LEFT Radiology Routine Arthralgia, unspecified joint Chronic left shoulder pain Chronic pain of right knee Neck pain Muscle weakness (generalized) Facial numbness Age-related osteoporosis without current pathological fracture Hiatal hernia Vitamin D deficiency Fibromyalgia Sciatica of right side Psoriasis 1 Occurrences starting 05/11/2025 until 06/10/2026 [facility] Comment on above: 1 Occurrences starting 05/11/2025 until 06/10/2026 XR Ankle - left AP a nd Lateral and oblique XR ANKLE GENERAL 3V AP/LAT/OBL LEFT Radiology Routine Arthralgia, unspecified joint Chronic left shoulder pain Chronic pain of right knee Neck pain Muscle weakness (generalized) Facial numbness Age-related osteoporosis without current pathological fracture Hiatal hernia Vitamin D deficiency Fibromyalgia Sciatica of right side Psoriasis 05/11/2025 12:52 PM EDT [facility] End: 06-10-2026 XR Ankle - right AP and Lateral and oblique XR ANKLE GENERAL 3V AP/LAT/OBL RIGHT Radiology Routine Arthralgia, unspecified joint Chronic left shoulder pain Chronic pain of right knee Neck pain Muscle weakness (generalized) Facial numbness Age-related osteoporosis without current pathological fracture Hiatal hernia Vitamin D deficiency Fibromyalgia Sciatica of right side Psoriasis 1 Occurrences starting 05/11/2025 until 06/10/2026 [facility] Comment on above: 1 Occurrences starting 05/11/2025 until 06/10/2026 XR Ankle - right AP and Lateral and oblique XR ANKLE GENERAL 3V AP/LAT/OBL RIGHT Radiology Routine Chronic left shoulder pain Neck pain Muscle weakness (generalized) Arthralgia, unspecified joint Facial numbness Age-related osteoporosis without current pathological fracture Chronic pain of right knee 05/11/2025 12:51 PM EDT [facility] End: 06-10-2026 XR Knee - right 4 Views XR KNEE GENERAL 4V AP BOTH/PA BOTH/LAT/MERC RIGHT Radiology Routine Arthralgia, unspecified joint Chronic left shoulder pain Chronic pain of right knee Neck pain Muscle weakness (generalized) Facial numbness Age-related osteoporosis without current pathological fracture Hiatal hernia Vitamin D deficiency Fibromyalgia Sciatica of right side Psoriasis 1 Occurrences starting 05/11/2025 until 06/10/2026 [facility] Comment on above: 1 Occurrences starting 05/11/2025 until 06/10/2026 XR Knee - right 4 Views XR KNEE GENERAL 4V AP BOTH/PA BOTH/LAT/MERC RIGHT Radiology Routine Chronic left shoulder pain Neck pain Muscle weakness (generalized) Arthralgia, unspecified joint Facial numbness Age-related osteoporosis without current pathological fracture Chronic pain of right knee 05/11/2025 12:49 PM EDT [facility] End: 05-20-2026 XR Lumbar spine 3 Views XR LUMBAR GENERAL 3V AP/LAT/L5-S1 Radiology Routine Osteoarthritis of spine with radiculopathy, 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 Falls 1 Occurrences starting 04/20/2025 until 05/20/2026 [facility] Work Phone: Comment on above: 1 Occurrences starting 04/20/2025 until 05/20/2026 XR Lumbar spine 3 Views XR LUMBA R GENERAL 3V AP/LAT/L5-S1 Radiology Routine Osteoarthritis of spine with radiculopathy, 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 Falls 04/20/2025 12:19 PM [facility] Immunizations Immunization Date Immunization Notes Care Provider Lakia ibrahim 09-08-2024 influenza virus vaccine, unspecified formulation Francisco Soni PT Work Phone: [facility] 10-21-2023 influenza virus vaccine, unspecified formulation Pablo Bates DO Work Phone: [facility] 08-05-2022 influenza (HD-IIV4) vaccine, age 65+ yr, high dose, quadrivalent, PF (FLUZONE HIGH-DOSE) Pablo Bates DO Work Phone: [facility] 08-05-2022 influenza virus vaccine, unspecified formulation Sameera Jeronimoenter 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 Work Phone: [facility] 08-22-2021 influenza (aIIV4) vaccine, age 65+ yr, quadrivalent, PF (FLUAD QUAD) Pablo Bates DO Work Phone: [facility] 08-20-2020 influenza, high dose seasonal, preservative-free Pablo Baets DO Work Phone: [facility] 09-14-2019 influenza, high dose seasonal, preservative-free Pablo Bates DO Work Phone: [facility] 11-14-2018 zoster vaccine recombinant Pablo Bates DO Work Phone: [facility] 09-03-2018 influenza, high dose seasonal, preservative-free Pablo Bates DO Work Phone: [facility] 04-22-2018 zoster vaccine recombinant Pablo Bates DO Work Phone: [facility] 09-28-2017 influenza, seasonal, injectable Pablo Bates DO Work Phone: [facility] Work Phone: 09-15-2017 influenza, injectabl e, quadrivalent, preservative free Pablo Bates DO Work Phone: [facility] 09-17-2016 influenza, injectabl e, quadrivalent, contains preservative Pablo Bates DO Work Phone: [facility] 09-27-2015 influenza, injectabl e, quadrivalent, preservative free Pablo Bates DO Work Phone: [facility] 09-24-2015 influenza, seasonal, injectable Pablo Bates DO Work Phone: [facility] Work Phone: 07-01-2007 tetanus toxoid, redu tiki diphtheria toxoid, and acellular pertussis vaccine, adsorbed Pablo Bates DO Work Phone: [facility] Payers Date Payer Category Payer Self-pay [id number] 2018 Medicare MEDICARE MEDICAR E A AND B [id number] 2018-Present [phone] [place] [address] Medicare [id number] 2018 Medicare [id number] 2018 Private Health Insurance [employer] [place] [id number] 2018 Unknown [employer] 2[employer] D [id number] 2018-Present [phone] [address] [address] [place] [id number] Indemnity [id number] 2018 Unknown [id number] 2018 Medicare [id number] 2018 Unknown [id number] Private Health Insurance [id number] Unknown [facility] [id number] Unknown [id number] Social History Date Type Detail Facility Start: 02-01-2018 End: 05-01-2025 Tobacco smoking status NHIS Ex-smoker [facility] Start: 08-13-1980 End: 08-13-1990 History of tobacco use Current smoker [facility] Start: 08-13-1980 End: 08-13-1990 History of tobacco use Cigarette Smoker [facility] Start: 01-22-2022 End: 06-08-2025 Alcohol intake Current non-drinker of alcohol (finding) [facility] Start: 1955 Sex Assigned At Not on file [facility] Start: 04-21-2022 Tobacco smoking stat [facility] Unknown if ever smoked [facility] Work Phone: Start: 02-21-2022 [facility] Start: 02-21-2022 [facility] Start: 02-21-2022 Non-smoker [facility] Work Phone: Start: 1955 Sex Assigned At Female [facility] Work Phone: Start: 03-30-2022 End: 06-30-2022 Exposure to SARS-CoV-2 (event) Not sure [facility] Start: 02-01-2018 End: 04-13-2023 Cigarettes smoked current (pack per day) - Reported 0.5 [facility] Work Phone: Start: 02-01-2018 End: 05-01-2025 Tobacco use and exposure Smokeless tobacco non-user [facility] Start: 04-13-2023 End: 05-17-2023 Tobacco use panel [facility] Work Phone: Start: 10-10-2012 Adult Depression Screening Assessment 1 [facility] Work Phone: How often to you hav e a drink containing alcohol? Never [facility] Start: 06-19-2025 End: 06-22-2025 Alcoholic beverage intake Lifetime non-drinker (finding) [facility] Medical Equipment Procedure Code Equipment Code Equipment Origin al Text Equipment Identifier Dates MARIO 3GRM HEMO STAT ABS FDA Start: 11-10-2017 Goals Date Patient Goal Desired Activity /State Personal health goal Functional Status Date Assessment Result Facility 06-19-2025 Total score [AUDIT-C] 0 06/19/20 25 10:17 AM CHASET Tamanna Lion APRN.[facility] 05-08-2015 Are you deaf, or do you have serious difficulty hearing No 05/08/2015 2:14 PM CHASET Riya Dickerson LPN No [facility] 05-08-2015 Are you blind, or do you have serious difficulty seeing, even when wearing glasses No 05/08/2015 2:14 PM CHASET Riya Dickerson LPN No [facility] 05-08-2015 Do you have serious difficulty walking or climbing stairs No 05/08/2015 2:14 PM Riya Greenberg LPN No [facility] 05-08-2015 Do you have difficul ty dressing or bathing No 05/08/2015 2:14 PM Riya Greenberg LPN No [facility] 05-08-2015 Because of a physica l, mental, or emotional condition, do you have difficulty doing errands alone such as visiting a physician's office or shopping No 05/08/2015 2:14 PM EDT Riya Dickerson LPN No [facility] Mental Status Date Assessment Result Facility 04-21-2022 Cognitive function Level Of Cons ciousness Awake;Alert;Appropriate;Fol lows Commands [facility] Work Phone: 05-08-2015 Because of a physica l, mental, or emotional condition, do you have serious difficulty concentrating, remembering, or making decisions No 05/08/2015 2:14 PM EDT Riya Dickerson LPN No [facility] Clinical Notes 07-25-2010 to 06-30-2025 Alka Yadav APRN.[facility] - 06/22/2025 12:20 PM EDTTelephone Encounter - Tamanna Lion APRN.[facility] - 06/19/2025 12:24 PM EDTTelephone Encounter - Tamanna Lion APRN.[facility] - 06/19/2025 12:24 PM EDT Note Date & Type Note Facility 06-30-2025 Note HNO ID: [id number] Author: CANDACE SEGOVIA [facility] Service: Pharmacy Author Type: Pharmacist Type: Plan of Care Filed: 06/30/2025 10:02 Note Text: DISCHARGE MEDICATION REVIEW BY PHARMACY Patient Name: Kathryn Whiting Account #: Data Unavailable Admission Date: 06/28/2025 Date of Contact: June 30, 2025 Time of Contact: 10:02 AM Medication list was reviewed by a Pharmacist for drug interactions or drug related problems:Yes Below is a summary of pharmacist recommendations discussed with LIP: No recommendations at this time from discharge medication list. Candace Segovia [facility] Pager: [phone] 06/30/2025 10:02 AM Medication List START taking these medications ondansetron 4 mg tablet Commonly known as: ZOFRAN Take 1 tablet by mouth every 8 hours as needed for nausea/vomiting for up to 7 days. oxyCODONE 5 mg/5 mL oral solution Commonly known as: ROXICODONE Take 5 mL by mouth every 6 hours as needed for pain for up to 3 days. phosphorus 250 mg tablet Commonly known as: K PHOS NEUTRAL Take 1 tablet by mouth two times a day for 1 day. CONTINUE taking these medications acetaminophen 325 mg-caffeine 40 mg-butalbital 50 mg per capsule Commonly known as: FIORICET Take 1 capsule by mouth every 4 hours as needed for headache. atorvastatin 10 mg tablet Commonly known as: LIPITOR TAKE 1 TABLET DAILY AT BEDTIME FOR CHOLESTEROL CALCIUM 500 PO FLUoxetine 40 mg capsule Commonly known as: PROzac Take 1 capsule by mouth once daily. levothyroxine 112 mcg tablet Commonly known as: SYNTHROID Take 1 tablet by mouth once daily. meclizine 25 mg Tab Commonly known as: ANTIVERT TAKE 1 TABLET BY MOUTH THREE TIMES A DAY NEEDED FOR DIZZINESS PEPCID PO VITAMIN D3 PO Where to Get Your Medications These medications were sent to [id number] - [place] [address] - [address] - [phone] [address] [place] [address] ondansetron 4 mg tablet oxyCODONE 5 mg/5 mL oral solution phosphorus 250 mg tablet [facility] 06-29-2025 Note HNO ID: [id number] Author: CHRIS YOUNG MD Service: General Surgery Author Type: Resident Type: Progress Notes Filed: 06/29/2025 09:14 Note Text: @PVROTATIONCURRENT@ PROGRESS NOTE Name: Kathryn Whiting Date: June 29, 2025 DOS: 06/28/2025 POD: 1 Day Post-Op Operation: Paraesophageal Hernia repair w/o fundoplasty ASSESSMENT: Kathryn Whiting is a 70 year old with h/o type III PEH, GERD, dysphagia, osteoporosis, now s/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 Patient tolerated procedure well. --- INTERVAL: - alert, awake, oriented - No n/v/burping - Not passing gas, No BM - pain well controlled on multimodal regimen - not ambulating or OOB yet - on RA - ernst draining CYU - toleating CLD - Right leg trembling over night PLAN: - Neuro: dilaudid, tylenol, robaxin - Cardiac: monitor VS - Respiratory: Encouraged IS, Wean off O2 - GI: UGI today, Adv to FLD if UGI ok - FEN: Replete lytes as needed - Renal: f/u UOP, monitor labs - ID: pre-op prophylactic cefazolin - Heme: HDS. No indication for transfusion. - Endo: No issues - PPX: SQH TID, OOB, SCDs - Wound: clean, dry - MSK: Encouraged ambulation - Lines/Drains: remove ernst catheter today if UOP adequate To be discussed with staff. Chris Boykin MD General Surgery Resident PGY-1 Pager: [phone] OBJECTIVE: Physical Exam: BP 133/69 Pulse 103 Temp (Src) 98.8 (Oral) Resp 14 Ht 5' 3 (1.60m) Wt 147 lb (66.7kg) SpO2 93% LMP 03/10/2006 BMI 26.05 kg/(m2). O2 Therapy: Room Air General: comfortable, no acute distress Abdomen: soft, nondistended, appropriately tender, wounds c/d/i Intake/Output: Date 06/28/25 07 - 06/29/25 0659 06/29/25 07 - 06/30/25 0659 Shift 1435-6576 0679-4008 7671-7712 24 Hour Total 7466-7070 7870-2010 7593-2314 24 Hour Total INTAKE PO 120 120 240 480 PO 120 120 240 480 IV 1700 622 206 8274 Volume (mL) (lactated ringers iv infusion) 1000 1000 Volume (mL) (lactated ringers iv infusion) 500 500 Volume (mL) (lactated ringers iv infusion) 200 818 252 6078 Shift Total 1820 155 199 9985 OUTPUT Urine 741 973 2273 1726 Void (ml) 1 625 626 Straight cath (ml) 600 600 Amount Voided Before Bladder Scan 400 400 OR Urine Output 100 100 Urine Not Saved. 1 x 1 x # of BMs Number of BMs 0 x 0 x 0 x Blood 10 10 Estimated Blood loss 10 10 Shift Total 819 419 3492 1736 Weight (kg) 66.7 66.7 66.7 66.7 66.7 66.7 66.7 66.7 Labs Reviewed: Recent Labs 06/28/25 2115 WBC 13.67* HB 12.6 HCT 37.5 PLT 213 NA 134* K 4.5 CHLOR 102 CO2 20* CREAT 0.54* BUN 12 GLUC 149* P 2.3* MG 1.8 CA 8.5 [facility] 06-28-2025 Note HNO ID: [id number] Author: KAMILA SOLARES APRN.MUSIC STORE MANAGER Service: ? Author Type: Nurse Corporate Analyst Type: Anesthesia Procedure Notes Filed: 06/28/2025 08:56 Note Text: ANESTHESIOLOGY PROCEDURE NOTE PIV General Information Procedure Start Time/Medication Administration: 06/28/2025 8:34 AM Procedure End Time: 06/28/2025 8:34 AM Staffing Anesthesiologist: Luli Caballero MD Performed by: anesthesiologist Preparation Sterility Preparation: hand hygiene performed prior to procedure, surgical cap used, mask used, skin prep agent completely dried prior to procedure Site Prep: alcohol Procedure Details Indication: need for IV access Needle Size/Type: 18 gauge angiocath Orientation: Left Location: Wrist Imaging Guidance Used: No SIGNATURE: Kamila Solares APRN.MUSIC STORE MANAGER PATIENT NAME: Kathryn Whiting DATE: June 28, 2025 TIME: 8:55 AM CSN: [id number] [facility] 06-28-2025 Note HNO ID: [id number] Author: KAMILA SOLARES APRN.MUSIC STORE MANAGER Service: ? Author Type: Nurse Corporate Analyst Type: Anesthesia Procedure Notes Filed: 06/28/2025 08:55 Note Text: ANESTHESIOLOGY PROCEDURE NOTE Airway General Information Procedure Start Time/Medication Administration: 06/28/2025 8:33 AM Procedure End Time: 06/28/2025 8:33 AM Patient location during procedure: OR Patient identity confirmed: arm band Staffing MUSIC STORE MANAGER: Kamila Solares APRN.MUSIC STORE MANAGER Performed by: JOSE Indications and Patient Condition Indications for airway management: anesthesia Preoxygenated: yes anesthesia circuit Patient position: sniffing Method: modified rapid sequence Final Airway Details Final airway type: endotracheal airwayFinal Endotracheal Airway: ETT Cuffed: yes Successful intubation technique: direct laryngoscopy Endotracheal tube insertion site: oral Blade: Denny Blade size: #4 ETT size (mm): 7.0 Measured from: lips Measurement (cm): 22 Placement verified by: capnometry Cormack-Lehane Classification: grade I - full view of glottis Number of attempts at approach: 1 Airway not difficult SIGNATURE: Kamila Solares APRN.CRNA PATIENT NAME: Kathryn Whiting DATE: June 28, 2025 TIME: 8:54 AM CSN: [id number] [facility] 06-28-2025 Note HNO ID: [id number] Author: YOVANNY MALAVE MD Service: General Surgery Author Type: Resident Type: Plan of Care Filed: 06/28/2025 08:17 Note Text: Patient consented for study? Yes STUDY TITLE: MVP Trial: Mesh Vs Pledgets for repair of paraesophageal hernia repair: a randomized, blinded, parallel group trial IRB NO.: #[id number] RABBIT FANCIER: Kendrick Coronel MD COORDINATOR/Research Nurse/Occupational Medicine Specialist: Yovanny Malave MD Phone/email: [phone], [email or web address] Consenting was performed in person prior to inclusion in the study. The study protocol was discussed in detail with the patient. All study procedures were explained to the subject, including randomization, the two possible study interventions, and the postoperative management strategy for all patients participating in the study. Also, it was explained that pain scores, quality of life, and upper GI imaging will be assessed daily during follow up visits. The importance of follow up compliance was stressed. The risks, benefits, alternatives to participation and potential costs were discussed. All patient questions were addressed and answered. Patient has read and understood the study procedures and requirements. Patient has agreed to proceed with trial participation. Consent was signed prior to inclusion in the study and a copy was provided to the patient. INCLUSION CRITERIA Yes No 1. The patient is > 18 years of age [x] [] 2. The patient is willing and able to provide informed consent [x] [] 3. The patient is willing and able to participate in long-term follow up including study visits and surveys [x] [] 4. The patient has a type II, III, or IV hiatal hernia > 5cm, confirmed via upper GI studies, CT, or MRI [x] [] EXCLUSION CRITERIA Yes No 1. The patient lacks Vietnamese language fluency or cannot understand the consent form/study procedures [] [x] 2. The patient is [] [x] 3. The patient has a BMI >45 [] [x] 4. The patient has undergone previous hiatal hernia repair [] [x] 5. The patient will undergo paraesophageal hernia repair with a concurrent bariatric procedure to reduce stomach volume [] [x] [facility] 06-23-2025 Note HNO ID: [id number] Author: LULI HARRIS APRN.CARMEN Service: ? Author Type: Nurse Practitioner Type: Progress Notes Filed: 06/23/2025 11:09 Note Text: ADDENDUM: June 23, 2025 11:08 AM Recheck BP with PCP; improved from PACC visit, was 100/64. Off of Gabapentin (Neurontin) Luli Harris APRN.SERVICE ORDER DISPATCHER CHIEF [facility] 06-22-2025 History of Present illness Narrative This is a 70 year old female who presents today with: Kathryn Whiting is a 70-year-old female with a history of hypothyroidism, osteoarthritis, and migraines, presenting for follow-up on lab results and symptoms of facial numbing and night sweats HISTORY OF PRESENT ILLNESS: Facial Numbness: - Persistent facial numbness, left sided mostly - No improvement after increasing Synthroid dosage 2 months ago - Carotid artery ultrasound showed no abnormalities. - Reports episodes of facial numbness without associated migraines. Hypothyroidism: - Recent increase in Synthroid dosage x2 months. - doing fine on current dose Osteoarthritis: - Diagnosed with osteoarthritis in the knee and back. - X-rays of ankles and knees showed no abnormalities; ankles described as weak. - Using Voltaren for knee pain. - Taking calcium and vitamin D supplements. - Receiving Evenity injections monthly for a year. Migraines: - History of migraines with aura, described as fuzz eyes. - Recent increase in frequency and duration of migraines. Night Sweats: - Previously taking gabapentin 2 capsules at bedtime for night sweats. - Discontinued gabapentin due to low blood pressure readings and per telephone note increased migraines and dizziness - Reports partial relief from night sweats with gabapentin and would be open to looking into another intervention at a later date Upcoming Surgery: - Scheduled for paraesophageal hernia repair on the PAST MEDICAL HISTORY: PAST MEDICAL HISTORY Diagnosis Date Breast cancer (HCC) Diarrhea Hypercholesteraemia 03/2015 Migraine, unspecified, with intractable migraine, so stated, without mention of status migrainosus Migraine Mild diastolic dysfunction echo 03/2013 Mild mitral regurgitation echo 03/2013 Mild tricuspid regurgitation echo 03/2013 Mitral valve disorders(424.0) MVP Myalgia and myositis, unspecified Panic disorder without agoraphobia Panic disorder Unspecified hypothyroidism PAST SURGICAL HISTORY Procedure Laterality Date BREAST LUMPECTOMY HX 11/10/2017 with lymph node removal CHOLECYSTECTOMY Cholecystectomy -- lap (Dr. Bear?) COLONOSCOPY FLX DX W/COLLJ SPEC WHEN PFRMD 09/16/2007 COLONOSCOPY FLX DX W/COLLJ SPEC WHEN PFRMD 03/17/2019 normal EGD W/O BRSH SPEC VARICIES INJ 03/16/2025 ESOPHAGOGASTRODUODENOSCOPY TRANSORAL DIAGNOSTIC 09/01/2013 EGD ESOPHAGOGASTRODUODENOSCOPY TRANSORAL DIAGNOSTIC 03/17/2019 EGD NEUROPLASTY &/TRANSPOS MEDIAN NRV CARPAL TUNNE Carpal tunnel decomp, Right REDUCTION OF LARGE BREAST Breast reduction REVISE MEDIAN N/CARPAL TUNNEL SURG Right ALLERGIES Patient has no known allergies. MEDICATIONS Current Outpatient Medications Medication Sig calcium carbonate (CALCIUM 500 PO) Take 1 tablet by mouth two times a day. cholecalciferol, vitamin D3, (VITAMIN D3 PO) Take 1 capsule by mouth once daily. famotidine (PEPCID PO) Take 1 tablet by mouth as needed. atorvastatin (LIPITOR) 10 mg tablet TAKE 1 TABLET DAILY AT BEDTIME FOR CHOLESTEROL acetaminophen 325 mg-caffeine 40 mg-butalbital 50 mg (FIORICET) per capsule Take 1 capsule by mouth every 4 hours as needed for headache. levothyroxine (SYNTHROID) 112 mcg tablet Take 1 tablet by mouth once daily. FLUoxetine (PROZAC) 40 mg capsule Take 1 capsule by mouth once daily. meclizine (ANTIVERT) 25 mg tab TAKE 1 TABLET BY MOUTH THREE TIMES A DAY NEEDED FOR DIZZINESS Current Facility-Administered Medications Medication Dose Route Frequency romosozumab-aqqg 210 mg injection (EVENITY) 210 mg SUBCUTANEOUS q 1 MONTH FAMILY HISTORY Problem Relation Age of Onset Thyroid Mother Mother's side of family Anesthesia Mother Heart disease Mother Heart Mother atrial fibrilation Heart Father other (Multiple myeloma) Father 1983 -- multiple myeloma in remission, then amyloidosis Coronary Artery Disease Sister 2 TN's, starting age 40 Breast Cancer Paternal Aunt Cancer Paternal Aunt Leukemia other (Multiple myeloma) Paternal Uncle Heart Other Mother's side of family Anesthesia Problems No Family History SOCIAL HISTORY[1] REVIEW OF SYSTEMS Constitutional: (+) night sweats Head: (+) migraines Neurological: (+) facial numbness, (+) ankle weakness See HPI EXAM: BP 100/64 Pulse 88 Resp 16 Wt 67.2 kg (148 lb 3.2 oz) LMP 03/10/2006 BMI 26.25 kg/m PHYSICAL EXAM: General Appearance: Well appearing, alert, in no acute distress, well-hydrated, well nourished.. Lungs: Lungs clear to auscultation. No wheezing, rhonchi, rales.. Heart: RRR without murmur, gallop, or rubs. No ectopy. ASSESSMENT/PLAN: 1. Osteoarthritis of spine with radiculopathy, lumbar region - ICD9: 721.3, ICD10: M47.26 (primary diagnosis) 7. Osteoporosis - continue to follow up with rheumatology - receiving monthly evenity injections 2. Hypotension due to drugs - ICD9: 458.8, E947.9, ICD10: I95.2 - stopped gabapentin due to lower BP , removed from medication list -May want to consider switching prozac to venlofaxine for dual benefit of anxiety and night sweats 3. Migraine with aura, not intractable, without status migrainosus - ICD9: 346.00, ICD10: G43.109 4. Facial paresthesia - ICD9: 782.0, ICD10: R20.2 - open to consult with neuro at a later date once her surgery is done and other things have calmed down -discussed possibility of facial migraines 5. Malignant neoplasm of upper-outer quadrant of right breast in female, estrogen receptor positive (HCC) - ICD9: 174.4, V86.0, ICD10: C50.411, Z17.0 - follows with Sameera Martini , routine mammogram diagnostics 6. Acquired hypothyroidism - ICD9: 244.9, ICD10: E03.9 - Instructed patient on importance of taking on an empty stomach either first thing in the morning or at bedtime. - THYROID STIMULATING HORMONE recheck in August - T4 FREE/FREE THYROXINE recheck in August Discussed treatment plan and patient voices understanding. Patient's questions answered appropriately. Medications and potential side effects were discussed and patient voices understanding. Return to the office as scheduled or as needed for worsening/no improvement. Alka Yadav APRN.SERVICE ORDER DISPATCHER CHIEF Recording using 24h00 software for draft documentation of the visit was discussed with the patient/authorized arborist representative; all questions welcomed and answered. Patient/authorized arborist representative agreed to proceed [1] Social History Tobacco Use Smoking status: Former Current packs/day: 0.00 Average packs/day: 0.5 packs/day for 10.0 years (5.0 ttl pk-yrs) Types: Cigarettes Start date: 08/13/1980 Quit date: 08/13/1990 Years since quittin.8 Smokeless tobacco: Never Vaping Use Vaping status: Never Used Substance Use Topics Alcohol use: Never Drug use: No documented in this encounter [facility] 06-22-2025 Note HNO ID: [id number] Author: ALKA YADAV APRN.SERVICE ORDER DISPATCHER CHIEF Service: ? Author Type: Nurse Practitioner Type: Progress Notes Filed: 06/22/2025 13:03 Note Text: This is a 70 year old female who presents today with: Kathrynannita Whiting is a 70-year-old female with a history of hypothyroidism, osteoarthritis, and migraines, presenting for follow-up on lab results and symptoms of facial numbing and night sweats HISTORY OF PRESENT ILLNESS: Facial Numbness: - Persistent facial numbness, left sided mostly - No improvement after increasing Synthroid dosage 2 months ago - Carotid artery ultrasound showed no abnormalities. - Reports episodes of facial numbness without associated migraines. Hypothyroidism: - Recent increase in Synthroid dosage x2 months. - doing fine on current dose Osteoarthritis: - Diagnosed with osteoarthritis in the knee and back. - X-rays of ankles and knees showed no abnormalities; ankles described as weak. - Using Voltaren for knee pain. - Taking calcium and vitamin D supplements. - Receiving Evenity injections monthly for a year. Migraines: - History of migraines with aura, described as fuzz eyes. - Recent increase in frequency and duration of migraines. Night Sweats: - Previously taking gabapentin 2 capsules at bedtime for night sweats. - Discontinued gabapentin due to low blood pressure readings and per telephone note increased migraines and dizziness - Reports partial relief from night sweats with gabapentin and would be open to looking into another intervention at a later date Upcoming Surgery: - Scheduled for paraesophageal hernia repair on the PAST MEDICAL HISTORY: PAST MEDICAL HISTORY Diagnosis Date Breast cancer (HCC) Diarrhea Hypercholesteraemia 03/2015 Migraine, unspecified, with intractable migraine, so stated, without mention of status migrainosus Migraine Mild diastolic dysfunction echo 03/2013 Mild mitral regurgitation echo 03/2013 Mild tricuspid regurgitation echo 03/2013 Mitral valve disorders(424.0) MVP Myalgia and myositis, unspecified Panic disorder without agoraphobia Panic disorder Unspecified hypothyroidism PAST SURGICAL HISTORY Procedure Laterality Date BREAST LUMPECTOMY HX 11/10/2017 with lymph node removal CHOLECYSTECTOMY Cholecystectomy -- lap (Dr. Bear?) COLONOSCOPY FLX DX W/COLLJ SPEC WHEN PFRMD 09/16/2007 COLONOSCOPY FLX DX W/COLLJ SPEC WHEN PFRMD 03/17/2019 normal EGD W/O BRSH SPEC VARICIES INJ 03/16/2025 ESOPHAGOGASTRODUODENOSCOPY TRANSORAL DIAGNOSTIC 09/01/2013 EGD ESOPHAGOGASTRODUODENOSCOPY TRANSORAL DIAGNOSTIC 03/17/2019 EGD NEUROPLASTY AND/TRANSPOS MEDIAN NRV CARPAL TUNNE Carpal tunnel decomp, Right REDUCTION OF LARGE BREAST Breast reduction REVISE MEDIAN N/CARPAL TUNNEL SURG Right ALLERGIES Patient has no known allergies. MEDICATIONS Current Outpatient Medications Medication Sig calcium carbonate (CALCIUM 500 PO) Take 1 tablet by mouth two times a day. cholecalciferol, vitamin D3, (VITAMIN D3 PO) Take 1 capsule by mouth once daily. famotidine (PEPCID PO) Take 1 tablet by mouth as needed. atorvastatin (LIPITOR) 10 mg tablet TAKE 1 TABLET DAILY AT BEDTIME FOR CHOLESTEROL acetaminophen 325 mg-caffeine 40 mg-butalbital 50 mg (FIORICET) per capsule Take 1 capsule by mouth every 4 hours as needed for headache. levothyroxine (SYNTHROID) 112 mcg tablet Take 1 tablet by mouth once daily. FLUoxetine (PROZAC) 40 mg capsule Take 1 capsule by mouth once daily. meclizine (ANTIVERT) 25 mg tab TAKE 1 TABLET BY MOUTH THREE TIMES A DAY NEEDED FOR DIZZINESS Current Facility-Administered Medications Medication Dose Route Frequency romosozumab-aqqg 210 mg injection (EVENITY) 210 mg SUBCUTANEOUS q 1 MONTH FAMILY HISTORY Problem Relation Age of Onset Thyroid Mother Mother's side of family Anesthesia Mother Heart disease Mother Heart Mother atrial fibrilation Heart Father other (Multiple myeloma) Father 1983 -- multiple myeloma in remission, then amyloidosis Coronary Artery Disease Sister 2 TN's, starting age 40 Breast Cancer Paternal Aunt Cancer Paternal Aunt Leukemia other (Multiple myeloma) Paternal Uncle Heart Other Mother's side of family Anesthesia Problems No Family History SOCIAL HISTORY[1] REVIEW OF SYSTEMS Constitutional: (+) night sweats Head: (+) migraines Neurological: (+) facial numbness, (+) ankle weakness See HPI EXAM: BP 100/64 Pulse 88 Resp 16 Wt 67.2 kg (148 lb 3.2 oz) LMP 03/10/2006 BMI 26.25 kg/m? PHYSICAL EXAM: General Appearance: Well appearing, alert, in no acute distress, well-hydrated, well nourished.. Lungs: Lungs clear to auscultation. No wheezing, rhonchi, rales.. Heart: RRR without murmur, gallop, or rubs. No ectopy. ASSESSMENT/PLAN: 1. Osteoarthritis of spine with radiculopathy, lumbar region - ICD9: 721.3, ICD10: M47.26 (primary diagnosis) 7. Osteoporosis - continue to fol (more content not included)... [facility] 06-19-[address] Bates, I saw Ms. Whiting June 19, 2025 in [facility] for pre-testing as she is scheduled for a laparoscopic paraesophageal hernia repair with Dr. oGdinez on 06/28/25. Patient's BP was lower than normal at today's visit. She reports she was recently started on Gabapentin for night sweats but is unsure if it is helping. She has noticed some increase in lightheaded and dizziness and also an increase in migraines. She is unsure if these symptoms are related to the start of Gabapentin. The patient reports she is able to check her BP at home and will do so 1-2 x day. I advised I would check in with her in a couple of days to see how her BP was doing and how she is feeling. Is there anything further you would advise at this time? Thank you for your time. Tamanna Lion APRN.SERVICE ORDER DISPATCHER CHIEF Last 10 Encounter BP Readings: Date: BP: 06/19/2025 88/62 & 88/64 06/08/2025 113/76 05/11/2025 110/68 05/01/2025 143/63 04/20/2025 128/62 03/16/2025 136/65 03/01/2025 107/73[bp machine reading[ 11/16/2024 106/73 01/06/2024 118/82 09/03/2023 105/65 [facility] 06-19-[address] Bates, I saw Ms. Whiting June 19, 2025 in [facility] for pre-testing as she is scheduled for a laparoscopic paraesophageal hernia repair with Dr. Godinez on 06/28/25. Patient's BP was lower than normal at today's visit. She reports she was recently started on Gabapentin for night sweats but is unsure if it is helping. She has noticed some increase in lightheaded and dizziness and also an increase in migraines. She is unsure if these symptoms are related to the start of Gabapentin. The patient reports she is able to check her BP at home and will do so 1-2 x day. I advised I would check in with her in a couple of days to see how her BP was doing and how she is feeling. Is there anything further you would advise at this time? Thank you for your time. Tamanna Lion APRN.CNP Last 10 Encounter BP Readings: Date: BP: 06/19/2025 88/62 & 88/64 06/08/2025 113/76 05/11/2025 110/68 05/01/2025 143/63 04/20/2025 128/62 03/16/2025 136/65 03/01/2025 107/73[bp machine reading[ 11/16/2024 106/73 01/06/2024 118/82 09/03/2023 105/65 documented in this encounter [facility] 06-19-2025 Instructions Tamanna Lion APRN.SERVICE ORDER DISPATCHER CHIEF - 06/19/2025 9:57 AM EDT PATIENT PREOPERATIVE INSTRUCTIONS Preet Godinez has scheduled you for your procedure at this surgery center: [facility] Scheduling Office: [phone] --[address] [place] [address]. Please read below carefully for your personalized instructions. Arrival Time for Surgery: - To obtain your arrival time for surgery, call your physician's office the day before your surgery. - If your surgery is scheduled for Thursday, call the Thursday before. Your surgeon s seed potato arranger will tell you what time to call the office. - If you have not reached the departmental seed potato arranger by 5 P.M., call [phone] after 5 P.M. the day before your surgery. Please be aware that emergency situations arise, which may delay or change your surgical time. If this happens, we will notify you as soon as possible and regret any inconvenience. Dietary Restrictions: - No solid food after midnight. - You may have 12 ounces of clear liquids (water, clear juices such as apple juice or gatorade, carbonated beverages, clear tea, black coffee, jello) until 2 hours before scheduled arrival at facility. - Do not drink any alcohol after midnight the night before your surgery. Medications: Unless instructed differently below, stay on all of your medications until your surgery. Pre-Surgery Med Instructions Medication Instructions calcium carbonate (CALCIUM 500 PO) Do not take the day of surgery cholecalciferol, vitamin D3, (VITAMIN D3 PO) Do not take the day of surgery famotidine (PEPCID PO) Continue as needed atorvastatin (LIPITOR) 10 mg tablet If you normally take this medication in the morning, take the morning of surgery. acetaminophen 325 mg-caffeine 40 mg-butalbital 50 mg (FIORICET) per capsule Do not take the day of surgery levothyroxine (SYNTHROID) 112 mcg tablet If you normally take this medication in the morning, take the morning of surgery. gabapentin (NEURONTIN) 100 mg capsule Take the night before surgery FLUoxetine (PROZAC) 40 mg capsule If you normally take this medication in the morning, take the morning of surgery. meclizine (ANTIVERT) 25 mg tab Do not take the day of surgery If you start any new medications after today's visit, please contact the surgeon's office. If you are currently using a [id number] injectable or oral medication for diabetes or weight loss such as Dulaglutide (Trulicity), Exenatide (Byetta, Bydureon), Liraglutide (Victoza, Saxenda), Semaglutide (Ozempic, Wegovy, Rybelsus), or Tirzepatide (Mounjaro), the medicine should be stopped at least 7 days before surgery. These medicines can cause food to remain in your stomach for a very long time and increase the risks from surgery and anesthesia. Not stopping the medication for a long enough time may result in your surgery being rescheduled. Blood Thinning Medications: - Stop NSAIDS (Ibuprofen, Advil, Aleve, Motrin, Celebrex, Mobic, etc.) 7 days before surgery, as directed by your surgeon. - Stop Aspirin 7 days before surgery, as directed by your surgeon. - Stop ALL herbal and dietary supplements 7 days before surgery. - You may take Tylenol (Acetaminophen) or any of your pain medications that do not contain aspirin or NSAIDS as needed. Important Reminders: - Candy, mints, and tobacco products are NOT permitted the morning of surgery. - Hearing aids, dentures and glasses may be worn the morning of surgery. - NO jewelry, body piercings, makeup, hairpins, lotion or contacts are to be worn the day of surgery. If you develop symptoms such as a fever, cold, or flu, or have other changes to your health within TWO DAYS of scheduled surgery or the morning of surgery, please contact the surgery center above. Personal Belongings: -Please have photo ID and insurance cards. -If you do not have a copy of advance directives on file with us, please bring a copy with you on the day of surgery. - Leave ALL valuables and money at home or with family members. For Outpatient Procedures: - YOU MUST HAVE A RESPONSIBLE FILTER TIP CATCHER TAKE YOU HOME. A JEWELRY TECHNICIAN OR STRAWHAT SIZER CANNOT BE MADE A RESPONSIBLE FILTER TIP CATCHER. - We recommend that a responsible person stays with you overnight to take care of you. - You cannot stay in a hotel alone after outpatient surgery. You will not be permitted to have your surgery, if you do not have someone to take care of you. If you already have an Advance Directive, please fax a copy to [phone] or email to for it to be added to your chart. If you do not have an Advance Directive, you can find the appropriate form and more information at [email or web address]. We recommend that you complete the Advance Directive form found on the website and bring it with you the day of your surgery. It can be witnessed and scanned into your chart that day. Tamanna Lion APRN.CNP documented in this encounter [facility] 06-19-2025 History and physical note Images from the original note were not included. [facility] HISTORY AND PHYSICAL EXAMINATION SERVICE DATE: 06/19/2025 SERVICE TIME: 9:53 AM PRIMARY CARE PHYSICIAN: Pablo Bates, Assessment Patient has the following medical conditions which may affect justyna-operative course: 1. Mixed hyperlipidemia (E78.2) - Stable on atorvastatin 10 mg daily. 2. Paraesophageal hernia (K44.9) 3. Gastroesophageal reflux disease without esophagitis (K21.9) - Scheduled for surgical repair on the . - GERD symptoms currently stable on Rx. - Reports dyspnea and a fullness in her chest at times making it difficult to take a deep breath due to the hernia. - CT scan shows most of the stomach has herniated into the chest. 4. Acquired hypothyroidism (E03.9) - Compliant with levothyroxine 112 mcg daily. Lab Results Component Value Date TSH 0.331 05/15/2025 TSH 23.500 (H) 04/20/2025 TSH 0.201 (L) 03/12/2023 5. Malignant neoplasm of upper-outer quadrant of right breast in female, estrogen receptor positive (HCC) (C50.411) - History of breast cancer with prior lumpectomy and radiation. 6. Intractable migraine without aura and without status migrainosus (G43.019) - Increased frequency and duration of migraines over the past month; currently managed with Fioricet PRN. - Patient thinks potentially related to initiation of Gabapentin. 7. Anxiety and depression (F41.9) - Compliant with Rx. Feels mood is stable. Patient is pleasant and appropriate during today's appointment. 8. Hypotension, unspecified hypotension type (I95.9) - BP lower than normal at today's visit. Patient does report lightheaded and dizziness which has worsened since the initiation of Gabapentin. No syncopal episodes. - Advised to monitor blood pressure at home daily and maintain adequate hydration. Confirmed patient has BP cuff at home. - Advised to contact primary care if blood pressure readings are lower than usual or if symptoms worsen; instructed to go to the emergency department if fainting or passing out occurs. - Will follow up in a few days to review blood pressure readings. - Will coordinate with Dr. Bates for additional recommendations. Addendum June 20, 2025 - Per Dr. Bates, patient instructed to hold Gabapentin to see if symptoms improve. BP overall is stable, no major concerns. 9. Chronic neck pain (M54.2) - Chronic osteoarthritis contributing to neck pain; good range of motion on exam. ANESTHESIA FINDINGS: Intubation History: No history of difficult intubation. No abnormal airway history Significant Anesthesia Considerations: potential slow emergence Airway History: No history of difficult airway No abnormal airway history Avila Activity Status Index: METS: Walk indoors, such as around the house (1.75 METs) Do light work around the house, such as dusting or washing dishes (2.70 METs) Take care of self; that is eating, dressing, bathing, using the toilet (2.75 METs) Walk a block or two on level ground (2.75 METs) Do moderate work around the house, such as vacuuming, sweeping floors, or carrying in groceries (3.50 METs) Cannot do yardwork, such as raking leaves, weeding, or pushing a power mower Cannot climb a flight of stairs or walk up a hill DASI Score: 13.45 Patient denies any chest pain or undue shortness of breath with the above physical activity. Clinical Frailty Scale: 4. Apparently vulnerable STOP-Bang Score: Patient over 50 years old Denies snoring loudly Denies feeling tired, fatigued, or sleepy during the daytime Has not been observed to stop breathing or choking/gasping during sleep Denies having high blood pressure BMI less than or equal to 35 kg/m^2 Does not have a large neck Non-male patient STOP-Bang Score: 1 I - PHYSICAL EVALUATION AIRWAY Patient intubated: No. Tracheostomy tube not present Mallampati: I. TM distance: >3 FB. Neck ROM: full ROM without neurological symptoms. Mouth opening: adequate. Short neck: no. Thick neck: no Kuhn present: no Lip Bite Test: II Microretrognathia/Micronagthia/Rec essed Chin: No DENTAL Dental findings: teeth intact. Additional comments: Implant. II - ANESTHESIA PLAN Beta Chan Monitoring Plan Post Procedure Analgesic Plan Prepared for Surgery: optimally prepared for surgery, pending [see comment]. Labs and EKG ordered by the surgeon Addendum June 20, 2025 3:59 PM Labs and EKG reviewed and acceptable for proposed procedure. CONSULTS: Patient does not require consults for optimization at this time Planned Anesthetic: anesthesia choice The Following Tests/Procedures Have Been Initiated: Orders Placed This Encounter calcium carbonate (CALCIUM 500 PO) Sig: Take 1 tablet by mouth two times a day. cholecalciferol, vitamin D3, (VITAMIN D3 PO) Sig: Take 1 capsule by mouth once daily. famotidine (PEPCID PO) Sig: Take 1 tablet by mouth as needed. REASON FOR VISIT: Kathryn Whiting is a 70 year old female who is scheduled for LAPAROSCOPIC RPR PARAESOPHAGEAL HERNIA W/O FUNDOPLASTY W/ MESH at the request of Dr. Preet Godinez for consultation. My final recommendation will be communicated back to the requesting physician by way of shared medical record or letter. Subjective CHIEF COMPLAINT: Anesthesia Consult HPI: Kathryn Whiting is a 70-year-old female presenting for preoperative evaluation. Kathryn is scheduled for hernia repair surgery on the . She reports experiencing indigestion, burning sensation, and discomfort depending on her diet. She also notes occasional dysphagia, but denies emesis. She uses Pepcid as needed for reflux symptoms. REVIEW OF SYSTEMS: GENERAL: No weight loss, malaise, or fevers. Positive for night sweats. HEENT: Positive for frequent migraine headaches. RESPIRATORY: Positive for cough and shortness of breath; no other respiratory complaints noted. CARDIOVASCULAR: Negative for chest pain, leg swelling, CHF, or palpitations. GI: Positive for heartburn/indigestion and intermittent dysphagia; negative for nausea, vomiting, diarrhea, abdominal pain, blood in stool, or black stool. GENITOURINARY: No history of dysuria, urinary frequency, or incontinence. MUSCULOSKELETAL: Positive for joint pain (osteoarthritis); negative for muscle pain or back pain. SKIN: Negative for lesions, rash, or itching. PSYCH: Positive for depression and anxiety. HEMATOLOGY/LYMPHOLOGY: No bleeding concerns. NEURO: Positive for migraines and dizziness; negative for syncope, paralysis, seizures, or tremors. ENDOCRINE: No history of polydipsia, increased thirst, or other endocrine symptoms. She has a history of dyspnea, which she attributes to being out of shape. She experiences significant dyspnea when climbing stairs. She also reports increased coughing due to the hiatal hernia, which affects her ability to breathe deeply. She denies the use of inhalers, oxygen, CPAP, or BiPAP, and has no history of asthma, COPD, bronchitis, pneumonia, or recent COVID-19 infection. She denies orthopnea and has no history of TN, DVT, or PE. She was previously told she has mitral valve prolapse but was informed it was not a cause for concern. She is currently taking atorvastatin 10 mg once daily. Kathryn reports a recent increase in the frequency and duration of migraines over the past month, accompanied by lightheadedness and dizziness. She denies syncope. She is currently taking Fioricet as needed for migraines and Prozac 40 mg once daily for anxiety. She also reports experiencing night sweats and is taking gabapentin 200 mg at bedtime, which she feels is not effective and may be contributing to her low blood pressure. She is also on levothyroxine 112 mcg once daily, with a recent dosage adjustment. She is taking calcium twice daily and vitamin D once daily, along with Evenity injections twice a month for osteoarthritis, particularly in her hands and hips. She denies any swelling in her legs. She has a history of breast cancer, for which she underwent a lumpectomy and radiation therapy. She denies any other history of cancer. She denies any history of sleep apnea, loud snoring, or episodes of choking or gasping during sleep. She also denies any recent fevers, chills, unexplained weight changes, CVA, TIA, seizures, multiple sclerosis, Parkinson's disease, numbness or tingling in extremities, abdominal pain, irritable bowel syndrome, Crohn's disease, hematuria, nephrolithiasis, or diabetes. She has not undergone radioactive iodine treatment or thyroid surgery and denies any history of easy bruising, bleeding, or clotting disorders, as well as any abnormal blood counts. COVID-19 Immunization Status This patient has no relevant Health Maintenance data. PAST MEDICAL HISTORY[1] PAST SURGICAL HISTORY Procedure Laterality Date BREAST LUMPECTOMY HX 11/10/2017 with lymph node removal CHOLECYSTECTOMY Cholecystectomy -- lap (Dr. Bear?) COLONOSCOPY FLX DX W/COLLJ SPEC WHEN PFRMD 09/16/2007 COLONOSCOPY FLX DX W/COLLJ SPEC WHEN PFRMD 03/17/2019 normal EGD W/O BRSH SPEC VARICIES INJ 03/16/2025 ESOPHAGOGASTRODUODENOSCOPY TRANSORAL DIAGNOSTIC 09/01/2013 EGD ESOPHAGOGASTRODUODENOSCOPY TRANSORAL DIAGNOSTIC 03/17/2019 EGD NEUROPLASTY &/TRANSPOS MEDIAN NRV CARPAL TUNNE Carpal tunnel decomp, Right REDUCTION OF LARGE BREAST Breast reduction REVISE MEDIAN N/CARPAL TUNNEL SURG Right FAMILY HISTORY[2] SOCIAL HISTORY[3] Prior to Admission medications as of 06/19/25 1017 Medication Sig Last Dose Taking calcium carbonate (CALCIUM 500 PO) Take 1 tablet by mouth two times a day. Yes cholecalciferol, vitamin D3, (VITAMIN D3 PO) Take 1 capsule by mouth once daily. Yes famotidine (PEPCID PO) Take 1 tablet by mouth as needed. Yes atorvastatin (LIPITOR) 10 mg tablet TAKE 1 TABLET DAILY AT BEDTIME FOR CHOLESTEROL Yes acetaminophen 325 mg-caffeine 40 mg-butalbital 50 mg (FIORICET) per capsule Take 1 capsule by mouth every 4 hours as needed for headache. Yes levothyroxine (SYNTHROID) 112 mcg tablet Take 1 tablet by mouth once daily. Yes gabapentin (NEURONTIN) 100 mg capsule Take 2 capsules by mouth daily at bedtime for 90 days. Yes FLUoxetine (PROZAC) 40 mg capsule Take 1 capsule by mouth once daily. Yes meclizine (ANTIVERT) 25 mg tab TAKE 1 TABLET BY MOUTH THREE TIMES A DAY NEEDED FOR DIZZINESS Yes acetaminophen 325 mg-caffeine 40 mg-butalbital 50 mg (FIORICET) per tablet Take 1 tablet by mouth every 4 hours as needed for up to 30 days. Patient not taking: Reported on 06/19/2025 No medication comments found. ALLERGIES[4] Objective PHYSICAL EXAM: General: alert and oriented and healthy appearance. Pertinent negatives noted - not distressed. Skin: normal color, no rash or lesions. HEENT: pupils equal round and pupils reactive to light. Pertinent negatives noted - no carotid bruit. Cardiovascular: regular rate and rhythm, normal S1 and S2, no rub, murmurs, or gallop. Respiratory: normal breath sounds, no wheezes or crackles. No chest wall deformity or tenderness. Abdomen: bowel sounds present and soft. Pertinent negatives noted - no hernia, no mass, not rigid and not tender. Extremities: no deformity, no edema or tenderness, no joint swelling or clubbing. Neurological: normal cognition and motor skills. Gait normal. No weakness or sensory deficit. PAIN ASSESSMENT: VITALS: BP 88/62 Pulse 91 Temp (Src) 96.9 (Temporal) Resp 14 Ht 5' 3 (1.60m) Wt 147 lb (66.7kg) SpO2 95% LMP 03/10/2006 BMI 26.05 kg/(m^2). Diagnostic tests reviewed for today's visit: Lab Value Units Date High Low HB 13.7 g/dL 06/19/2025 15.5 11.5 HCT 41.9 % 06/19/2025 46.0 36.0 WBC 6.86 k/uL 06/19/2025 11.00 3.70 PLT 211 k/uL 06/19/2025 400 150 NA 140 mmol/L 06/19/2025 144 136 K 5.2 mmol/L 06/19/2025 5.1 3.7 GLUC 104 mg/dL 06/19/2025 99 74 BUN 9 mg/dL 06/19/2025 21 7 CREAT 0.79 mg/dL 06/19/2025 0.96 0.58 PTSEC 10.4 sec 06/19/2025 <13.1 INR 1.0 no uni* 06/19/2025 1.3 0.9 APTT 25.0 sec 06/19/2025 32.4 23.0 ALT 10 U/L 06/19/2025 38 7 AST 17 U/L 06/19/2025 35 13 TBILI 0.7 mg/dL 06/19/2025 1.3 0.2 TSH 0.331 mIU/L 05/15/2025 4.200 0.270 Lab Value Units Date High Low HCGQT No results within date range. UHCG No results within date range. HCG, BODY* No results within date range. Lab Value Units Date High Low ABORHD No results within date range. ABSCREEN No results within date range. Hemoglobin A1C (%) Date Value 04/20/2025 5.4 03/12/2023 5.3 07/03/2022 5.2 Recent Results (from the past 8760 hours) ECG COMPLETE Collection Time: 06/19/25 10:22 AM Result Value Ventricular Rate 87 Atrial Rate 87 P-R Interval 134 QRS Duration 74 QT Interval 360 QTC Calculation (Bazett) 433 Calculated P [place] 42 Calculated R [place] 8 Calculated T [place] 42 Impression NORMAL SINUS RHYTHM POSSIBLE LEFT ATRIAL ENLARGEMENT BORDERLINE ECG Confirmed by MD DELICIA, RADHA ([id number]) on 06/20/2025 9:53:07 AM No results found for this or any previous visit (from the past 51171 hours). Instructions Given to Patient: Instructions located in the after visit summary. Patient given verbal and written preop instructions and voices comprehension and compliance. Recording using [id number] software for draft documentation of the visit was discussed with the patient/authorized arborist representative; all questions welcomed and answered. Patient/authorized arborist representative agreed to proceed SIGNATURE: Tamanna Lion APRN.CNP PATIENT NAME: Kathryn Whiting DATE: June 19, 2025 TIME: 9:53 AM PAGER/CONTACT #: [1] PAST MEDICAL HISTORY Diagnosis Date Breast cancer (HCC) Diarrhea Hypercholesteraemia 03/2015 Migraine, unspecified, with intractable migraine, so stated, without mention of status migrainosus Migraine Mild diastolic dysfunction echo 03/2013 Mild mitral regurgitation echo 03/2013 Mild tricuspid regurgitation echo 03/2013 Mitral valve disorders(424.0) MVP Myalgia and myositis, unspecified Panic disorder without agoraphobia Panic disorder Unspecified hypothyroidism [2] FAMILY HISTORY Problem Relation Age of Onset Thyroid Mother Mother's side of family Anesthesia Mother Heart disease Mother Heart Mother atrial fibrilation Heart Father other (Multiple myeloma) Father 1983 -- multiple myeloma in remission, then amyloidosis Coronary Artery Disease Sister 2 TN's, starting age 40 Breast Cancer Paternal Aunt Cancer Paternal Aunt Leukemia other (Multiple myeloma) Paternal Uncle Heart Other Mother's side of family Anesthesia Problems No Family History [3] Social History Tobacco Use Smoking status: Former Current packs/day: 0.00 Average packs/day: 0.5 packs/day for 10.0 years (5.0 ttl pk-yrs) Types: Cigarettes Start date: 08/13/1980 Quit date: 08/13/1990 Years since quittin.8 Smokeless tobacco: Never Vaping Use Vaping status: Never Used Substance Use Topics Alcohol use: Never Drug use: No [4] ALLERGIES No Known Allergies [facility] 06-19-2025 History and physical note Images from the original note were not included. [facility] HISTORY AND PHYSICAL EXAMINATION SERVICE DATE: 06/19/2025 SERVICE TIME: 9:53 AM PRIMARY CARE PHYSICIAN: Pablo Bates, DO Assessment Patient has the following medical conditions which may affect justyna-operative course: 1. Mixed hyperlipidemia (E78.2) - Stable on atorvastatin 10 mg daily. 2. Paraesophageal hernia (K44.9) 3. Gastroesophageal reflux disease without esophagitis (K21.9) - Scheduled for surgical repair on the . - GERD symptoms currently stable on Rx. - Reports dyspnea and a fullness in her chest at times making it difficult to take a deep breath due to the hernia. - CT scan shows most of the stomach has herniated into the chest. 4. Acquired hypothyroidism (E03.9) - Compliant with levothyroxine 112 mcg daily. Lab Results Component Value Date TSH 0.331 05/15/2025 TSH 23.500 (H) 04/20/2025 TSH 0.201 (L) 03/12/2023 5. Malignant neoplasm of upper-outer quadrant of right breast in female, estrogen receptor positive (HCC) (C50.411) - History of breast cancer with prior lumpectomy and radiation. 6. Intractable migraine without aura and without status migrainosus (G43.019) - Increased frequency and duration of migraines over the past month; currently managed with Fioricet PRN. - Patient thinks potentially related to initiation of Gabapentin. 7. Anxiety and depression (F41.9) - Compliant with Rx. Feels mood is stable. Patient is pleasant and appropriate during today's appointment. 8. Hypotension, unspecified hypotension type (I95.9) - BP lower than normal at today's visit. Patient does report lightheaded and dizziness which has worsened since the initiation of Gabapentin. No syncopal episodes. - Advised to monitor blood pressure at home daily and maintain adequate hydration. Confirmed patient has BP cuff at home. - Advised to contact primary care if blood pressure readings are lower than usual or if symptoms worsen; instructed to go to the emergency department if fainting or passing out occurs. - Will follow up in a few days to review blood pressure readings. - Will coordinate with Dr. Bates for additional recommendations. Addendum June 20, 2025 - Per Dr. Bates, patient instructed to hold Gabapentin to see if symptoms improve. BP overall is stable, no major concerns. 9. Chronic neck pain (M54.2) - Chronic osteoarthritis contributing to neck pain; good range of motion on exam. ANESTHESIA FINDINGS: Intubation History: No history of difficult intubation. No abnormal airway history Significant Anesthesia Considerations: potential slow emergence Airway History: No history of difficult airway No abnormal airway history Avila Activity Status Index: METS: Walk indoors, such as around the house (1.75 METs) Do light work around the house, such as dusting or washing dishes (2.70 METs) Take care of self; that is eating, dressing, bathing, using the toilet (2.75 METs) Walk a block or two on level ground (2.75 METs) Do moderate work around the house, such as vacuuming, sweeping floors, or carrying in groceries (3.50 METs) Cannot do yardwork, such as raking leaves, weeding, or pushing a power mower Cannot climb a flight of stairs or walk up a hill DASI Score: 13.45 Patient denies any chest pain or undue shortness of breath with the above physical activity. Clinical Frailty Scale: 4. Apparently vulnerable STOP-Bang Score: Patient over 50 years old Denies snoring loudly Denies feeling tired, fatigued, or sleepy during the daytime Has not been observed to stop breathing or choking/gasping during sleep Denies having high blood pressure BMI less than or equal to 35 kg/m^2 Does not have a large neck Non-male patient STOP-Bang Score: 1 I - PHYSICAL EVALUATION AIRWAY Patient intubated: No. Tracheostomy tube not present Mallampati: I. TM distance: >3 FB. Neck ROM: full ROM without neurological symptoms. Mouth opening: adequate. Short neck: no. Thick neck: no Kuhn present: no Lip Bite Test: II Microretrognathia/Micronagthia/Rec essed Chin: No DENTAL Dental findings: teeth intact. Additional comments: Implant. II - ANESTHESIA PLAN Beta Chan Monitoring Plan Post Procedure Analgesic Plan Prepared for Surgery: optimally prepared for surgery, pending [see comment]. Labs and EKG ordered by the surgeon Addendum June 20, 2025 3:59 PM Labs and EKG reviewed and acceptable for proposed procedure. CONSULTS: Patient does not require consults for optimization at this time Planned Anesthetic: anesthesia choice The Following Tests/Procedures Have Been Initiated: Orders Placed This Encounter calcium carbonate (CALCIUM 500 PO) Sig: Take 1 tablet by mouth two times a day. cholecalciferol, vitamin D3, (VITAMIN D3 PO) Sig: Take 1 capsule by mouth once daily. famotidine (PEPCID PO) Sig: Take 1 tablet by mouth as needed. REASON FOR VISIT: Kathryn Whiting is a 70 year old female who is scheduled for LAPAROSCOPIC RPR PARAESOPHAGEAL HERNIA W/O FUNDOPLASTY W/ MESH at the request of Dr. Preet Godinez for consultation. My final recommendation will be communicated back to the requesting physician by way of shared medical record or letter. Subjective CHIEF COMPLAINT: Anesthesia Consult HPI: Kathryn Whiting is a 70-year-old female presenting for preoperative evaluation. Kathryn is scheduled for hernia repair surgery on the . She reports experiencing indigestion, burning sensation, and discomfort depending on her diet. She also notes occasional dysphagia, but denies emesis. She uses Pepcid as needed for reflux symptoms. REVIEW OF SYSTEMS: GENERAL: No weight loss, malaise, or fevers. Positive for night sweats. HEENT: Positive for frequent migraine headaches. RESPIRATORY: Positive for cough and shortness of breath; no other respiratory complaints noted. CARDIOVASCULAR: Negative for chest pain, leg swelling, CHF, or palpitations. GI: Positive for heartburn/indigestion and intermittent dysphagia; negative for nausea, vomiting, diarrhea, abdominal pain, blood in stool, or black stool. GENITOURINARY: No history of dysuria, urinary frequency, or incontinence. MUSCULOSKELETAL: Positive for joint pain (osteoarthritis); negative for muscle pain or back pain. SKIN: Negative for lesions, rash, or itching. PSYCH: Positive for depression and anxiety. HEMATOLOGY/LYMPHOLOGY: No bleeding concerns. NEURO: Positive for migraines and dizziness; negative for syncope, paralysis, seizures, or tremors. ENDOCRINE: No history of polydipsia, increased thirst, or other endocrine symptoms. She has a history of dyspnea, which she attributes to being out of shape. She experiences significant dyspnea when climbing stairs. She also reports increased coughing due to the hiatal hernia, which affects her ability to breathe deeply. She denies the use of inhalers, oxygen, CPAP, or BiPAP, and has no history of asthma, COPD, bronchitis, pneumonia, or recent COVID-19 infection. She denies orthopnea and has no history of TN, DVT, or PE. She was previously told she has mitral valve prolapse but was informed it was not a cause for concern. She is currently taking atorvastatin 10 mg once daily. Kathryn reports a recent increase in the frequency and duration of migraines over the past month, accompanied by lightheadedness and dizziness. She denies syncope. She is currently taking Fioricet as needed for migraines and Prozac 40 mg once daily for anxiety. She also reports experiencing night sweats and is taking gabapentin 200 mg at bedtime, which she feels is not effective and may be contributing to her low blood pressure. She is also on levothyroxine 112 mcg once daily, with a recent dosage adjustment. She is taking calcium twice daily and vitamin D once daily, along with Evenity injections twice a month for osteoarthritis, particularly in her hands and hips. She denies any swelling in her legs. She has a history of breast cancer, for which she underwent a lumpectomy and radiation therapy. She denies any other history of cancer. She denies any history of sleep apnea, loud snoring, or episodes of choking or gasping during sleep. She also denies any recent fevers, chills, unexplained weight changes, CVA, TIA, seizures, multiple sclerosis, Parkinson's disease, numbness or tingling in extremities, abdominal pain, irritable bowel syndrome, Crohn's disease, hematuria, nephrolithiasis, or diabetes. She has not undergone radioactive iodine treatment or thyroid surgery and denies any history of easy bruising, bleeding, or clotting disorders, as well as any abnormal blood counts. COVID-19 Immunization Status This patient has no relevant Health Maintenance data. PAST MEDICAL HISTORY[1] PAST SURGICAL HISTORY Procedure Laterality Date BREAST LUMPECTOMY HX 11/10/2017 with lymph node removal CHOLECYSTECTOMY Cholecystectomy -- lap (Dr. Bear?) COLONOSCOPY FLX DX W/COLLJ SPEC WHEN PFRMD 09/16/2007 COLONOSCOPY FLX DX W/COLLJ SPEC WHEN PFRMD 03/17/2019 normal EGD W/O BRSH SPEC VARICIES INJ 03/16/2025 ESOPHAGOGASTRODUODENOSCOPY TRANSORAL DIAGNOSTIC 09/01/2013 EGD ESOPHAGOGASTRODUODENOSCOPY TRANSORAL DIAGNOSTIC 03/17/2019 EGD NEUROPLASTY &/TRANSPOS MEDIAN NRV CARPAL TUNNE Carpal tunnel decomp, Right REDUCTION OF LARGE BREAST Breast reduction REVISE MEDIAN N/CARPAL TUNNEL SURG Right FAMILY HISTORY[2] SOCIAL HISTORY[3] Prior to Admission medications as of 06/19/25 1017 Medication Sig Last Dose Taking calcium carbonate (CALCIUM 500 PO) Take 1 tablet by mouth two times a day. Yes cholecalciferol, vitamin D3, (VITAMIN D3 PO) Take 1 capsule by mouth once daily. Yes famotidine (PEPCID PO) Take 1 tablet by mouth as needed. Yes atorvastatin (LIPITOR) 10 mg tablet TAKE 1 TABLET DAILY AT BEDTIME FOR CHOLESTEROL Yes acetaminophen 325 mg-caffeine 40 mg-butalbital 50 mg (FIORICET) per capsule Take 1 capsule by mouth every 4 hours as needed for headache. Yes levothyroxine (SYNTHROID) 112 mcg tablet Take 1 tablet by mouth once daily. Yes gabapentin (NEURONTIN) 100 mg capsule Take 2 capsules by mouth daily at bedtime for 90 days. Yes FLUoxetine (PROZAC) 40 mg capsule Take 1 capsule by mouth once daily. Yes meclizine (ANTIVERT) 25 mg tab TAKE 1 TABLET BY MOUTH THREE TIMES A DAY NEEDED FOR DIZZINESS Yes acetaminophen 325 mg-caffeine 40 mg-butalbital 50 mg (FIORICET) per tablet Take 1 tablet by mouth every 4 hours as needed for up to 30 days. Patient not taking: Reported on 06/19/2025 No medication comments found. ALLERGIES[4] Objective PHYSICAL EXAM: General: alert and oriented and healthy appearance. Pertinent negatives noted - not distressed. Skin: normal color, no rash or lesions. HEENT: pupils equal round and pupils reactive to light. Pertinent negatives noted - no carotid bruit. Cardiovascular: regular rate and rhythm, normal S1 and S2, no rub, murmurs, or gallop. Respiratory: normal breath sounds, no wheezes or crackles. No chest wall deformity or tenderness. Abdomen: bowel sounds present and soft. Pertinent negatives noted - no hernia, no mass, not rigid and not tender. Extremities: no deformity, no edema or tenderness, no joint swelling or clubbing. Neurological: normal cognition and motor skills. Gait normal. No weakness or sensory deficit. PAIN ASSESSMENT: VITALS: BP 88/62 Pulse 91 Temp (Src) 96.9 (Temporal) Resp 14 Ht 5' 3 (1.60m) Wt 147 lb (66.7kg) SpO2 95% LMP 03/10/2006 BMI 26.05 kg/(m^2). Diagnostic tests reviewed for today's visit: Lab Value Units Date High Low HB 13.7 g/dL 06/19/2025 15.5 11.5 HCT 41.9 % 06/19/2025 46.0 36.0 WBC 6.86 k/uL 06/19/2025 11.00 3.70 PLT 211 k/uL 06/19/2025 400 150 NA 140 mmol/L 06/19/2025 144 136 K 5.2 mmol/L 06/19/2025 5.1 3.7 GLUC 104 mg/dL 06/19/2025 99 74 BUN 9 mg/dL 06/19/2025 21 7 CREAT 0.79 mg/dL 06/19/2025 0.96 0.58 PTSEC 10.4 sec 06/19/2025 <13.1 INR 1.0 no uni* 06/19/2025 1.3 0.9 APTT 25.0 sec 06/19/2025 32.4 23.0 ALT 10 U/L 06/19/2025 38 7 AST 17 U/L 06/19/2025 35 13 TBILI 0.7 mg/dL 06/19/2025 1.3 0.2 TSH 0.331 mIU/L 05/15/2025 4.200 0.270 Lab Value Units Date High Low HCGQT No results within date range. UHCG No results within date range. HCG, BODY* No results within date range. Lab Value Units Date High Low ABORHD No results within date range. ABSCREEN No results within date range. Hemoglobin A1C (%) Date Value 04/20/2025 5.4 03/12/2023 5.3 07/03/2022 5.2 Recent Results (from the past 8760 hours) ECG COMPLETE Collection Time: 06/19/25 10:22 AM Result Value Ventricular Rate 87 Atrial Rate 87 P-R Interval 134 QRS Duration 74 QT Interval 360 QTC Calculation (Bazett) 433 Calculated P Alb[place] 42 Calculated R [place] 8 Calculated T [place] 42 Impression NORMAL SINUS RHYTHM POSSIBLE LEFT ATRIAL ENLARGEMENT BORDERLINE ECG Confirmed by MD DELICIA, RADHA ([id number]) on 06/20/2025 9:53:07 AM No results found for this or any previous visit (from the past 01041 hours). Instructions Given to Patient: Instructions located in the after visit summary. Patient given verbal and written preop instructions and voices comprehension and compliance. Recording using [id number] software for draft documentation of the visit was discussed with the patient/authorized arborist representative; all questions welcomed and answered. Patient/authorized arborist representative agreed to proceed SIGNATURE: Tamanna Lion APRN.CNP PATIENT NAME: Kathryn Whiting DATE: June 19, 2025 TIME: 9:53 AM PAGER/CONTACT #: [1] PAST MEDICAL HISTORY Diagnosis Date Breast cancer (HCC) Diarrhea Hypercholesteraemia 03/2015 Migraine, unspecified, with intractable migraine, so stated, without mention of status migrainosus Migraine Mild diastolic dysfunction echo 03/2013 Mild mitral regurgitation echo 03/2013 Mild tricuspid regurgitation echo 03/2013 Mitral valve disorders(424.0) MVP Myalgia and myositis, unspecified Panic disorder without agoraphobia Panic disorder Unspecified hypothyroidism [2] FAMILY HISTORY Problem Relation Age of Onset Thyroid Mother Mother's side of family Anesthesia Mother Heart disease Mother Heart Mother atrial fibrilation Heart Father other (Multiple myeloma) Father 1983 -- multiple myeloma in remission, then amyloidosis Coronary Artery Disease Sister 2 TN's, starting age 40 Breast Cancer Paternal Aunt Cancer Paternal Aunt Leukemia other (Multiple myeloma) Paternal Uncle Heart Other Mother's side of family Anesthesia Problems No Family History [3] Social History Tobacco Use Smoking status: Former Current packs/day: 0.00 Average packs/day: 0.5 packs/day for 10.0 years (5.0 ttl pk-yrs) Types: Cigarettes Start date: 08/13/1980 Quit date: 08/13/1990 Years since quittin.8 Smokeless tobacco: Never Vaping Use Vaping status: Never Used Substance Use Topics Alcohol use: Never Drug use: No [4] ALLERGIES No Known Allergies documented in this encounter [facility] 06-08-2025 Note HNO ID: [id number] Author: ISABELL TORRES RN Service: ? Author Type: Registered Nurse Type: Progress Notes Filed: 06/08/2025 20:43 Note Text: Patient denies fractures or falls since last visit. Patient denies any dental work in last 2 months or upcoming 2 months. Patient given Evenity 210 SQ in the left and right lower quadrants, abdomen Patient tolerated injection well. Lot #: [id number] Exp. Date: 08/08/2027 Last Vitamin D AND Serum Calcium: Calcium (mg/dL) Date Value 08/21/2021 9.6 Calcium, Total (mg/dL) Date Value 04/20/2025 9.5 Vitamin D 25 Hydroxy (ng/mL) Date Value 05/15/2025 31.2 08/02/2018 31.5 Last DXA: 10/14/2023 Visit scheduled. Next Prolia Appointment: 07/06/25 Isabell Torres RN [facility] 06-08-2025 History of Present illness Narrative Patient denies fractures or falls since last visit. Patient denies any dental work in last 2 months or upcoming 2 months. Patient given Evenity 210 SQ in the left and right lower quadrants, abdomen Patient tolerated injection well. Lot #: [id number] Exp. Date: 08/08/2027 Last Vitamin D & Serum Calcium: Calcium (mg/dL) Date Value 08/21/2021 9.6 Calcium, Total (mg/dL) Date Value 04/20/2025 9.5 Vitamin D 25 Hydroxy (ng/mL) Date Value 05/15/2025 31.2 08/02/2018 31.5 Last DXA: 10/14/2023 Visit scheduled. Next Prolia Appointment: 07/06/25 Isabell Torres RN Images from the original note were not included. Rheumatology Clinic Visit June 08, 2025 Last seen: 05/11/2025 (with Jacqueline Calderon) CC: Established Patient HPI: Kathryn Whiting is a 69 year old female who follows with rheumatology for joint pain (osteoarthritis/fibromyalgia) as well as osteoporosis . Brief Rheum history: - bilateral shoulder, bilateral neck, low back pain/sciatica without joint swelling - occsional weakness in ankles and knee giving out - History of psoriasis - Labs from consultation: Rf negative, CCP negative, RUFINO negative, CK/aldolase normal, ESR/CRP normal Imaging from consultation: normal ankle XR - no significant osteoarthritis Knee XR osteoarthritis progressing Osteoporosis history: Severe osteoporosis - T-score of -3.8, particularly in the femoral neck. - No history of fractures. Increased risk due to postmenopausal status and previous anastrozole use. - Prior breast cancer - No history of TN/CVA in last year - Labs neg for secondary causes - normal phosphorus, SPEP, UPEP magnesium, Current Rheum treatment: Tylenol 1000 mg TID prn Avoid NSAID d/t hiatal hernia Bone Health Treatment: No prior osteoporosis treatment Started Vitamin D 1000 international unit(s) Calcium 1200 mg daily divided doses Planning for Evenity injection #1 today Past treatments: N/A Current clinical: reviewed results No obvious rheum etiology of symptoms, weakness, joint pain. Knee pain comes and goes. Takes tylenol as needed. Still has weakness in ankles and occasional facial numbness. Prior workup with Carotid ultrasound negative. Thyroid function negative. ? Neurologic etiology - FU with PCP Monitoring: Labs 05/15 labs reviewed CTX: Latest Ref Rng 05/15/2025 C Telopeptide, Beta Cross Linked 152 - 858 pg/mL 330 Latest Ref Rng 05/15/2025 Osteocalcin 8.6 - 37.6 ng/mL 17.6 Last Bone Density: 10/14/2023 Sed rate/CRP Latest Ref Rng & Units 05/15/2025 ESR, WSR WSR 0 - 20 mm/hr 5 Latest Ref Rng & Units 03/27/2015 05/15/2025 CRP CRP <0.9 mg/dL 0.2 <0.3 Review Of Systems: RHEUMATOLOGIC REVIEW OF SYSTEMS (From consult 05/11/25): + skin photosensenitivity No history of blood clots No miscarriages + fatigue No history of Raynaud's - feet, finger, and noes feel cold, but no color changes + history of psoriasis Not significant morning stiffness + neuropathy PROMIS Assessments 08/02/2019 04/20/2023 01/19/2024 PROMIS Assessments Physical Health Percentile 53.19 31 22 Mental Health Percentile 33.72 26 19 Pain Score 2 4 4 Physical Function Percentile 12 14 Proxy-reported PAST MEDICAL HISTORY Diagnosis Date Breast cancer (HCC) Diarrhea Hypercholesteraemia 03/2015 Migraine, unspecified, with intractable migraine, so stated, without mention of status migrainosus Migraine Mild diastolic dysfunction echo 03/2013 Mild mitral regurgitation echo 03/2013 Mild tricuspid regurgitation echo 03/2013 Mitral valve disorders(424.0) MVP Myalgia and myositis, unspecified Panic disorder without agoraphobia Panic disorder Unspecified hypothyroidism PAST SURGICAL HISTORY Procedure Laterality Date BREAST LUMPECTOMY HX 11/10/2017 CHOLECYSTECTOMY Cholecystectomy -- lap (Dr. Bear?) COLONOSCOPY FLX DX W/COLLJ SPEC WHEN PFRMD 09/16/2007 COLONOSCOPY FLX DX W/COLLJ SPEC WHEN PFRMD 03/17/2019 normal EGD W/O BRSH SPEC VARICIES INJ 03/16/2025 ESOPHAGOGASTRODUODENOSCOPY TRANSORAL DIAGNOSTIC 09/01/2013 EGD ESOPHAGOGASTRODUODENOSCOPY TRANSORAL DIAGNOSTIC 03/17/2019 EGD NEUROPLASTY &/TRANSPOS MEDIAN NRV CARPAL TUNNE Carpal tunnel decomp, Right REDUCTION OF LARGE BREAST Breast reduction REVISE MEDIAN N/CARPAL TUNNEL SURG Right Family history: Denies family history of RA, SLE, and IBD. Grandmother with PsO SOCIAL HISTORY: Marital status: Tobacco: Tobacco Use: Medium Risk (06/08/2025) Patient History Smoking Tobacco Use: Former Smokeless Tobacco Use: Never Passive Exposure: Not on file ETOH: Alcohol Use: Not At Risk (03/01/2025) AUDIT-C Frequency of Alcohol Consumption: Never Average Number of Drinks: Patient does not drink Frequency of Binge Drinking: Never Allergies: ALLERGIES No Known Allergies Medications: Current Outpatient Medications Medication Sig acetaminophen 325 mg-caffeine 40 mg-butalbital 50 mg (FIORICET) per tablet Take 1 tablet by mouth every 4 hours as needed for up to 30 days. atorvastatin (LIPITOR) 10 mg tablet TAKE 1 TABLET DAILY AT BEDTIME FOR CHOLESTEROL levothyroxine (SYNTHROID) 112 mcg tablet Take 1 tablet by mouth once daily. gabapentin (NEURONTIN) 100 mg capsule Take 2 capsules by mouth daily at bedtime for 90 days. FLUoxetine (PROZAC) 40 mg capsule Take 1 capsule by mouth once daily. meclizine (ANTIVERT) 25 mg tab TAKE 1 TABLET BY MOUTH THREE TIMES A DAY NEEDED FOR DIZZINESS acetaminophen 325 mg-caffeine 40 mg-butalbital 50 mg (FIORICET) per tablet Take 1 tablet by mouth every 4 hours as needed for up to 30 days. acetaminophen 325 mg-caffeine 40 mg-butalbital 50 mg (FIORICET) per capsule Take 1 capsule by mouth every 4 hours as needed for headache. No current facility-administered medications for this visit. Physical Exam: BP 113/76 Pulse 98 Wt 66.7 kg (147 lb) LMP 03/10/2006 SpO2 97% BMI 25.88 kg/m Physical Exam Constitutional: General: She is not in acute distress. Appearance: Normal appearance. She is not toxic-appearing. HENT: Head: Normocephalic and atraumatic. Eyes: General: No scleral icterus. Conjunctiva/sclera: Conjunctivae normal. Neck: Comments: No kyphosis Cardiovascular: Rate and Rhythm: Normal rate and regular rhythm. Pulmonary: Effort: Pulmonary effort is normal. Musculoskeletal: Cervical back: Normal range of motion and neck supple. No tenderness. Lymphadenopathy: Cervical: No cervical adenopathy. Skin: General: Skin is warm and dry. Findings: No rash. Neurological: General: No focal deficit present. Mental Status: She is alert. Mental status is at baseline. Psychiatric: Mood and Affect: Mood normal. Behavior: Behavior normal. Thought Content: Thought content normal. Judgment: Judgment normal. Labs Reviewed: AST Date Value Ref Range Status 04/20/2025 24 13 - 35 U/L Final ALT Date Value Ref Range Status 04/20/2025 10 7 - 38 U/L Final Creatinine Date Value Ref Range Status 04/20/2025 0.79 0.58 - 0.96 mg/dL Final CRP Date Value Ref Range Status 05/15/2025 <0.3 <0.9 mg/dL Final 03/27/2015 0.2 0.0 - 1.0 mg/dL Final Sed Rate, Westergren Date Value Ref Range Status 05/15/2025 5 0 - 20 mm/hr Final Rheumatoid Factor Date Value Ref Range Status 05/15/2025 <10 <16 IU/mL Final CCP Antibody, IgG Date Value Ref Range Status 05/15/2025 <15 <20 Units Final RUFINO Date Value Ref Range Status 05/15/2025 Negative Negative Final Comment: Anti-nuclear antibody test is used as an aid in diagnosis of systemic autoimmune diseases. Where positive and clinically warranted, follow-up using disease-specific testing is recommended. Low positive titers are not uncommon with advanced age, certain chronic infections, and malignancies among others. Test methodology: Indirect fluorescence immunoassay (IFA) using HEp-2 cells. RUFINO Pattern Date Value Ref Range Status 03/27/2015 Not applicable for negative result. Final Calcium, Total Date Value Ref Range Status 04/20/2025 9.5 8.5 - 10.2 mg/dL Final 03/12/2023 10.0 8.5 - 10.2 mg/dL Final 07/03/2022 9.3 8.5 - 10.2 mg/dL Final Creatinine Date Value Ref Range Status 04/20/2025 0.79 0.58 - 0.96 mg/dL Final 04/14/2025 0.77 0.58 - 0.96 mg/dL Final 03/12/2023 0.79 0.58 - 0.96 mg/dL Final Imaging Reviewed: Last 2 XR Ankle - Impression Only XR ANKLE GENERAL 3V AP/LAT/OBL LEFT Exam End: 05/11/2025 12:52 PM (Final result) Impression: IMPRESSION: No acute bony abnormality. 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: GAMA Transcribe Date/Time: May 18 2025 8:40P... XR ANKLE GENERAL 3V AP/LAT/OBL RIGHT Exam End: 05/11/2025 12:51 PM (Final result) Impression: IMPRESSION: No acute bony abnormality. 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: PSCB Transcribe Date/Time: May 18 2025 8:40P... Last XR Knee - Impression Only XR KNEE GENERAL 4V AP BOTH/PA BOTH/LAT/MERC RIGHT Exam End: 05/11/2025 12:49 PM (Final result) Impression: IMPRESSION: Osteoarthrosis, showing interval progression 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: PSC Transcribe Date/Time: May 18 2025 7:16A Dictated by : UBALDO WONG MD ... Last XR Lumbar Spine - Impression Only XR LUMBAR GENERAL 3V AP/LAT/L5-S1 Exam End: 04/20/2025 12:19 PM (Final result) Impression: IMPRESSION: MULTILEVEL DEGENERATIVE DISC AND FACET DISEASE. LEVOSCOLIOSIS, NO CHANGE COMPARED TO THE PREVIOUS EXAM.. 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: [facility] Transcribe Date/Time: Apr 26 2025 3:56P Dictated by : GORAN PEÑALOZA MD... Last XR Cervical Spine - Impression Only XR CERV OTHER 4V AP/LAT/OBL Exam End: 01/06/2024 1:05 PM (Final result) Impression: IMPRESSION: 1. No acute osseous findings or significant change 2. Disc space and facet joint degeneration as above and secondary degenerative bony foraminal encroachment as above. Left foramina better profiled today. 3. Nonprogressive C3-4 degenerative listhesis ... Last XR Shoulder - Impression Only XR SHOULDER GENERAL 3V OR MORE AP/TRUE AP/OTHER LEFT Exam End: 01/06/2024 1:05 PM (Final result) Impression: IMPRESSION: 1. Minimal glenohumeral osteoarthritis. 2. No acute osseous findings 3. Suboptimal Grashey view; no provided external rotation view of the proximal humerus and therefore limited assessment of the humeral medial articular surface and the humeral greater tuberosity. ... IMPRESSION/PLAN: (M81.0) Age-related osteoporosis without current pathological fracture (primary encounter diagnosis) - Severe osteoporosis based on T-Score < 3 - T-score of -3.8, particularly in the femoral neck. - No history of fractures. Increased risk due to postmenopausal status and previous anastrozole use. - Prior breast cancer - No history of TN/CVA in last year - Labs neg for secondary causes - normal phosphorus, SPEP, UPEP magnesium, - Started Vitamin D 1000 international unit(s) - Started Calcium - recommend daily [id number] mg daily divided doses including dietary calcium - Initiate Evenity injection #1 today - given by RN - All questions answered - BMD every 2 years - due 11/02 (M25.50) Arthralgia, unspecified joint (L40.9) Psoriasis (M15.0) Primary osteoarthritis involving multiple joints Rheumatologic workup negative (See above) No current evidence of Psoriatic arthritis or other inflammatory arthritis at this time. Manage osteoarthritis symptoms with conservative measures, topicals, Tylenol - Orthopedic referral/injections in reserve if indicated Follow up with PCP regarding facial numbness and ankle weakness -?neuro etiology Follow up with me in 3 months, can coordinate with Evenity injection Risks, benefits and alternatives of all new medications prescribed were discussed with patient in detail. Patient was given time to ask questions. All questions were answered. Patient expressed understanding and agreement with the plan above. If results are still pending, patient will be called with results and further recommendations. Medical Decision Making: Medical Decision Making Level: 1 - N/A I spent a total of 30 minutes on the date of the service which included preparing to see the patient, [id number] patient care, completing clinical documentation, counseling and educating the patient/family/caregiver, ordering medications, tests, or procedures, and communicating results to the patient/family/caregiver. Jacqueline Calderon PA-C documented in this encounter [facility] 06-08-2025 Instructions Jacqueline Calderon PA-C - 06/08/2025 11:08 AM EDT Voltaren gel (diclofenac gel) - Topifcal NSAID documented in this encounter [facility] 06-08-2025 Note HNO ID: [id number] Author: JACQUELINE CALDERON PA-C Service: ? Author Type: Physician Milking Machine Technician Type: Progress Notes Filed: 06/08/2025 20:43 Note Text: Rheumatology Clinic Visit June 08, 2025 Last seen: 05/11/2025 (with Jacqueline Calderon) CC: Established Patient HPI: Kathryn Whiting is a 69 year old female who follows with rheumatology for joint pain (osteoarthritis/fibromyalgia) as well as osteoporosis . Brief Rheum history: - bilateral shoulder, bilateral neck, low back pain/sciatica without joint swelling - occsional weakness in ankles and knee giving out - History of psoriasis - Labs from consultation: Rf negative, CCP negative, RUFINO negative, CK/aldolase normal, ESR/CRP normal Imaging from consultation: normal ankle XR - no significant osteoarthritis Knee XR osteoarthritis progressing Osteoporosis history: Severe osteoporosis - T-score of -3.8, particularly in the femoral neck. - No history of fractures. Increased risk due to postmenopausal status and previous anastrozole use. - Prior breast cancer - No history of TN/CVA in last year - Labs neg for secondary causes - normal phosphorus, SPEP, UPEP magnesium, Current Rheum treatment: Tylenol 1000 mg TID prn Avoid NSAID d/t hiatal hernia Bone Health Treatment: No prior osteoporosis treatment Started Vitamin D 1000 international unit(s) Calcium 1200 mg daily divided doses Planning for Evenity injection #1 today Past treatments: N/A Current clinical: reviewed results No obvious rheum etiology of symptoms, weakness, joint pain. Knee pain comes and goes. Takes tylenol as needed. Still has weakness in ankles and occasional facial numbness. Prior workup with Carotid ultrasound negative. Thyroid function negative. ? Neurologic etiology - FU with PCP Monitoring: Labs 05/15 labs reviewed CTX: Latest Ref Rng 05/15/2025 C Telopeptide, Beta Cross Linked 152 - 858 pg/mL 330 Latest Ref Rng 05/15/2025 Osteocalcin 8.6 - 37.6 ng/mL 17.6 Last Bone Density: 10/14/2023 Sed rate/CRP Latest Ref Rng AND Units 05/15/2025 ESR, WSR WSR 0 - 20 mm/hr 5 Latest Ref Rng AND Units 03/27/2015 05/15/2025 CRP CRP <0.9 mg/dL 0.2 <0.3 Review Of Systems: RHEUMATOLOGIC REVIEW OF SYSTEMS (From consult 05/11/25): + skin photosensenitivity No history of blood clots No miscarriages + fatigue No history of Raynaud's - feet, finger, and noes feel cold, but no color changes + history of psoriasis Not significant morning stiffness + neuropathy PROMIS Assessments 08/02/2019 04/20/2023 01/19/2024 PROMIS Assessments Physical Health Percentile 53.19 31 22 Mental Health Percentile 33.72 26 19 Pain Score 2 4 4 Physical Function Percentile 12 14 Proxy-reported PAST MEDICAL HISTORY Diagnosis Date Breast cancer (HCC) Diarrhea Hypercholesteraemia 03/2015 Migraine, unspecified, with intractable migraine, so stated, without mention of status migrainosus Migraine Mild diastolic dysfunction echo 03/2013 Mild mitral regurgitation echo 03/2013 Mild tricuspid regurgitation echo 03/2013 Mitral valve disorders(424.0) MVP Myalgia and myositis, unspecified Panic disorder without agoraphobia Panic disorder Unspecified hypothyroidism PAST SURGICAL HISTORY Procedure Laterality Date BREAST LUMPECTOMY HX 11/10/2017 CHOLECYSTECTOMY Cholecystectomy -- lap (Dr. Bear?) COLONOSCOPY FLX DX W/COLLJ SPEC WHEN PFRMD 09/16/2007 COLONOSCOPY FLX DX W/COLLJ SPEC WHEN PFRMD 03/17/2019 normal EGD W/O BRSH SPEC VARICIES INJ 03/16/2025 ESOPHAGOGASTRODUODENOSCOPY TRANSORAL DIAGNOSTIC 09/01/2013 EGD ESOPHAGOGASTRODUODENOSCOPY TRANSORAL DIAGNOSTIC 03/17/2019 EGD NEUROPLASTY AND/TRANSPOS MEDIAN NRV CARPAL TUNNE Carpal tunnel decomp, Right REDUCTION OF LARGE BREAST Breast reduction REVISE MEDIAN N/CARPAL TUNNEL SURG Right Family history: Denies family history of RA, SLE, and IBD. Grandmother with PsO SOCIAL HISTORY: Marital status: Tobacco: Tobacco Use: Medium Risk (06/08/2025) Patient History Smoking Tobacco Use: Former Smokeless Tobacco Use: Never Passive Exposure: Not on file ETOH: Alcohol Use: Not At Risk (03/01/2025) AUDIT-C Frequency of Alcohol Consumption: Never Average Number of Drinks: Patient does not drink Frequency of Binge Drinking: Never Allergies: ALLERGIES No Known Allergies Medications: Current Outpatient Medications Medication Sig acetaminophen 325 mg-caffeine 40 mg-butalbital 50 mg (FIORICET) per tablet Take 1 tablet by mouth every 4 hours as needed for up to 30 days. atorvastatin (LIPITOR) 10 mg tablet TAKE 1 TABLET DAILY AT BEDTIME FOR CHOLESTEROL levothyroxine (SYNTHROID) 112 mcg tablet Take 1 tablet by mouth once daily. gabapentin (NEURONTIN) 100 mg capsule Take 2 capsules by mouth daily at bedtime for 90 days. FLUoxetine (PROZAC) 40 mg capsule Take 1 capsule by mouth once daily. meclizine (ANTIVERT) 25 mg tab TAKE 1 TABLET BY MOUTH THREE TIMES A DAY NEED (more content not included)... [facility] 05-24-2025 Telephone encounter Note Reviewed chart to see if PA was started since pharmacy faxed another request. No one called patient and I gave message below regarding fiorcet not covered. [facility] and will pay out pocket. Dorothy Hargrove MA [facility] 05-24-2025 Miscellaneous Notes Reviewed chart to see if PA was started since pharmacy faxed another request. No one called patient and I gave message below regarding fiorcet not covered. Patient would [facility] rx [facility] and will pay out pocket. Dorothy Hargrove MA documented in this encounter [facility] 05-15-2025 Telephone encounter Note [facility] calling from [phone] regarding reference number [id number]. [facility] not F[facility]. The alternatives are meloxicam, ibuprofen or naproxen. Please advise if an alternative can be sent [facility] 05-15-2025 Miscellaneous Notes [facility] from [phone] regarding reference number [id number]. [facility] does not Fioric[facility]. The alternatives are meloxicam, ibuprofen or naproxen. Please advise if an alternative can be sent documented in this encounter [facility] 05-15-2025 Telephone encounter Note Prescription Refill Information The patient has been identified by name and date of : Yes Caregiver verified no other encounters exist for this prescription request: Yes Caregiver confirmed with patient/requestor that no other refills are due, in the near future, with this provider at this time: Yes The last office visit in the department: 03/01/25 Does the patient have a future office visit with this provider/department: No Requested Prescriptions Pending Prescriptions Disp Refills acetaminophen 325 mg-caffeine 40 mg-butalbital 50 mg (FIORICET) per tablet 10 tablet 0 Sig: Take 1 tablet by mouth every 4 hours as needed for up to 30 days. Per patient, waiting on [facility] to arrive, requested 10 tablets to [facility], made a copy and attached to correct pharmacy. Ricarda You May 15, 2025 8:23 AM [facility] 05-15-2025 Miscellaneous Notes Prescription Refill Information The patient has been identified by name and date of : Yes Caregiver verified no other encounters exist for this prescription request: Yes Caregiver confirmed with patient/requestor that no other refills are due, in the near future, with this provider at this time: Yes The last office visit in the department: 03/01/25 Does the patient have a future office visit with this provider/department: No Requested Prescriptions Pending Prescriptions Disp Refills acetaminophen 325 mg-caffeine 40 mg-butalbital 50 mg (FIORICET) per tablet 10 tablet 0 Sig: Take 1 tablet by mouth every 4 hours as needed for up to 30 days. Per patient, waiting on [facility] to arrive, requested 10 tablets to [facility], made a copy and attached to correct pharmacy. Ricarda You May 15, 2025 8:23 AM documented in this encounter [facility] 05-15-2025 Telephone encounter Note Precertification is not required. The referral has been updated. The Pharmacy Prior Authorization Team. [facility] 05-15-2025 Miscellaneous Notes Precertification is not required. The referral has been updated. The Pharmacy Prior Authorization Team. Referral placed for Evenity. Isabell Torres RN documented in this encounter [facility] 05-11-2025 Telephone encounter Note Referral placed for Evenity. Isabell Torres RN [facility] 05-11-2025 Instructions Jacqueline Calderon PA-C - 05/11/2025 11:34 AM EDT Calcium 1200 mg daily - 600 mg twice daily (divided) Vitamin D [id number] international unit(s) daily Weight bearing exercises. - Return for morning fasting blood work before starting bone-building medicine; tests will include vitamin D level, rheumatoid factor, and aluminum level. Stay well hydrated for multiple tubes. - Schedule a repeat DEXA bone density scan on the same machine used in 2022 (insurance requires scans every two years). 10/2025 - Continue your [id number] vitamin D supplement, aiming for 1,000-2,000 IU daily to reach a level of 40-60 ng/mL. - Ensure a total of 1,200 mg of calcium daily through diet and/or supplements (for example, 600 mg twice a day if you need a full supplement dose). - After labs return, consider starting Evenity (monthly arm injection for 12 months) followed by annual Reclast infusion for osteoporosis; detailed information will be provided before you begin. - Continue physical therapy for your sciatica; discuss with your provider whether increasing your gabapentin dose may help nerve pain. - For fibromyalgia symptoms (widespread muscle tenderness, fatigue, sleep issues), consider talking with your provider about medications such as duloxetine (Cymbalta) or pregabalin (Lyrica). - Incorporate weight-bearing activities (daily walking) and low-impact exercises (aquatic therapy or Papito Chi) to support bone strength and ease muscle aches. - Maintain good sleep habits--consistent bedtime, restful environment--to help manage fatigue and pain. 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 This condition is associated with abnormal central processing of various peripheral stimuli including pain. Fibromyalgia is a musculoskeletal manifestation of this condition. It is a very common condition and is a diagnosis of inclusion rather than that of exclusion, i.e. it can co-exist with other concomitant rheumatologic and/or non-rheumatologic conditions. A meta-analysis from the [facility] in [place] suggested that concomitant fibromyalgia is common in patients with inflammatory arthritis, which can have a major impact on assessing disease severity and treatment decisions. The overall prevalence of fibromyalgia was 21% among patients with rheumatoid arthritis and 13% in ankylosing spondylitis, whereas the condition is reported in approximately 1% to 5% of the general population, according to Josiah Olmstead, [facility], PhD, of the [facility] in [place], and colleagues. The cornerstones of therapy for fibromyalgia (based on level 1 evidence) are regular aerobic exercise (stationary bike, pool therapy), optimal sleep, and optimal treatment of depression. Optimal quality sleep (especially deep sleep - phase 3/4 NREM) is important to achieve. If your sleep remains disturbed, you might need to have a sleep study to identify a primary sleep disorder that might need concomitant treatment. You might also benefit from relaxation techniques such as yoga, papito chi, acupuncture, or biofeedback to help deal better with stress. I emphasize that all the three aspects of the treatment (sleep, exercise, depression) be addressed simultaneously for maximum benefit and effective treatment of this condition. Doing one or the other will result in less than an optimal response to treatment. Medications sometimes used to treat fibromyalgia include those to help correct sleep disturbances and depression such as low dose antidepressants (Cymbalta or Savella) or non-habit forming sedatives and mild analgesics such as Tylenol. Lyrica is another drug that has been FDA approved for treatment of fibromyalgia. Narcotics have been found to be not only ineffective, but harmful and habit forming, and should be avoided. Therapy must be highly individualized. Most signs and symptoms of fibromyalgia can be managed by primary care providers under the guidance of a specialist. So please discuss the following with your primary care provider: - Aquatic therapy - Routine low grade aerobic exercise - Relaxation techniques / mindfulness / yoga /Papito Chi / Qi Gong - Improvement of sleep hygiene - Appropriately address depression/anxiety with SNRIs - Can use Gabapentin and Tricyclics for symptomatic benefit - Occupational therapy evaluation for desensitization therapy. For additional information please visit the following excellent resource that also outlines the management guidelines of fibromyalgia: [email or web address] ----- BONE MINERAL DENSITY PATIENT INSTRUCTIONS ======= Bone mineral density testing measures the amount of calcium in certain parts of your bones. This information determines how strong your bones are. The test is used to detect osteoporosis, a disease in which the bone's mineral content and density are low, increasing a person's risk of fractures. The lumbar spine (lower back) and the hip are the skeletal sites usually examined. For the test, remember that: 1. You cannot take this test if you are . 2. Eat a normal diet on the day of the test. 3. Take your medications as you normally would. 4. DO NOT take calcium supplements (such as Tums) for 24 hours before the test. 5. On the day of the test, leave valuables (jewelry or credit cards) at home. 6. The test should be performed prior to oral, rectal or IV contrast studies, or at least 7 days after any of these studies. For the test, you may be asked to wear a hospital gown. You will lie on your back, on a padded table, in a comfortable position. Generally, you can resume your usual activities immediately. documented in this encounter [facility] 05-11-2025 Note HNO ID: [id number] Author: JACQUELINE CALDERON PA-C Service: ? Author Type: Physician Milking Machine Technician Type: Progress Notes Filed: 05/11/2025 12:32 Note Text: Rheumatology CONSULTATION Date of Service: 05/11/2025 Patient: Kathryn Whiting Medical Record: [id number] Primary Care Physician: Pablo Bates DO Last Rheumatology visit: None at [facility] Referring Provider: Cata Whyte [address] [facility] [id number] Kathryn Whiting is here today at request of Cata Whyte APRN.[employer] ORDER DISPATCHER [employer]IE[employer] specifically for consultation of my opinion in regards to the chief complaint listed below. Correspondence will be shared today via the [employer] electronic health record or through regular mail, where applicable. Recording using 24h00 software for draft documentation of the visit was discussed with the patient/authorized arborist representative; all questions welcomed and answered. Patient/authorized arborist representative agreed to proceed History of Present Illness Kathryn Whiting is a 69-year-old female with a history of osteoarthritis, degenerative disc disease, sciatica, and psoriasis, presenting for evaluation of joint and muscle pain. Kathryn reports a current pain level of 3 . She describes the pain as Dull, Aching, Stiffness. The pain is Continuous . Kathryn is RF negative - 9 (03/27/2015). Her most recent RUFINO was negative (03/27/2015). Kathryn reports chronic joint and muscle pain, primarily in both shoulders, neck, and lower back, with a history of a left shoulder injury at work several years ago. She was previously diagnosed with fibromyalgia but did not pursue treatment at that time. She notes that the pain is exacerbated by activity and occasionally experiences flare-ups. She denies visible swelling in the joints but describes a persistent aching sensation, particularly in the left shoulder and muscles. She also reports weakness in her ankles and occasional episodes of her right knee giving out. Kathryn has a history of sciatica, currently undergoing physical therapy, and recently completed a prednisone pack. She takes Tylenol 1000 mg once daily as needed for pain, which provides variable relief. She is also on gabapentin 2 capsules at bedtime for hot flashes, which has not alleviated her sciatica symptoms. Kathryn reports a significant reaction to a COVID-19 vaccine in her left arm and a flu shot in her right arm last year, resulting in an inability to lift her arms for months. She underwent physical therapy for this issue and notes that while her arm function has improved, she still experiences a sensation of weakness and a sprain-like feeling in her arms. Kathryn has a history of psoriasis diagnosed by dermatology 5-10 years ago, previously treated with shampoo but currently not causing issues. She denies current rashes or sun sensitivity but notes increased skin sensitivity and redness due to rosacea. She reports hair loss with regrowth and denies nail changes, nosebleeds, or mouth sores. Kathryn experiences dysphagia associated with a hiatal hernia, scheduled for repair in June. She reports heartburn and three episodes of severe abdominal pain, prompting the decision for surgical intervention. She denies diarrhea, hematuria, or hematochezia. Kathryn reports chronic fatigue, moderate in severity, and wakes up feeling unrefreshed. She experiences moderate difficulty with thinking and memory. She denies depression but reports frequent headaches and occasional numbness on the left side of her face, unrelated to her migraines. A recent carotid artery ultrasound was clear. She denies Raynaud's phenomenon but notes cold extremities without color changes. Kathryn has a history of osteoporosis, with a bone density scan in 2022 showing a T-score of -3.8. She has not received treatment for osteoporosis but previously took vitamin D supplements while on estrogen-blocking medication for breast cancer. She denies current calcium supplementation and has not had recent dental extractions or implants. She denies a history of fractures since childhood, when she broke her wrist. Kathryn is postmenopausal, having gone through menopause at age 50-53, and reports more frequent hot flashes now than during menopause. She denies a history of blood clots or miscarriages. Kathryn denies a family history of autoimmune diseases, rheumatoid arthritis, lupus, Crohn's disease, or colitis. She, has a family history of psoriasis in her grandmother and cousin. Current medications include furosemide, Antivert, fluoxetine, gabapentin, Synthroid, and Lipitor. She denies a history of cardiac disease. She is scheduled for cataract surgery after her hiatal hernia repair. Pain Evaluation 03/16/2025 03/16/2025 04/20/2025 05/08/2025 05/11/2025 Pain Evaluation Pain Score 0 0 6 4 3 Location Back-Lower Description Tightness;Tingling;Radiating Dull;Aching;Stiffness Duration (#) 1 Duration (Timeframe) Months Years Frequency (more content not included)... [facility] 05-11-2025 History of Present illness Narrative Images from the original note were not included. Rheumatology CONSULTATION Date of Service: 05/11/2025 Patient: Kathryn Whiting Medical Record: [id number] Primary Care Physician: Pablo Bates DO Last Rheumatology visit: None at [facility] Referring Provider: Cata Whyte [facility] [id number] Kathryn Whiting is here today at request of Cata Whyte APRN.[facility] specifically for consultation of my opinion in regards to the chief complaint listed below. Correspondence will be shared today via the [employer] electronic health record or through regular mail, where applicable. Recording using 24h00 software for draft documentation of the visit was discussed with the patient/authorized arborist representative; all questions welcomed and answered. Patient/authorized arborist representative agreed to proceed History of Present Illness Kathryn Whiting is a 69-year-old female with a history of osteoarthritis, degenerative disc disease, sciatica, and psoriasis, presenting for evaluation of joint and muscle pain. Kathryn reports a current pain level of 3 . She describes the pain as Dull, Aching, Stiffness. The pain is Continuous . Kathryn is RF negative - 9 (03/27/2015). Her most recent RUFINO was negative (03/27/2015). Kathryn reports chronic joint and muscle pain, primarily in both shoulders, neck, and lower back, with a history of a left shoulder injury at work several years ago. She was previously diagnosed with fibromyalgia but did not pursue treatment at that time. She notes that the pain is exacerbated by activity and occasionally experiences flare-ups. She denies visible swelling in the joints but describes a persistent aching sensation, particularly in the left shoulder and muscles. She also reports weakness in her ankles and occasional episodes of her right knee giving out. Kathryn has a history of sciatica, currently undergoing physical therapy, and recently completed a prednisone pack. She takes Tylenol 1000 mg once daily as needed for pain, which provides variable relief. She is also on gabapentin 2 capsules at bedtime for hot flashes, which has not alleviated her sciatica symptoms. Kathryn reports a significant reaction to a COVID-19 vaccine in her left arm and a flu shot in her right arm last year, resulting in an inability to lift her arms for months. She underwent physical therapy for this issue and notes that while her arm function has improved, she still experiences a sensation of weakness and a sprain-like feeling in her arms. Kathryn has a history of psoriasis diagnosed by dermatology 5-10 years ago, previously treated with shampoo but currently not causing issues. She denies current rashes or sun sensitivity but notes increased skin sensitivity and redness due to rosacea. She reports hair loss with regrowth and denies nail changes, nosebleeds, or mouth sores. Kathryn experiences dysphagia associated with a hiatal hernia, scheduled for repair in June. She reports heartburn and three episodes of severe abdominal pain, prompting the decision for surgical intervention. She denies diarrhea, hematuria, or hematochezia. Kathryn reports chronic fatigue, moderate in severity, and wakes up feeling unrefreshed. She experiences moderate difficulty with thinking and memory. She denies depression but reports frequent headaches and occasional numbness on the left side of her face, unrelated to her migraines. A recent carotid artery ultrasound was clear. She denies Raynaud's phenomenon but notes cold extremities without color changes. Kathryn has a history of osteoporosis, with a bone density scan in 2022 showing a T-score of -3.8. She has not received treatment for osteoporosis but previously took vitamin D supplements while on estrogen-blocking medication for breast cancer. She denies current calcium supplementation and has not had recent dental extractions or implants. She denies a history of fractures since childhood, when she broke her wrist. Kathryn is postmenopausal, having gone through menopause at age 50-53, and reports more frequent hot flashes now than during menopause. She denies a history of blood clots or miscarriages. Kathryn denies a family history of autoimmune diseases, rheumatoid arthritis, lupus, Crohn's disease, or colitis. She, has a family history of psoriasis in her grandmother and cousin. Current medications include furosemide, Antivert, fluoxetine, gabapentin, Synthroid, and Lipitor. She denies a history of cardiac disease. She is scheduled for cataract surgery after her hiatal hernia repair. Pain Evaluation 03/16/2025 03/16/2025 04/20/2025 05/08/2025 05/11/2025 Pain Evaluation Pain Score 0 0 6 4 3 Location Back-Lower Description Tightness;Tingling;Radiating Dull;Aching;Stiffness Duration (#) 1 Duration (Timeframe) Months Years Frequency Continuous Continuous Patient-Entered Data PROMIS Assessments 08/02/2019 04/20/2023 01/19/2024 PROMIS Global Health - (T-Scores - the mean of general population = 50. Five points is a clinically meaningful difference.) Physical T-Score 50.8 44.9 42.3 Mental T-Score 45.8 43.5 41.1 04/20/2023 01/19/2024 PROMIS CAT Pain Interference PROMIS Adult Short Form-Global Health Score (Mental) 43.5 (Good) 41.1 (Good) Proxy-reported No data to display 04/20/2023 01/19/2024 PROMIS PHYSICAL FUNCTION T-SCORE PROMIS Physical Function T-Score 38 (moderate dysfunction) 39 (moderate dysfunction) Physical Function Percentile 12 14 Proxy-reported RAPID 3 [place] Activities of Daily Living No Data Dress self? - Get in and out of bed? - Walk outdoors? - Wash and dry body? - Get in and out of car? - RAPID 3 Disease Activity Weighed Score Levels: 0 - 1: Near Remission 1.3 - 2.0: Low Severity 2.3 - 4.0: Moderate Severity 4.3 - 10.0: High Severity No data to display Review of Systems Review of Systems CONSTITUTION: Negative for: Fever and Recent weight change HEENT: Positive for: Trouble swallowing (related to hiatal hernia) Negative for: Nosebleeds, Mouth sores and Dry mouth RESPIRATORY: Positive for: Shortness of breath Negative for: Cough, Pain with breathing and Coughing up blood GASTROINTESTINAL: Positive for: Heartburn (related to hiatal hernia) Negative for: Melena and Diarrhea MUSCULOSKELETAL: Positive for: Arthralgias, Myalgias (L arm, also with aching in celina upper thighs,) and Muscle weakness Negative for: Joint swelling and Morning Joint Stiffness NEUROLOGICAL: Positive for: Headaches and Numbness (migraines, face used to get numb during the migraines. Did Carotid artery ultrasound which was normal) SKIN: Positive for: Sun Sensitive Rash (redness worse with sun exposure on skin) and Hair loss Negative for: Rash, Skin changes and Nail changes EYES: Positive for: Eye dryness and Visual disturbance (Blurry vision, Cataracts need removed) Negative for: Eye pain and Eye redness CARDIOVASCULAR: Negative for: Chest pain and Leg swelling GENITOURINARY: Negative for: Dysuria, Hematuria and Ulcerations HEMATOLOGIC/LYMPHATIC: Negative for: Swollen glands RHEUMATOLOGIC REVIEW OF SYSTEMS: + skin photosensenitivity No history of blood clots No miscarriages + fatigue No history of Raynaud's - feet, finger, and noes feel cold, but no color changes + history of psoriasis Not significant morning stiffness + neuropathy All other reviewed and negative other than HPI. Past Medical History PAST MEDICAL HISTORY Diagnosis Date Breast cancer (HCC) Diarrhea Hypercholesteraemia 03/2015 Migraine, unspecified, with intractable migraine, so stated, without mention of status migrainosus Migraine Mild diastolic dysfunction echo 03/2013 Mild mitral regurgitation echo 03/2013 Mild tricuspid regurgitation echo 03/2013 Mitral valve disorders(424.0) MVP Myalgia and myositis, unspecified Panic disorder without agoraphobia Panic disorder Unspecified hypothyroidism Past Surgical History PAST SURGICAL HISTORY Procedure Laterality Date BREAST LUMPECTOMY HX 11/10/2017 CHOLECYSTECTOMY Cholecystectomy -- lap (Dr. Bear?) COLONOSCOPY FLX DX W/COLLJ SPEC WHEN PFRMD 09/16/2007 COLONOSCOPY FLX DX W/COLLJ SPEC WHEN PFRMD 03/17/2019 normal EGD W/O BRSH SPEC VARICIES INJ 03/16/2025 ESOPHAGOGASTRODUODENOSCOPY TRANSORAL DIAGNOSTIC 09/01/2013 EGD ESOPHAGOGASTRODUODENOSCOPY TRANSORAL DIAGNOSTIC 03/17/2019 EGD NEUROPLASTY &/TRANSPOS MEDIAN NRV CARPAL TUNNE Carpal tunnel decomp, Right REDUCTION OF LARGE BREAST Breast reduction REVISE MEDIAN N/CARPAL TUNNEL SURG Right Family History FAMILY HISTORY Problem Relation Age of Onset Heart Father other (Multiple myeloma) Father 1983 -- multiple myeloma in remission, then amyloidosis Thyroid Mother Mother's side of family Anesthesia Mother Heart disease Mother Heart Mother atrial fibrilation Breast Cancer Paternal Aunt Cancer Paternal Aunt Leukemia Heart Other Mother's side of family Coronary Artery Disease Sister 2 TN's, starting age 40 other (Multiple myeloma) Paternal Uncle No Family History or RA, SLE, IBD, Grandmother with PsO. Social History Social History Tobacco Use Smoking status: Former Current packs/day: 0.00 Average packs/day: 0.5 packs/day for 10.0 years (5.0 ttl pk-yrs) Types: Cigarettes Start date: 08/13/1980 Quit date: 08/13/1990 Years since quittin.7 Smokeless tobacco: Never Vaping Use Vaping status: Never Used Substance Use Topics Alcohol use: No Drug use: No Current Medications Current Outpatient Medications Medication Sig acetaminophen 325 mg-caffeine 40 mg-butalbital 50 mg (FIORICET) per tablet Take 1 tablet by mouth every 4 hours as needed for up to 30 days. atorvastatin (LIPITOR) 10 mg tablet TAKE 1 TABLET DAILY AT BEDTIME FOR CHOLESTEROL levothyroxine (SYNTHROID) 112 mcg tablet Take 1 tablet by mouth once daily. gabapentin (NEURONTIN) 100 mg capsule Take 2 capsules by mouth daily at bedtime for 90 days. FLUoxetine (PROZAC) 40 mg capsule Take 1 capsule by mouth once daily. meclizine (ANTIVERT) 25 mg tab TAKE 1 TABLET BY MOUTH THREE TIMES A DAY NEEDED FOR DIZZINESS acetaminophen 325 mg-caffeine 40 mg-butalbital 50 mg (FIORICET) per capsule Take 1 capsule by mouth every 4 hours as needed for headache. Labs Latest Ref Rng & Units 08/21/2021 07/03/2022 03/12/2023 04/20/2025 CBC WBC 3.70 - 11.00 k/uL 5.87 5.72 5.56 5.79 Hemoglobin 11.5 - 15.5 g/dL 13.4 12.9 13.7 13.4 Hematocrit 36.0 - 46.0 % 40.8 39.4 44.3 42.0 Platelet Count 150 - 400 k/uL 201 176 207 235 Abs Neut (ANC) 1.45 - 7.50 k/uL 3.84 Abs Lymph 1.00 - 4.00 k/uL 1.37 Latest Ref Rng & Units 07/03/2022 03/12/2023 04/14/2025 04/20/2025 CMP Sodium 136 - 144 mmol/L 134 141 136 Potassium 3.7 - 5.1 mmol/L 4.3 4.9 4.3 Chloride 98 - 107 mmol/L 101 104 102 CO2 22 - 30 mmol/L 22 27 22 Glucose 74 - 99 mg/dL 86 100 98 BUN 7 - 21 mg/dL 14 14 12 Creatinine 0.58 - 0.96 mg/dL 0.81 0.79 0.77 0.79 Calcium 8.5 - 10.2 mg/dL 9.3 10.0 9.5 AST 13 - 35 U/L 16 16 24 ALT 7 - 38 U/L 9 9 10 Alkaline Phosphatase 34 - 123 U/L 118 121 106 Latest Ref Rng & Units 03/27/2015 CRP CRP 0.0 - 1.0 mg/dL 0.2 Latest Ref Rng & Units 05/11/2017 CK CK 42 - 196 U/L 60 Latest Ref Rng & Units 03/27/2015 RF and CCP Rheumatoid Factor <20 IU/mL <10 Latest Ref Rng & Units 03/27/2015 Antibodies RUFINO Negative Negative RUFINO Titer Negative Negative RUFINO Pattern Not applicable for negative result. Latest Ref Rng & Units 06/14/2007 06/23/2007 05/04/2009 04/01/2011 Urinalysis Protein, Urine Neg mg/dL NEG NEG neg Protein (U), Margaux NEGAT mg/dL Trace RBC, Urine, Korbel /hpf 0 to 2 Imaging Last XR Shoulder - Impression Only XR SHOULDER GENERAL 3V OR MORE AP/TRUE AP/OTHER LEFT Exam End: 01/06/2024 1:05 PM (Final result) Impression: IMPRESSION: 1. Minimal glenohumeral osteoarthritis. 2. No acute osseous findings 3. Suboptimal Grashey view; no provided external rotation view of the proximal humerus and therefore limited assessment of the humeral medial articular surface and the humeral greater tuberosity. ... Last XR Cervical Spine - Impression Only XR CERV OTHER 4V AP/LAT/OBL Exam End: 01/06/2024 1:05 PM (Final result) Impression: IMPRESSION: 1. No acute osseous findings or significant change 2. Disc space and facet joint degeneration as above and secondary degenerative bony foraminal encroachment as above. Left foramina better profiled today. 3. Nonprogressive C3-4 degenerative listhesis ... Last XR Lumbar Spine - Impression Only XR LUMBAR GENERAL 3V AP/LAT/L5-S1 Exam End: 04/20/2025 12:19 PM (Final result) Impression: IMPRESSION: MULTILEVEL DEGENERATIVE DISC AND FACET DISEASE. LEVOSCOLIOSIS, NO CHANGE COMPARED TO THE PREVIOUS EXAM.. 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: GAMA Transcribe Date/Time: Apr 26 2025 3:56P Dictated by : GORAN PEÑALOZA MD... Last XR Knee - Impression Only XR KNEE GENERAL 4V AP BOTH/PA BOTH/LAT/MERC RIGHT Collected: 05/11/2025 12:20 PM (In process) Last XR Ankle - Impression Only XR ANKLE GENERAL 3V AP/LAT/OBL LEFT Collected: 05/11/2025 12:20 PM (In process) Last XR Chest - Impression Only XR CHEST 2V FRONTAL/LAT Exam End: 09/24/2021 12:05 PM (Final result) Impression: IMPRESSION: No acute radiographic abnormality. ... Health Maintenance Current Immunizations Reviewed on 01/04/2019 Name Date COVID-19 vaccine (PFIZER-BIONTECH) 10/21/2023 COVID-19 vaccine, bivalent (PFIZER-BIONTECH) 08/05/2022 COVID-19 vaccine, monovalent (MODERNA) 09/09/2021, 01/30/2021, 01/06/2021 influenza (HD-IIV3) vaccine 08/20/2020, 09/14/2019, 09/03/2018 influenza (HD-IIV4) vaccine 08/05/2022 influenza (IIV3) vaccine 09/28/2017, 09/24/2015 influenza (IIV4) vaccine 09/15/2017, 09/17/2016, 09/27/2015 influenza (aIIV4) vaccine 08/22/2021 tetanus diphtheria pertussis (Tdap) vaccine 07/01/2007 zoster (RZV) vaccine 11/14/2018, 04/22/2018 Physical Exam VITAL SIGNS: BP 110/68 Pulse 90 Resp 17 Wt 147 lb 6.4 oz (66.9kg) SpO2 96% LMP 03/10/2006 GENERAL APPEARANCE: Well groomed. Alert and oriented x 3. In no distress. SKIN: No rash, skin thickening, nodules, or discoloration. No PsO plaque noted in scalp EYES: normal conjunctiva HENT: Normal external examination of the ears and nose, lips, oropharynx and tongue. No oropharyngeal lesions, exudate, or sores. Moist Mucous membranes NECK: No mass or asymmetry. No LAD, no neck enlargement RESPIRATORY: Normal respiratory effort. Clear to auscultation CARDIOVASCULAR: Heart RRR without gallop, murmur, or rub ABDOMEN: BS normal. No bruits NEUROLOGIC: Sensory exam normal. MUSCULOSKELETAL EXAMINATION: Soft tissue tender points: left upper arm, paraspinal muscles, Motor exam: Normal 5+/5+ muscle strength. Normal bulk and tone. Spine: Cervical spine: No visible abnormalities. + tenderness to palpation. Thoracic spine: No visible abnormalities. No tenderness to palpation. Lumbar spine: No visible abnormalities. + tenderness to palpation SI Joints: No tenderness to palpation. Negative Damon s Test Upper extremities: Shoulders: Full ROM in all hernandez, + tenderness to palpation of left shoulder. No swelling or effusion. Elbows: Full ROM in flexion and extension. No swelling or effusion. No tenderness to palpation to the joint line, olecranon, medial or lateral epicondyles. Wrists: Full ROM in all hernandez. No swelling or synovitis. No tenderness to palpation Hands: Full ROM in flexion and extension. 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 No swelling or synovitis along the MCPs, PIPs, and DIPs. No tenderness along the MCPs, PIPs, and DIPs. CMC squaring noted bilaterally. Lower extremities: Hips: Full ROM without pain. No tenderness to palpation along greater trochanter, gluteal fossa, or piriformis. Knees: Full ROM in flexion and extension. No swelling or effusion. No tenderness to palpation. Ankles: Full ROM in all hernandez. No swelling or effusion. + tenderness to palpation along the joint line, with pain at full dorsiflexion bilateral, R>L Feet: Full ROM in toe flexion/extension. No effusion. + Plantar Fascia tenderness to palpation. No evidence of MTP swelling. No MTP tenderness Impression # Chronic left shoulder pain (M25.512) # Neck pain (M54.2) # Arthralgia, unspecified joint (M25.50) Chronic left shoulder pain with mild osteoarthritis confirmed on recent x-ray. Neck pain associated with degenerative disc disease. Arthralgia in multiple joints, exacerbated by activity, with no significant swelling observed. Overall, suspect most likely symtoms are due to degenerative changes. - Continue physical therapy for shoulder and neck. - Avoid NSAID for now due to hiatal hernia; continue Tylenol 1000 mg prn. - Ordered Rheumatologic workup as below for inflammatory arthritis. - Follow-up to review lab results and discuss further management. 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 No significant swelling or instability noted. - Continue current pain management with Tylenol. - Monitor for any changes in pain or function. # Muscle weakness (generalized) (M62.81) Patient reports Generalized muscle weakness, particularly in the left arm and legs. No significant loss of muscle strength on physical exam. - Check CK/Aldolase - Recommended weight-bearing exercises to improve muscle strength. - Monitor for any progression of weakness. # Facial numbness (R20.0) Intermittent facial numbness on the left side. Recent carotid artery ultrasound was clear. Possible relation to thyroid function. - Monitor thyroid function with upcoming blood test. - Follow-up with Primary care provider for these symptoms # Age-related osteoporosis without current pathological fracture (M81.0) Severe osteoporosis confirmed by bone density scan with a T-score of -3.8, particularly in the femoral neck. No history of fractures. Increased risk due to postmenopausal status and previous anastrozole use. - Recommend we Initiate Evenity injections once a month for 12 months, followed by Reclast IV infusion annually. - Educated patient on the risks and benefits of Evenity, including BBW of Cardiac risk and . Gave ACR handout related to this medication - Ordered vitamin D level check; recommended 1929-3072 IU vitamin D daily. - Advised calcium intake of 1200 mg daily through diet and supplements. - Scheduled follow-up to monitor treatment progress and review lab results. # Hiatal hernia (K44.9) Hiatal hernia with associated dysphagia and heartburn. Scheduled for surgical repair in June. - Avoid NSAIDs due to potential exacerbation of symptoms. - Follow-up with surgeon for pre-operative evaluation and post-operative care. # Vitamin D deficiency (E55.9) Previous vitamin D deficiency; currently not taking supplements. - Resume vitamin D supplementation at 5420-2544 IU daily. - Vitamin D level was ordered by PCP, will assess results check. # Fibromyalgia (M79.7) Meets criteria for fibromyalgia with widespread pain and tenderness, fatigue, and cognitive difficulties. WPI 9, SS Score 8. No previous treatment for fibromyalgia. - Rheumatology doesn't typically manage fibromyalgia. - If interested in therapy, suggested she discuss medications with her PCP such as Cymbalta or Lyrica or increasing gabapentin. - Recommended aquatic therapy and low-impact exercises. (Ex Papito Chi) - See AVS # Sciatica of right side (M54.31) Right-sided sciatica with recent flare-up. Currently undergoing physical therapy. Taking gabapentin for hot flashes, not specifically for sciatica. - Continue physical therapy. - Monitor for any changes in symptoms. - Follow up with spine or PCP if symptoms persist. # Psoriasis (L40.9) Psoriasis diagnosed 5-10 years ago, currently not experiencing symptoms or requiring treatment. Family history of psoriasis. - Monitor for any recurrence of symptoms. - overall low suspicion for psA at this time, but see workup below for inflammatory arthritis. Plan As Explained to Patient via After visit Summary Orders this visit: Office Visit on 05/11/25 DXA-AXIAL SKELETON BD DXA TRABECULAR BONE SCORE (TBS) XR KNEE GENERAL 4V AP BOTH/PA BOTH/LAT/MERC RIGHT XR ANKLE GENERAL 3V AP/LAT/OBL RIGHT XR ANKLE GENERAL 3V AP/LAT/OBL LEFT CREATINE KINASE/CK ALDOLASE BLD SEDIMENTATION RATE, WESTERGREN C-REACTIVE PROTEIN MAGNESIUM PHOSPHORUS INORGANIC C TELOPEPTIDE, BETA OSTEOCALCIN BLD PROTEIN ELECTROPHORESIS SERUM W/INTERP PROTEIN ELECT RND UR W/INTERP RHEUMATOID FACTOR CCP ANTIBODY IGG RUFINO BY IFA SCREEN CONSULT TO RHEUM/IMMUN DISEASE - Return for morning fasting blood work before starting bone-building medicine; tests will include vitamin D level, rheumatoid factor, and aluminum level. Stay well hydrated for multiple tubes. - Schedule a repeat DEXA bone density scan on the same machine used in 2022 (insurance requires scans every two years). - Continue your [id number]-fiqmhcd vitamin D supplement, aiming for 1,000-2,000 IU daily to reach a level of 40-60 ng/mL. - Ensure a total of 1,200 mg of calcium daily through diet and/or supplements (for example, 600 mg twice a day if you need a full supplement dose). - After labs return, consider starting Evenity (monthly arm injection for 12 months) followed by annual Reclast infusion for osteoporosis; detailed information will be provided before you begin. - Continue physical therapy for your sciatica; discuss with your provider whether increasing your gabapentin dose may help nerve pain. - For fibromyalgia symptoms (widespread muscle tenderness, fatigue, sleep issues), consider talking with your provider about medications such as duloxetine (Cymbalta) or pregabalin (Lyrica). - Incorporate weight-bearing activities (daily walking) and low-impact exercises (aquatic therapy or Papito Chi) to support bone strength and ease muscle aches. - Maintain good sleep habits--consistent bedtime, restful environment--to help manage fatigue and pain. - Your hiatal hernia repair is scheduled for June. - Plan an in-office follow-up after your labs and DEXA results are available to review findings and finalize your treatment plan. Follow up 2-3 weeks I spent a total of 70 minutes on the date of the service which included preparing to see the patient, [id number] patient care, completing clinical documentation, obtaining and/or reviewing separately obtained history, performing a medically appropriate examination, and counseling and educating the patient/family/caregiver. ___ Jacqueline Calderon PA-C Rheumatology Date: May 11, 2025 Time: 12:31 PM documented in this encounter [facility] 05-10-2025 Telephone encounter Note Patient calls and notified of results. Patient verbalizes understanding. Yenifer Batista RN [facility] 05-10-2025 Miscellaneous Notes Patient calls and notified of results. Patient verbalizes understanding. Yenifer Batista RN Called and left a voicemail for the Patient to call back and ask for a nurse to receive the providers message. Kimberly Murdock, RN Let patient know that her Carotid US is stable. Thanks. Antonette Zuniga PA-C documented in this encounter [facility] 05-10-2025 Telephone encounter Note [facility] website checked and validated. All prescriptions have been APPROPRIATELY filled. No suspicious activity was identified. 05/10/2025 by Aishwarya Turner APRN.CNP The following approved medication requests have been transmitted electronically. Requested Prescriptions Signed Prescriptions Disp Refills acetaminophen 325 mg-caffeine 40 mg-butalbital 50 mg (FIORICET) per tablet 60 tablet 1 Sig: Take 1 tablet by mouth every 4 hours as needed for up to 30 days. Authorizing Provider: AISHWARYA TURNER APRN.CNP [facility] 05-10-2025 Miscellaneous Notes [facility] website checked and validated. All prescriptions have been APPROPRIATELY filled. No suspicious activity was identified. 05/10/2025 by Aishwarya Turner APRN.CNP The following approved medication requests have been transmitted electronically. Requested Prescriptions Signed Prescriptions Disp Refills acetaminophen 325 mg-caffeine 40 mg-butalbital 50 mg (FIORICET) per tablet 60 tablet 1 Sig: Take 1 tablet by mouth every 4 hours as needed for up to 30 days. Authorizing Provider: AISHWARYA TURNER APRN.CNP Silvia with [facility] calls to let provider know that they do not offer the Fioricet in capsule form. They would need a new prescription for tablet form to be able to fulfill the order. Pended for review. Yenifer Batista RN documented in this encounter [facility] 05-09-2025 Telephone encounter Note Called and left a voicemail for the Patient to call back and ask for a nurse to receive the providers message. Kimberly Murdock RN [facility] 05-09-2025 Telephone encounter Note Silvia with [facility] calls to let provider know that they do not offer the Fioricet in capsule form. They would need a new prescription for tablet form to be able to fulfill the order. Pended for review. Yenifer Batista RN [facility] 05-09-2025 Telephone encounter Note Let patient know that her Carotid US is stable. Thanks. Antonette Zuniga PA-C [facility] Work Phone: 05-08-2025 History of Present illness Narrative Program_ID:[id number] Access Code: [email or web address] URL: [email or web address] Date: 05-08-2025 Prepared By: Francisco Soni Program Notes Exercises - Supine March with Posterior Pelvic Tilt - 1 x daily - 7 x weekly - 4 sets - 10 reps - Supine March with Posterior Pelvic Tilt - 1 x daily - 7 x weekly - 4 sets - 10 reps Images from the original note were not included. Episode Visit Count: 1 Therapist That Will Accept/Oversee The Plan Of Care: Francisco Soni PT Start of Care Date: 05/08/25 Onset Date: 04/17/25 Plan of Care Certification Date: 05/09/25 Next Certification Due Date: 06/13/25 Patient Identified by Name and Date of : Yes [facility] PHYSICAL THERAPY EVALUATION PLAN OF CARE: Assessment: Kathryn Whiting presents with chief complaint of LBP and RLE radiculopathy that interferes with standing, walking . The patient presents with impairments in coordination, independence in exercise, range of motion, and strength. Patient did not complete the PROMIS (Patient Reported Outcome Measures Information System). Prognosis for therapy is Good due to: current objective clinical presentation . Pt demonstrates some hypermobility at segments L4 and L5 with PA assessment. The patient will benefit from skilled therapy services to meet the goals established for this plan of care as noted below. Classification Pain Mechanism Classification: Neuropathic Goals for Episode of Care: established 05/08/25 Patient will decrease pain rating by 2 points to meet minimal clinical important difference for numeric pain rating scale. Restore pain-free lumbar ROM to WNL to allow for ease of bending, twisting and lifting Stand / Walk for 1 hour without pain/symptoms. Pt will demo RA strength of 4/5 or greater for improved lumbar stability and decreased nerve compression with ADLs Patient Goals: Get rid of the pain Time Frame for Goals and Treatment : 07/03/25 Planned Interventions, Frequency, and Duration: Current Frequency: 1x/week Duration: 4 weeks Total Number of Visits Planned: 4 Planned Treatment Interventions: Therapeutic exercise (08815), Therapeutic activities (36176), Manual therapy (64950), Neuromuscular re-education (55608), Self-fpc management (79077), Gait Training (68112), Patient/Family/Caregiver Education PLAN FOR NEXT VISIT: Trial lumbar traction Patient demonstrates good understanding of plan of care and treatment. The above goals and plan of care were discussed and agreed upon by patient/family. SUBJECTIVE: Pt has had sciatica before. Took her last pill of prednisone yesterday. It helped with the pain but it is back now. It goes down the back of the R leg. She feels that she may have a pinched nerve in the neck now which happened recently. Pulling weeds or sweeping can cause the sciatic pain. Pt feels her balance is not great. Does not bother her to turn over in bed or get in and out of the car. Patient Goals: Get rid of the pain Functional Limitations: standing, walking Prior Level of Function: Independent without limitations Intake Information: Prescription present Previous Treatment: Steroids Falls Interview: Fall with injury in the last year Pain: Pain Pain Level: 4 Pain Location: Low Back/Lumbar Spine - Right Additional Pain Information : Location 2 Pain Level 2: 4 Pain Location 2: Leg - Right PROMIS Scales 01/19/2024 04/20/2023 Higher is Better Phys Func - T Score 39 (moderate dysfunction) 38 (moderate dysfunction) Phys Func - Percentile 14 12 Self-Eff Symptom - T Score 41 (Average) 44 (Average) Self-Eff Symptom - Percentile 18 27 Proxy-reported T-scores: mean of general population = 50. 5 points is clinically meaningfully difference Percentiles provide an indication of how the patient's score ranks in relation to the general population. Higher percentile rankings indicate better function/quality of life. 50th percentile is the average of the general population and indicates half of respondents had a worse score. OBJECTIVE MEASURES WITH LEVEL OF FUNCTION: Lumbar Spine AROM Lumbar Flexion: Normal Lumbar Extension: Minimal limitation, Increased pain Lumbar R Side-Bend: Normal Lumbar L Side-Bend: Normal LE Flexibility Flexibility: Hamstring Flexibility R Hamstring Flexibility: WNL L Hamstring Flexibility: WNL Spine Joint Mobility Spine Joint Mobility : Lumbar/Thoracic Joint Mobility - T12: WNL Joint Mobility - L1: WNL Joint Mobility - L2: WNL Joint Mobility - L3: WNL Joint Mobility - L4: Hypermobile (painful) Joint Mobility - L5: Hypermobile (painful) LE Strength Trunk Strength: RA strength of 3/5 observed R LE Strength: 4+/5 grossly L LE Strength: 4+/5 grossly R Hip Extension: 4/5 (R hip ext causes increased symptoms into the R leg) L Hip Extension: 4/5 Education: Education Learning Preferences: Demonstration, Explanation, Performance, Printed Materials Barriers: None Learning/educational needs: Home exercise program, Plan of Care, Changes in Plan of Care Education Provided: Yes, see treatment interventions for education provided Education Provided To: Patient Education Mode/Type: Demonstration, Explanation/Discussion, Literature/Printed Materials, Performance Response to Education/Teach Back: States/Identifies, Return Demonstration TREATMENT: PT Treatment Interventions: Therapeutic Exercise Evaluation Therapeutic Exercise: 1: LTR legs to the L x 10 (No improvement in symptoms) 2: PPT x 10 in hooklying (No increase in symptoms) 3: PPT with BKFO x 10 (increased RLE pain so stopped) 4: PPT + alt march x 10 (some pain into the RLE but improves with a focus on maintaining a PPT) Skilled Intervention: Patient was educated in proper exercise technique and purpose for exercises. Correct performance of therapeutic exercises was facilitated with verbal cuing. Billing * Evaluation Low Complexity: 1 Unit Therapeutic Exercise Treatment Minutes: 24 Skilled Treatment Time Minutes (timed and untimed codes): 44 Total Session Time (minutes): 44 Session Start Time : 1531 Session Stop Time : 1615 Francisco Soni PT documented in this encounter [facility] 05-08-2025 Note HNO ID: [id number] Author: FRANCISCO SONI PT Service: ? Author Type: Physical Therapist Type: Progress Notes Filed: 05/09/2025 09:25 Note Text: Episode Visit Count: 1 Therapist That Will Accept/Oversee The Plan Of Care: Francisco Soni PT Start of Care Date: 05/08/25 Onset Date: 04/17/25 Plan of Care Certification Date: 05/09/25 Next Certification Due Date: 06/13/25 Patient Identified by Name and Date of : Yes [facility] PHYSICAL THERAPY EVALUATION PLAN OF CARE: Assessment: Kathryn Whiting presents with chief complaint of LBP and RLE radiculopathy that interferes with standing, walking . The patient presents with impairments in coordination, independence in exercise, range of motion, and strength. Patient did not complete the PROMIS? (Patient Reported Outcome Measures Information System). Prognosis for therapy is Good due to: current objective clinical presentation . Pt demonstrates some hypermobility at segments L4 and L5 with PA assessment. The patient will benefit from skilled therapy services to meet the goals established for this plan of care as noted below. Classification Pain Mechanism Classification: Neuropathic Goals for Episode of Care: established 05/08/25 Patient will decrease pain rating by 2 points to meet minimal clinical important difference for numeric pain rating scale. Restore pain-free lumbar ROM to WNL to allow for ease of bending, twisting and lifting Stand / Walk for 1 hour without pain/symptoms. Pt will demo RA strength of 4/5 or greater for improved lumbar stability and decreased nerve compression with ADLs Patient Goals: Get rid of the pain Time Frame for Goals and Treatment : 07/03/25 Planned Interventions, Frequency, and Duration: Current Frequency: 1x/week Duration: 4 weeks Total Number of Visits Planned: 4 Planned Treatment Interventions: Therapeutic exercise (88159), Therapeutic activities (18946), Manual therapy (88552), Neuromuscular re-education (95630), Self-fpc management (90330), Gait Training (48869), Patient/Family/Caregiver Education PLAN FOR NEXT VISIT: Trial lumbar traction Patient demonstrates good understanding of plan of care and treatment. The above goals and plan of care were discussed and agreed upon by patient/family. SUBJECTIVE: Pt has had sciatica before. Took her last pill of prednisone yesterday. It helped with the pain but it is back now. It goes down the back of the R leg. She feels that she may have a pinched nerve in the neck now which happened recently. Pulling weeds or sweeping can cause the sciatic pain. Pt feels her balance is not great. Does not bother her to turn over in bed or get in and out of the car. Patient Goals: Get rid of the pain Functional Limitations: standing, walking Prior Level of Function: Independent without limitations Intake Information: Prescription present Previous Treatment: Steroids Falls Interview: Fall with injury in the last year Pain: Pain Pain Level: 4 Pain Location: Low Back/Lumbar Spine - Right Additional Pain Information : Location 2 Pain Level 2: 4 Pain Location 2: Leg - Right PROMIS Scales 01/19/2024 04/20/2023 Higher is Better Phys Func - T Score 39 (moderate dysfunction) 38 (moderate dysfunction) Phys Func - Percentile 14 12 Self-Eff Symptom - T Score 41 (Average) 44 (Average) Self-Eff Symptom - Percentile 18 27 Proxy-reported T-scores: mean of general population = 50. 5 points is clinically meaningfully difference Percentiles provide an indication of how the patient's score ranks in relation to the general population. Higher percentile rankings indicate better function/quality of life. 50th percentile is the average of the general population and indicates half of respondents had a worse score. OBJECTIVE MEASURES WITH LEVEL OF FUNCTION: Lumbar Spine AROM Lumbar Flexion: Normal Lumbar Extension: Minimal limitation, Increased pain Lumbar R Side-Bend: Normal Lumbar L Side-Bend: Normal LE Flexibility Flexibility: Hamstring Flexibility R Hamstring Flexibility: WNL L Hamstring Flexibility: WNL Spine Joint Mobility Spine Joint Mobility : Lumbar/Thoracic Joint Mobility - T12: WNL Joint Mobility - L1: WNL Joint Mobility - L2: WNL Joint Mobility - L3: WNL Joint Mobility - L4: Hypermobile (painful) Joint Mobility - L5: Hypermobile (painful) LE Strength Trunk Strength: RA strength of 3/5 observed R LE Strength: 4+/5 grossly L LE Strength: 4+/5 grossly R Hip Extension: 4/5 (R hip ext causes increased symptoms into the R leg) L Hip Extension: 4/5 Education: Education Learning Preferences: Demonstration, Explanation, Performance, Printed Materials Barriers: None Learning/educational needs: Home exercise program, Plan of Care, Changes in Plan of Care Education Provided: Yes, see treatment interventions for education provided Education Provided To: Patient Education Mode/Type (more content not included)... [facility] 05-01-2025 Telephone encounter Note [facility] website checked and validated. All prescriptions have been APPROPRIATELY filled. No suspicious activity was identified. 05/01/2025 by Alka Yadav APRN.CNP The following approved medication requests have been transmitted electronically. Requested Prescriptions Signed Prescriptions Disp Refills atorvastatin (LIPITOR) 10 mg tablet 90 tablet 0 Sig: TAKE 1 TABLET DAILY AT BEDTIME FOR CHOLESTEROL Authorizing Provider: ALKA YADAV acetaminophen 325 mg-caffeine 40 mg-butalbital 50 mg (FIORICET) per capsule 30 capsule 2 Sig: Take 1 capsule by mouth every 4 hours as needed for headache. Authorizing Provider: ALKA YADAV APRN.SERVICE ORDER DISPATCHER CHIEF [facility] 05-01-2025 Miscellaneous Notes [facility] website checked and validated. All prescriptions have been APPROPRIATELY filled. No suspicious activity was identified. 05/01/2025 by Alka Yadav APRN.CNP The following approved medication requests have been transmitted electronically. Requested Prescriptions Signed Prescriptions Disp Refills atorvastatin (LIPITOR) 10 mg tablet 90 tablet 0 Sig: TAKE 1 TABLET DAILY AT BEDTIME FOR CHOLESTEROL Authorizing Provider: ALKA YADAV acetaminophen 325 mg-caffeine 40 mg-butalbital 50 mg (FIORICET) per capsule 30 capsule 2 Sig: Take 1 capsule by mouth every 4 hours as needed for headache. Authorizing Provider: ALKA YADAV APRN.SERVICE ORDER DISPATCHER CHIEF Prescription Refill Information The patient has been identified by name and date of : Yes Caregiver verified no other encounters exist for this prescription request: Yes Caregiver confirmed with patient/requestor that no other refills are due, in the near future, with this provider at this time: Yes The last office visit in the department: 04-20-25 Does the patient have a future office visit with this provider/department: Yes Requested Prescriptions Pending Prescriptions Disp Refills atorvastatin (LIPITOR) 10 mg tablet 90 tablet 0 Sig: TAKE 1 TABLET DAILY AT BEDTIME FOR CHOLESTEROL acetaminophen 325 mg-caffeine 40 mg-butalbital 50 mg (FIORICET) per capsule Sig: Take by mouth every 4 hours as needed. Jessica Epstein May 01, 2025 1:53 PM documented in this encounter [facility] 05-01-2025 Telephone encounter Note Prescription Refill Information The patient has been identified by name and date of : Yes Caregiver verified no other encounters exist for this prescription request: Yes Caregiver confirmed with patient/requestor that no other refills are due, in the near future, with this provider at this time: Yes The last office visit in the department: 04-20-25 Does the patient have a future office visit with this provider/department: Yes Requested Prescriptions Pending Prescriptions Disp Refills atorvastatin (LIPITOR) 10 mg tablet 90 tablet 0 Sig: TAKE 1 TABLET DAILY AT BEDTIME FOR CHOLESTEROL acetaminophen 325 mg-caffeine 40 mg-butalbital 50 mg (FIORICET) per capsule Sig: Take by mouth every 4 hours as needed. Jessica Epstein May 01, 2025 1:53 PM [facility] 05-01-2025 Note HNO ID: [id number] Author: PREET GODINEZ MD Service: ? Author Type: Physician Type: Progress Notes Filed: 05/01/2025 10:44 Note Text: Consultation requested by Dr. Pablo Bates for an opinion regarding paraesophageal hernia. My final recommendations will be communicated back to the requesting physician by way of shared medical record or letter via [place] mail. Kathryn Whiting is a 69 year old female who presents with a type III PEH. She reports mostly dysphagia, and some early satiety. Intermittent GERD that is well controlled with intermittent Pepcid. GERD is not her major complaint. No previous repairs. I dicussed surgery and the recurrence rates being very high. She understands and wishes to proceed with lap or robotic PEH, possible EGD, possible mesh, possible open I have seen and evaluated the patient and discussed the case with the resident physician. I agree with the assessment and plan as documented in the resident?s note including a ROS that was reviewed and negative other than what was indicated in our notes. Patient consented for study? Yes STUDY TITLE: MVP Trial: Mesh Vs Pledgets for repair of paraesophageal hernia repair: a randomized, blinded, parallel group trial IRB NO.: #[id number] RABBIT FANCIER: Gianfranco Breen MD COORDINATOR/Research Nurse/Occupational Medicine Specialist: Yovanny Malave MD Phone/email: [phone], [email or web address] Consenting was performed in person prior to inclusion in the study. The study protocol was discussed in detail with the patient. All study procedures were explained to the subject, including randomization, the two possible study interventions, and the postoperative management strategy for all patients participating in the study. Also, it was explained that pain scores, quality of life, and upper GI imaging will be assessed daily during follow up visits. The importance of follow up compliance was stressed. The risks, benefits, alternatives to participation and potential costs were discussed. All patient questions were addressed and answered. Patient has read and understood the study procedures and requirements. Patient has agreed to proceed with trial participation. Consent was signed prior to inclusion in the study and a copy was provided to the patient. INCLUSION CRITERIA Yes No 1. The patient is > 18 years of age [x] [] 2. The patient is willing and able to provide informed consent [x] [] 3. The patient is willing and able to participate in long-term follow up including study visits and surveys [x] [] 4. The patient has a type II, III, or IV hiatal hernia > 5cm, confirmed via upper GI studies, CT, or MRI [x] [] EXCLUSION CRITERIA Yes No 1. The patient lacks Vietnamese language fluency or cannot understand the consent form/study procedures [] [x] 2. The patient is [] [x] 3. The patient has a BMI >45 [] [x] 4. The patient has undergone previous hiatal hernia repair [] [x] 5. The patient will undergo paraesophageal hernia repair with a concurrent bariatric procedure to reduce stomach volume [] [x] [facility] 05-01-2025 History of Present illness Narrative Consultation requested by Dr. Pablo Bates for an opinion regarding paraesophageal hernia. My final recommendations will be communicated back to the requesting physician by way of shared medical record or letter via [place] mail. Kathryn Whiting is a 69 year old female who presents with a type III PEH. She reports mostly dysphagia, and some early satiety. Intermittent GERD that is well controlled with intermittent Pepcid. GERD is not her major complaint. No previous repairs. I dicussed surgery and the recurrence rates being very high. She understands and wishes to proceed with lap or robotic PEH, possible EGD, possible mesh, possible open I have seen and evaluated the patient and discussed the case with the resident physician. I agree with the assessment and plan as documented in the resident s note including a ROS that was reviewed and negative other than what was indicated in our notes. Patient consented for study? Yes STUDY TITLE: MVP Trial: Mesh Vs Pledgets for repair of paraesophageal hernia repair: a randomized, blinded, parallel group trial IRB NO.: #[id number] RABBIT FANCIER: Gianfranco Breen MD COORDINATOR/Research Nurse/Occupational Medicine Specialist: Yovanny Malave MD Phone/email: [phone], [email or web address] Consenting was performed in person prior to inclusion in the study. The study protocol was discussed in detail with the patient. All study procedures were explained to the subject, including randomization, the two possible study interventions, and the postoperative management strategy for all patients participating in the study. Also, it was explained that pain scores, quality of life, and upper GI imaging will be assessed daily during follow up visits. The importance of follow up compliance was stressed. The risks, benefits, alternatives to participation and potential costs were discussed. All patient questions were addressed and answered. Patient has read and understood the study procedures and requirements. Patient has agreed to proceed with trial participation. Consent was signed prior to inclusion in the study and a copy was provided to the patient. INCLUSION CRITERIA Yes No 1. The patient is > 18 years of age [x] [] 2. The patient is willing and able to provide informed consent [x] [] 3. The patient is willing and able to participate in long-term follow up including study visits and surveys [x] [] 4. The patient has a type II, III, or IV hiatal hernia > 5cm, confirmed via upper GI studies, CT, or MRI [x] [] EXCLUSION CRITERIA Yes No 1. The patient lacks Vietnamese language fluency or cannot understand the consent form/study procedures [] [x] 2. The patient is [] [x] 3. The patient has a BMI >45 [] [x] 4. The patient has undergone previous hiatal hernia repair [] [x] 5. The patient will undergo paraesophageal hernia repair with a concurrent bariatric procedure to reduce stomach volume [] [x] GENERAL SURGERY 05/01/2025 HPI: Kathryn Whiting is a female with a history of a paraesophageal hernia, presenting to discuss potential surgical intervention. Kathryn reports three episodes of severe pain in the stomach area, described as very, very painful. She also experiences dysphagia, with a sensation of food getting stuck in the throat, and frequent heartburn. She denies cough, wheezing, hematemesis, or melena. She has not experienced any weight loss. Kathryn has a history of a lap cholecystectomy and a lumpectomy for breast cancer. 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 ROS: Constitutional: (-) weight loss Respiratory: (-) cough, (-) wheezing Gastrointestinal: (+) abdominal pain, (+) dysphagia, (+) heartburn, (-) hematemesis, (-) hematochezia .Review of Systems Constitutional: Negative. HENT: Negative. Eyes: Negative. Endocrine: Negative. Genitourinary: Negative. Musculoskeletal: Negative. Allergic/Immunologic: Negative. Neurological: Negative. Hematological: Negative. Psychiatric/Behavioral: Negative. Physical Exam: Physical Exam HENT: Head: Normocephalic. Nose: Nose normal. Mouth/Throat: Mouth: Mucous membranes are moist. Cardiovascular: Rate and Rhythm: Normal rate and regular rhythm. Pulmonary: Effort: Pulmonary effort is normal. No respiratory distress. Breath sounds: No wheezing. Skin: General: Skin is warm. Capillary Refill: Capillary refill takes less than 2 seconds. Neurological: General: No focal deficit present. Mental Status: She is alert and oriented to person, place, and time. Abd: No masses palpated, scars from prior cholecystectomy noted. Diagnostics: Tests EGD: Paraesophageal hernia identified; otherwise unremarkable. Imaging CT Scan: Nearly the entire stomach herniated into the chest, consistent with a large hiatal hernia. Assessment/Plan: 1. 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 CT scan shows most of the stomach has herniated into the chest. Patient is symptomatic with episodes of severe pain, dysphagia - Discussed minimally invasive paraesophageal hernia repair, potentially using mesh or pledgets - Surgery to be performed minimally invasively via laparoscopy or robotics. - Hospital stay expected to be approximately 2 days; post-operative contrast study to ensure no complications. - Initiate full liquid diet for 2 weeks post-surgery, followed by gradual reintroduction of solid foods. - Scheduled follow-up in 2 weeks post-surgery with EGD to assess the hiatal aperture. - Discussed participation in a study comparing mesh vs. pledgets during surgery. - Advised no heavy lifting post-surgery; patient may need assistance with caregiving duties. 2. Dysphagia (R13.10) Experiencing sensation of food getting stuck in the throat. 3. Heartburn (R12) Frequent episodes reported. 4. Personal history of malignant neoplasm of breast (Z85.3) History of breast cancer treated with lumpectomy. Final plan: Plan for minimally invasive paraesophageal hernia repair. Discussed participation on MVP trial. Dequan Devi MD General Surgery What is the reason for your visit today? consult Who is your referring physician? SELF Are you having poor oral intake? NO Have you had unintentional weight loss of 15 lbs/7 Kg in the last 3-6 months? NO Bowels: regular Wound: clean & dry Temperature: No Drains: No documented in this encounter [facility] 05-01-2025 Note HNO ID: [id number] Author: DEQUAN DEVI, ? Service: ? Author Type: Physician Type: Progress Notes Filed: 05/01/2025 10:30 Note Text: GENERAL SURGERY 05/01/2025 HPI: Kathryn Whiting is a female with a history of a paraesophageal hernia, presenting to discuss potential surgical intervention. Kathryn reports three episodes of severe pain in the stomach area, described as very, very painful. She also experiences dysphagia, with a sensation of food getting stuck in the throat, and frequent heartburn. She denies cough, wheezing, hematemesis, or melena. She has not experienced any weight loss. Kathryn has a history of a lap cholecystectomy and a lumpectomy for breast cancer. 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 ROS: Constitutional: (-) weight loss Respiratory: (-) cough, (-) wheezing Gastrointestinal: (+) abdominal pain, (+) dysphagia, (+) heartburn, (-) hematemesis, (-) hematochezia .Review of Systems Constitutional: Negative. HENT: Negative. Eyes: Negative. Endocrine: Negative. Genitourinary: Negative. Musculoskeletal: Negative. Allergic/Immunologic: Negative. Neurological: Negative. Hematological: Negative. Psychiatric/Behavioral: Negative. Physical Exam: Physical Exam HENT: Head: Normocephalic. Nose: Nose normal. Mouth/Throat: Mouth: Mucous membranes are moist. Cardiovascular: Rate and Rhythm: Normal rate and regular rhythm. Pulmonary: Effort: Pulmonary effort is normal. No respiratory distress. Breath sounds: No wheezing. Skin: General: Skin is warm. Capillary Refill: Capillary refill takes less than 2 seconds. Neurological: General: No focal deficit present. Mental Status: She is alert and oriented to person, place, and time. Abd: No masses palpated, scars from prior cholecystectomy noted. Diagnostics: Tests EGD: Paraesophageal hernia identified; otherwise unremarkable. Imaging CT Scan: Nearly the entire stomach herniated into the chest, consistent with a large hiatal hernia. Assessment/Plan: 1. 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 CT scan shows most of the stomach has herniated into the chest. Patient is symptomatic with episodes of severe pain, dysphagia - Discussed minimally invasive paraesophageal hernia repair, potentially using mesh or pledgets - Surgery to be performed minimally invasively via laparoscopy or robotics. - Hospital stay expected to be approximately 2 days; post-operative contrast study to ensure no complications. - Initiate full liquid diet for 2 weeks post-surgery, followed by gradual reintroduction of solid foods. - Scheduled follow-up in 2 weeks post-surgery with EGD to assess the hiatal aperture. - Discussed participation in a study comparing mesh vs. pledgets during surgery. - Advised no heavy lifting post-surgery; patient may need assistance with caregiving duties. 2. Dysphagia (R13.10) Experiencing sensation of food getting stuck in the throat. 3. Heartburn (R12) Frequent episodes reported. 4. Personal history of malignant neoplasm of breast (Z85.3) History of breast cancer treated with lumpectomy. Final plan: Plan for minimally invasive paraesophageal hernia repair. Discussed participation on MVP trial. Dequan Devi MD General Surgery [facility] 05-01-2025 Note HNO ID: [id number] Author: ?, ?, ? Service: ? Author Type: ? Type: Progress Notes Filed: 05/01/2025 10:44 Note Text: What is the reason for your visit today? consult Who is your referring physician? SELF Are you having poor oral intake? NO Have you had unintentional weight loss of 15 lbs/7 Kg in the last 3-6 months? NO Bowels: regular Wound: clean AND dry Temperature: No Drains: No [facility] 04-24-2025 Telephone encounter Note Patient notified. [facility] 04-24-2025 Miscellaneous Notes Patient notified. ----- Message from Alka Yadav APRN.CNP sent at 04/21/2025 8:24 AM EDT ----- Please call Kathryn and let her know we need to increase her levothyroxine and recheck in 6 weeks. I am sending a prescription in for her locally since it may need more adjustments. Please let her know Dr Bates did say this could be causing some of her symptoms like the numbness in her face. Thank you documented in this encounter [facility] 04-24-2025 Telephone encounter Note ----- Message from Alka Yadav APRN.SERVICE ORDER DISPATCHER CHIEF sent at 04/21/2025 8:24 AM EDT ----- Please call Kathryn and let her know we need to increase her levothyroxine and recheck in 6 weeks. I am sending a prescription in for her locally since it may need more adjustments. Please let her know Dr Bates did say this could be causing some of her symptoms like the numbness in her face. Thank you [facility] 04-20-2025 History of Present illness Narrative Radiology Service Progress Note PATIENT NAME: Kathryn Whiting DATE OF SERVICE: April 20, 2025 TIME: 12:17 PM PATIENT IDENTITY VERIFICATION COMPLETED USING TWO (2) IDENTIFIERS: Name and Date of confirmed by patient verbally. FALL SCREENING: Has the patient had 2 falls in the last year or 1 fall with injury or currently using an Ambulatory Assistive Device (Walker, Cane, Wheelchair, Crutches, etc.)? No PATIENT GENDER DATA: Assigned female at . status: : No status: NO. PATIENT RELEVANT IMPLANT DATA REVIEWED: Yes PATIENT PRESENTS WITH AN IMPLANTABLE OR ATTACHED CEMETERY KEEPER: No RADIOLOGY DEPARTMENT: General X-ray: Exam(s) Completed: Spine X-Ray(s): Lumbar AP / LAT / L5-S1 PERIPHERAL IV DATA: Not applicable SIGNED BY: RT Caterina(Errol) April 20, 2025 12:17 PM documented in this encounter [facility] 04-20-2025 Note HNO ID: [id number] Author: GIANA RUELAS RT(R) Service: ? Author Type: Enterprise Systems Engineer Type: Progress Notes Filed: 04/20/2025 12:18 Note Text: Radiology Service Progress Note PATIENT NAME: Kathryn Whiting DATE OF SERVICE: April 20, 2025 TIME: 12:17 PM PATIENT IDENTITY VERIFICATION COMPLETED USING TWO (2) IDENTIFIERS: Name and Date of confirmed by patient verbally. FALL SCREENING: Has the patient had 2 falls in the last year or 1 fall with injury or currently using an Ambulatory Assistive Device (Walker, Cane, Wheelchair, Crutches, etc.)? No PATIENT GENDER DATA: Assigned female at . status: : No status: NO. PATIENT RELEVANT IMPLANT DATA REVIEWED: Yes PATIENT PRESENTS WITH AN IMPLANTABLE OR ATTACHED CEMETERY KEEPER: No RADIOLOGY DEPARTMENT: General X-ray: Exam(s) Completed: Spine X-Ray(s): Lumbar AP / LAT / L5-S1 PERIPHERAL IV DATA: Not applicable SIGNED BY: RT Caterina(R) April 20, 2025 12:17 PM [facility] 04-20-2025 Instructions Alka Yadav APRN.SERVICE ORDER DISPATCHER CHIEF - 04/20/2025 11:18 AM EDT - Start gabapentin 100 mg at bedtime for two weeks; if you tolerate it well and need more relief, increase to 200 mg (two capsules) at bedtime. This should help with the back/sciatica pain and hopefully your night sweats ([facility]) - Begin the prescribed prednisone to help reduce inflammation in your back; follow the directions on the label. ([facility]) - Complete the X-ray of your back that was done today to assess for changes since your last images. -Schedule the carotid ultrasound as soon as they have opening - Enroll in physical therapy at the [facility] for your back pain and balance/steadiness issues - Schedule a follow-up visit in about one month to review your progress, discuss lab and imaging results, and adjust your treatment plan as needed. - If you develop side effects from gabapentin or do not notice improvement in your pain or night sweats, please contact the office for further guidance or will discuss at your 1 month follow up You have a vitamin D level ordered, you can obtain that any time (the b12 was able to be added to this mornings labs) documented in this encounter [facility] 04-20-2025 Note HNO ID: [id number] Author: ALKA YADAV APRN.SERVICE ORDER DISPATCHER CHIEF Service: ? Author Type: Nurse Practitioner Type: Progress Notes Filed: 04/20/2025 14:23 Note Text: This is a 69 year old female who presents today with: Kathryn Wardhaway is a 69-year-old female with a history of osteoporosis, fibromyalgia, and breast cancer, presenting for evaluation of right-sided sciatica, facial numbness, and night sweats. HISTORY OF PRESENT ILLNESS: Sciatica: - Right-sided sciatica pain, radiating from the buttock down to the foot. - Pain exacerbated by bending over and gardening activities. - Reports foot turning inward and locking sensation. - Nocturnal mild pain present but not significantly disruptive to sleep. - Last lumbar spine X-ray in 2022. - Diagnosed with plantar fasciitis 6 months ago; managed with orthotics and two prior injections. Fibromyalgia: -has been told she may have this, she has a consult with rheumatology in May, says she is in pain almost all the time Breast Cancer: - Completed 7 years of Femara treatment, discontinued in January. Night Sweats: - Severe nocturnal diaphoresis, waking up drenched. - Requests non-estrogenic treatment options. Facial Numbness: - Intermittent left-sided facial numbness, occurring at rest. - Associated with generalized weakness, fatigue, and balance issues. - Recent falls resulting in injuries, including a black eye. - History of migraines and frequent headaches. - Carotid artery study in 2021 showed left-sided mild stenosis skilled nursing history of femara use s/p breast CA (stopped in january) No longer taking calcium and vitamin D Degenerative changes and scoliosis xray 04/13/2023 OA of spine with radiculopathy Labs are in process, obtained this morning PAST MEDICAL HISTORY: PAST MEDICAL HISTORY Diagnosis Date Breast cancer (HCC) Diarrhea Hypercholesteraemia 03/2015 Migraine, unspecified, with intractable migraine, so stated, without mention of status migrainosus Migraine Mild diastolic dysfunction echo 03/2013 Mild mitral regurgitation echo 03/2013 Mild tricuspid regurgitation echo 03/2013 Mitral valve disorders(424.0) MVP Myalgia and myositis, unspecified Panic disorder without agoraphobia Panic disorder Unspecified hypothyroidism PAST SURGICAL HISTORY Procedure Laterality Date BREAST LUMPECTOMY HX 11/10/2017 CHOLECYSTECTOMY Cholecystectomy -- lap (Dr. Bear?) COLONOSCOPY FLX DX W/COLLJ SPEC WHEN PFRMD 09/16/2007 COLONOSCOPY FLX DX W/COLLJ SPEC WHEN PFRMD 03/17/2019 normal EGD W/O BRSH SPEC VARICIES INJ 03/16/2025 ESOPHAGOGASTRODUODENOSCOPY TRANSORAL DIAGNOSTIC 09/01/2013 EGD ESOPHAGOGASTRODUODENOSCOPY TRANSORAL DIAGNOSTIC 03/17/2019 EGD NEUROPLASTY AND/TRANSPOS MEDIAN NRV CARPAL TUNNE Carpal tunnel decomp, Right REDUCTION OF LARGE BREAST Breast reduction REVISE MEDIAN N/CARPAL TUNNEL SURG Right ALLERGIES Patient has no known allergies. MEDICATIONS Current Outpatient Medications Medication Sig levothyroxine (LEVOXYL) 88 mcg tablet Take 1 tablet by mouth once daily. Take on empty stomach. For Thyroid atorvastatin (LIPITOR) 10 mg tablet TAKE 1 TABLET DAILY AT BEDTIME FOR CHOLESTEROL FLUoxetine (PROZAC) 40 mg capsule Take 1 capsule by mouth once daily. acetaminophen 325 mg-caffeine 40 mg-butalbital 50 mg (FIORICET) per capsule Take by mouth every 4 hours as needed. meclizine (ANTIVERT) 25 mg tab TAKE 1 TABLET BY MOUTH THREE TIMES A DAY NEEDED FOR DIZZINESS gabapentin (NEURONTIN) 100 mg capsule Take 2 capsules by mouth daily at bedtime for 90 days. predniSONE (DELTASONE) 10 mg tablet Take 4 tablets by mouth once daily for 3 days, THEN 3 tablets once daily for 3 days, THEN 2 tablets once daily for 3 days, THEN 1 tablet once daily for 3 days. No current facility-administered medications for this visit. FAMILY HISTORY Problem Relation Age of Onset Heart Father other (Multiple myeloma) Father 1983 -- multiple myeloma in remission, then amyloidosis Thyroid Mother Mother's side of family Anesthesia Mother Heart disease Mother Heart Mother atrial fibrilation Breast Cancer Paternal Aunt Cancer Paternal Aunt Leukemia Heart Other Mother's side of family Coronary Artery Disease Sister 2 TN's, starting age 40 other (Multiple myeloma) Paternal Uncle Social History Tobacco Use Smoking status: Former Current packs/day: 0.00 Average packs/day: 0.5 packs/day for 10.0 years (5.0 ttl pk-yrs) Types: Cigarettes Start date: 08/13/1980 Quit date: 08/13/1990 Years since quittin.7 Smokeless tobacco: Never Vaping Use Vaping status: Never Used Substance Use Topics Alcohol use: No Drug use: No REVIEW OF SYSTEMS Constitutional: (+) night sweats, (+) fatigue, (+) malaise Head: (+) headaches, (+) migraines Musculoskeletal: (+) right lower back pain, (+) right buttock pain radiating down leg, (+) right leg locking, (+) generalized musculoskeletal damon (more content not included)... [facility] 04-20-2025 History of Present illness Narrative This is a 69 year old female who presents today with: Kathryn Wardhaway is a 69-year-old female with a history of osteoporosis, fibromyalgia, and breast cancer, presenting for evaluation of right-sided sciatica, facial numbness, and night sweats. HISTORY OF PRESENT ILLNESS: Sciatica: - Right-sided sciatica pain, radiating from the buttock down to the foot. - Pain exacerbated by bending over and gardening activities. - Reports foot turning inward and locking sensation. - Nocturnal mild pain present but not significantly disruptive to sleep. - Last lumbar spine X-ray in 2022. - Diagnosed with plantar fasciitis 6 months ago; managed with orthotics and two prior injections. Fibromyalgia: -has been told she may have this, she has a consult with rheumatology in May, says she is in pain almost all the time Breast Cancer: - Completed 7 years of Femara treatment, discontinued in January. Night Sweats: - Severe nocturnal diaphoresis, waking up drenched. - Requests non-estrogenic treatment options. Facial Numbness: - Intermittent left-sided facial numbness, occurring at rest. - Associated with generalized weakness, fatigue, and balance issues. - Recent falls resulting in injuries, including a black eye. - History of migraines and frequent headaches. 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) No longer taking calcium and vitamin D Degenerative changes and scoliosis xray 04/13/2023 OA of spine with radiculopathy Labs are in process, obtained this morning PAST MEDICAL HISTORY: PAST MEDICAL HISTORY Diagnosis Date Breast cancer (HCC) Diarrhea Hypercholesteraemia 03/2015 Migraine, unspecified, with intractable migraine, so stated, without mention of status migrainosus Migraine Mild diastolic dysfunction echo 03/2013 Mild mitral regurgitation echo 03/2013 Mild tricuspid regurgitation echo 03/2013 Mitral valve disorders(424.0) MVP Myalgia and myositis, unspecified Panic disorder without agoraphobia Panic disorder Unspecified hypothyroidism PAST SURGICAL HISTORY Procedure Laterality Date BREAST LUMPECTOMY HX 11/10/2017 CHOLECYSTECTOMY Cholecystectomy -- lap (Dr. Bear?) COLONOSCOPY FLX DX W/COLLJ SPEC WHEN PFRMD 09/16/2007 COLONOSCOPY FLX DX W/COLLJ SPEC WHEN PFRMD 03/17/2019 normal EGD W/O BRSH SPEC VARICIES INJ 03/16/2025 ESOPHAGOGASTRODUODENOSCOPY TRANSORAL DIAGNOSTIC 09/01/2013 EGD ESOPHAGOGASTRODUODENOSCOPY TRANSORAL DIAGNOSTIC 03/17/2019 EGD NEUROPLASTY &/TRANSPOS MEDIAN NRV CARPAL TUNNE Carpal tunnel decomp, Right REDUCTION OF LARGE BREAST Breast reduction REVISE MEDIAN N/CARPAL TUNNEL SURG Right ALLERGIES Patient has no known allergies. MEDICATIONS Current Outpatient Medications Medication Sig levothyroxine (LEVOXYL) 88 mcg tablet Take 1 tablet by mouth once daily. Take on empty stomach. For Thyroid atorvastatin (LIPITOR) 10 mg tablet TAKE 1 TABLET DAILY AT BEDTIME FOR CHOLESTEROL FLUoxetine (PROZAC) 40 mg capsule Take 1 capsule by mouth once daily. acetaminophen 325 mg-caffeine 40 mg-butalbital 50 mg (FIORICET) per capsule Take by mouth every 4 hours as needed. meclizine (ANTIVERT) 25 mg tab TAKE 1 TABLET BY MOUTH THREE TIMES A DAY NEEDED FOR DIZZINESS gabapentin (NEURONTIN) 100 mg capsule Take 2 capsules by mouth daily at bedtime for 90 days. predniSONE (DELTASONE) 10 mg tablet Take 4 tablets by mouth once daily for 3 days, THEN 3 tablets once daily for 3 days, THEN 2 tablets once daily for 3 days, THEN 1 tablet once daily for 3 days. No current facility-administered medications for this visit. FAMILY HISTORY Problem Relation Age of Onset Heart Father other (Multiple myeloma) Father 1983 -- multiple myeloma in remission, then amyloidosis Thyroid Mother Mother's side of family Anesthesia Mother Heart disease Mother Heart Mother atrial fibrilation Breast Cancer Paternal Aunt Cancer Paternal Aunt Leukemia Heart Other Mother's side of family Coronary Artery Disease Sister 2 TN's, starting age 40 other (Multiple myeloma) Paternal Uncle Social History Tobacco Use Smoking status: Former Current packs/day: 0.00 Average packs/day: 0.5 packs/day for 10.0 years (5.0 ttl pk-yrs) Types: Cigarettes Start date: 08/13/1980 Quit date: 08/13/1990 Years since quittin.7 Smokeless tobacco: Never Vaping Use Vaping status: Never Used Substance Use Topics Alcohol use: No Drug use: No REVIEW OF SYSTEMS Constitutional: (+) night sweats, (+) fatigue, (+) malaise Head: (+) headaches, (+) migraines Musculoskeletal: (+) right lower back pain, (+) right buttock pain radiating down leg, (+) right leg locking, (+) generalized musculoskeletal pain, (-) nocturnal back pain Neurological: (+) left facial numbness, (+) imbalance, (+) falls, (+) muscle weakness EXAM: BP 128/62 (BP Site: Left Arm, BP Position: Sitting, BP Cuff Size: Regular Adult) Pulse 89 Resp 14 Wt 66.8 kg (147 lb 3.2 oz) LMP 03/10/2006 SpO2 97% BMI 25.92 kg/m PHYSICAL EXAM: General Appearance: Well appearing, alert, in no acute distress, well-hydrated, well nourished.. Skin: Skin color, texture, turgor normal, no suspicious rashes or lesions. Head: Normocephalic, no masses, lesions, tenderness or abnormalities. Eyes: Anicteric sclera. Pupils are equally round and reactive to light. Extraocular movements are intact. . Back:motor and sensory appear to be normal Lungs: Lungs clear to auscultation. No wheezing, rhonchi, rales.. Heart: RRR without murmur, gallop, or rubs. No ectopy. Extremities: No deformities, edema, skin discoloration, clubbing or cyanosis. Good capillary refill. Neurological: tongue midline, hand grasps and leg strength equal, pupils equally responsive 2-3mm ASSESSMENT/PLAN 1. Osteoarthritis of spine with radiculopathy, lumbar region (M47.26) 2. Chronic right-sided low back pain with right-sided sciatica (M54.41) - Chronic right-sided low back pain with radicular symptoms extending down the right leg to the foot, exacerbated by activities such as bending and sweeping. - Last lumbar spine X-ray was in 2022; ordered repeat X-ray - Initiated gabapentin 100 mg PO at bedtime for 2 weeks, then increase to 200 mg at bedtime - Prescribed prednisone taper to reduce inflammation. - Referred to physical therapy at [facility] for back pain management and to address unsteadiness and recent falls -follow up in one month regarding all symptoms from visit 3. Dizziness (R42) - Experiencing balance issues and multiple recent falls. - Ordered repeat carotid ultrasound to assess for any changes in previously noted left-sided stenosis. - Referred to physical therapy at [facility] to address unsteadiness. 4. Vitamin D deficiency (E55.9) - No current treatment discussed -Vitamin D level ordered 5. Chronic night sweats (R61) - Severe night sweats persisting despite discontinuation of Femara in January. - Initiated gabapentin 100 mg PO at bedtime for 2 weeks, then increase to 200 mg at bedtime 6. Paresthesia (R20.2) - Numbness on the left side of the face, comes and goes - Ordered B12 level to be added to today's lab work to rule out deficiency as a cause. 7. Chronic fatigue (R53.82) - Experiencing significant fatigue and general malaise. - Ordered B12 level to be added to today's lab work to rule out deficiency as a cause. 8. Falls (R29.6) - Multiple recent falls reported, including one resulting in a black eye. - Ordered repeat carotid ultrasound to assess for any changes in previously noted left-sided stenosis. - Referred to physical therapy at [facility] to address unsteadiness and improve balance. - Provided fall prevention instructions -patient denies any blood pressure issues or elevations The 10-year ASCVD risk score (Ramya DK, et al., 2019) is: 10% Values used to calculate the score: Age: 69 years Sex: Female Is Non- : No Diabetic: No Tobacco smoker: No Systolic Blood Pressure: 128 mmHg Is BP treated: No HDL Cholesterol: 71 mg/dL Total Cholesterol: 185 mg/dL Discussed treatment plan and patient voices understanding. Patient's questions answered appropriately. Medications and potential side effects were discussed and patient voices understanding. Return to the office in 4 weeks or as needed for worsening/no improvement. Alka Yadav APRN.SERVICE ORDER DISPATCHER CHIEF Recording using [id number] software for draft documentation of the visit was discussed with the patient/authorized arborist representative; all questions welcomed and answered. Patient/authorized arborist representative agreed to proceed documented in this encounter [facility] 04-17-2025 Telephone encounter Note Patient is also asking if she needs her thyroid labs completed, please review and advise. Prescription Refill Information The patient has been identified by name and date of : Yes Caregiver verified no other encounters exist for this prescription request: Yes Caregiver confirmed with patient/requestor that no other refills are due, in the near future, with this provider at this time: Yes The last office visit in the department: 03/01/25 Does the patient have a future office visit with this provider/department: Yes Requested Prescriptions Pending Prescriptions Disp Refills levothyroxine (LEVOXYL) 88 mcg tablet 90 tablet 3 Sig: Take 1 tablet by mouth once daily. Take on empty stomach. For Thyroid Sabrina Pavon April 17, 2025 1:55 PM [facility] 04-17-2025 Miscellaneous Notes Patient is also asking if she needs her thyroid labs completed, please review and advise. Prescription Refill Information The patient has been identified by name and date of : Yes Caregiver verified no other encounters exist for this prescription request: Yes Caregiver confirmed with patient/requestor that no other refills are due, in the near future, with this provider at this time: Yes The last office visit in the department: 03/01/25 Does the patient have a future office visit with this provider/department: Yes Requested Prescriptions Pending Prescriptions Disp Refills levothyroxine (LEVOXYL) 88 mcg tablet 90 tablet 3 Sig: Take 1 tablet by mouth once daily. Take on empty stomach. For Thyroid Sabrina Boyerstrom April 17, 2025 1:55 PM documented in this encounter [facility] 04-05-2025 Note HNO ID: [id number] Author: COSME MONTAÑO MD Service: ? Author Type: Physician Type: Progress Notes Filed: 04/05/2025 07:27 Note Text: Subjective: Patient is status post an EGD completed on 03/16/2025. This showed a significant change in her hiatal hernia area. I believe she has a paraesophageal hernia now significantly larger than it was when she was scoped previously. She is not having any symptoms. All the biopsies that I did of the esophagus as well as the stomach and duodenum were all normal. Objective:Last menstrual period 03/10/2006. Abdomen is soft nontender Assessment:Paraesophageal hernia (primary encounter diagnosis) Plan: I am going to refer her up to the main campus for evaluation of a paraesophageal hernia. I have not ordered any other test such as manometry nor a 48-hour pH study. [facility] 04-05-2025 History of Present illness Narrative Subjective: Patient is status post an EGD completed on 03/16/2025. This showed a significant change in her hiatal hernia area. I believe she has a paraesophageal hernia now significantly larger than it was when she was scoped previously. She is not having any symptoms. All the biopsies that I did of the esophagus as well as the stomach and duodenum were all normal. Objective:Last menstrual period 03/10/2006. Abdomen is soft nontender Assessment:Paraesophageal hernia (primary encounter diagnosis) Plan: I am going to refer her up to the main campus for evaluation of a paraesophageal hernia. I have not ordered any other test such as manometry nor a 48-hour pH study. documented in this encounter [facility] 03-16-2025 Note Formatting of this n ote might be different from the original. The patient received a copy of EGD discharge instructions that contain information for how to contact the physician who performed the procedure and when to seek medical care. [facility] 03-16-2025 Miscellaneous Notes The patient received a copy of EGD discharge instructions that contain information for how to contact the physician who performed the procedure and when to seek medical care. documented in this encounter [facility] 03-16-2025 History and physical note Chief Complaint Patient presents with: Medicare Wellness Exam: Stress, epigastric pain HPI Kathryn Whiting is a 69 year old female who presents here today for Above Complaints.. Pt reports increase in anxiety recently d/t caring for her mother who recently needed a feeding tube placed. Takes prozac 40mg once daily and tolerating well, wishes to continue with this. States she needs something more on certain days to help control her anxiety. Would like script for valium, has taken this in the past which helped. Throat fullness- Patient complains of throat fullness and a tightness sensation in her chest. Reports that food will get stuck in her throat and feels like nothing will move, will have to gag herself sometimes to get it out. Has had GERD for a long time, but states this feels different than usual. Past medical history, appointments, medications, allergies reviewed. Previous Medical History PAST MEDICAL HISTORY PAST MEDICAL HISTORY Diagnosis Date Breast cancer (HCC) Diarrhea Hypercholesteraemia 03/2015 Migraine, unspecified, with intractable migraine, so stated, without mention of status migrainosus Migraine Mild diastolic dysfunction echo 03/2013 Mild mitral regurgitation echo 03/2013 Mild tricuspid regurgitation echo 03/2013 Mitral valve disorders(424.0) MVP Myalgia and myositis, unspecified Panic disorder without agoraphobia Panic disorder Unspecified hypothyroidism Previous Surgical History PAST SURGICAL HISTORY PAST SURGICAL HISTORY Procedure Laterality Date BREAST LUMPECTOMY HX 11/10/2017 CHOLECYSTECTOMY Cholecystectomy -- lap (Dr. Bear?) COLONOSCOPY FLX DX W/COLLJ SPEC WHEN PFRMD 09/16/07 COLONOSCOPY FLX DX W/COLLJ SPEC WHEN PFRMD 03/17/2019 normal ESOPHAGOGASTRODUODENOSCOPY TRANSORAL DIAGNOSTIC 09/01/13 EGD ESOPHAGOGASTRODUODENOSCOPY TRANSORAL DIAGNOSTIC 03/17/2019 EGD NEUROPLASTY &/TRANSPOS MEDIAN NRV CARPAL TUNNE Carpal tunnel decomp, Right REDUCTION OF LARGE BREAST Breast reduction Family History FAMILY HISTORY FAMILY HISTORY Problem Relation Age of Onset Heart Father other (Multiple myeloma) Father 1983 -- multiple myeloma in remission, then amyloidosis Thyroid Mother Mother's side of family Anesthesia Mother Heart disease Mother Heart Mother atrial fibrilation Breast Cancer Paternal Aunt Cancer Paternal Aunt Leukemia Heart Other Mother's side of family Coronary Artery Disease Sister 2 TN's, starting age 40 other (Multiple myeloma) Paternal Uncle Patient Allergies ALLERGIES ALLERGIES No Known Allergies Current Medications Current Outpatient Medications on File Prior to Visit Medication Sig atorvastatin (LIPITOR) 10 mg tablet TAKE 1 TABLET DAILY AT BEDTIME FOR CHOLESTEROL FLUoxetine (PROZAC) 40 mg capsule Take 1 capsule by mouth once daily. acetaminophen 325 mg-caffeine 40 mg-butalbital 50 mg (FIORICET) per capsule Take by mouth every 4 hours as needed. letrozole (FEMARA) 2.5 mg tablet TAKE 1 TABLET DAILY levothyroxine (LEVOXYL) 88 mcg tablet Take 1 tablet by mouth once daily. Take on empty stomach. For Thyroid meclizine (ANTIVERT) 25 mg tab TAKE 1 TABLET BY MOUTH THREE TIMES A DAY NEEDED FOR DIZZINESS calcium-cholecalciferol, D3, (OSCAL+D 250) 250-125 mg-unit per tablet Take 1 tablet by mouth once daily. (Patient not taking: Reported on 11/16/2024) No current facility-administered medications on file prior to visit. Social History SOCIAL HISTORY Social History Tobacco Use Smoking status: Former Current packs/day: 0.00 Average packs/day: 0.5 packs/day for 10.0 years (5.0 ttl pk-yrs) Types: Cigarettes Start date: 08/13/1980 Quit date: 08/13/1990 Years since quittin.5 Smokeless tobacco: Never Vaping Use Vaping status: Never Used Substance Use Topics Alcohol use: No Drug use: No Review of Symptoms REVIEW OF SYSTEMS See HPI, otherwise negative EXAM: BP 107/73 (BP Site: Right Arm, BP Position: Sitting, BP Cuff Size: Regular Adult) Pulse 95 Ht 160.5 cm (5' 3.19) Wt 66.2 kg (146 lb) LMP 03/10/2006 SpO2 97% BMI 25.71 kg/m General Appearance: Well appearing, alert, in no acute distress, well-hydrated, well nourished.. Lungs: Lungs clear to auscultation. No wheezing, rhonchi, rales.. Heart: RRR without murmur, gallop, or rubs. No ectopy. Psychiatric: pleasant, cooperative Health Maintenance List Depression Screening Never done Hepatitis C Screening Never done Pneumococcal Vaccine: 50+(1 of 1 - PCV) Never done DTaP,Tdap,Td Vaccine(2 - Td or Tdap) due on 07/01/2017 Covid-19 Vaccine( season) due on 07/10/2024 Mammogram Screening due on 10/17/2025 Annual PCP Team Chronic Disease Visit due on 03/01/2026 Diabetes Screening due on 03/12/2026 Lipid Screening due on 03/12/2028 RSV Vaccine(1 - 1-dose 75+ series) due on 2028 Colorectal Cancer Screening due on 03/17/2029 Bone Density Screening Completed Influenza Vaccine Completed Shingrix Vaccine Completed Advance Directive Discussion Discontinued Data reviewed ASSESSMENT/PLAN: 1. Medicare annual wellness visit, subsequent - ICD9: V70.0, ICD10: Z00.00 (primary diagnosis) - Counseled on healthy diet and regular exercise 2. Situational anxiety - ICD9: 300.09, ICD10: F41.8 - Prescribed Diazepam 5mg tablet - take two times daily as needed - DIAZEPAM 5 MG TABLET 3. Mixed hyperlipidemia - ICD9: 272.2, ICD10: E78.2 - Counseled on healthy diet and regular exercise 4. Hypothyroidism, unspecified type - ICD9: 244.9, ICD10: E03.9 - Instructed patient on importance of taking on an empty stomach either first thing in the morning or at bedtime. - continue current dose of Synthroid 5. Screening for depression - ICD9: V79.0, ICD10: Z13.31 - DEPRESSION SCREENING 6. Encounter 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 mammogram for breast cancer - ICD9: V76.12, ICD10: Z12.31 - KARAN SCREENING W ROSEANNA 7. Chronic left shoulder pain - ICD9: 719.41, 338.29, ICD10: M25.512, G89.29 - CONSULT TO RHEUM/IMMUN DISEASE 8. Neck pain - ICD9: 723.1, ICD10: M54. - CONSULT TO RHEUM/IMMUN DISEASE 9. Muscle weakness (generalized) - ICD9: 728.87, ICD10: M62.81 - CONSULT TO RHEUM/IMMUN DISEASE 10. Arthralgia, unspecified joint - ICD9: 719.40, ICD10: M25.50 - CONSULT TO RHEUM/IMMUN DISEASE 11. Throat fullness - ICD9: 784.99, ICD10: R09.89 - Consult to general surgery for EGD and consideration of esophageal dilation - EGD DIAGNOSTIC 12. Esophagus disorder - ICD9: 530.9, ICD10: K22.9 - Consult to general surgery for EGD and consideration of esophageal dilation - EGD DIAGNOSTIC 13. Gastroesophageal reflux disease without esophagitis - ICD9: 530.81, ICD10: K21.9 - Consult to general surgery for EGD and consideration of esophageal dilation - EGD DIAGNOSTIC 14. Esophageal spasm - ICD9: 530.5, ICD10: K22.4 - Consult to general surgery for EGD and consideration of esophageal dilation - EGD DIAGNOSTIC Follow-up as needed Tamanna Carrillo Attending Note I have personally performed a face to face assessment of the patient and have reviewed the FRANSISCA note and I agree. Other additions or changes: As edited Signature: Cata Whyte UPDATED HISTORY AND PHYSICAL EXAMINATION SERVICE DATE: 03/16/2025 SERVICE TIME: 11:01 AM PHYSICAL EXAM MUST BE COMPLETED ON ADMISSION The History and Physical (completed in the past 30 days) has been reviewed and the patient has been examined. The contents accurately reflect the patient's condition with the following additions or revisions since the H&P was completed. Examination indicates no changes. This H&P can be found in the attached. SIGNATURE: Cosme Montaño III, MD PATIENT NAME: Kathryn Whiting DATE: March 16, 2025 TIME: 11:01 AM [facility] 03-16-2025 History and physical note Chief Complaint Patient presents with: Medicare Wellness Exam: Stress, epigastric pain HPI Kathryn Whiting is a 69 year old female who presents here today for Above Complaints.. Pt reports increase in anxiety recently d/t caring for her mother who recently needed a feeding tube placed. Takes prozac 40mg once daily and tolerating well, wishes to continue with this. States she needs something more on certain days to help control her anxiety. Would like script for valium, has taken this in the past which helped. Throat fullness- Patient complains of throat fullness and a tightness sensation in her chest. Reports that food will get stuck in her throat and feels like nothing will move, will have to gag herself sometimes to get it out. Has had GERD for a long time, but states this feels different than usual. Past medical history, appointments, medications, allergies reviewed. Previous Medical History PAST MEDICAL HISTORY PAST MEDICAL HISTORY Diagnosis Date Breast cancer (HCC) Diarrhea Hypercholesteraemia 03/2015 Migraine, unspecified, with intractable migraine, so stated, without mention of status migrainosus Migraine Mild diastolic dysfunction echo 03/2013 Mild mitral regurgitation echo 03/2013 Mild tricuspid regurgitation echo 03/2013 Mitral valve disorders(424.0) MVP Myalgia and myositis, unspecified Panic disorder without agoraphobia Panic disorder Unspecified hypothyroidism Previous Surgical History PAST SURGICAL HISTORY PAST SURGICAL HISTORY Procedure Laterality Date BREAST LUMPECTOMY HX 11/10/2017 CHOLECYSTECTOMY Cholecystectomy -- lap (Dr. Bear?) COLONOSCOPY FLX DX W/COLLJ SPEC WHEN PFRMD 09/16/07 COLONOSCOPY FLX DX W/COLLJ SPEC WHEN PFRMD 03/17/2019 normal ESOPHAGOGASTRODUODENOSCOPY TRANSORAL DIAGNOSTIC 09/01/13 EGD ESOPHAGOGASTRODUODENOSCOPY TRANSORAL DIAGNOSTIC 03/17/2019 EGD NEUROPLASTY &/TRANSPOS MEDIAN NRV CARPAL TUNNE Carpal tunnel decomp, Right REDUCTION OF LARGE BREAST Breast reduction Family History FAMILY HISTORY FAMILY HISTORY Problem Relation Age of Onset Heart Father other (Multiple myeloma) Father 1983 -- multiple myeloma in remission, then amyloidosis Thyroid Mother Mother's side of family Anesthesia Mother Heart disease Mother Heart Mother atrial fibrilation Breast Cancer Paternal Aunt Cancer Paternal Aunt Leukemia Heart Other Mother's side of family Coronary Artery Disease Sister 2 TN's, starting age 40 other (Multiple myeloma) Paternal Uncle Patient Allergies ALLERGIES ALLERGIES No Known Allergies Current Medications Current Outpatient Medications on File Prior to Visit Medication Sig atorvastatin (LIPITOR) 10 mg tablet TAKE 1 TABLET DAILY AT BEDTIME FOR CHOLESTEROL FLUoxetine (PROZAC) 40 mg capsule Take 1 capsule by mouth once daily. acetaminophen 325 mg-caffeine 40 mg-butalbital 50 mg (FIORICET) per capsule Take by mouth every 4 hours as needed. letrozole (FEMARA) 2.5 mg tablet TAKE 1 TABLET DAILY levothyroxine (LEVOXYL) 88 mcg tablet Take 1 tablet by mouth once daily. Take on empty stomach. For Thyroid meclizine (ANTIVERT) 25 mg tab TAKE 1 TABLET BY MOUTH THREE TIMES A DAY NEEDED FOR DIZZINESS calcium-cholecalciferol, D3, (OSCAL+D 250) 250-125 mg-unit per tablet Take 1 tablet by mouth once daily. (Patient not taking: Reported on 11/16/2024) No current facility-administered medications on file prior to visit. Social History SOCIAL HISTORY Social History Tobacco Use Smoking status: Former Current packs/day: 0.00 Average packs/day: 0.5 packs/day for 10.0 years (5.0 ttl pk-yrs) Types: Cigarettes Start date: 08/13/1980 Quit date: 08/13/1990 Years since quittin.5 Smokeless tobacco: Never Vaping Use Vaping status: Never Used Substance Use Topics Alcohol use: No Drug use: No Review of Symptoms REVIEW OF SYSTEMS See HPI, otherwise negative EXAM: BP 107/73 (BP Site: Right Arm, BP Position: Sitting, BP Cuff Size: Regular Adult) Pulse 95 Ht 160.5 cm (5' 3.19) Wt 66.2 kg (146 lb) LMP 03/10/2006 SpO2 97% BMI 25.71 kg/m General Appearance: Well appearing, alert, in no acute distress, well-hydrated, well nourished.. Lungs: Lungs clear to auscultation. No wheezing, rhonchi, rales.. Heart: RRR without murmur, gallop, or rubs. No ectopy. Psychiatric: pleasant, cooperative Health Maintenance List Depression Screening Never done Hepatitis C Screening Never done Pneumococcal Vaccine: 50+(1 of 1 - PCV) Never done DTaP,Tdap,Td Vaccine(2 - Td or Tdap) due on 07/01/2017 Covid-19 Vaccine( season) due on 07/10/2024 Mammogram Screening due on 10/17/2025 Annual PCP Team Chronic Disease Visit due on 03/01/2026 Diabetes Screening due on 03/12/2026 Lipid Screening due on 03/12/2028 RSV Vaccine(1 - 1-dose 75+ series) due on 2028 Colorectal Cancer Screening due on 03/17/2029 Bone Density Screening Completed Influenza Vaccine Completed Shingrix Vaccine Completed Advance Directive Discussion Discontinued Data reviewed ASSESSMENT/PLAN: 1. Medicare annual wellness visit, subsequent - ICD9: V70.0, ICD10: Z00.00 (primary diagnosis) - Counseled on healthy diet and regular exercise 2. Situational anxiety - ICD9: 300.09, ICD10: F41.8 - Prescribed Diazepam 5mg tablet - take two times daily as needed - DIAZEPAM 5 MG TABLET 3. Mixed hyperlipidemia - ICD9: 272.2, ICD10: E78.2 - Counseled on healthy diet and regular exercise 4. Hypothyroidism, unspecified type - ICD9: 244.9, ICD10: E03.9 - Instructed patient on importance of taking on an empty stomach either first thing in the morning or at bedtime. - continue current dose of Synthroid 5. Screening for depression - ICD9: V79.0, ICD10: Z13.31 - DEPRESSION SCREENING 6. Encounter 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 mammogram for breast cancer - ICD9: V76.12, ICD10: Z12.31 - KARAN SCREENING W ROSEANNA 7. Chronic left shoulder pain - ICD9: 719.41, 338.29, ICD10: M25.512, G89.29 - CONSULT TO RHEUM/IMMUN DISEASE 8. Neck pain - ICD9: 723.1, ICD10: M54. - CONSULT TO RHEUM/IMMUN DISEASE 9. Muscle weakness (generalized) - ICD9: 728.87, ICD10: M62.81 - CONSULT TO RHEUM/IMMUN DISEASE 10. Arthralgia, unspecified joint - ICD9: 719.40, ICD10: M25.50 - CONSULT TO RHEUM/IMMUN DISEASE 11. Throat fullness - ICD9: 784.99, ICD10: R09.89 - Consult to general surgery for EGD and consideration of esophageal dilation - EGD DIAGNOSTIC 12. Esophagus disorder - ICD9: 530.9, ICD10: K22.9 - Consult to general surgery for EGD and consideration of esophageal dilation - EGD DIAGNOSTIC 13. Gastroesophageal reflux disease without esophagitis - ICD9: 530.81, ICD10: K21.9 - Consult to general surgery for EGD and consideration of esophageal dilation - EGD DIAGNOSTIC 14. Esophageal spasm - ICD9: 530.5, ICD10: K22.4 - Consult to general surgery for EGD and consideration of esophageal dilation - EGD DIAGNOSTIC Follow-up as needed Tamanna Carrillo Attending Note I have personally performed a face to face assessment of the patient and have reviewed the FRANSISCA note and I agree. Other additions or changes: As edited Signature: Cata Whyte UPDATED HISTORY AND PHYSICAL EXAMINATION SERVICE DATE: 03/16/2025 SERVICE TIME: 11:01 AM PHYSICAL EXAM MUST BE COMPLETED ON ADMISSION The History and Physical (completed in the past 30 days) has been reviewed and the patient has been examined. The contents accurately reflect the patient's condition with the following additions or revisions since the H&P was completed. Examination indicates no changes. This H&P can be found in the attached. SIGNATURE: Cosme Montaño III, MD PATIENT NAME: Kathryn Whiting DATE: March 16, 2025 TIME: 11:01 AM documented in this encounter [facility] 03-01-2025 Note HNO ID: [id number] Author: CATA WHYTE APRN.SERVICE ORDER DISPATCHER CHIEF Service: ? Author Type: Nurse Practitioner Type: Progress Notes Filed: 03/02/2025 13:08 Note Text: Chief Complaint Patient presents with: Medicare Wellness Exam: Stress, epigastric pain HPI Kathryn Whiting is a 69 year old female who presents here today for Above Complaints.. Pt reports increase in anxiety recently d/t caring for her mother who recently needed a feeding tube placed. Takes prozac 40mg once daily and tolerating well, wishes to continue with this. States she needs something more on certain days to help control her anxiety. Would like script for valium, has taken this in the past which helped. Throat fullness- Patient complains of throat fullness and a tightness sensation in her chest. Reports that food will get stuck in her throat and feels like nothing will move, will have to gag herself sometimes to get it out. Has had GERD for a long time, but states this feels different than usual. Past medical history, appointments, medications, allergies reviewed. Previous Medical History PAST MEDICAL HISTORY Diagnosis Date Breast cancer (HCC) Diarrhea Hypercholesteraemia 03/2015 Migraine, unspecified, with intractable migraine, so stated, without mention of status migrainosus Migraine Mild diastolic dysfunction echo 03/2013 Mild mitral regurgitation echo 03/2013 Mild tricuspid regurgitation echo 03/2013 Mitral valve disorders(424.0) MVP Myalgia and myositis, unspecified Panic disorder without agoraphobia Panic disorder Unspecified hypothyroidism Previous Surgical History PAST SURGICAL HISTORY Procedure Laterality Date BREAST LUMPECTOMY HX 11/10/2017 CHOLECYSTECTOMY Cholecystectomy -- lap (Dr. Bear?) COLONOSCOPY FLX DX W/COLLJ SPEC WHEN PFRMD 09/16/07 COLONOSCOPY FLX DX W/COLLJ SPEC WHEN PFRMD 03/17/2019 normal ESOPHAGOGASTRODUODENOSCOPY TRANSORAL DIAGNOSTIC 09/01/13 EGD ESOPHAGOGASTRODUODENOSCOPY TRANSORAL DIAGNOSTIC 03/17/2019 EGD NEUROPLASTY AND/TRANSPOS MEDIAN NRV CARPAL TUNNE Carpal tunnel decomp, Right REDUCTION OF LARGE BREAST Breast reduction Family History FAMILY HISTORY Problem Relation Age of Onset Heart Father other (Multiple myeloma) Father 1983 -- multiple myeloma in remission, then amyloidosis Thyroid Mother Mother's side of family Anesthesia Mother Heart disease Mother Heart Mother atrial fibrilation Breast Cancer Paternal Aunt Cancer Paternal Aunt Leukemia Heart Other Mother's side of family Coronary Artery Disease Sister 2 TN's, starting age 40 other (Multiple myeloma) Paternal Uncle Patient Allergies ALLERGIES No Known Allergies Current Medications Current Outpatient Medications on File Prior to Visit Medication Sig atorvastatin (LIPITOR) 10 mg tablet TAKE 1 TABLET DAILY AT BEDTIME FOR CHOLESTEROL FLUoxetine (PROZAC) 40 mg capsule Take 1 capsule by mouth once daily. acetaminophen 325 mg-caffeine 40 mg-butalbital 50 mg (FIORICET) per capsule Take by mouth every 4 hours as needed. letrozole (FEMARA) 2.5 mg tablet TAKE 1 TABLET DAILY levothyroxine (LEVOXYL) 88 mcg tablet Take 1 tablet by mouth once daily. Take on empty stomach. For Thyroid meclizine (ANTIVERT) 25 mg tab TAKE 1 TABLET BY MOUTH THREE TIMES A DAY NEEDED FOR DIZZINESS calcium-cholecalciferol, D3, (OSCAL+D 250) 250-125 mg-unit per tablet Take 1 tablet by mouth once daily. (Patient not taking: Reported on 11/16/2024) No current facility-administered medications on file prior to visit. Social History Social History Tobacco Use Smoking status: Former Current packs/day: 0.00 Average packs/day: 0.5 packs/day for 10.0 years (5.0 ttl pk-yrs) Types: Cigarettes Start date: 08/13/1980 Quit date: 08/13/1990 Years since quittin.5 Smokeless tobacco: Never Vaping Use Vaping status: Never Used Substance Use Topics Alcohol use: No Drug use: No Review of Symptoms REVIEW OF SYSTEMS See HPI, otherwise negative EXAM: BP 107/73 (BP Site: Right Arm, BP Position: Sitting, BP Cuff Size: Regular Adult) Pulse 95 Ht 160.5 cm (5' 3.19) Wt 66.2 kg (146 lb) LMP 03/10/2006 SpO2 97% BMI 25.71 kg/m? General Appearance: Well appearing, alert, in no acute distress, well-hydrated, well nourished.. Lungs: Lungs clear to auscultation. No wheezing, rhonchi, rales.. Heart: RRR without murmur, gallop, or rubs. No ectopy. Psychiatric: alejandro, [facility] Maintenance List Depression Screening Never done Hepatitis C Screening Never done Pneumococcal Vaccine: 50+(1 of 1 - PCV) Never done DTaP,Tdap,Td Vaccine(2 - Td or Tdap) due on 07/01/2017 Covid-19 Vaccine( season) due on 07/10/2024 Mammogram Screening due on 10/17/2025 Annual PCP Team Chronic Disease Visit due on 03/01/2026 Diabetes Screening due on 03/12/2026 Lipid Screening due on 03/12/2028 RSV Vaccine(1 - 1-dose 75+ series) due on 2028 [place] (more content not included)... [facility] 03-01-2025 Note HNO ID: [id number] Author: CATA WHYTE APRN.SERVICE ORDER DISPATCHER CHIEF Service: ? Author Type: Nurse Practitioner Type: Progress Notes Filed: 03/02/2025 13:08 Note Text: Kathryn Whiting is a 69 year old female here for a Medicare wellness visit. Medicare Health Risk Assessment General Health Fair Exercise: Minutes/Day 0 min Exercise: Days/Week 0 days Alcohol: Daily Use Never Alcohol: Drinks/Day Patient does not drink Alcohol: 6 or more drinks Never Feel off balance Yes Concerns: Teeth/Dentures No Concerns: Sexual function No Troubled by feelings Stressed Frequency: Eating healthy diet Several days ADLs requiring help None of the above Safety precautions in home/vehicle Yes Smoke, vape, chews tobacco No Difficulty hearing Yes Difficulty seeing Yes (last eye exam 1 month ago) Current Providers Specialists: I have reviewed specialist-related care of the patient in the medical record. Medical/Family history review Reviewed and updated problem list, medical/surgical/family/social history, medications, and allergies. Opioid use review Opioid Medications (last 90 days) No data to display Anxiety/Depression screening PHQ-2 Score: 0 (Lower risk for depression) Recommendation: no further intervention at this time Cognitive screening Mini Cog Score: 4 Cognitive screening reviewed and No further action needed (score 3-5). Functional Observation Was the patient's Timed Up AND Go test unsteady or >= 12 seconds? No Advance Care Planning Surrogate decision maker and/or advance care plan documented - Roque Mario Measurements BP 107/73 (BP Site: Right Arm, BP Position: Sitting, BP Cuff Size: Regular Adult) Pulse 95 Ht 160.5 cm (5' 3.19) Wt 66.2 kg (146 lb) LMP 03/10/2006 SpO2 97% BMI 25.71 kg/m? Vision Screening: Follows with optometry/ophthalmology, Last eye exam x1 month ago Assessment/Plan Medicare annual wellness visit, subsequent (Z00.00) - Counseled on healthy diet and regular exercise - Fall avoidance information provided - Personalized prevention plan provided Cata Whyte APRN.CNP [facility] 02-13-2025 Telephone encounter Note Patient needs appointment due to last seen > 1 year ago. Please assist in scheduling. Rx with no refills sent to pharmacy to get through until appointment. Thank you, Aishwarya Turner APRN.CNP [facility] 02-13-2025 Miscellaneous Notes Patient needs appointment due to last seen > 1 year ago. Please assist in scheduling. Rx with no refills sent to pharmacy to get through until appointment. Thank you, Aishwarya Turner APRN.CNP Prescription Refill Information The patient has been identified by name and date of : Yes Caregiver verified no other encounters exist for this prescription request: Yes Caregiver confirmed with patient/requestor that no other refills are due, in the near future, with this provider at this time: Yes The last office visit in the department: Visit date not found Does the patient have a future office visit with this provider/department: No Requested Prescriptions Pending Prescriptions Disp Refills atorvastatin (LIPITOR) 10 mg tablet [Pharmacy Med Name: ATORVASTATIN TABS 10MG] 90 tablet 3 Sig: TAKE 1 TABLET DAILY AT BEDTIME FOR CHOLESTEROL Lyubov Johnson MA February 13, 2025 10:16 AM documented in this encounter [facility] 02-13-2025 Telephone encounter Note Prescription Refill Information The patient has been identified by name and date of : Yes Caregiver verified no other encounters exist for this prescription request: Yes Caregiver confirmed with patient/requestor that no other refills are due, in the near future, with this provider at this time: Yes The last office visit in the department: Visit date not found Does the patient have a future office visit with this provider/department: No Requested Prescriptions Pending Prescriptions Disp Refills atorvastatin (LIPITOR) 10 mg tablet [Pharmacy Med Name: ATORVASTATIN TABS 10MG] 90 tablet 3 Sig: TAKE 1 TABLET DAILY AT BEDTIME FOR CHOLESTEROL Lyubov Johnson MA February 13, 2025 10:16 AM [facility] 01-12-2025 Telephone encounter Note Prescription Refill Information The patient has been identified by name and date of : Yes Caregiver verified no other encounters exist for this prescription request: Yes Caregiver confirmed with patient/requestor that no other refills are due, in the near future, with this provider at this time: Yes The last office visit in the department: 01-06-24 Does the patient have a future office visit with this provider/department: No Requested Prescriptions Pending Prescriptions Disp Refills FLUoxetine (PROZAC) 40 mg capsule 90 capsule 1 Sig: Take 1 capsule by mouth once daily. Ayde You January 12, 2025 9:31 AM [facility] 01-12-2025 Miscellaneous Notes Prescription Refill Information The patient has been identified by name and date of : Yes Caregiver verified no other encounters exist for this prescription request: Yes Caregiver confirmed with patient/requestor that no other refills are due, in the near future, with this provider at this time: Yes The last office visit in the department: 01-06-24 Does the patient have a future office visit with this provider/department: No Requested Prescriptions Pending Prescriptions Disp Refills FLUoxetine (PROZAC) 40 mg capsule 90 capsule 1 Sig: Take 1 capsule by mouth once daily. Ayde You January 12, 2025 9:31 AM documented in this encounter [facility] 11-16-2024 Note HNO ID: [id number] Author: SAMEERA MARTINI APRN.SERVICE ORDER DISPATCHER CHIEF Service: ? Author Type: Nurse Practitioner Type: Progress Notes Filed: 11/16/2024 13:39 Note Text: Chief Complaint Patient presents with: Established Patient HPI: Kathryn Whiting is a 69 year old female who presents here today for follow up breast cancer. Per Dr. Winchester's previous note: H/o hypercholesterinemia presented with stage I, ER/NV positive HER-2 negative breast cancer. Patient has been getting annual mammograms and self breast examinations. she presented last fall with an abnormal right breast mammograms/US and underwent 10/05/17 US guided needle core breast biopsy. Mammograms - asymetry in the right breast at 11:00 middle depth US right breast 6mm x 4mm right breast lesion, 10:00 middle depth, hypoechoic with posterior acoustic shadowing. Pathology revealed - (upper outer quadrant) Right breast, ultrasound-guided needle core biopsy: Invasive lobular carcinoma: Maximal length - 9 mm Nuclear Grade - 2/3 Other findings - atypical lobular hyperplasia. ER (clone [id number]) >95%, strong NV (clone 16/1E2) >95%, strong Her-2Neu (clone [id number]) 0 MRI breast:showed a 0.6 cm irregular mass in the right breast is consistent with the known carcinoma and is a known biopsy positive for malignancy. A surgical consult is recommended. Please note the biopsy clip appears migrated posterior from the biopsy site. As such, a post biopsy right mammogram is recommended for correlation of findings/clip placement prior to potential wire localization and surgical intervention. No MRI evidence of malignancy in the left breast. She had a right breast lumpectomy and sentinel lymph node biopsy on 11/10/17. Pathology reveals - Invasive tumor size: 9 x 4 x 3 mm, Grade 1 (total score of 5),Margins: Uninvolved by invasive carcinoma. Distance from closest (inferior-anterior) margin - 2.0 mm Distance from next closest (posterior ) margin - 2.5 mm, Lymph-Vascular invasion: Not identified Dermal lymph-vascular invasion: Not applicable , ER: >95%, strong NV: >95%, strong [id number]: negative [address] negative The patient is recovering well from her surgery with no complications. Minimal postoperative pain no numbness, swelling or lymphedema. menstrual history: Menarche at age 11, first at age 15, menopause age 53. She was on control for 10 years, no hormonal replacement therapy after menopause. No family history of breast or ovarian cancer. Last colonoscopy 7 years ago-normal Recent pelvic exam last year; normal with no abnormal discharge or uterine bleeding. bone density - 2007 showed osteopenia RADIATION:12/21/17 to 01/18/18 Current therapy:Femara Began May 2022. Previous therapy:arimidex Began after radiation. No new concerns today. Appetite:It's fine. Wt. stable. Energy level:I could have more. Denies fevers or recent illness. Resp:denies cough or sob Cardiac:denies chest pain/palpitations GI:denies abd pain, n/v, moving bowels regularly :denies dysuria/hematuria Extrem:denies pain, +plantar fascitis, h/o fibromyalgia-has not been followed for this in a long time Endo:+hot flashes-At night. Neuro:denies symptoms of neuropathy, L hand carpal tunnel Skin:denies rashes/lesions Heme:denies bleeding The ROS is otherwise negative. Past medical history, appointments, medications, allergies reviewed. No changes. EXAM: BP 106/73 Pulse 83 Temp 36.5 ?C (97.7 ?F) (Temporal) Wt 66.5 kg (146 lb 9.7 oz) LMP 03/10/2006 SpO2 97% BMI 25.98 kg/m? APPEARANCE Well appearing, alert, in no acute distress, well-hydrated, well nourished. HEART RRR with normal S1 and S2, no murmurs LUNG clear to auscultation BREAST FEMALE no mass/nodule b/l, R radiation changes LYMPH NODES No cervical lymphadenopathy, No supraclavicular lymphadenopathy, and No axillary lymphadenopathy. ABDOMEN bowel sounds normoactive, soft, non-tender EXTREMITIES No edema NEURO Awake, alert and oriented x 3, Normal gait, and No involuntary motions. SKIN Skin color, texture, turgor normal, no suspicious rashes or lesions ASSESSMENT/PLAN: 1. Malignant neoplasm of upper-outer quadrant of right breast in female, estrogen receptor positive (HCC) - ICD9: 174.4, V86.0, ICD10: C50.411, Z17.0 (primary diagnosis) Stage I, pT2, pN0, ER NV positive HER-2 negative, Invasive ductal carcinoma - No concerning findings on exam. - Tolerated arimidex fair except for fatigue and word finding issues. - Tolerating femara overall well. - Reviewed mammogram with pt. - Continue femara through January 2025-will then complete 7 years of therapy. - Mammogram due in 2024. - Follow up in one year. - Pt. aware to call office with any questions/concerns. The sensitive examination was discussed with the Patient or Patient's Authorized Gasoline Pump Mechanic. As applicable, any other physician, advance practice provider, medical student, (more content not included)... [facility] 11-16-2024 History of Present illness Narrative Chief Complaint Patient presents with: Established Patient HPI: Kathryn Whiting is a 69 year old female who presents here today for follow up breast cancer. Per Dr. Winchester's previous note: H/o hypercholesterinemia presented with stage I, ER/NV positive HER-2 negative breast cancer. Patient has been getting annual mammograms and self breast examinations. she presented last fall with an abnormal right breast mammograms/US and underwent 10/05/17 US guided needle core breast biopsy. Mammograms - asymetry in the right breast at 11:00 middle depth US right breast 6mm x 4mm right breast lesion, 10:00 middle depth, hypoechoic with posterior acoustic shadowing. Pathology revealed - (upper outer quadrant) Right breast, ultrasound-guided needle core biopsy: Invasive lobular carcinoma: Maximal length - 9 mm Nuclear Grade - 2/3 Other findings - atypical lobular hyperplasia. ER (clone [id number]) >95%, strong NV (clone 16/1E2) >95%, strong Her-2Neu (clone CB11) 0 MRI breast:showed a 0.6 cm irregular mass in the right breast is consistent with the known carcinoma and is a known biopsy positive for malignancy. A surgical consult is recommended. Please note the biopsy clip appears migrated posterior from the biopsy site. As such, a post biopsy right mammogram is recommended for correlation of findings/clip placement prior to potential wire localization and surgical intervention. No MRI evidence of malignancy in the left breast. She had a right breast lumpectomy and sentinel lymph node biopsy on 11/10/17. Pathology reveals - Invasive tumor size: 9 x 4 x 3 mm, Grade 1 (total score of 5),Margins: Uninvolved by invasive carcinoma. Distance from closest (inferior-anterior) margin - 2.0 mm Distance from next closest (posterior ) margin - 2.5 mm, Lymph-Vascular invasion: Not identified Dermal lymph-vascular invasion: Not applicable , ER: >95%, strong NV: >95%, strong [id number]: negative [address] negative The patient is recovering well from her surgery with no complications. Minimal postoperative pain no numbness, swelling or lymphedema. menstrual history: Menarche at age 11, first at age 15, menopause age 53. She was on control for 10 years, no hormonal replacement therapy after menopause. No family history of breast or ovarian cancer. Last colonoscopy 7 years ago-normal Recent pelvic exam last year; normal with no abnormal discharge or uterine bleeding. bone density - 2007 showed osteopenia RADIATION:12/21/17 to 01/18/18 Current therapy:Femara Began May 2022. Previous therapy:arimidex Began after radiation. No new concerns today. Appetite:It's fine. Wt. stable. Energy level:I could have more. Denies fevers or recent illness. Resp:denies cough or sob Cardiac:denies chest pain/palpitations GI:denies abd pain, n/v, moving bowels regularly :denies dysuria/hematuria Extrem:denies pain, +plantar fascitis, h/o fibromyalgia-has not been followed for this in a long time Endo:+hot flashes-At night. Neuro:denies symptoms of neuropathy, L hand carpal tunnel Skin:denies rashes/lesions Heme:denies bleeding The ROS is otherwise negative. Past medical history, appointments, medications, allergies reviewed. No changes. EXAM: BP 106/73 Pulse 83 Temp 36.5 C (97.7 F) (Temporal) Wt 66.5 kg (146 lb 9.7 oz) LMP 03/10/2006 SpO2 97% BMI 25.98 kg/m APPEARANCE Well appearing, alert, in no acute distress, well-hydrated, well nourished. HEART RRR with normal S1 and S2, no murmurs LUNG clear to auscultation BREAST FEMALE no mass/nodule b/l, R radiation changes LYMPH NODES No cervical lymphadenopathy, No supraclavicular lymphadenopathy, and No axillary lymphadenopathy. ABDOMEN bowel sounds normoactive, soft, non-tender EXTREMITIES No edema NEURO Awake, alert and oriented x 3, Normal gait, and No involuntary motions. SKIN Skin color, texture, turgor normal, no suspicious rashes or lesions ASSESSMENT/PLAN: 1. Malignant neoplasm of upper-outer quadrant of right breast in female, estrogen receptor positive (HCC) - ICD9: 174.4, V86.0, ICD10: C50.411, Z17.0 (primary diagnosis) Stage I, pT2, pN0, ER NV positive HER-2 negative, Invasive ductal carcinoma - No concerning findings on exam. - Tolerated arimidex fair except for fatigue and word finding issues. - Tolerating femara overall well. - Reviewed mammogram with pt. - Continue femara through January 2025-will then complete 7 years of therapy. - Mammogram due in 2024. - Follow up in one year. - Pt. aware to call office with any questions/concerns. The sensitive examination was discussed with the Patient or Patient's Authorized Gasoline Pump Mechanic. As applicable, any other physician, advance practice provider, medical student, or other health professional student that will be observing or involved in the sensitive examination for educational or training purposes was discussed with the Patient or Authorized Gasoline Pump Mechanic. The Patient or Authorized Gasoline Pump Mechanic has agreed to proceed with the sensitive examination. (Sensitive examination includes inspection and/or palpation of the breasts, pelvis, prostate and anorectal regions) The patient indicates understanding of these issues and agrees with the plan. All documentation from previous visit of 09/03/23-Dr. Winchester/myself was copied and pasted, documentation has been reviewed and edited as necessary for today's visit. Sameera Martini APRN.CARMEN documented in this encounter [facility] 11-14-2024 Telephone encounter Note Prescription Refill Information The patient has been identified by name and date of : Yes Caregiver verified no other encounters exist for this prescription request: Yes Caregiver confirmed with patient/requestor that no other refills are due, in the near future, with this provider at this time: Yes The last office visit in the department: 09/03/2023 Does the patient have a future office visit with this provider/department: Yes 11/16/2024 Requested Prescriptions Pending Prescriptions Disp Refills letrozole (FEMARA) 2.5 mg tablet [Pharmacy Med Name: LETROZOLE TABS 2.5MG] 90 tablet 3 Sig: TAKE 1 TABLET DAILY Bhavya Raya LPN November 14, 2024 7:15 AM [facility] 11-14-2024 Miscellaneous Notes Prescription Refill Information The patient has been identified by name and date of : Yes Caregiver verified no other encounters exist for this prescription request: Yes Caregiver confirmed with patient/requestor that no other refills are due, in the near future, with this provider at this time: Yes The last office visit in the department: 09/03/2023 Does the patient have a future office visit with this provider/department: Yes 11/16/2024 Requested Prescriptions Pending Prescriptions Disp Refills letrozole (FEMARA) 2.5 mg tablet [Pharmacy Med Name: LETROZOLE TABS 2.5MG] 90 tablet 3 Sig: TAKE 1 TABLET DAILY Bhavya Raya LPN November 14, 2024 7:15 AM documented in this encounter [facility] 10-17-2024 History of Present illness Narrative Radiology Service Progress Note PATIENT NAME: Kathryn Whiting DATE OF SERVICE: October 17, 2024 TIME: 1:43 PM PATIENT IDENTITY VERIFICATION COMPLETED USING TWO (2) IDENTIFIERS: Name and Date of confirmed by patient verbally. FALL SCREENING: Has the patient had 2 falls in the last year or 1 fall with injury or currently using an Ambulatory Assistive Device (Walker, Cane, Wheelchair, Crutches, etc.)? No PATIENT GENDER DATA: Female. status: : No status: NO. PATIENT RELEVANT IMPLANT DATA REVIEWED: Not Applicable PATIENT PRESENTS WITH AN IMPLANTABLE OR ATTACHED CEMETERY KEEPER: No RADIOLOGY DEPARTMENT: Mammography PERIPHERAL IV DATA: Not applicable SIGNED BY: Aly Juárez October 17, 2024 1:43 PM documented in this encounter [facility] 10-17-2024 Note HNO ID: [id number] Author: PAULETTE BRENNAN Mammo Tech Service: ? Author Type: Enterprise Systems Engineer Type: Progress Notes Filed: 10/17/2024 13:43 Note Text: Radiology Service Progress Note PATIENT NAME: Kathryn Whiting DATE OF SERVICE: October 17, 2024 TIME: 1:43 PM PATIENT IDENTITY VERIFICATION COMPLETED USING TWO (2) IDENTIFIERS: Name and Date of confirmed by patient verbally. FALL SCREENING: Has the patient had 2 falls in the last year or 1 fall with injury or currently using an Ambulatory Assistive Device (Walker, Cane, Wheelchair, Crutches, etc.)? No PATIENT GENDER DATA: Female. status: : No status: NO. PATIENT RELEVANT IMPLANT DATA REVIEWED: Not Applicable PATIENT PRESENTS WITH AN IMPLANTABLE OR ATTACHED CEMETERY KEEPER: No RADIOLOGY DEPARTMENT: Mammography PERIPHERAL IV DATA: Not applicable SIGNED BY: Aly Juárez October 17, 2024 1:43 PM [facility] 08-08-2024 Telephone encounter Note Patient called back and scheduled Alexa Escobar [facility] 08-08-2024 Miscellaneous Notes Patient called back and scheduled Alexa Escobar Left message for patient to return call. When patient calls, felipe advise her mammogram needs to be no sooner than 10/15/24 for insurance purposes and schedule accordingly. Karen Anne Done. Sameera Martini APRN.CARMEN Please sign order. Madelin North LPN Please place mamm order and advise patient for scheduling. documented in this encounter [facility] 08-08-2024 Telephone encounter Note Left message for patient to return call. When patient calls, felipe advise her mammogram needs to be no sooner than 10/15/24 for insurance purposes and schedule accordingly. Karen Anne [facility] 08-08-2024 Telephone encounter Note Done. Sameera Martini APRN.CARMEN [facility] 08-05-2024 Telephone encounter Note Please sign order. Madelin North LPN [facility] 08-05-2024 Telephone encounter Note Please place mamm order and advise patient for scheduling. [facility] Work Phone: 08-02-2024 Telephone encounter Note The following approved medication requests have been transmitted electronically. Requested Prescriptions Signed Prescriptions Disp Refills acetaminophen 325 mg-caffeine 40 mg-butalbital 50 mg (FIORICET) per tablet 30 tablet 2 Sig: Take 1 tablet by mouth every 4 hours as needed for headache for up to 90 days. Authorizing Provider: CATA WHYTE APRN.CNP PDMP website checked and validated. All prescriptions have been APPROPRIATELY filled. No suspicious activity was identified. 08/02/2024 by Cata Whyte CNP. [facility] 08-02-2024 Miscellaneous Notes The following approved medication requests have been transmitted electronically. Requested Prescriptions Signed Prescriptions Disp Refills acetaminophen 325 mg-caffeine 40 mg-butalbital 50 mg (FIORICET) per tablet 30 tablet 2 Sig: Take 1 tablet by mouth every 4 hours as needed for headache for up to 90 days. Authorizing Provider: CATA WHYTE APRN.CNP PDM website checked and validated. All prescriptions have been APPROPRIATELY filled. No suspicious activity was identified. 08/02/2024 by Cata Whyte CNP. Patient calling on status of refill request. Advised will send to PCP. Giselle Ibrahim LPN Prescription Refill Information The patient has been identified by name and date of : Yes Caregiver verified no other encounters exist for this prescription request: Yes Caregiver confirmed with patient/requestor that no other refills are due, in the near future, with this provider at this time: Yes The last office visit in the department: 01/06/24 Does the patient have a future office visit with this provider/department: No Requested Prescriptions Pending Prescriptions Disp Refills acetaminophen 325 mg-caffeine 40 mg-butalbital 50 mg (FIORICET) per tablet 30 tablet 2 Sig: Take 1 tablet by mouth every 4 hours as needed for headache for up to 90 days. Torri Meyers LPN August 01, 2024 9:53 AM documented in this encounter [facility] 08-02-2024 Telephone encounter Note Patient calling on status of refill request. Advised will send to PCP. Giselle Ibrahim LPN [facility] 08-01-2024 Telephone encounter Note Prescription Refill Information The patient has been identified by name and date of : Yes Caregiver verified no other encounters exist for this prescription request: Yes Caregiver confirmed with patient/requestor that no other refills are due, in the near future, with this provider at this time: Yes The last office visit in the department: 01/06/24 Does the patient have a future office visit with this provider/department: No Requested Prescriptions Pending Prescriptions Disp Refills acetaminophen 325 mg-caffeine 40 mg-butalbital 50 mg (FIORICET) per tablet 30 tablet 2 Sig: Take 1 tablet by mouth every 4 hours as needed for headache for up to 90 days. Torri Meyers LPN August 01, 2024 9:53 AM [facility] 06-14-2024 Telephone encounter Note The patient has been identified by name and date of : Yes Caregiver verified no other encounters exist for this prescription request: Yes Caregiver confirmed with patient/requestor that no other refills are due, in the near future, with this provider at this time: Yes The last office visit in the department: 01/06/2024 Does the patient have a future office visit with this provider/department: No Requested Prescriptions Pending Prescriptions Disp Refills FLUoxetine (PROZAC) 40 mg capsule 10 capsule 0 Sig: Take 1 capsule by mouth once daily. FLUoxetine (PROZAC) 40 mg capsule 90 capsule 1 Sig: Take 1 capsule by mouth once daily. Yenifer Batista RN June 14, 2024 9:31 AM [facility] 06-14-2024 Miscellaneous Notes The patient has been identified by name and date of : Yes Caregiver verified no other encounters exist for this prescription request: Yes Caregiver confirmed with patient/requestor that no other refills are due, in the near future, with this provider at this time: Yes The last office visit in the department: 01/06/2024 Does the patient have a future office visit with this provider/department: No Requested Prescriptions Pending Prescriptions Disp Refills FLUoxetine (PROZAC) 40 mg capsule 10 capsule 0 Sig: Take 1 capsule by mouth once daily. FLUoxetine (PROZAC) 40 mg capsule 90 capsule 1 Sig: Take 1 capsule by mouth once daily. Yenifer Batista RN June 14, 2024 9:31 AM documented in this encounter [facility] 05-31-2024 Telephone encounter Note Left msg for pt to return the call on both home and cell numbers. Accidentally closed encounter. [facility] 05-31-2024 Miscellaneous Notes Left msg for pt to return the call on both home and cell numbers. Accidentally closed encounter. Message left to return call. Please call patient and let her know about this. Not sure why this is not covered since pt has been on it before. Looks like pt was prescribe naproxen (alternative) in December. I would recommend trying this instead. Thank you, Aishwarya Turner APRN.SERVICE ORDER DISPATCHER CHIEF Laly with [facility] calling regarding patient's prescription for Fioricet. Reports medication is not covered by patient's insurance. Covered alternatives include: -meloxicam -naproxen -ibuprofen Please advise pharmacist of plan regarding Fioricet script. [phone] Thank you. documented in this encounter [facility] 05-30-2024 Telephone encounter Note Message left to return call. [facility] 05-30-2024 Telephone encounter Note Please call patient and let her know about this. Not sure why this is not covered since pt has been on it before. Looks like pt was prescribe naproxen (alternative) in December. I would recommend trying this instead. Thank you, Aishwarya Turner APRN.SERVICE ORDER DISPATCHER CHIEF [facility] 05-30-2024 Telephone encounter Note Laly with [facility] calling regarding patient's prescription for Fioricet. Reports medication is not covered by patient's insurance. Covered alternatives include: -meloxicam -naproxen -ibuprofen Please advise pharmacist of plan regarding Fioricet script. [phone] Thank you. [facility] 05-25-2024 Telephone encounter Note The following approved medication requests have been transmitted electronically. Requested Prescriptions Signed Prescriptions Disp Refills acetaminophen 325 mg-caffeine 40 mg-butalbital 50 mg (FIORICET) per tablet 30 tablet 2 Sig: Take 1 tablet by mouth every 4 hours as needed for headache for up to 90 days. Authorizing Provider: AISHWARYA TURNER APRN.SERVICE ORDER DISPATCHER CHIEF [facility] 05-25-2024 Miscellaneous Notes The following approved medication requests have been transmitted electronically. Requested Prescriptions Signed Prescriptions Disp Refills acetaminophen 325 mg-caffeine 40 mg-butalbital 50 mg (FIORICET) per tablet 30 tablet 2 Sig: Take 1 tablet by mouth every 4 hours as needed for headache for up to 90 days. Authorizing Provider: AISHWARYA TURNER APRN.CNP The patient has been identified by name and date of : Yes Caregiver verified no other encounters exist for this prescription request: Yes Caregiver confirmed with patient/requestor that no other refills are due, in the near future, with this provider at this time: Yes The last office visit in the department: 01/06/2024 Does the patient have a future office visit with this provider/department: Yes Requested Prescriptions Pending Prescriptions Disp Refills acetaminophen 325 mg-caffeine 40 mg-butalbital 50 mg (FIORICET) per tablet 30 tablet 5 Sig: Take 1 tablet by mouth every 4 hours as needed for headache. Karen Garcia RN May 25, 2024 12:05 PM documented in this encounter [facility] 05-25-2024 Telephone encounter Note The patient has been identified by name and date of : Yes Caregiver verified no other encounters exist for this prescription request: Yes Caregiver confirmed with patient/requestor that no other refills are due, in the near future, with this provider at this time: Yes The last office visit in the department: 01/06/2024 Does the patient have a future office visit with this provider/department: Yes Requested Prescriptions Pending Prescriptions Disp Refills acetaminophen 325 mg-caffeine 40 mg-butalbital 50 mg (FIORICET) per tablet 30 tablet 5 Sig: Take 1 tablet by mouth every 4 hours as needed for headache. Karen Garcia RN May 25, 2024 12:05 PM T [facility] 02-18-2024 History of Present illness Narrative Images from the original note were not included. Episode Visit Count: 4 Therapist That Will Accept/Oversee The Plan Of Care: Francisco Soni PT Start of Care Date: 01/19/24 Onset Date: 10/09/23 Plan of Care Certification Date: 02/18/24 Next Certification Due Date: 03/24/24 Patient Identified by Name and Date of : Yes REHABILITATION AND SPORTS THERAPY PHYSICAL THERAPY PROGRESS REPORT PLAN OF CARE UPDATE: Assessment: Kathryn Whiting demonstrates difficulty with lifting and reaching and improvements in putting on her seat belt and improved independence with the HEP. She has progressed toward goals. Patient continues to present with impairments in independence in exercise, strength, and tissue tenderness that interfere with pulling, pushing . Current prognosis is Good due to: current objective clinical presentation . She will benefit from continued skilled therapy services to meet the updated goals for this plan of care as noted below. Goals updated 02/18/2024 Goals for Episode of Care: created on 01/19/24 through 03/15/24 [place] in home exercise program. - MET Patient will decrease pain rating by 2 points to meet minimal clinical important difference for numeric pain rating scale. - Progressing Increase ROM of LUE to equal that of the opposite arm for ease of overhead reaching - Progressing, will continue Increased strength of LUE to 4+/5 or greater for ease of lifting objects - Progressing will continue Patient Goals: Reduce pain Patient Goals: Reduce pain Planned Interventions, Frequency, and Duration: 1x every other week, 4 weeks Total Number of Visits Planned: 2 Patient to be seen for Therapeutic exercise (75710), Neuromuscular re-education (75405), Manual therapy (29409), Therapeutic activities (77451), Self-fpc management (72228), Patient/Family/Caregiver Education PLAN FOR NEXT VISIT: DDN upper traps SUBJECTIVE: [place] pretty good for the first couple days. Then it got sore again. It is feeling achey today. Was able to reach back for the seatbelt. Pt states that she feels she has a ways to go but she is about 50% improved. Patient Goals: Reduce pain Functional Limitations: pulling, pushing Prior Level of Function: Independent without limitations Intake Information: Prescription present Previous Treatment: Massage , Heat , Ice Pain: Pain Pain Level: 3 Pain Location: Shoulder - Left PROMIS Scales 01/19/2024 04/20/2023 Higher is Better Phys Func - Score 39 (moderate dysfunction) 38 (moderate dysfunction) Phys Func - Percentile 14 12 Self-Eff Symptom - Score 41 (Average) 44 (Average) Self-Eff Symptom - Percentile 18 27 T-scores: mean of general population = 50. 5 points is clinically meaningfully difference Percentiles provide an indication of how the patient's score ranks in relation to the general population. Higher percentile rankings indicate better function/quality of life. 50th percentile is the average of the general population and indicates half of respondents had a worse score. OBJECTIVE MEASURES WITH LEVEL OF FUNCTION: Posture / Alignment Posture: Good Spine Observations R Cervical Spine Palpation Tenderness: Upper trapezius L Cervical Spine Palpation Tenderness: Upper trapezius Cervical Spine ROM Cervical Flexion AROM: Normal Cervical Extension AROM: Normal Cervical Side-Bend Right AROM: Normal Cervical Side-Bend Left AROM: Normal Cervical Rotation Right AROM: Normal Cervical Rotation Left AROM: Normal UE AROM R UE AROM: WNL L UE AROM: WNL R Shoulder Flex: 160 Degrees (Tightnes at end range) UE and Cervical Strength L Shoulder Flexion: 4/5 L Shoulder Internal Rotation: 4+/5 L Shoulder External Rotation: 4/5 (painful) TREATMENT: Therapeutic Exercise: 1: All objective measures taken this session 2: No moneys lvl 1 band x 10 (decreased resistance to decrease pain experience) Skilled Intervention: Patient was educated in proper exercise technique and purpose for exercises. Provided written instruction for home exercise program to facilitate proper performance and compliance. Correct performance of therapeutic exercises was facilitated with verbal and visual cuing. Manual Therapy: 1: DDN to the R and L upper trap and L supraspinatus (See note for details) 2: STM pincer grasp over upper traps bilaterally Skilled Intervention: Manual skills to improve joint mobility, ROM, and decrease pain. Utilized anatomy knowledge of the therapist, and assessment of patient's response to intervention. Billing Therapeutic Exercise Treatment Minutes: 15 Manual TherapyTreatment Minutes: 26 Skilled Treatment Time Minutes (timed and untimed codes): 41 Total Session Time (minutes): 41 Session Start Time : 1132 Session Stop Time : 1213 Francisco Soni PT documented in this encounter [facility] 02-17-2024 Miscellaneous Notes Patient has been identified by name and date of : Yes, Provider Dr. Bates Date 02/17/24 Time 3:17 Patient phones for refill(s): Requested Prescriptions Pending Prescriptions Disp Refills levothyroxine (LEVOXYL) 88 mcg tablet 90 tablet 3 Sig: Take 1 tablet by mouth once daily. Take on empty stomach. For Thyroid atorvastatin (LIPITOR) 10 mg tablet 90 tablet 3 Sig: TAKE 1 TABLET EVERY DAY AT BEDTIME FOR CHOLESTEROL Date of last office visit in primary care: Visit date not found Date of next office visit in primary care: Visit date not found Please advise. Thank you. Willa Allred LPN. Patient has been identified by name and date of : Yes, Provider Yue Bates DO Date 02/17/2024 Time Patient phones for refill(s): Requested Prescriptions Pending Prescriptions Disp Refills levothyroxine (LEVOXYL) 88 mcg tablet 90 tablet 3 Sig: Take 1 tablet by mouth once daily. Take on empty stomach. For Thyroid atorvastatin (LIPITOR) 10 mg tablet 90 tablet 3 Sig: TAKE 1 TABLET EVERY DAY AT BEDTIME FOR CHOLESTEROL Date of last office visit in primary care: 01/06/2024 Date of next office visit in primary care: Visit date not found Please advise. Thank you. Mahsa Weir. documented in this encounter [facility] 02-11-2024 History of Present illness Narrative Episode Visit Count: 3 Therapist That Will Accept/Oversee The Plan Of Care: Francisco Soni PT Start of Care Date: 01/19/24 Onset Date: 10/09/23 Plan of Care Certification Date: 01/19/24 Next Certification Due Date: 02/23/24 Patient Identified by Name and Date of : Yes REHABILITATION AND SPORTS THERAPY PHYSICAL THERAPY TREATMENT NOTE ASSESSMENT: Kathryn Whiting tolerated the session with no issues and no bleeding with DDN performed this session. She demonstrated a reduction in pain by 50% post DDN per pt report. The patient will continue to benefit from ongoing skilled physical therapy to progress toward set goals. PLAN FOR NEXT VISIT: PN SUBJECTIVE: Had a massage thursday which made it sore. Pain: Pain Pain Level: 4 Pain Location: Shoulder - Left OBJECTIVE MEASURES WITH LEVEL OF FUNCTION: TP of L upper trap noted No adverse reaction to the DDN performed today TREATMENT: Therapeutic Exercise: 1: Pec stretches on wall 3 x 30 sec 2: Scaption in standing 1# 3 x 10 Skilled Intervention: Patient was educated in proper exercise technique and purpose for exercises. Correct performance of therapeutic exercises was facilitated with verbal cuing. Manual Therapy: Dry needling to following Trigger points: left upper trap and supraspinatus Needle length: 50mm 2.0 in . [place] used 2, needles removed 2. Dry needling technique used: Pistoning and Deep needling. Patient education on purpose, precautions, safety, risks, and other treatment options regarding dry needling. Verbal consent received. 1: DDN of the L upper trap and supraspinatus in sidelying 2: STM circular pattern over L upper trap and supraspinatus Skilled Intervention: Manual skills to improve joint mobility, ROM, and decrease pain. Utilized anatomy knowledge of the therapist, and assessment of patient's response to intervention. Billing Therapeutic Exercise Treatment Minutes: 10 Manual TherapyTreatment Minutes: 29 Skilled Treatment Time Minutes (timed and untimed codes): 39 Total Session Time (minutes): 39 Session Start Time : 1130 Session Stop Time : 1209 Francisco Soni PT documented in this encounter [facility] 01-19-2024 History of Present illness Narrative Program_ID:[id number] Access Code: [email or web address] URL: [email or web address] Date: 01-19-2024 Prepared By: Francisco Soni Program Notes Exercises - Seated Upper Trapezius Stretch - 1 x daily - 7 x weekly - 4 sets - 1 reps - Single Arm Scaption with Dumbbell - 1 x daily - 7 x weekly - 4 sets - 10 reps Images from the original note were not included. Episode Visit Count: 1 Therapist That Will Accept/Oversee The Plan Of Care: Francisco Soni PT Start of Care Date: 01/19/24 Onset Date: 10/09/23 Plan of Care Certification Date: 01/19/24 Next Certification Due Date: 02/23/24 Patient Identified by Name and Date of : Yes REHABILITATION AND SPORTS THERAPY PHYSICAL THERAPY EVALUATION PLAN OF CARE: Assessment: Kathryn Whiting presents with chief complaint of Neck and L shoulder pain that interferes with pulling, pushing . She presents with impairments in independence in exercise, range of motion, strength, and tissue tenderness. PROMIS (Patient-Reported Outcomes Measurement Information System) scores were reviewed and identified as a rehabilitation concern. Prognosis for therapy is Good due to: current objective clinical presentation . Pt demonstrates familiar pain with palpation and stretching of the L upper trap and a positive empty can test. She will benefit from skilled therapy services to meet the goals established for this plan of care as noted below. Goals for Episode of Care: created on 01/19/24 through 03/15/24 [place] in home exercise program. Patient will decrease pain rating by 2 points to meet minimal clinical important difference for numeric pain rating scale. Increase ROM of LUE to equal that of the opposite arm for ease of overhead reaching Increased strength of LUE to 4+/5 or greater for ease of lifting objects Patient Goals: Reduce pain Planned Interventions, Frequency, and Duration: Current Frequency: 1x/week Duration: 4 weeks Total Number of Visits Planned: 4 Planned Treatment Interventions: Therapeutic exercise (17304), Neuromuscular re-education (26137), Manual therapy (23777), Self-fpc management (84168) PLAN FOR NEXT VISIT: STM if needed to upper trap. Loading supraspinatus. Patient demonstrates good understanding of plan of care and treatment. The above goals and plan of care were discussed and agreed upon by patient/family. SUBJECTIVE: L arm and neck pain. Had a bad reaction to the flu shot and covid vacination. Moving the arms increased the pain. Cannot push or pull. Putting on a seat belt hurts. N/T is not present in the arm. Cannot sleep on that shoulder. Patient Goals: Reduce pain Functional Limitations: pulling, pushing Prior Level of Function: Independent without limitations Intake Information: Prescription present Previous Treatment: Massage , Heat , Ice Pain: Pain Pain Level: 2 Pain Location: Shoulder - Left Description: Aching PROMIS Scales 04/20/2023 01/19/2024 Higher is Better Phys Func - Score 38 (moderate dysfunction) 39 (moderate dysfunction) Phys Func - Percentile 12 14 Self-Eff Symptom - Score 44 (Average) 41 (Average) Self-Eff Symptom - Percentile 27 18 04/20/2023 Higher is Better Phys Func - Score 38 (moderate dysfunction) Phys Func - Percentile 12 Self-Eff Symptom - Score 44 (Average) Self-Eff Symptom - Percentile 27 T-scores: mean of general population = 50. 5 points is clinically meaningfully difference Percentiles provide an indication of how the patient's score ranks in relation to the general population. Higher percentile rankings indicate better function/quality of life. 50th percentile is the average of the general population and indicates half of respondents had a worse score. OBJECTIVE MEASURES WITH LEVEL OF FUNCTION: Spine Observations L Cervical Spine Palpation Tenderness: Upper trapezius Cervical Spine ROM Cervical ROM : Limitation AROM Cervical Flexion AROM: Normal Cervical Extension AROM: Normal Cervical Side-Bend Right AROM: Minimal limitation (Tenderness along L upper trap) Cervical Side-Bend Left AROM: Normal Cervical Rotation Right AROM: Normal Cervical Rotation Left AROM: Normal UE AROM R UE AROM: WNL R Shoulder Flex: 120 Degrees (stopping due to pain) UE and Cervical Strength Strength Tested: Shoulder All R UE Strength: Grossly 5/5 L Shoulder Flexion: 3-/5 L Shoulder Abduction (C5): 3-/5 L Shoulder Internal Rotation: 4/5 L Shoulder External Rotation: 4/5 Education: Education Learning Preferences: Demonstration, Explanation, Performance, Printed Materials Barriers: None Learning/educational needs: Home exercise program, Plan of Care Education Provided: Yes, see treatment interventions for education provided Education Provided To: Patient Education Mode/Type: Demonstration, Explanation/Discussion, Literature/Printed Materials, Performance Response to Education/Teach Back: States/Identifies, Return Demonstration TREATMENT: PT Treatment Interventions: Therapeutic Exercise Evaluation Therapeutic Exercise: 1: Discussed exam findings, purpose of the HEP and the HEP handout was provided to the pt. HEP discussed in detail with hot to safely and properly perform each therapeutic exercise. Discussed anatomy of the shoulder and purpose of the RTC's. Common pain referral pattern for the supraspinatus discussed. 2: Seated upper trap stretch 2 x 30 sec 3: Standing shoulder scaption 1# 2 x 10 Skilled Intervention: Patient was educated in proper exercise technique and purpose for exercises. Skilled judgment was used in selection of appropriate interventions. Provided written instruction for home exercise program to facilitate proper performance and compliance. Correct performance of therapeutic exercises was facilitated with verbal and visual cuing. Billing * Evaluation Low Complexity: 1 Unit Therapeutic Exercise Treatment Minutes: 25 Skilled Treatment Time Minutes (timed and untimed codes): 48 Total Session Time (minutes): 48 Session Start Time : 1012 Session Stop Time : 1100 Francisco Soni PT Physical Therapy Evaluation Physical Therapy Evaluation (only) documented in this encounter [facility] 01-11-2024 Miscellaneous Notes Noted. Thank you, Aishwarya Turner APRN.SERVICE ORDER DISPATCHER CHIEF Pt notified of the following results: Kathryn, your shoulder xray shows some mild arthritis. Your cervical neck xray shows moderate to severe arthritis throughout. Let's see how you do with the naproxen and PT. If no improvement, we'll likely send you to pain management or a replenishment specialist. Cata Whyte APRN.SERVICE ORDER DISPATCHER CHIEF Pt reports she tried taking Naproxen a few times and every time it upset her stomach. Pt reports she went back to taking Tylenol. Little Melgoza LPN documented in this encounter [facility] 01-06-2024 History of Present illness Narrative Radiology Service Progress Note PATIENT NAME: Kathryn Whiting DATE OF SERVICE: January 06, 2024 TIME: 12:43 PM PATIENT IDENTITY VERIFICATION COMPLETED USING TWO (2) IDENTIFIERS: Name and Date of confirmed by patient verbally. FALL SCREENING: Has the patient had 2 falls in the last year or 1 fall with injury or currently using an Ambulatory Assistive Device (Walker, Cane, Wheelchair, Crutches, etc.)? No PATIENT GENDER DATA: Female. status: : No status: NO. PATIENT RELEVANT IMPLANT DATA REVIEWED: Yes PATIENT PRESENTS WITH AN IMPLANTABLE OR ATTACHED CEMETERY KEEPER: No RADIOLOGY DEPARTMENT: General X-ray: Exam(s) Completed: Spine X-Ray(s): Cervical AP / LAT / OBL Upper Extremity X-Ray(s): Shoulder, AP / TRUE AP / AXILLARY left PERIPHERAL IV DATA: Not applicable SIGNED BY: RT Caterina(R) January 06, 2024 12:43 PM documented in this encounter [facility] 01-06-2024 Instructions Cata Whyte APRN.CNP - 01/06/2024 12:35 PM EST Have your xrays completed. Naproxen twice daily with food, x14 days. Regardless of pain. Schedule with PT. Flonase 2 sprays to each nostril once daily. documented in this encounter [facility] 01-06-2024 History of Present illness Narrative Chief Complaint Patient presents with: Arm Pain: Left x 6 months, covid vaccine in left arm in Oct, pain has improved, does radiate into neck. Reports she feels like she has fluid in her left ear today. HPI Kathryn Whiting is a 68 year old female who presents here today for Above Complaints. Currently: Left arm-when is lifting her arm feels like it wants to catch right above her elbow. Had her COVID and flu shots in October-had bad reactions to these-same day her arms both went numb and were freezing, severe pain down both of her arms. Radiates up arm to shoulder and into neck at times. Pain with twisting her wrist, lifting, cannot raise her arm to blow dry her arm. Hurts to even have arm touched by clothing. Is right handed. No known injury. Left ear feels like it may have fluid in it. Icy heat, moist heat, heating pads, massage. Past medical history, appointments, medications, allergies reviewed. Previous Medical History PAST MEDICAL HISTORY Diagnosis Date Breast cancer (HCC) Diarrhea Hypercholesteraemia 03/2015 Migraine, unspecified, with intractable migraine, so stated, without mention of status migrainosus Migraine Mild diastolic dysfunction echo 03/2013 Mild mitral regurgitation echo 03/2013 Mild tricuspid regurgitation echo 03/2013 Mitral valve disorders(424.0) MVP Myalgia and myositis, unspecified Panic disorder without agoraphobia Panic disorder Unspecified hypothyroidism Previous Surgical History PAST SURGICAL HISTORY Procedure Laterality Date BREAST LUMPECTOMY HX 11/10/2017 CHOLECYSTECTOMY Cholecystectomy -- lap (Dr. Bear?) COLONOSCOPY FLX DX W/COLLJ SPEC WHEN PFRMD 09/16/07 COLONOSCOPY FLX DX W/COLLJ SPEC WHEN PFRMD 03/17/2019 normal ESOPHAGOGASTRODUODENOSCOPY TRANSORAL DIAGNOSTIC 09/01/13 EGD ESOPHAGOGASTRODUODENOSCOPY TRANSORAL DIAGNOSTIC 03/17/2019 EGD NEUROPLASTY &/TRANSPOS MEDIAN NRV CARPAL TUNNE Carpal tunnel decomp, Right REDUCTION OF LARGE BREAST Breast reduction Family History FAMILY HISTORY Problem Relation Age of Onset Heart Father other (Multiple myeloma) Father 1983 -- multiple myeloma in remission, then amyloidosis Thyroid Mother Mother's side of family Anesthesia Mother Heart disease Mother Heart Mother atrial fibrilation Breast Cancer Paternal Aunt Cancer Paternal Aunt Leukemia Heart Other Mother's side of family Coronary Artery Disease Sister 2 TN's, starting age 40 other (Multiple myeloma) Paternal Uncle Patient Allergies ALLERGIES No Known Allergies Current Medications Current Outpatient Medications on File Prior to Visit Medication Sig letrozole (FEMARA) 2.5 mg tablet Take 1 tablet by mouth once daily. FLUoxetine (PROZAC) 40 mg capsule Take 1 capsule by mouth once daily. FLUoxetine (PROZAC) 40 mg capsule Take 1 capsule by mouth once daily. levothyroxine (LEVOXYL) 88 mcg tablet Take 1 tablet by mouth once daily. Take on empty stomach. For Thyroid levothyroxine (LEVOXYL) 88 mcg tablet Take 1 tablet by mouth once daily. Take on empty stomach. For Thyroid levothyroxine (LEVOXYL) 88 mcg tablet Take 1 tablet by mouth once daily. Take on empty stomach. For Thyroid atorvastatin (LIPITOR) 10 mg tablet TAKE 1 TABLET EVERY DAY AT BEDTIME FOR CHOLESTEROL acetaminophen 325 mg-caffeine 40 mg-butalbital 50 mg (FIORICET) per tablet Take 1 tablet by mouth every 4 hours as needed for headache. meclizine (ANTIVERT) 25 mg tab TAKE 1 TABLET BY MOUTH THREE TIMES A DAY NEEDED FOR DIZZINESS calcium-cholecalciferol, D3, (OSCAL+D 250) 250-125 mg-unit per tablet Take 1 tablet by mouth once daily. omeprazole (PRILOSEC) 20 mg capsule Take 1 capsule by mouth daily before breakfast. 1/2 hr before meal. No current facility-administered medications on file prior to visit. Social History Social History Tobacco Use Smoking status: Former Packs/day: 0.50 Years: 10.00 Additional pack years: 0.00 Total pack years: 5.00 Types: Cigarettes Quit date: 08/13/1990 Years since quittin.4 Smokeless tobacco: Never Vaping Use Vaping Use: Never used Substance Use Topics Alcohol use: No Drug use: No Review of Symptoms REVIEW OF SYSTEMS See HPI, otherwise negative EXAM: BP 118/82 (BP Site: Left Arm, BP Position: Sitting, BP Cuff Size: Regular Adult) Pulse 91 Resp 16 Wt 68.9 kg (151 lb 12.8 oz) LMP 03/10/2006 SpO2 94% BMI 26.90 kg/m General Appearance: Well appearing, alert, in no acute distress, well-hydrated, well nourished.. Head: Normocephalic, no masses, lesions, tenderness or abnormalities. Eyes: Anicteric sclera. Pupils are equally round and reactive to light. Extraocular movements are intact. . Ears: serous fluid bubbles posterior to bilateral TMs. Nose/Sinuses: Nares normal, septum midline, mucosa normal, no drainage or sinus tenderness. Oropharynx: Lips, mucosa, and tongue normal, teeth and gums normal, oropharynx normal. Neck: Supple, no adenopathy; thyroid symmetric, normal size, no bruits. Lungs: Lungs clear to auscultation. No wheezing, rhonchi, rales.. Heart: RRR without murmur, gallop, or rubs. No ectopy. Extremities: No deformities, edema, skin discoloration, clubbing or cyanosis. Good capillary refill. . Musculoskeletal: decreased ROM to left shoulder and neck, positive empty can test, no pain with palpation. Peripheral Pulses: Normal. Neurologic: Gait normal. Reflexes normal and symmetric. Sensation grossly intact. Psychiatric: pleasant, cooperative. Health Maintenance List Hepatitis C Screening Never done RSV Vaccine(1 - 1-dose 60+ series) Never done DTaP,Tdap,Td Vaccine(2 - Td or Tdap) due on 07/01/2017 Pneumococcal Vaccine: 65+(1 of 1 - PCV) Never done Depression Assessment due on 11/09/2023 Annual PCP Team Chronic Disease Visit due on 04/13/2024 Mammogram Screening due on 10/14/2024 Diabetes Screening due on 03/12/2026 Lipid Screening due on 03/12/2028 Colorectal Cancer Screening due on 03/17/2029 Bone Density Screening Completed Influenza Vaccine Completed Shingrix Vaccine Completed Covid-19 Vaccine Completed HPV Vaccine Aged Out Advance Directive Discussion Discontinued Data reviewed Previous records, office notes ASSESSMENT/PLAN: 1. Cervical radiculopathy - ICD9: 723.4, ICD10: M54.12 (primary diagnosis) - XR SHOULDER GENERAL 3V OR MORE AP/TRUE AP/OTHER LEFT - XR CERV OTHER 4V AP/LAT/OBL - NAPROXEN 500 MG TABLET - CONSULT TO PHYSICAL THERAPY 2. Chronic left shoulder pain - ICD9: 719.41, 338.29, ICD10: M25.512, G89.29 - XR SHOULDER GENERAL 3V OR MORE AP/TRUE AP/OTHER LEFT - XR CERV OTHER 4V AP/LAT/OBL - NAPROXEN 500 MG TABLET - CONSULT TO PHYSICAL THERAPY 3. Neck pain - ICD9: 723.1, ICD10: M54.2 - XR SHOULDER GENERAL 3V OR MORE AP/TRUE AP/OTHER LEFT - XR CERV OTHER 4V AP/LAT/OBL - NAPROXEN 500 MG TABLET - CONSULT TO PHYSICAL THERAPY 4. Left arm pain - ICD9: 729.5, ICD10: M79.602 - XR SHOULDER GENERAL 3V OR MORE AP/TRUE AP/OTHER LEFT - XR CERV OTHER 4V AP/LAT/OBL - NAPROXEN 500 MG TABLET - CONSULT TO PHYSICAL THERAPY 5. Non-recurrent acute serous otitis media of left ear - ICD9: 381.01, ICD10: H65.02 Flonase 2 sprays to each nostril once daily Cata Whyte APRN.SERVICE ORDER DISPATCHER CHIEF documented in this encounter [facility] 12-10-2023 Miscellaneous Notes Please send to [facility] (new pharmacy). Madelin North LPN Please mail to [facility] [phone] Patient has been identified by name and date of : Yes Last office visit in this department: Visit date not found RX INSTRUCTIONS: Patient aware RX will be sent to pharmacy. No need to notify patient. Patient phones requesting refills as follows: Requested Prescriptions Pending Prescriptions Disp Refills letrozole (FEMARA) 2.5 mg tablet 90 tablet 3 Sig: Take 1 tablet by mouth once daily. Please review and advise. Marjorie You documented in this encounter [facility] 10-14-2023 History of Present illness Narrative Radiology Service Progress Note PATIENT NAME: Kathryn Whiting DATE OF SERVICE: October 14, 2023 TIME: 10:05 AM PATIENT IDENTITY VERIFICATION COMPLETED USING TWO (2) IDENTIFIERS: Name and Date of confirmed by patient verbally. FALL SCREENING: Has the patient had 2 falls in the last year or 1 fall with injury or currently using an Ambulatory Assistive Device (Walker, Cane, Wheelchair, Crutches, etc.)? No PATIENT GENDER DATA: Female. status: : No status: NO. PATIENT RELEVANT IMPLANT DATA REVIEWED: Not Applicable RADIOLOGY DEPARTMENT: Mammography PERIPHERAL IV DATA: Not applicable SIGNED BY: RT Marielena(R) October 14, 2023 10:05 AM documented in this encounter [facility] 10-14-2023 History of Present illness Narrative Radiology Service Progress Note PATIENT NAME: Kathryn Whiting DATE OF SERVICE: October 14, 2023 TIME: 10:21 AM PATIENT IDENTITY VERIFICATION COMPLETED USING TWO (2) IDENTIFIERS: Name and Date of confirmed by patient verbally. FALL SCREENING: Has the patient had 2 falls in the last year or 1 fall with injury or currently using an Ambulatory Assistive Device (Walker, Cane, Wheelchair, Crutches, etc.)? No PATIENT GENDER DATA: Female. status: : No status: NO. PATIENT RELEVANT IMPLANT DATA REVIEWED: Not Applicable RADIOLOGY DEPARTMENT: Bone Density PERIPHERAL IV DATA: Not applicable SIGNED BY: RT Lisette(R) October 14, 2023 10:21 AM documented in this encounter [facility] 09-03-2023 History of Present illness Narrative Chief Complaint Patient presents with: Established Patient HPI: Kathryn Whiting is a 68 year old female who presents here today for follow up breast cancer. Per Dr. Winchester's previous note: H/o hypercholesterinemia presented with stage I, ER/NV positive HER-2 negative breast cancer. Patient has been getting annual mammograms and self breast examinations. she presented last fall with an abnormal right breast mammograms/US and underwent 10/05/17 US guided needle core breast biopsy. Mammograms - asymetry in the right breast at 11:00 middle depth US right breast 6mm x 4mm right breast lesion, 10:00 middle depth, hypoechoic with posterior acoustic shadowing. Pathology revealed - (upper outer quadrant) Right breast, ultrasound-guided needle core biopsy: Invasive lobular carcinoma: Maximal length - 9 mm Nuclear Grade - 2/3 Other findings - atypical lobular hyperplasia. ER (clone [id number]) >95%, strong NV (clone 16/1E2) >95%, strong Her-2Neu (clone [id number]) 0 MRI breast:showed a 0.6 cm irregular mass in the right breast is consistent with the known carcinoma and is a known biopsy positive for malignancy. A surgical consult is recommended. Please note the biopsy clip appears migrated posterior from the biopsy site. As such, a post biopsy right mammogram is recommended for correlation of findings/clip placement prior to potential wire localization and surgical intervention. No MRI evidence of malignancy in the left breast. She had a right breast lumpectomy and sentinel lymph node biopsy on 11/10/17. Pathology reveals - Invasive tumor size: 9 x 4 x 3 mm, Grade 1 (total score of 5),Margins: Uninvolved by invasive carcinoma. Distance from closest (inferior-anterior) margin - 2.0 mm Distance from next closest (posterior ) margin - 2.5 mm, Lymph-Vascular invasion: Not identified Dermal lymph-vascular invasion: Not applicable , ER: >95%, strong NV: >95%, strong [id number]: negative [address] negative The patient is recovering well from her surgery with no complications. Minimal postoperative pain no numbness, swelling or lymphedema. menstrual history: Menarche at age 11, first at age 15, menopause age 53. She was on control for 10 years, no hormonal replacement therapy after menopause. No family history of breast or ovarian cancer. Last colonoscopy 7 years ago-normal Recent pelvic exam last year; normal with no abnormal discharge or uterine bleeding. bone density - 2007 showed osteopenia RADIATION:12/21/17 to 01/18/18 Current therapy:Femara Began May 2022. Previous therapy:arimidex Began after radiation. Pt. tolerating femara well-word findings issues improved since changing from arimidex. Appetite:It's fine. Energy level:Puja low. Denies fevers or recent illness. Resp:denies cough or sob, occ. colindres Cardiac:denies chest pain/palpitations GI:denies abd pain, +GERD-taking prilosec, occ. nausea, denies vomiting, moving bowels regularly :denies dysuria/hematuria Extrem:denies pain, h/o fibromyalgia-has not been followed for this in a long time Endo:+hot flashes-Still having those. Will occ. wake pt. at night. Neuro:denies symptoms of neuropathy, L hand carpal tunnel Skin:denies rashes/lesions Heme:denies bleeding The ROS is otherwise negative. Past medical history, appointments, medications, allergies reviewed. No changes. EXAM: BP 105/65 Pulse (!) 54 Temp 36.7 C (98 F) Ht 160 cm (5' 2.99) Wt 67.1 kg (148 lb) LMP 03/10/2006 BMI 26.22 kg/m APPEARANCE Well appearing, alert, in no acute distress, well-hydrated, well nourished. HEART RRR with normal S1 and S2, no murmurs LUNG clear to auscultation BREAST FEMALE no mass/nodule b/l, R scar to upper LYMPH NODES No cervical lymphadenopathy, No supraclavicular lymphadenopathy, and No axillary lymphadenopathy. ABDOMEN bowel sounds normoactive, soft, non-tender EXTREMITIES No edema NEURO Awake, alert and oriented x 3, Normal gait, and No involuntary motions. SKIN Skin color, texture, turgor normal, no suspicious rashes or lesions ASSESSMENT/PLAN: 1. Malignant neoplasm of upper-outer quadrant of right breast in female, estrogen receptor positive (HCC) - ICD9: 174.4, V86.0, ICD10: C50.411, Z17.0 (primary diagnosis) Stage I, pT2, pN0, ER NV positive HER-2 negative, Invasive ductal carcinoma - No concerning findings on exam. - Tolerated arimidex fair except for fatigue and word finding issues. - Tolerating femara overall well. - Continue femara. - Needs Rheum consult h/o FM-[facility] or [facility]-first available. - Mammogram due in 2022. - Please schedule bone density same day. - Follow up in one year. - Pt. aware to call office with any questions/concerns. The patient indicates understanding of these issues and agrees with the plan. All documentation from previous visit of 04/30/22-Dr. Winchester/myself was copied and pasted, documentation has been reviewed and edited as necessary for today's visit. Sameera Martini APRN.CARMEN documented in this encounter [facility] 09-03-2023 Nurse Note Est. Pt. 6 month f/u Bhavya Raya LPN documented in this encounter [facility] 08-26-2023 Miscellaneous Notes The following approved medication requests have been transmitted electronically. Requested Prescriptions Signed Prescriptions Disp Refills letrozole (FEMARA) 2.5 mg tablet 90 tablet 3 Sig: Take 1 tablet by mouth once daily. Authorizing Provider: SAMEERA MARTINI Refused Prescriptions Disp Refills letrozole (FEMARA) 2.5 mg tablet 90 tablet 3 Sig: Take 1 tablet by mouth once daily. Refused By: SAMEERA MARTINI Reason for Refusal: Patient needs appointment Sameera Martini APRN.CARMEN Appt. Was scheduled, not sure if will get refilled until she is seen. Bhavya Raya LPN Scheduled office visit with patient. Needs OV. No showed 2021. Patient has been identified by name and date of : Yes Last office visit in this department: Visit date not found RX INSTRUCTIONS: Patient aware RX escripted to mail away pharmacy. No need to notify patient. Patient phones requesting refills as follows: Requested Prescriptions Pending Prescriptions Disp Refills letrozole (FEMARA) 2.5 mg tablet 90 tablet 3 Sig: Take 1 tablet by mouth once daily. Please review and advise. Marjorie You documented in this encounter [facility] 05-17-2023 History of Present illness Narrative Images from the original note were not included. This note was created using [employer]. Subjective Kathryn Whiting is a 67 year old female. HPI Presents with a rash over the past week. Started on her left flank area and that seemed to go away and then it started as what she thinks was hives on the right flank. The seem to coalesce together into 1 big red spot. Very itchy. No pain. Denies new exposures. No new soaps, detergents, medications or lotions. No fever or chills. No sore throat or URI symptoms. She had used cortisone cream on the left side but did not seem to be working on the right so came in for evaluation. No known allergies. No travel recently. Review of Systems Constitutional: Negative. HENT: Negative. Eyes: Negative. Respiratory: Negative. Cardiovascular: Negative. Gastrointestinal: Negative. Endocrine: Negative. Genitourinary: Negative. Musculoskeletal: Negative. Skin: Positive for rash. All other systems reviewed and are negative. PAST MEDICAL HISTORY Diagnosis Date Breast cancer (HCC) Diarrhea Hypercholesteraemia 03/2015 Migraine, unspecified, with intractable migraine, so stated, without mention of status migrainosus Migraine Mild diastolic dysfunction echo 03/2013 Mild mitral regurgitation echo 03/2013 Mild tricuspid regurgitation echo 03/2013 Mitral valve disorders(424.0) MVP Myalgia and myositis, unspecified Panic disorder without agoraphobia Panic disorder Unspecified hypothyroidism Current Outpatient Medications Medication Sig Dispense Refill FLUoxetine (PROZAC) 40 mg capsule Take 1 capsule by mouth once daily. 90 capsule 1 FLUoxetine (PROZAC) 40 mg capsule Take 1 capsule by mouth once daily. 10 capsule 0 omeprazole (PRILOSEC) 20 mg capsule Take 1 capsule by mouth daily before breakfast. 1/2 hr before meal. 90 capsule 3 levothyroxine (LEVOXYL) 88 mcg tablet Take 1 tablet by mouth once daily. Take on empty stomach. For Thyroid 90 tablet 3 levothyroxine (LEVOXYL) 88 mcg tablet Take 1 tablet by mouth once daily. Take on empty stomach. For Thyroid 90 tablet 3 levothyroxine (LEVOXYL) 88 mcg tablet Take 1 tablet by mouth once daily. Take on empty stomach. For Thyroid 10 tablet 0 atorvastatin (LIPITOR) 10 mg tablet TAKE 1 TABLET EVERY DAY AT BEDTIME FOR CHOLESTEROL 90 tablet 1 acetaminophen 325 mg-caffeine 40 mg-butalbital 50 mg (FIORICET) per tablet Take 1 tablet by mouth every 4 hours as needed for headache. 30 tablet 5 letrozole (FEMARA) 2.5 mg tablet Take 1 tablet by mouth once daily. 90 tablet 3 meclizine (ANTIVERT) 25 mg tab TAKE 1 TABLET BY MOUTH THREE TIMES A DAY NEEDED FOR DIZZINESS 60 tablet 0 traZODone (DESYREL) 50 mg tablet Take 1 tablet by mouth at bedtime as needed for sedation. 90 tablet 2 calcium-cholecalciferol, D3, (OSCAL+D 250) 250-125 mg-unit per tablet Take 1 tablet by mouth once daily. 100 tablet 0 cetirizine (ZYRTEC) 10 mg tablet Take 1 tablet by mouth once daily for 14 days. 14 tablet 0 predniSONE (DELTASONE) 10 mg tablet Take 4 tabs daily for 3 days, then 2 tabs daily for 3 days, then 1 tab daily for 3 days with food. 21 tablet 0 No current facility-administered medications for this visit. PAST SURGICAL HISTORY Procedure Laterality Date BREAST LUMPECTOMY HX 11/10/2017 CHOLECYSTECTOMY Cholecystectomy -- lap (Dr. Bear?) COLONOSCOPY FLX DX W/COLLJ SPEC WHEN PFRMD 09/16/07 COLONOSCOPY FLX DX W/COLLJ SPEC WHEN PFRMD 03/17/2019 normal ESOPHAGOGASTRODUODENOSCOPY TRANSORAL DIAGNOSTIC 09/01/13 EGD ESOPHAGOGASTRODUODENOSCOPY TRANSORAL DIAGNOSTIC 03/17/2019 EGD NEUROPLASTY &/TRANSPOS MEDIAN NRV CARPAL TUNNE Carpal tunnel decomp, Right REDUCTION OF LARGE BREAST Breast reduction FAMILY HISTORY Problem Relation Age of Onset Heart Father other (Multiple myeloma) Father 1983 -- multiple myeloma in remission, then amyloidosis Thyroid Mother Mother's side of family Anesthesia Mother Heart disease Mother Heart Mother atrial fibrilation Breast Cancer Paternal Aunt Cancer Paternal Aunt Leukemia Heart Other Mother's side of family Coronary Artery Disease Sister 2 TN's, starting age 40 other (Multiple myeloma) Paternal Uncle Social History Tobacco Use Smoking status: Former Packs/day: 0.50 Years: 10.00 Total pack years: 5.00 Types: Cigarettes Quit date: 08/13/1990 Years since quittin.7 Smokeless tobacco: Never Vaping Use Vaping Use: Never used Substance Use Topics Alcohol use: No Drug use: No Objective BP 122/80 Pulse 80 Temp 37.1 C (98.7 F) Resp 16 Wt 64.9 kg (143 lb) LMP 03/10/2006 SpO2 97% BMI 25.33 kg/m Physical Exam Vitals reviewed. Constitutional: Appearance: Normal appearance. HENT: Head: Normocephalic and atraumatic. Skin: General: Skin is warm. Findings: Rash present. Comments: Patient has erythema which appears to be a large coalesced wheal on the right flank area. Blanchable. No induration. No lymphangitic streaking. Neurological: General: No focal deficit present. Mental Status: She is alert and oriented to person, place, and time. Assessment and Plan ASSESSMENT/PLAN: 1. Rash - ICD9: 782.1, ICD10: R21 Likely hives. We will treat with cetirizine and prednisone. Discussed follow-up with PCP if not resolving. Patient agreeable. No obvious cause found on exam or history today. Brianda Hernández PA-C documented in this encounter [facility] 04-27-2023 Miscellaneous Notes The following approved medication requests have been transmitted electronically. Requested Prescriptions Signed Prescriptions Disp Refills FLUoxetine (PROZAC) 40 mg capsule 90 capsule 1 Sig: Take 1 capsule by mouth once daily. Authorizing Provider: TRAN OSCAR PA-C Nieves--04/13/23 Nov--nothing scheduled Last refill--04/27/23 10 with 0 refills Last labs--03/12/23 Patient has been identified by name and date of : Yes Last office visit in this department: 04/13/2023 RX INSTRUCTIONS: Patient aware RX will be sent to pharmacy. No need to notify patient. Patient phones requesting refills as follows: Requested Prescriptions Pending Prescriptions Disp Refills FLUoxetine (PROZAC) 40 mg capsule 90 capsule 1 Sig: Take 1 capsule by mouth once daily. Please review and advise. Valarie You documented in this encounter [facility] 04-14-2023 Note IMPRESSION: DEGENERATIVE CHANGES AND SCOLIOSIS DESCRIBED. SOME PROGRESSION FROM THE PRIOR STUDY 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: IRAB Transcribe Date/Time: Apr 14 2023 10:49A Dictated by : SERGIO AYALA MD This examination was interpreted and the report reviewed and electronically signed by: SERGIO AYALA MD on Apr 14 2023 10:57AM [facility] DIVISION OF RADIOLOGY 04-14-2023 Miscellaneous Notes This information was in reconcile outside information under immunizations. HM updated. Given on 11/14/18. Valerie Wesley Please call PAUL Damico and obtain documentation for her 2nd dose of Shingles vaccine to update HM Pablo Bates DO documented in this encounter [facility] 04-13-2023 History of Present illness Narrative Radiology Service Progress Note PATIENT NAME: Kathryn Whiting DATE OF SERVICE: April 13, 2023 TIME: 1:34 PM PATIENT IDENTITY VERIFICATION COMPLETED USING TWO (2) IDENTIFIERS: Name and Date of confirmed by patient verbally. FALL SCREENING: Has the patient had 2 falls in the last year or 1 fall with injury or currently using an Ambulatory Assistive Device (Walker, Cane, Wheelchair, Crutches, etc.)? No PATIENT GENDER DATA: Female. status: : No status: NO. PATIENT RELEVANT IMPLANT DATA REVIEWED: Not Applicable RADIOLOGY DEPARTMENT: General X-ray: Exam(s) Completed: Spine X-Ray(s): Cervical AP / LAT / OBL and Lumbar AP / LAT / L5-S1 PERIPHERAL IV DATA: Not applicable SIGNED BY: RT Nikki(R) April 13, 2023 1:34 PM documented in this encounter [facility] 04-13-2023 Instructions Pablo Bates DO - 04/13/2023 12:31 PM EDT Pelvic floor exercises and CORE strengthening and upper body strengthening documented in this encounter [facility] 04-13-2023 History of Present illness Narrative CC: Kathryn Whiting is a 67 year old female who presents to the office for follow up HPI: Muscle weakness, weakness of both upper body strength and lower body strength, difficulty with when down to get back up etc. Balance difficulty at times in which she feels wobbly. No known injuries. Has chronic neck stiffness and soreness as well as low back pain. Denies any bowel or bladder changes Hypothyroidism, taking levothyroxine 88 mcg daily TSH Date Value Ref Range Status 03/12/2023 0.201 (L) 0.270 - 4.200 mIU/L Final Free T4 Date Value Ref Range Status 03/12/2023 1.7 0.9 - 1.7 ng/dL Final T3 100 03/12/2023 History of breast cancer, now currently taking Femara HPL, taking lipitor as prescribed Mood, stable, taking Prozac. PAST MEDICAL HISTORY Diagnosis Date Breast cancer (HCC) Diarrhea Hypercholesteraemia 03/2015 Migraine, unspecified, with intractable migraine, so stated, without mention of status migrainosus Migraine Mild diastolic dysfunction echo 03/2013 Mild mitral regurgitation echo 03/2013 Mild tricuspid regurgitation echo 03/2013 Mitral valve disorders(424.0) MVP Myalgia and myositis, unspecified Panic disorder without agoraphobia Panic disorder Unspecified hypothyroidism PAST SURGICAL HISTORY Procedure Laterality Date BREAST LUMPECTOMY HX 11/10/2017 CHOLECYSTECTOMY Cholecystectomy -- lap (Dr. Bear?) COLONOSCOPY FLX DX W/COLLJ SPEC WHEN PFRMD 09/16/07 COLONOSCOPY FLX DX W/COLLJ SPEC WHEN PFRMD 03/17/2019 normal ESOPHAGOGASTRODUODENOSCOPY TRANSORAL DIAGNOSTIC 09/01/13 EGD ESOPHAGOGASTRODUODENOSCOPY TRANSORAL DIAGNOSTIC 03/17/2019 EGD NEUROPLASTY &/TRANSPOS MEDIAN NRV CARPAL TUNNE Carpal tunnel decomp, Right REDUCTION OF LARGE BREAST Breast reduction Social History: Social History Tobacco Use Smoking status: Former Packs/day: 0.50 Years: 10.00 Pack years: 5.00 Types: Cigarettes Quit date: 08/13/1990 Years since quittin.6 Smokeless tobacco: Never Vaping Use Vaping Use: Never used Substance Use Topics Alcohol use: No Drug use: No FAMILY HISTORY Problem Relation Age of Onset Heart Father other (Multiple myeloma) Father 1983 -- multiple myeloma in remission, then amyloidosis Thyroid Mother Mother's side of family Anesthesia Mother Heart disease Mother Heart Mother atrial fibrilation Breast Cancer Paternal Aunt Cancer Paternal Aunt Leukemia Heart Other Mother's side of family Coronary Artery Disease Sister 2 TN's, starting age 40 other (Multiple myeloma) Paternal Uncle Current Outpatient prescriptions: atorvastatin (LIPITOR) 10 mg tablet TAKE 1 TABLET EVERY DAY AT BEDTIME FOR CHOLESTEROL FLUoxetine (PROZAC) 40 mg capsule Take 1 capsule by mouth once daily. acetaminophen 325 mg-caffeine 40 mg-butalbital 50 mg (FIORICET) per tablet Take 1 tablet by mouth every 4 hours as needed for headache. letrozole (FEMARA) 2.5 mg tablet Take 1 tablet by mouth once daily. meclizine (ANTIVERT) 25 mg tab TAKE 1 TABLET BY MOUTH THREE TIMES A DAY NEEDED FOR DIZZINESS traZODone (DESYREL) 50 mg tablet Take 1 tablet by mouth at bedtime as needed for sedation. calcium-cholecalciferol, D3, (OSCAL+D 250) 250-125 mg-unit per tablet Take 1 tablet by mouth once daily. omeprazole (PRILOSEC) 20 mg capsule Take 1 capsule by mouth daily before breakfast. 1/2 hr before meal. levothyroxine (LEVOXYL) 88 mcg tablet Take 1 tablet by mouth once daily. Take on empty stomach. For Thyroid levothyroxine (LEVOXYL) 88 mcg tablet Take 1 tablet by mouth once daily. Take on empty stomach. For Thyroid levothyroxine (LEVOXYL) 88 mcg tablet Take 1 tablet by mouth once daily. Take on empty stomach. For Thyroid Allergies: ALLERGIES No Known Allergies ROS: See HPI PE: 04/13/23 1151 BP: 120/82 Pulse: 76 Resp: 16 Temp: 36.1 C (97 F) TempSrc: Right Tympanic Weight: 64.9 kg (143 lb) Gen: A&O, NAD, non-toxic appearing, Pleasant, cooperative HEENT: NT/AC, PERRLA, EOMs intact b/l, nares clear and patent b/l, pharynx without erythema, exudate or lesions. Uvula midline. EACs without erythema or debris. TMs pearly garcia with intact landmarks b/l. Neck: supple, No cervical LAD, no thyromegaly, no carotid bruits, reduced Rotation ROM, + cervical spine paraspinal muscle tension CV: RRR, normal S1 and S2, no murmurs, no gallops, no rubs, Pulses 2+ and symmetric in UE and LE b/l Lungs: normal respiratory effort, CTA b/l, no wheezing or rhonchi or rales Abd: soft, NT, ND, +BS, no hepatosplenomegaly MS: weakness of biceps and upper arms as well as bilateral thighs/leg without obvious deformity Lumbar reduced ROM due to pain with flex and extension, no spinal TTP Neuro: CN II-XII intact b/l, strength 4/5 b/l UE and LE, DTRs 2/4 UE and LE, sensation intact. Skin: warm, dry, intact, No rashes or lesions on exposed skin. No edema, normal pulses ASSESSMENT/PLAN: 1. IFG (impaired fasting glucose) - ICD9: 790.21, ICD10: R73.01 (primary diagnosis) Stable, diet controlled. 2. GERD without esophagitis - ICD9: 530.81, ICD10: K21.9 - Discussed lifestyle modifications including losing weight, limiting caffeine, no meals three hours before sleep, and head of bed elevation - Continue treatment with Prilosec 20 mg QD - OMEPRAZOLE 20 MG CAPSULE,DELAYED RELEASE 3. Hypothyroidism, unspecified type - ICD9: 244.9, ICD10: E03.9 - Instructed patient on importance of taking on an empty stomach either first thing in the morning or at bedtime. Stable - Behavioral intervention, - PSMF, and - Eat well program - LEVOTHYROXINE 88 MCG TABLET - LEVOTHYROXINE 88 MCG TABLET - LEVOTHYROXINE 88 MCG TABLET 4. Osteoarthritis of spine with radiculopathy, lumbar region - ICD9: 721.3, ICD10: M47.26 - referral to PHYSICAL THERAPY, xrays as ordered, f/u in office if symptoms aren't improving - XR LUMBAR GENERAL 3V AP/LAT/L5-S1 - CONSULT TO PHYSICAL THERAPY 5. Chronic neck pain - ICD9: 723.1, 338.29, ICD10: M54.2, G89.29 - referral to PHYSICAL THERAPY, xrays as ordered, f/u in office if symptoms aren't improving - XR CERV OTHER 4V AP/LAT/OBL - CONSULT TO PHYSICAL THERAPY 6. Chronic midline low back pain with bilateral sciatica - ICD9: 724.2, 724.3, 338.29, ICD10: M54.41, M54.42, G89.29 - referral to PHYSICAL THERAPY, xrays as ordered, f/u in office if symptoms aren't improving - XR LUMBAR GENERAL 3V AP/LAT/L5-S1 - CONSULT TO PHYSICAL THERAPY 7. Mixed hyperlipidemia - ICD9: 272.2, ICD10: E78.2 - Barriers to control: diet adherence and lack of exercise - Counseled on healthy diet and regular exercise Pablo Bates DO To ER if develops chest pain, shortness of breath, or severe worsening of symptoms. Discussed risks, benefits, alternatives, and potential side effects of medications. Patient expressed understanding and agreed with the plan. Pablo Bates DO [address] [place] [address] documented in this encounter [facility] 03-04-2023 Miscellaneous Notes Patient returned call and given provider's message below and patient verbalized understanding. Gilson Anderson RN Called and left a voicemail for the Patient to call back and ask for a nurse to receive the providers message. Kimberly Murdock RN Labs ordered, please inform Pablo Bates DO Pt also asking for call when labs are placed for her April appointment. Patient has been identified by name and date of : Yes, Provider Dr Bates Date 03/04/23 Time 0934. Patient phones for refill(s): Requested Prescriptions Pending Prescriptions Disp Refills levothyroxine (LEVOXYL) 88 mcg tablet 90 tablet 1 Sig: Take 1 tablet by mouth once daily. Take on empty stomach. For Thyroid Date of last office visit in primary care: 01/07/23 Future visit: 04/13/23 Last 2 Encounter Wt Readings: Date: Wt: 01/07/2023 66.1 kg (145 lb 12.8 oz) 06/30/2022 64 kg (141 lb) Previous labs/tests for medication: Thyroid: TSH Date Value 08/28/2022 0.319 mIU/L 10/22/2021 0.984 uU/mL Please advise. Thank you. Kimberly Murdock RN documented in this encounter [facility] 02-04-2023 Miscellaneous Notes NIEVES 01/07/23 NOV 04/13/23 Marylin Zhu MA documented in this encounter [facility] 01-07-2023 History of Present illness Narrative Chief Complaint Patient presents with: Heartburn: Heart burn pm hours and nausea am hours going on for a good long time HPI Kathryn Whiting is a 67 year old female who presents here today for Above Complaints. Kathryn is an established patient of Dr. Bates, and myself. Concerns today... Heartburn and nausea-- Heartburn in evening, nausea in the morning. No prior dx of GERD. No PPI or H2 chan in medication regimen. Takes OTC TUMs often that does help. Heart burn symptoms are becoming more frequent. Taking TUMs numerous times per week now. Has noticed that certain foods will make it worse. BMI 25, overweight not huge contributing factor. Unsure if GERD runs in family. Hard to get down certain foods. Denies any SOB, CP, or palpitations with episodes of heartburn. No other concerns or complaints. Past medical history, appointments, medications, allergies reviewed. Previous Medical History PAST MEDICAL HISTORY Diagnosis Date Breast cancer (HCC) Diarrhea Hypercholesteraemia 03/2015 Migraine, unspecified, with intractable migraine, so stated, without mention of status migrainosus Migraine Mild diastolic dysfunction echo 03/2013 Mild mitral regurgitation echo 03/2013 Mild tricuspid regurgitation echo 03/2013 Mitral valve disorders(424.0) MVP Myalgia and myositis, unspecified Panic disorder without agoraphobia Panic disorder Unspecified hypothyroidism Previous Surgical History PAST SURGICAL HISTORY Procedure Laterality Date BREAST LUMPECTOMY HX 11/10/2017 CHOLECYSTECTOMY Cholecystectomy -- lap (Dr. Bear?) COLONOSCOPY FLX DX W/COLLJ SPEC WHEN PFRMD 09/16/07 COLONOSCOPY FLX DX W/COLLJ SPEC WHEN PFRMD 03/17/2019 normal ESOPHAGOGASTRODUODENOSCOPY TRANSORAL DIAGNOSTIC 09/01/13 EGD ESOPHAGOGASTRODUODENOSCOPY TRANSORAL DIAGNOSTIC 03/17/2019 EGD NEUROPLASTY &/TRANSPOS MEDIAN NRV CARPAL TUNNE Carpal tunnel decomp, Right REDUCTION OF LARGE BREAST Breast reduction Family History FAMILY HISTORY Problem Relation Age of Onset Heart Father other (Multiple myeloma) Father 1983 -- multiple myeloma in remission, then amyloidosis Thyroid Mother Mother's side of family Anesthesia Mother Heart disease Mother Heart Mother atrial fibrilation Breast Cancer Paternal Aunt Cancer Paternal Aunt Leukemia Heart Other Mother's side of family Coronary Artery Disease Sister 2 TN's, starting age 40 other (Multiple myeloma) Paternal Uncle Patient Allergies ALLERGIES No Known Allergies Current Medications Current Outpatient Medications on File Prior to Visit Medication Sig FLUoxetine (PROZAC) 40 mg capsule Take 1 capsule by mouth once daily. acetaminophen 325 mg-caffeine 40 mg-butalbital 50 mg (FIORICET) per tablet Take 1 tablet by mouth every 4 hours as needed for headache. levothyroxine (LEVOXYL) 88 mcg tablet Take 1 tablet by mouth once daily. Take on empty stomach. For Thyroid letrozole (FEMARA) 2.5 mg tablet Take 1 tablet by mouth once daily. meclizine (ANTIVERT) 25 mg tab TAKE 1 TABLET BY MOUTH THREE TIMES A DAY NEEDED FOR DIZZINESS atorvastatin (LIPITOR) 10 mg tablet TAKE 1 TABLET EVERY DAY AT BEDTIME FOR CHOLESTEROL traZODone (DESYREL) 50 mg tablet Take 1 tablet by mouth at bedtime as needed for sedation. calcium-cholecalciferol, D3, (OSCAL+D 250) 250-125 mg-unit per tablet Take 1 tablet by mouth once daily. No current facility-administered medications on file prior to visit. Social History Social History Tobacco Use Smoking status: Former Packs/day: 0.50 Years: 10.00 Pack years: 5.00 Types: Cigarettes Quit date: 08/13/1990 Years since quittin.4 Smokeless tobacco: Never Vaping Use Vaping Use: Never used Substance Use Topics Alcohol use: No Drug use: No REVIEW OF SYSTEMS: as above Reviewed relevant PMHx, PSHx, Social Hx, current medications and allergies. Review of Symptoms REVIEW OF SYSTEMS See HPI. EXAM: BP 110/60 (BP Site: Left Arm, BP Position: Sitting, BP Cuff Size: Regular Adult) Pulse 68 Resp 14 Wt 66.1 kg (145 lb 12.8 oz) LMP 03/10/2006 BMI 25.83 kg/m General Appearance: Well appearing, alert, in no acute distress, well-hydrated, well nourished.. Skin: Skin color, texture, turgor normal, no suspicious rashes or lesions. Head: Normocephalic, no masses, lesions, tenderness or abnormalities. Neck: Supple, no adenopathy; thyroid symmetric, normal size, no bruits. Lungs: Lungs clear to auscultation. No wheezing, rhonchi, rales.. Heart: RRR without murmur, gallop, or rubs. No ectopy. Abdomen: Normal abdominal exam, Abdomen soft, non-tender. Bowel sounds normal. No masses, organomegaly. Health Maintenance List HEPATITIS C SCREENING Never done PNEUMOCOCCAL: 65+(1 - PCV) Never done SHINGRIX VACCINE(2 of 2) due on 06/17/2018 ADVANCE DIRECTIVE DISCUSSION Never done DEPRESSION ASSESSMENT Never done DTAP,TDAP,TD(2 - Td or Tdap) due on 06/30/2023 ANNUAL PCP TEAM CHRONIC DISEASE VISIT due on 06/30/2023 MAMMOGRAM due on 10/13/2023 DIABETES SCREEN due on 07/03/2025 LIPID SCREEN due on 07/03/2027 COLORECTAL CANCER SCREENING due on 03/17/2029 BONE DENSITY Completed INFLUENZA Completed COVID-19 VACCINE Completed ASSESSMENT/PLAN: 1. GERD without esophagitis - ICD9: 530.81, ICD10: K21.9 - Discussed lifestyle modifications including losing weight, limiting caffeine, no meals three hours before sleep, and head of bed elevation - Begin treatment with Prilosec 20 mg every day - Continue TUMs as needed for breakthrough heartburn. - Follow up in 1-2 weeks if symptoms are not improving. RTO in 3 months, sooner if needed, for routine wellness exam. Prescription instructions reviewed with patient as applicable. Potential red flag symptoms discussed with the patient. Reviewed appropriate action plan to take if red flag symptoms occur. Patient agreeable to treatment plan. Aishwarya Greene APRN.SERVICE ORDER DISPATCHER CHIEF [address] [place] [address] documented in this encounter [facility] 10-13-2022 History of Present illness Narrative Radiology Service Progress Note PATIENT NAME: Kathryn Whiting DATE OF SERVICE: October 13, 2022 TIME: 12:45 PM PATIENT IDENTITY VERIFICATION COMPLETED USING TWO (2) IDENTIFIERS: Name and Date of confirmed by patient verbally. FALL SCREENING: Has the patient had 2 falls in the last year or 1 fall with injury or currently using an Ambulatory Assistive Device (Walker, Cane, Wheelchair, Crutches, etc.)? No PATIENT GENDER DATA: Female. status: : No status: NO. PATIENT RELEVANT IMPLANT DATA REVIEWED: Not Applicable RADIOLOGY DEPARTMENT: Mammography PERIPHERAL IV DATA: Not applicable SIGNED BY: RT Marielena(R) October 13, 2022 12:45 PM documented in this encounter [facility] 10-06-2022 Miscellaneous Notes The following approved medication requests have been transmitted electronically. Requested Prescriptions Signed Prescriptions Disp Refills acetaminophen 325 mg-caffeine 40 mg-butalbital 50 mg (FIORICET) per tablet 30 tablet 5 Sig: Take 1 tablet by mouth every 4 hours as needed for headache. Authorizing Provider: PABLO BATES Ordering User: CATA WHYTE APRN.SERVICE ORDER DISPATCHER CHIEF Patient has been identified by name and date of : Yes Requested Prescriptions Pending Prescriptions Disp Refills acetaminophen 325 mg-caffeine 40 mg-butalbital 50 mg (FIORICET) per tablet 30 tablet 5 Sig: Take 1 tablet by mouth every 4 hours as needed for headache. RX INSTRUCTIONS: Patient aware RX will be sent to pharmacy. No need to notify patient. Maribel Vera MA Nieves: 06/2022 No appointment scheduled Last refill: 10/2020 Patient has been identified by name and date of : Yes Requested Prescriptions Pending Prescriptions Disp Refills acetaminophen 325 mg-caffeine 40 mg-butalbital 50 mg (FIORICET) per tablet 30 tablet 5 Sig: Take 1 tablet by mouth every 4 hours as needed for headache. RX INSTRUCTIONS: Patient aware RX will be sent to pharmacy. No need to notify patient. [facility] documented in this encounter [facility] 09-03-2022 Miscellaneous Notes Patient calls and is asking about lab results. Patient notified: Thyroid labs look perfect! Continue dosage regimen where you are at. Patient voiced understanding Karen Garcia RN documented in this encounter [facility] 08-13-2022 Miscellaneous Notes Patient's request for medication is as follows Requested Prescriptions Signed Prescriptions Disp Refills letrozole (FEMARA) 2.5 mg tablet 90 tablet 3 Sig: Take 1 tablet by mouth once daily. Authorizing Provider: REGINA WINCHESTER Order entered - please phone pharmacy and notify patient. Regina Winchester MD Patient has been identified by name and date of : Yes Last office visit in this department: Visit date not found RX INSTRUCTIONS: Patient aware RX will be sent to pharmacy. No need to notify patient. Patient phones requesting refills as follows: Patient states she did a three month trail and things are going good and prefers a 90 day supply sent to home delivery pharmacy. Requested Prescriptions Pending Prescriptions Disp Refills letrozole (FEMARA) 2.5 mg tablet 90 tablet 3 Sig: Take 1 tablet by mouth once daily. Please review and advise. Irene You documented in this encounter [facility] 07-04-2022 Miscellaneous Notes Patient notified and verbalized understanding Isabelle Harvey Cma Please call patient and let her know her blood work results look great! No acute concerns. Thyroid levels are slightly abnormal. T4 is elevated and TSH is lower than we would like. I would recommend decreasing thyroid level slightly to 88 mcg 6x/week and take half a tablet 1x/week. We can recheck lab work in 6 weeks. Cholesterol levels look great! HgA1c (DM marker) is normal. Keep up the good work!! Thank you, Aishwarya Greene APRN.CARMEN documented in this encounter [facility] 06-30-2022 History of Present illness Narrative Chief Complaint Patient presents with: er f/up: Was seen in [facility] about 5 weeks ago, states since then no longer getting double vision, balance off. No wakes up nausea and units unsteady on feet at times. HPI Kathryn Whiting is a 67 year old female who presents here today for Above Complaints. Kathryn is an established patient of Dr. Paulo DO. Kathryn is a new patient to me today. Concerns today... ER follow-up -- Seen at [facility] on 04/21 ( 2 months ago) d/t headache and dizziness. Dx with vertigo and given Antivert rx prn. Just now following up d/t being very busy per pt. Reports vertigo symptoms have greatly improved since ER visit. Was only given a few meclizine pills from ER so has been taking OTC motion sickness medication in replace of meclizine. Taking at onset of dizziness just as meclizine was prescribed. Reports vertigo episodes to be occasional, every once in awhile. Would like to have refill of meclizine to have on hand instead of OTC motion sickness medications because she feels like meclizine works better. Had an experience last month where she had tunnel vision, lightheadedness, and blurred vision lasting a few minutes while leaning backward doing yard work. Denies any CP or SOB during episode. No LOC. Also reports hx of migraines with aura and states aura can be similar to these symptoms. Migraines are stable and well managed per pt. Feels unsteady on feet and word finding difficulties > 1 year. Oncology team was relating to]his to armidex therapy. Switched to Femara in May. Symptoms seem to be improving. Has follow-up appointment with oncology team in a few months. Blood pressure low at baseline per pt . Asymptomatic. Pt denies any dizziness or lightheadedness currently. Reports she has not ate today and contributing to this. Past medical history, appointments, medications, allergies reviewed. Previous Medical History PAST MEDICAL HISTORY Diagnosis Date Breast cancer (HCC) Diarrhea Hypercholesteraemia 03/2015 Migraine, unspecified, with intractable migraine, so stated, without mention of status migrainosus Migraine Mild diastolic dysfunction echo 03/2013 Mild mitral regurgitation echo 03/2013 Mild tricuspid regurgitation echo 03/2013 Mitral valve disorders(424.0) MVP Myalgia and myositis, unspecified Panic disorder without agoraphobia Panic disorder Unspecified hypothyroidism Previous Surgical History PAST SURGICAL HISTORY Procedure Laterality Date BREAST LUMPECTOMY HX 11/10/2017 CHOLECYSTECTOMY Cholecystectomy -- lap (Dr. Bear?) COLONOSCOPY FLX DX W/COLLJ SPEC WHEN PFRMD 09/16/07 COLONOSCOPY FLX DX W/COLLJ SPEC WHEN PFRMD 03/17/2019 normal ESOPHAGOGASTRODUODENOSCOPY TRANSORAL DIAGNOSTIC 09/01/13 EGD ESOPHAGOGASTRODUODENOSCOPY TRANSORAL DIAGNOSTIC 03/17/2019 EGD NEUROPLASTY &/TRANSPOS MEDIAN NRV CARPAL TUNNE Carpal tunnel decomp, Right REDUCTION OF LARGE BREAST Breast reduction Family History FAMILY HISTORY Problem Relation Age of Onset Heart Father other (Multiple myeloma) Father 1983 -- multiple myeloma in remission, then amyloidosis Thyroid Mother Mother's side of family Anesthesia Mother Heart disease Mother Heart Mother atrial fibrilation Breast Cancer Paternal Aunt Cancer Paternal Aunt Leukemia Heart Other Mother's side of family Coronary Artery Disease Sister 2 TN's, starting age 40 other (Multiple myeloma) Paternal Uncle Patient Allergies ALLERGIES No Known Allergies Current Medications Current Outpatient Medications on File Prior to Visit Medication Sig atorvastatin (LIPITOR) 10 mg tablet TAKE 1 TABLET EVERY DAY AT BEDTIME FOR CHOLESTEROL traZODone (DESYREL) 50 mg tablet Take 1 tablet by mouth at bedtime as needed for sedation. letrozole (FEMARA) 2.5 mg tablet Take 1 tablet by mouth once daily. meclizine (ANTIVERT) 25 mg tab TAKE 1 TABLET BY MOUTH THREE TIMES A DAY NEEDED FOR DIZZINESS levothyroxine (LEVOXYL) 88 mcg tablet Take 1 tablet by mouth once daily. Take on empty stomach. For Thyroid FLUoxetine HCl (PROZAC) 40 mg capsule Take 1 capsule by mouth once daily. acetaminophen 325 mg-caffeine 40 mg-butalbital 50 mg (FIORICET) per tablet Take 1 tablet by mouth every 4 hours as needed for Headache. calcium-cholecalciferol, D3, (OSCAL+D 250) 250-125 mg-unit per tablet Take 1 tablet by mouth once daily. No current facility-administered medications on file prior to visit. Social History Social History Tobacco Use Smoking status: Former Packs/day: 0.50 Years: 10.00 Pack years: 5.00 Types: Cigarettes Quit date: 08/13/1990 Years since quittin.9 Smokeless tobacco: Never Vaping Use Vaping Use: Never used Substance Use Topics Alcohol use: No Drug use: No REVIEW OF SYSTEMS: as above Reviewed relevant PMHx, PSHx, Social Hx, current medications and allergies. Review of Symptoms REVIEW OF SYSTEMS See HPI. All other systems are negative. EXAM: BP 90/62 Pulse 62 Resp 14 Wt 64 kg (141 lb) LMP 03/10/2006 BMI 24.98 kg/m General Appearance: Well appearing, alert, in no acute distress, well-hydrated, well nourished.. Skin: Skin color, texture, turgor normal, no suspicious rashes or lesions. Head: Normocephalic, no masses, lesions, tenderness or abnormalities. Lungs: Lungs clear to auscultation. No wheezing, rhonchi, rales.. Heart: RRR without murmur, gallop, or rubs. No ectopy. Neurologic: Gait normal. Reflexes normal and symmetric. Sensation grossly intact.. Health Maintenance List PNEUMOCOCCAL: 65+(1 - PCV) Never done HEPATITIS C SCREENING Never done SHINGRIX VACCINE(2 of 2) due on 06/17/2018 DEPRESSION SCREENING due on 08/02/2020 ADVANCE DIRECTIVE DISCUSSION Never done COVID-19 VACCINE(4 - Booster for Moderna series) due on 12/02/2021 DTAP,TDAP,TD(2 - Td or Tdap) due on 06/30/2023 INFLUENZA(1) due on 07/10/2022 MAMMOGRAM due on 10/10/2022 ANNUAL PCP TEAM CHRONIC DISEASE VISIT due on 01/22/2023 DIABETES SCREEN due on 08/21/2024 LIPID SCREEN due on 10/22/2026 COLORECTAL CANCER SCREENING due on 03/17/2029 BONE DENSITY Completed ASSESSMENT/PLAN: 1. Dizziness - ICD9: 780.4, ICD10: R42 (primary diagnosis) Improved. Refilled meclizine from ER visit. US of carotids to compare to prior in 2019 d/t episode of near syncope with exertion. If recurrent, will consider ECHO, EKG, and return to cardiology. Hx of mild valvular regurgitation. - MECLIZINE 25 MG TABLET - US CAROTID ARTERIES [facility] - COMP METABOLIC PANEL - CBC 2. Mixed hyperlipidemia - ICD9: 272.2, ICD10: E78.2 Will determine from blood work. Continue current regimen currently. - LIPID PANEL BASIC 3. Intractable migraine without aura and without status migrainosus - ICD9: 346.11, ICD10: G43.019 Stable. Well controlled. 4. Hypothyroidism, unspecified type - ICD9: 244.9, ICD10: E03.9 Stable per pt. Will recheck thyroid labs to ensure no relation to current symptoms and for routine evaluation. Continue current regimen. - TSH BLD - T3 BLD - T4 FREE/FREE THYROX 5. IFG (impaired fasting glucose) - ICD9: 790.21, ICD10: R73.01 - HGB A1C RTO in 1 month, sooner if needed. Check BP readings at home daily, report if readings are consistently below 90 systolic. Prescription instructions reviewed with patient as applicable. Potential red flag symptoms discussed with the patient. Reviewed appropriate action plan to take if red flag symptoms occur. Patient agreeable to treatment plan. Aishwarya Greene APRN.CARMEN [address] [place] [address] documented in this encounter [facility] 06-23-2022 Miscellaneous Notes Left message for patient to let her know appointment was changed from Bonita to Aishwarya. Told patient to call back with any questions. Janelle documented in this encounter [facility] 06-23-2022 Miscellaneous Notes Pt scheduled with Bonita Ingram CNP on 06/30/22 for ER follow up. Please reschedule ER follow up with appropriate PCP team (Cata Bates, Aishwarya) Please note: [facility] is only accepting transfers from former Dr. Bear and Seb Jim pt's unless approved by provider. documented in this encounter [facility] 06-20-2022 Miscellaneous Notes Patient phones requesting refills as follows: Requested Prescriptions Pending Prescriptions Disp Refills atorvastatin (LIPITOR) 10 mg tablet [Pharmacy Med Name: ATORVASTATIN CALCIUM 10 MG Tablet] 90 tablet 1 Sig: TAKE 1 TABLET EVERY DAY AT BEDTIME FOR CHOLESTEROL NIEVES-01/22/22 Labs-12/14/21 NOV-none med filled 12/18/21 Please review and advise. Sushila Banda LPN documented in this encounter [facility] 06-10-2022 Miscellaneous Notes Patient last visit 01/22/22 Follow up appointment scheduled none Dorothy Hargrove Ma Patient has been identified by name and date of : Yes Pending Prescriptions Disp Refills TRAZODONE 50 MG TABLET 90 tablet 2 Sig: Take 1 tablet by mouth at bedtime as needed for sedation. JAKE: No RX INSTRUCTIONS: Patient aware RX will be sent to pharmacy. No need to notify patient. Ayde Reddy Pss documented in this encounter [facility] 05-20-2022 Miscellaneous Notes Patient notified. Stated understanding. Aware to call us in a month or so with update. Called patient, no answer, left a VM requesting a call back. Will mail out femara handout to patient. Delmi Huang RN Noted. Glad that she is feeling better. Stop arimidex. Let's try femara. Please send information on femara to pt. The following approved medication requests have been transmitted electronically. Signed Prescriptions Disp Refills letrozole (FEMARA) 2.5 mg tablet 90 tablet 3 Sig: Take 1 tablet by mouth once daily. Authorizing Provider: SAMEERA MARTINI I sent it in to local pharmacy-once we know if she will tolerate it then I can send it to mail order. Thank you. Sameera Martini APRN.CARMEN Patient calling in with update after stopping arimidex for 3 weeks. Patient stated her fatigue has gotten better and she is doing much better with finding words. Patient is wanting to try something else. Please advise and contact patient at home number. Patient uses a mail order but was not sure if she should use a local pharmacy to see how a new medication would be. Please advise. documented in this encounter [facility] 04-30-2022 History of Present illness Narrative Chief Complaint Patient presents with: Established Patient HPI: Kathryn Whiting is a 66 year old female who presents here today for follow up breast cancer. Per Dr. Winchester's previous note: H/o hypercholesterinemia presented with stage I, ER/NV positive HER-2 negative breast cancer. Patient has been getting annual mammograms and self breast examinations. she presented last fall with an abnormal right breast mammograms/US and underwent 10/05/17 US guided needle core breast biopsy. Mammograms - asymetry in the right breast at 11:00 middle depth US right breast 6mm x 4mm right breast lesion, 10:00 middle depth, hypoechoic with posterior acoustic shadowing. Pathology revealed - (upper outer quadrant) Right breast, ultrasound-guided needle core biopsy: Invasive lobular carcinoma: Maximal length - 9 mm Nuclear Grade 2/3 Other findings atypical lobular hyperplasia. ER (clone 6F11) >95%, strong NV (clone 16/1E2) >95%, strong Her-2Neu (clone CB11) 0 MRI breast:showed a 0.6 cm irregular mass in the right breast is consistent with the known carcinoma and is a known biopsy positive for malignancy. A surgical consult is recommended. Please note the biopsy clip appears migrated posterior from the biopsy site. As such, a post biopsy right mammogram is recommended for correlation of findings/clip placement prior to potential wire localization and surgical intervention. No MRI evidence of malignancy in the left breast. She had a right breast lumpectomy and sentinel lymph node biopsy on 11/10/17. Pathology reveals - Invasive tumor size: 9 x 4 x 3 mm, Grade 1 (total score of 5),Margins: Uninvolved by invasive carcinoma. Distance from closest (inferior-anterior) margin 2.0 mm Distance from next closest (posterior ) margin 2.5 mm, Lymph-Vascular invasion: Not identified Dermal lymph-vascular invasion: Not applicable , ER: >95%, strong NV: >95%, strong Cfp0hbp: negative [address] negative The patient is recovering well from her surgery with no complications. Minimal postoperative pain no numbness, swelling or lymphedema. menstrual history: Menarche at age 11, first at age 15, menopause age 53. She was on control for 10 years, no hormonal replacement therapy after menopause. No family history of breast or ovarian cancer. Last colonoscopy 7 years ago-normal Recent pelvic exam last year; normal with no abnormal discharge or uterine bleeding. bone density - 2007 showed osteopenia RADIATION:12/21/17 to 01/18/18 Current therapy:arimidex Began after radiation. Pt. had vertigo last Thursday-she went to [facility] ED. She has been taking antivert as prescribed with improvement in symptoms. Pt. has also been evaluated for c/o word finding issues. Appetite:I eat. Energy level:I don't have as much. Since arimidex. Denies fevers or recent illness. Resp:denies cough or sob Cardiac:denies chest pain/palpitations GI:denies abd pain, n/v, moving bowels regularly :denies dysuria/hematuria Extrem:denies pain Endo:+ hot flashes Neuro:denies symptoms of neuropathy, L hand carpal tunnel Skin:denies rashes/lesions Heme:denies bleeding The ROS is otherwise negative. Past medical history, appointments, medications, allergies reviewed. No changes. EXAM: BP 127/60 Pulse 68 Temp 36.6 C (97.8 F) (Temporal) Wt 65.1 kg (143 lb 8 oz) LMP 03/10/2006 BMI 25.42 kg/m APPEARANCE Well appearing, alert, in no acute distress, well-hydrated, well nourished. HEART RRR with normal S1 and S2, no murmurs LUNG clear to auscultation BREAST FEMALE no mass/nodule b/l LYMPH NODES No cervical lymphadenopathy, No supraclavicular lymphadenopathy and No axillary lymphadenopathy. ABDOMEN bowel sounds normoactive, soft, non-tender, non-distended, without organomegaly or palpable masses EXTREMITIES No edema NEURO Awake, alert and oriented x 3, Normal gait and No involuntary motions. SKIN Skin color, texture, turgor normal, no suspicious rashes or lesions ASSESSMENT/PLAN: 1. Malignant neoplasm of upper-outer quadrant of right breast in female, estrogen receptor positive (HCC) - ICD9: 174.4, V86.0, ICD10: C50.411, Z17.0 (primary diagnosis) Stage I, pT2, pN0, ER NV positive HER-2 negative, Invasive ductal carcinoma - No concerning findings on exam. - Tolerating arimidex fair except for fatigue and word finding issues. - Hold arimidex for the next 3 weeks. Pt. advised to call office with an update on her symptoms. - Mammogram due in 2021. - Follow up after mammogram. - Pt. aware to call office with any questions/concerns. The patient indicates understanding of these issues and agrees with the plan. All documentation from previous visit of 10/30/21-Dr. Winchester/myself was copied and pasted, documentation has been reviewed and edited as necessary for today's visit. Sameera Martini APRN.CARMEN documented in this encounter [facility] 02-17-2022 Miscellaneous Notes Last OV 01/22/2022 No future appointments scheduled Please review and advise. Thank you. Last office visit 01/22/2022. Patient phones requesting refills as follows: Pending Prescriptions Disp Refills LEVOTHYROXINE 88 MCG TABLET 90 tablet 1 Sig: Take 1 tablet by mouth once daily. Take on empty stomach. For Thyroid JAKE: No FLUOXETINE 40 MG CAPSULE 90 capsule 1 Sig: Take 1 capsule by mouth once daily. JAKE: No Please review and advise. Candace Estrada LPN documented in this encounter [facility] 09-24-2021 Note HNO ID: [id number] Author: RT Ronel(R) Service: Radiology Author Type: Technologist Type: Progress Notes Filed: 09/24/2021 12:06 PM Note Text: Radiology Service Progress Note PATIENT NAME: Kathryn Whiting DATE OF SERVICE: September 24, 2021 TIME: 12:06 PM PATIENT IDENTITY VERIFICATION COMPLETED USING TWO (2) IDENTIFIERS: Name and Date of confirmed by patient verbally. FALL SCREENING: Has the patient had 2 falls in the last year or 1 fall with injury or currently using an Ambulatory Assistive Device (Walker, Cane, Wheelchair, Crutches, etc.)? No PATIENT GENDER DATA: Female. status: : No status: N/A PATIENT RELEVANT IMPLANT DATA REVIEWED: Not Applicable RADIOLOGY DEPARTMENT: General X-ray: Exam(s) Completed: Chest X-Ray PERIPHERAL IV DATA: Not applicable SIGNED BY: RT Ronel(R) September 24, 2021 12:06 PM [facility] 10-25-2020 Note HNO ID: [id number] Author: TALA Aldana (Ct) Service: Nuclear Medicine Author Type: Clinical Enterprise Systems Engineer Type: Progress Notes Filed: 10/25/2020 2:11 PM Note Text: RADIOLOGY SERVICE PROGRESS NOTE SERVICE DATE: 10/25/2020 SERVICE TIME: 2:10 PM PATIENT IDENTITY VERIFICATION COMPLETED USING TWO (2) STANDARD IDENTIFIERS: Name and Date of confirmed by patient verbally and Name and Date of confirmed by identification band FALL SCREENING: Has the patient had 2 falls in the last year or 1 fall with injury or currently using an Ambulatory Assistive Device (Walker, Cane, Wheelchair, Crutches, etc.)? No PATIENT GENDER DATA: .female : No ALLERGIES: Reviewed and unchanged MEDICATIONS REVIEWED: Not applicable PATIENT RELEVANT IMPLANT DATA REVIEWED: Not Applicable CREATININE: Creatinine Date Value Ref Range Status 10/22/2020 0.76 0.58 - 0.96 mg/dL Final 02/21/2020 0.62 0.58 - 0.96 mg/dL Final 05/09/2019 0.61 0.58 - 0.96 mg/dL Final eGFR-All Other Races Date Value Ref Range Status 10/22/2020 >60 . Final Comment: eGFR (Estimated GFR) Units of measure: mL/min/1.73 meters squared eGFR is derived from the reexpressed MDRD Study equation using the following parameters: serum creatinine, age, gender and race. The creatinine assay has been calibrated to be traceable to IDMS. An eGFR <60 mL/min/1.73m2 for >3 months is consistent with chronic kidney disease. Refer to KDOQI guidelines for clinical interpretation. In patients with unstable renal function, e.g. those with acute kidney injury, the eGFR may not accurately reflect actual GFR. eGFR- Date Value Ref Range Status 10/22/2020 >60 Final P.O.C.T. RESULTS: N/A October 25, [address] PERFORMED: No IV SITE: Ambulatory: A peripheral IV was started in the Right antecubital site with a Angio cath: 22 gauge. POST EXAM PIV STATUS: Discontinued PROCEDURE TYPE: NM Stress: 12.4mCi [id number] was administered IV for Rest Imaging at 12:08 by TALA Aldana. 32.2 mCi [id number] was administered IV for Stress Imaging at 13:02 by TALA Aldana. PATIENT DISCHARGED TO: Ambulatory patient, left [place] department area. A Diagnostic radioactive procedure has taken place, with no further precautions necessary other than routine body substance precautions. More information regarding radiation safety can be found using this link: [email or web address] [email or web address] SIGNATURE: TALA Aldana PATIENT NAME: Kathryn Whiting DATE: October 25, 2020 TIME: 2:10 PM PAGER/CONTACT #: [facility] 07-25-2010 History of Past i llness Narrative Problem Noted Date Resolved Date Routine general medical exam ination at a health care facility 07/25/2010 08/18/2012 Overview: 07/25/2010, [facility] (former patient of Dr. David) Routine gynecological examination 07/25/2010 08/18/2012 Overview: [facility], [facility] [place] Cholelithiasis 09/21/1998 08/18/2012 documented as of this encounter (statuses as of 02/17/2022) [place] [id number] History of Past illness Narrative* Problem Noted Date Resolved Date Routine general medical exam ination at a health care facility 07/25/2010 08/18/2012 [facility]: [facility] ([facility] patient of Dr. David) Routine gynecological examination 07/25/2010 08/18/2012 Overview: [facility], [facility] [place] Cholelithiasis 09/21/1998 08/18/2012 documented as of this encounter (statuses as of 04/30/2022) [facility]2010 History of Past illness Narrative* Problem Noted Date Resolved Date Routine general medical exam ination at a health care facility 07/25/2010 08/18/2012 Overview: 07/25/2010[facility] (former patient of Dr. David) Routine gynecological examination 07/25/2010 08/18/2012 Overview: [facility], [facility] [place] Cholelithiasis 09/21/1998 08/18/2012 documented as of this encounter (statuses as of 05/20/2022) [facility]2010 History of Past illness Narrative* Problem Noted Date Resolved Date Routine general medical exam ination at a health care facility 07/25/2010 08/18/2012 Overview: [facility] (former patient of Dr. David) Routine gynecological examination 07/25/2010 08/18/2012 Overview: [facility], [facility] [place] Cholelithiasis 09/21/1998 08/18/2012 documented as of this encounter (statuses as of 06/11/2022) [facility] History of Past illness Narrative* Problem Noted Date Resolved Date Routine general medical exam ination at a health care facility 07/25/2010 08/18/2012 Overview: [facility] (former patient of Dr. David) Routine gynecological examination 07/25/2010 08/18/2012 Overview: [facility], [facility] [place] Cholelithiasis 09/21/1998 08/18/2012 documented as of this encounter (statuses as of 06/20/2022) [facility] History of Past illness Narrative* Problem Noted Date Resolved Date Routine general medical exam ination at a health care facility 07/25/2010 08/18/2012 Overview: 07/25/2010, [facility] ([facility] patient of Dr. David) Routine gynecological examination 07/25/2010 08/18/2012 Overview: [facility], [facility] [place] Cholelithiasis 09/21/1998 08/18/2012 documented as of this encounter (statuses as of 06/23/2022) [facility] History of Past illness Narrative* Problem Noted Date Resolved Date Routine general medical exam ination at a health care facility 07/25/2010 08/18/2012 Overview: 07/25/2010, [facility] ([facility] patient of Dr. David) Routine gynecological examination 07/25/2010 08/18/2012 Overview: [facility], [facility] [place] Cholelithiasis 09/21/1998 08/18/2012 documented as of this encounter (statuses as of 06/27/2022) [facility] History of Past illness Narrative* Problem Noted Date Resolved Date Routine general medical exam ination at a health care facility 07/25/2010 08/18/2012 Overview: 07/25/2010, [facility] ([facility] patient of Dr. David) Routine gynecological examination 07/25/2010 08/18/2012 Overview: [facility], [facility] [place] Cholelithiasis 09/21/1998 08/18/2012 documented as of this encounter (statuses as of 07/01/2022) [facility] History of Past illness Narrative* Problem Noted Date Resolved Date Routine general medical exam ination at a health care facility 07/25/2010 08/18/2012 Overview: 07/25/2010, [facility] ([facility] patient of Dr. David) Routine gynecological examination 07/25/2010 08/18/2012 Overview: [facility], [facility] [place] Cholelithiasis 09/21/1998 08/18/2012 documented as of this encounter (statuses as of 07/04/2022) [facility] History of Past illness Narrative* Problem Noted Date Resolved Date Routine general medical exam ination at a health care facility 07/25/2010 08/18/2012 Overview: 07/25/2010, [facility] (former patient of Dr. David) Routine gynecological examination 07/25/2010 08/18/2012 Overview: [facility], [facility] [place] Cholelithiasis 09/21/1998 08/18/2012 documented as of this encounter (statuses as of 08/13/2022) [facility] History of Past illness Narrative* Problem Noted Date Resolved Date Routine general medical exam ination at a health care facility 07/25/2010 08/18/2012 Overview: 07/25/2010, [facility] ([facility] patient of Dr. David) Routine gynecological examination 07/25/2010 08/18/2012 Overview: [facility], [facility] [place] Cholelithiasis 09/21/1998 08/18/2012 documented as of this encounter (statuses as of 09/03/2022) [facility] History of Past illness Narrative* Problem Noted Date Resolved Date Routine general medical exam ination at a health care facility 07/25/2010 08/18/2012 Overview: [facility]/2010[facility] ([facility] patient of Dr. David) Routine gynecological examination 07/25/2010 08/18/2012 Overview: [facility], [facility] [place] Cholelithiasis 09/21/1998 08/18/2012 documented as of this encounter (statuses as of 10/06/2022) [facility] History of Past illness Narrative* Problem Noted Date Resolved Date Routine general medical exam ination at a health care facility 07/25/2010 08/18/2012 Overview: 07/[facility]/2010[facility] (former patient of Dr. David) Routine gynecological examination 07/25/2010 08/18/2012 Overview: [facility], [facility] [place] Cholelithiasis 09/21/1998 08/18/2012 documented as of this encounter (statuses as of 01/07/2023) [facility] History of Past illness Narrative* Problem Noted Date Resolved Date Routine general medical exam ination at a health care facility 07/25/2010 08/18/2012 Overview: [facility]/2010[facility] (former patient of Dr. David) Routine gynecological examination 07/25/2010 08/18/2012 Overview: [facility], [facility] [place] Cholelithiasis 09/21/1998 08/18/2012 documented as of this encounter (statuses as of 02/04/2023) [facility] History of Past illness Narrative* Problem Noted Date Resolved Date Routine general medical exam ination at a health care facility 07/25/2010 08/18/2012 Overview: [facility] (former patient of Dr. David) Routine gynecological examination 07/25/2010 08/18/2012 Overview: [facility], [facility] [place] Cholelithiasis 09/21/1998 08/18/2012 documented as of this encounter (statuses as of 03/04/2023) [facility] History of Past illness Narrative* Problem Noted Date Resolved Date Routine general medical exam ination at a health care facility 07/25/2010 08/18/2012 Overview: 07/[facility]/2010[facility] (former patient of Dr. David) Routine gynecological examination 07/25/2010 08/18/2012 Overview: [facility], [facility] [place] Cholelithiasis 09/21/1998 08/18/2012 documented as of this encounter (statuses as of 04/14/2023) [facility] History of Past illness Narrative* Problem Noted Date Resolved Date Routine general medical exam ination at a health care facility 07/25/2010 08/18/2012 Overview: 07/[facility]/2010[facility] (former patient of Dr. David) Routine gynecological examination 07/25/2010 08/18/2012 Overview: [facility], [facility] [place] Cholelithiasis 09/21/1998 08/18/2012 documented as of this encounter (statuses as of 04/14/2023) [facility] History of Past illness Narrative* Problem Noted Date Resolved Date Routine general medical exam ination at a health care facility 07/25/2010 08/18/2012 Overview: [facility]/2010[facility] (former patient of Dr. David) Routine gynecological examination 07/25/2010 08/18/2012 Overview: [facility], [facility] [place] Cholelithiasis 09/21/1998 08/18/2012 documented as of this encounter (statuses as of 04/27/2023) [facility] History of Past illness Narrative* Problem Noted Date Diagnosed Date Resolved Date Routine general medical exam ination at a health care facility 07/25/2010 08/18/2012 Overview: 07/[facility]/2010[facility] (former patient of Dr. David) Routine gynecological examination 07/25/2010 08/18/2012 Overview: [facility], [facility] [place] Cholelithiasis 09/21/1998 08/18/2012 documented as of this encounter (statuses as of 05/17/2023) [facility] History of Past illness Narrative* Problem Noted Date Diagnosed Date Resolved Date Routine general medical exam ination at a health care facility 07/25/2010 08/18/2012 Overview: 07/25/2010[facility] (former patient of Dr. David) Routine gynecological examination 07/25/2010 08/18/2012 Overview: [facility], [facility] [place] Cholelithiasis 09/21/1998 08/18/2012 documented as of this encounter (statuses as of 08/26/2023) [facility] History of Past illness Narrative* Problem Noted Date Diagnosed Date Resolved Date Routine general medical exam ination at a health care facility 07/25/2010 08/18/2012 Overview: 07/25/2010[facility] (former patient of Dr. David) Routine gynecological examination 07/25/2010 08/18/2012 Overview: [facility], [facility] [place] Cholelithiasis 09/21/1998 08/18/2012 documented as of this encounter (statuses as of 09/03/2023) [facility] History of Past illness Narrative* Problem Noted Date Diagnosed Date Resolved Date Routine general medical exam ination at a health care facility 07/25/2010 08/18/2012 Overview: 07/25/2010[facility] (former patient of Dr. David) Routine gynecological examination 07/25/2010 08/18/2012 Overview: [facility], [facility] [place] Cholelithiasis 09/21/1998 08/18/2012 documented as of this encounter (statuses as of 09/13/2023) [facility] History of Past illness Narrative* Problem Noted Date Diagnosed Date Resolved Date Routine general medical exam ination at a health care facility 07/25/2010 08/18/2012 Overview: 07/25/2010[facility] (former patient of Dr. David) Routine gynecological examination 07/25/2010 08/18/2012 Overview: [facility], [facility] [place] Cholelithiasis 09/21/1998 08/18/2012 documented as of this encounter (statuses as of 10/15/2023) [facility] History of Past illness Narrative* Problem Noted Date Diagnosed Date Resolved Date Routine general medical exam ination at a health care facility 07/25/2010 08/18/2012 Overview: 07/25/2010, [facility] ([facility] patient of Dr. David) Routine gynecological examination 07/25/2010 08/18/2012 Overview: [facility], [facility] [place] Cholelithiasis 09/21/1998 08/18/2012 documented as of this encounter (statuses as of 10/15/2023) [facility] History of Past illness Narrative* Problem Noted Date Diagnosed Date Resolved Date Routine general medical exam ination at a health care facility 07/25/2010 08/18/2012 Overview: 07/25/2010, [facility] ([facility] patient of Dr. David) Routine gynecological examination 07/25/2010 08/18/2012 Overview: [facility], [facility] [place] Cholelithiasis 09/21/1998 08/18/2012 documented as of this encounter (statuses as of 12/11/2023) [facility] History of Past illness Narrative* Problem Noted Date Diagnosed Date Resolved Date Routine general medical exam ination at a health care facility 07/25/2010 08/18/2012 Overview: [facility] (former patient of Dr. David) Routine gynecological examination 07/25/2010 08/18/2012 Overview: [facility], [facility] [place] Cholelithiasis 09/21/1998 08/18/2012 documented as of this encounter (statuses as of 01/07/2024) [facility] History of Past illness Narrative* Problem Noted Date Diagnosed Date Resolved Date Routine general medical exam ination at a health care facility 07/25/2010 08/18/2012 Overview: 07/25/2010, [facility] ([facility] patient of Dr. David) Routine gynecological examination 07/25/2010 08/18/2012 Overview: [facility], [facility] [place] Cholelithiasis 09/21/1998 08/18/2012 documented as of this encounter (statuses as of 01/11/2024) [facility] History of Past illness Narrative* Problem Noted Date Diagnosed Date Resolved Date Routine general medical exam ination at a health care facility 07/25/2010 08/18/2012 Overview: 07/25/2010, [facility] ([facility] patient of Dr. David) Routine gynecological examination 07/25/2010 08/18/2012 Overview: [facility], [facility] [place] Cholelithiasis 09/21/1998 08/18/2012 documented as of this encounter (statuses as of 01/20/2024) [facility] History of Past illness Narrative* Problem Noted Date Diagnosed Date Resolved Date Routine general medical exam ination at a health care facility 07/25/2010 08/18/2012 Overview: 07/25/2010, [facility] ([facility] patient of Dr. David) Routine gynecological examination 07/25/2010 08/18/2012 Overview: [facility], [facility] [place] Cholelithiasis 09/21/1998 08/18/2012 documented as of this encounter (statuses as of 02/12/2024) [facility] History of Past illness Narrative* Problem Noted Date Diagnosed Date Resolved Date Routine general medical exam ination at a health care facility 07/25/2010 08/18/2012 Overview: [facility] (former patient of Dr. David) Routine gynecological examination 07/25/2010 08/18/2012 Overview: [facility], [facility] [place] Cholelithiasis 09/21/1998 08/18/2012 documented as of this encounter (statuses as of 02/18/2024) [facility] History of Past illness Narrative* Problem Noted Date Diagnosed Date Resolved Date Routine general medical exam ination at a health care facility 07/25/2010 08/18/2012 Overview: 07/25/2010, [facility] (former patient of Dr. David) Routine gynecological examination 07/25/2010 08/18/2012 Overview: [facility], [facility] Cholelithiasis 09/21/1998 08/18/2012 documented as of this encounter (statuses as of 02/18/2024) [facility] [place] [facility] Diagnosis Hypothyroidism, unspecified type IRISH (generalized anxiety disorder) Generalized anxiety disorder [facility] [place] [facility] Diagnosis Onset Date Resolution Status Acute upper respiratory infection acute Contact with or suspected ex posure to other viral communicable disease acute [facility] Work Phone: Evaluation note* Diagnosis Malignant neoplasm of upper-outer quadrant of right breast in female, estrogen receptor positive (HCC)- Primary Encounter 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 mammogram for high-risk patient [facility] Diagnosis Chronic insomnia Insomnia, unspecified [facility] [place] [facility]* Diagnosis Mixed hyperlipidemia [facility] [place] [facility]* Diagnosis Dizziness- Primary Dizziness and giddiness Mixed hyperlipidemia Intractable migraine without aura and without status migrainosus Migraine without aura, with intractable migraine, so stated, without mention of status migrainosus Hypothyroidism, unspecified type IFG (impaired fasting glucose) Impaired fasting glucose [facility] [place] [facility]* Diagnosis Hypothyroidism, unspecified type [facility] [place] [facility]* Diagnosis Intractable migraine without aura and without status migrainosus Migraine without aura, with intractable migraine, so stated, without mention of status migrainosus [facility] Diagnosis GERD without esophagitis- Primary Esophageal reflux [facility] Diagnosis Mixed hyperlipidemia [facility] [place] [facility] Diagnosis IFG (impaired fasting glucose)- Primary Impaired fasting glucose Hypothyroidism, unspecified type Dyslipidemia Other and unspecified hyperlipidemia documented in this encounter [facility] note* Diagnosis IFG (impaired fasting glucose)- Primary Impaired fasting glucose GERD without esophagitis Esophageal reflux Hypothyroidism, unspecified type Osteoarthritis of spine with radiculopathy, lumbar region Chronic neck pain Cervicalgia Chronic midline low back pain with bilateral sciatica Mixed hyperlipidemia documented in this encounter [facility] note* Diagnosis IRISH (generalized anxiety disorder) Generalized anxiety disorder documented in this encounter [facility] note* Diagnosis Rash- Primary Rash and other nonspecific skin eruption documented in this encounter [facility] note* Diagnosis Malignant neoplasm of upper-outer quadrant of right breast in female, estrogen receptor positive (HCC)- Primary Encounter 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 for 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 documented in this encounter [facility] note* Diagnosis Malignant neoplasm of upper-outer quadrant of right breast in female, estrogen receptor positive (HCC) Encounter 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 mammogram for high-risk patient documented [facility] this encounter [facility] [place] [facility] Diagnosis Malignant neoplasm of upper-outer quadrant of right breast in female, estrogen receptor positive (HCC) 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 documented in this encounter [facility] note* Diagnosis Encounter 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 mammogram for high-risk patient Malignant neoplasm of upper-outer quadrant of right breast in female, estrogen receptor positive (HCC) documented in this encounter [facility] note* Diagnosis Cervical radiculopathy- Primary Brachial neuritis or radiculitis nos Chronic left shoulder pain Pain in joint, shoulder region Neck pain Cervicalgia Left arm pain Pain in limb Non-recurrent acute serous otitis media of left ear documented in this encounter [facility] [place] [facility]* Diagnosis Cervical radiculopathy Brachial neuritis or radiculitis nos Chronic left shoulder pain Pain in joint, shoulder region Neck pain Cervicalgia Left arm pain Pain in limb documented in this encounter [facility] [place] [facility]* Diagnosis Cervical radiculopathy- Primary Brachial neuritis or radiculitis nos Chronic left shoulder pain Pain in joint, shoulder region Neck pain Cervicalgia Left arm pain Pain in limb documented in this encounter [facility] note* Diagnosis Hypothyroidism, unspecified type Mixed hyper[facility] Cervical radiculopathy- Primary Brachial neuritis or radiculitis nos Chronic left shoulder pain Pain in joint, shoulder region Neck pain Cervicalgia Left arm pain Pain in limb [facility] Diagnosis Intractable migraine without aura and without status migrainosus Migraine without aura, with intractable migraine, so stated, without mention of status migrainosus [facility] Diagnosis IRISH (generalized anxiety disorder) Generalized anxiety disorder [facility] Diagnosis Cervical radiculopathy Brachial neuritis or radiculitis nos Chronic left shoulder pain Pain in joint, shoulder region Neck pain Cervicalgia Left arm pain Pain in limb [facility]* Diagnosis Osteoarthritis of spine with radiculopathy, 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 Chronic neck pain Cervicalgia [facility]* Diagnosis Intractable migraine without aura and without status migrainosus Migraine without aura, with intractable migraine, so stated, without mention of status migrainosus [facility] Diagnosis Encounter 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 mammogram for high-risk patient- Primary Malignant neoplasm of upper-outer quadrant of right breast in female, estrogen receptor positive (HCC) [facility] Diagnosis Encounter 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 mammogram for high-risk patient Malignant neoplasm of upper-outer quadrant of right breast in female, estrogen receptor positive (HCC) [facility] Diagnosis Malignant neoplasm of upper-outer quadrant of right breast in female, estrogen receptor positive (HCC)- Primary Encounter 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 mammogram for high-risk patient [facility]* Diagnosis IRISH (generalized anxiety disorder) Generalized anxiety disorder [facility] Diagnosis Mixed hyperlipidemia [facility] Diagnosis Paraesophageal hernia- Primary Diaphragmatic hernia without mention of obstruction or gangrene Throat fullness Other symptoms involving head and neck Esophagus disorder Unspecified disorder of esophagus Gastroesophageal reflux disease without esophagitis Esophageal reflux Esophageal spasm Dyskinesia of esophagus Heartburn [facility] Diagnosis Paraesophageal hernia- Primary Diaphragmatic hernia without mention of obstruction or gangrene [facility] [place] [facility] Diagnosis Paraesophageal hernia Diaphragmatic hernia without mention of obstruction or gangrene documented in this encounter [facility] [place] [facility]* Diagnosis Mixed hyperlipidemia- Primary Hypothyroidism, unspecified type IFG (impaired fasting glucose) Impaired fasting glucose Medication management Encounter for long-term (current) use of other medications documented in this encounter [facility] [place] [facility]* Diagnosis Osteoarthritis of spine with radiculopathy, lumbar region- Primary Chronic right-sided low back pain with right-sided sciatica Dizziness Dizziness and giddiness Vitamin D deficiency Unspecified vitamin D deficiency Chronic night sweats Generalized hyperhidrosis Paresthesia Disturbance of skin sensation Chronic fatigue Other malaise and fatigue Falls Unspecified fall documented in this encounter [facility] [place] [facility]* Diagnosis Osteoarthritis of spine with radiculopathy, 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 Falls Unspecified fall [facility] [place] [facility] Diagnosis Hypothyroidism, unspecified type- Primary [facility] [place] [facility]* Diagnosis Paraesophageal hernia- Primary Diaphragmatic hernia without mention of obstruction or gangrene [facility] [place] [facility]* Diagnosis Chronic neck pain- Primary Cervicalgia Mixed hyperlipidemia Cervical radiculopathy Brachial neuritis or radiculitis nos Migraine without aura, intractable, without status migrainosus [facility] [place] [facility]* Diagnosis Preoperative examination- Primary Preoperative examination, unspecified Hiatal hernia Diaphragmatic hernia without mention of obstruction or gangrene Abnormal results of liver function studies Nonspecific abnormal results of liver function study Abnormal coagulation profile documented in this encounter [facility] [place] [facility]* Diagnosis Osteoarthritis of spine with radiculopathy, 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 Falls Unspecified fall Preoperative examination Preoperative examination, unspecified Hiatal hernia Diaphragmatic hernia without mention of obstruction or gangrene documented in this encounter [facility] [place] [facility]* Diagnosis IRISH (generalized anxiety disorder) Generalized anxiety disorder Chronic neck pain Cervicalgia Cervical radiculopathy Brachial neuritis or radiculitis nos Migraine without aura, intractable, without status migrainosus Preoperative examination Preoperative examination, unspecified Hiatal hernia Diaphragmatic hernia without mention of obstruction or gangrene documented in this encounter [facility] [place] [facility]* Diagnosis Arthralgia, unspecified joint- Primary Chronic left shoulder pain Pain in joint, shoulder region Chronic pain of right knee Neck pain Cervicalgia Muscle weakness (generalized) Facial numbness Disturbance of skin sensation Age-related osteoporosis without current pathological fracture Senile osteoporosis Hiatal hernia Diaphragmatic hernia without mention of obstruction or gangrene Vitamin D deficiency Unspecified vitamin D deficiency Fibromyalgia Mylagia and myositis, unspecified Sciatica of right side Sciatica Psoriasis Other psoriasis Preoperative examination Preoperative examination, unspecified Hiatal hernia Diaphragmatic hernia without mention of obstruction or gangrene [facility] Diagnosis Chronic left shoulder pain Pain in joint, shoulder region Neck pain Cervicalgia Muscle weakness (generalized) Arthralgia, unspecified joint Facial numbness Disturbance of skin sensation Age-related osteoporosis without current pathological fracture Senile osteoporosis Chronic pain of right knee Hiatal hernia Diaphragmatic hernia without mention of obstruction or gangrene Vitamin D deficiency Unspecified vitamin D deficiency Fibromyalgia Mylagia and myositis, unspecified Sciatica of right side Sciatica Psoriasis Other psoriasis Preoperative examination Preoperative examination, unspecified Hiatal hernia Diaphragmatic hernia without mention of obstruction or gangrene [facility] Diagnosis IRISH (generalized anxiety disorder) Generalized anxiety disorder Chronic neck pain Cervicalgia Cervical radiculopathy Brachial neuritis or radiculitis nos Migraine without aura, intractable, without status migrainosus Preoperative examination Preoperative examination, unspecified Hiatal hernia Diaphragmatic hernia without mention of obstruction or gangrene [facility] Diagnosis IRISH (generalized anxiety disorder) Generalized anxiety disorder Chronic neck pain Cervicalgia Cervical radiculopathy Brachial neuritis or radiculitis nos Migraine without aura, intractable, without status migrainosus Preoperative examination Preoperative examination, unspecified Hiatal hernia Diaphragmatic hernia without mention of obstruction or gangrene [facility] Diagnosis Age-related osteoporosis without current pathological fracture- Primary Senile osteoporosis Arthralgia, unspecified joint Psoriasis Other psoriasis Primary osteoarthritis involving multiple joints Preoperative examination Preoperative examination, unspecified Hiatal hernia Diaphragmatic hernia without mention of obstruction or gangrene [facility] Diagnosis Paraesophageal hernia- Primary Diaphragmatic hernia without mention of obstruction or gangrene Mixed hyperlipidemia Gastroesophageal reflux disease without esophagitis Esophageal reflux Acquired hypothyroidism Unspecified hypothyroidism Malignant neoplasm of upper-outer quadrant of right breast in female, estrogen receptor positive (HCC) Intractable migraine without aura and without status migrainosus Migraine without aura, with intractable migraine, so stated, without mention of status migrainosus Anxiety and depression Dysthymic disorder Hypotension, unspecified hypotension type Chronic neck pain Cervicalgia Preoperative examination Preoperative examination, unspecified Hiatal hernia Diaphragmatic hernia without mention of obstruction or gangrene [facility] Diagnosis Osteoarthritis of spine with radiculopathy, lumbar region- Primary Hypotension due to drugs Other iatrogenic hypotension Migraine with aura, not intractable, without status migrainosus Facial paresthesia Malignant neoplasm of upper-outer quadrant of right breast in female, estrogen receptor positive (HCC) Acquired hypothyroidism Unspecified hypothyroidism Osteoporosis without current pathological fracture, unspecified osteoporosis type Preoperative examination Preoperative examination, unspecified Hiatal hernia Diaphragmatic hernia without mention of obstruction or gangrene documented in this encounter [facility] for referral (narrative)* Diagnostic Procedure Only (Routine) - Authorized Specialty Diagnoses / Procedures Referred By Eleuterio pope Referred To Contact [facility] Diagnoses Malignant neoplasm of upper-outer quadrant of right breast in female, estrogen receptor positive (HCC) Encounter 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 mammogram for high-risk patient Procedures KARAN SCREENING W ROSEANNA SCREENING DIGITAL BREAST TOMOSYNTHESIS BI SCREENING MAMMOGRAPHY BI 2-VIEW BREAST INC Sameera Sanchez, BRUNO.SERVICE ORDER DISPATCHER CHIEF [address] [place] [address] [facility] [address] [place] [address] Referral ID Status Reason Start Date Expiration Date Visits Requested Visits Authorized [id number] Authorized Auto-Generat ed Referral 04/30/2022 05/30/2023 1 1 [facility] for referral (narrative)* Outpatient Procedure (Routine) - Authorized Specialty Diagnoses / Procedures Referred By Eleuterio pope Referred [facility] Diagnoses Dizziness Procedures US CAROTID ARTERIES [facility] DUPLEX SCAN EXTRACRANIAL ART COMPL BI STUDY Aishwarya Greene APRN.SERVICE ORDER DISPATCHER CHIEF [address] [place] [address] [facility] [address] [place] [address] Referral ID Status Reason Start Date Expiration Date Visits Requested Visits Authorized [id number] Authorized Auto-Generat ed Referral 06/30/2022 06/30/2023 1 1 [facility] for referral (narrative)* Diagnostic Procedure Only (Routine) - Authorized Specialty Diagnoses / Procedures Referred By Contac t Referred To Contact [facility] Diagnoses Encounter 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 mammogram for high-risk patient Malignant neoplasm of upper-outer quadrant of right breast in female, estrogen receptor positive (HCC) Procedures KARAN SCREENING W ROSEANNA SCREENING DIGITAL BREAST TOMOSYNTHESIS BI SCREENING MAMMOGRAPHY BI 2-VIEW BREAST INC Sameera Sanchez APRN.SERVICE ORDER DISPATCHER CHIEF [address] [place] [address] [facility] [address] [place] [address] Referral ID Status Reason Start Date Expiration Date Visits Requested Visits Authorized [id number] Authorized Auto-Generat ed Referral 10/02/2024 1 1 [facility] for referral (narrative)* Diagnostic Procedure Only (Routine) - Closed Specialty Diagnoses / Procedures Referred By Contac t Referred To Contact [facility] Diagnoses Malignant neoplasm of upper-outer quadrant of right breast in female, estrogen receptor positive (HCC) Encounter 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 mammogram for high-risk patient Procedures KARAN SCREENING W ROSEANNA SCREENING DIGITAL BREAST TOMOSYNTHESIS BI SCREENING MAMMOGRAPHY BI 2-VIEW BREAST INC Sameera Sanchez APRN.SERVICE ORDER DISPATCHER CHIEF [address] [place] [address] [facility] [address] [place] [address] Referral ID Status Reason Start Date Expiration Date V isits Requested Visits Authorized [id number] Closed Auto-Generate d Referral 04/30/2022 05/30/2023 1 1 [facility] for referral (narrative)* Diagnostic Procedure Only (Urgent) - Closed Specialty Diagnoses / Procedures Referred By Contac t Referred To Contact [facility] Diagnoses Cervical radiculopathy Chronic left shoulder pain Neck pain Left arm pain Procedures XR CERV OTHER 4V AP/LAT/OBL RADEX SPINE CERVICAL 4 OR 5 VIEWS Cata Whyte APRN.SERVICE ORDER DISPATCHER CHIEF [address] [place] [address] [place] [address] Referral ID Status Reason Start Date Expiration Date V isits Requested Visits Authorized [id number] Closed Auto-Generate d Referral 01/06/2024 02/04/2025 1 1 * Diagnostic Procedure Only (Urgent) - Closed Specialty Diagnoses / Procedures Referred By Contac t Referred To Contact [facility] Diagnoses Cervical radiculopathy Chronic left shoulder pain Neck pain Left arm pain Procedures XR SHOULDER GENERAL 3V OR MORE AP/TRUE AP/OTHER LEFT RADEX SHOULDER COMPLETE MINIMUM 2 VIEWS Caat Whyte APRN.SERVICE ORDER DISPATCHER CHIEF [address] [place] [address] [place] [address] Referral ID Status Reason Start Date Expiration Date V isits Requested Visits Authorized [id number] Closed Auto-Generate d Referral 01/06/2024 02/04/2025 1 1 [facility] for referral (narrative)* Diagnostic Procedure Only (Routine) - Closed Specialty Diagnoses / Procedures Referred By Contac t Referred To Contact [facility] Diagnoses Chronic neck pain Procedures XR CERV OTHER 4V AP/LAT/OBL RADEX SPINE CERVICAL 4 OR 5 VIEWS Pablo Bates DO [address] [place] [address] [place] [address] Referral ID Status Reason Start Date Expiration Date V isits Requested Visits Authorized [id number] Closed Auto-Generate d Referral 04/13/2023 05/12/2024 1 1 * Diagnostic Procedure Only (Routine) - Closed Specialty Diagnoses / Procedures Referred By Contac t Referred To Contact [facility] Diagnoses Osteoarthritis of spine with radiculopathy, 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 Procedures XR LUMBAR GENERAL 3V AP/LAT/L5-S1 RADEX SPINE LUMBOSACRAL 2/3 VIEWS Pablo Bates DO [address] [place] [address] [place] [address] Referral ID Status Reason Start Date Expiration Date V isits Requested Visits Authorized [id number] Closed Auto-Generate d Referral 04/13/2023 05/12/2024 1 1 [facility] for referral (narrative)* Diagnostic Procedure Only (Routine) - Authorized Specialty Diagnoses / Procedures Referred By Eleuterio pope Referred To Contact [facility] Diagnoses Encounter 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 mammogram for high-risk patient Malignant neoplasm of upper-outer quadrant of right breast in female, estrogen receptor positive (HCC) Procedures KARAN SCREENING W ROSEANNA SCREENING DIGITAL BREAST TOMOSYNTHESIS BI SCREENING MAMMOGRAPHY BI 2-VIEW BREAST INC Sameera Sanchez APRN.SERVICE ORDER DISPATCHER CHIEF [address] [place] [address] [facility] [address] [place] [address] Referral ID Status Reason Start Date Expiration Date Visits Requested Visits Authorized [id number] Authorized Auto-Generat ed Referral 08/08/2024 09/04/2025 1 1 [facility] for referral (narrative)* Diagnostic Procedure Only (Routine) - Closed Specialty Diagnoses / Procedures Referred By Eleuterio pope Referred To Contact [facility] Diagnoses Encounter 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 mammogram for high-risk patient Malignant neoplasm of upper-outer quadrant of right breast in female, estrogen receptor positive (HCC) Procedures KARAN SCREENING W ROSEANNA SCREENING DIGITAL BREAST TOMOSYNTHESIS BI SCREENING MAMMOGRAPHY BI 2-VIEW BREAST INC Sameera Sanchez APRN.SERVICE ORDER DISPATCHER CHIEF [address] [place] [address] [facility] [address] [place] [address] Referral ID Status Reason Start Date Expiration Date V isits Requested Visits Authorized [id number] Closed Auto-Generate d Referral 08/08/2024 09/04/2025 1 1 [facility] for referral (narrative)* Diagnostic Procedure Only (Routine) - Authorized Specialty Diagnoses / Procedures Referred By Contac t Referred To Contact [facility] Diagnoses Malignant neoplasm of upper-outer quadrant of right breast in female, estrogen receptor positive (HCC) Encounter 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 mammogram for high-risk patient Procedures KARAN SCREENING W ROSEANNA SCREENING DIGITAL BREAST TOMOSYNTHESIS BI SCREENING MAMMOGRAPHY BI 2-VIEW BREAST INC Sameera Sanchez APRN.SERVICE ORDER DISPATCHER CHIEF [address] [place] [address] [facility] [address] [place] [address] Referral ID Status Reason Start Date Expiration Date Visits Requested Visits Authorized [id number] Authorized Auto-Generat ed Referral 11/16/2024 12/16/2025 1 1 [facility] for visit Narrative* Diagnostic Procedure Only (Routine) - Closed Specialty Diagnoses / Procedures Referred By Eleuterio pope Referred To Contact [facility] Diagnoses Malignant neoplasm of upper-outer quadrant of right breast in female, estrogen receptor positive (HCC) Encounter 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 mammogram for high-risk patient Procedures KARAN SCREENING W ROSEANNA SCREENING DIGITAL BREAST TOMOSYNTHESIS BI SCREENING MAMMOGRAPHY BI 2-VIEW BREAST INC Sameera Sanchez, BRUNO.SERVICE ORDER DISPATCHER CHIEF [address] [place] [address] [facility] [address] [place] [address] Referral ID Status Reason Start Date Expiration Date V isits Requested Visits Authorized [id number] Closed Auto-Generate d Referral 04/30/2022 05/30/2023 1 1 [facility] for visit Narrative* Diagnostic Procedure Only (Routine) - Closed Specialty Diagnoses / Procedures Referred By Eleuterio t Referred To Contact [facility] Diagnoses Encounter 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 mammogram for high-risk patient Malignant neoplasm of upper-outer quadrant of right breast in female, estrogen receptor positive (HCC) Procedures KARAN SCREENING W ROSEANNA SCREENING DIGITAL BREAST TOMOSYNTHESIS BI SCREENING MAMMOGRAPHY BI 2-VIEW BREAST INC CAD Sameera Martini, 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 [address] [place] [address] [facility] [address] [facility] [place] [address] Referral ID Status Reason Start Date Expiration Date V isits Requested Visits Authorized [id number] Closed Auto-Generate d Referral 09/03/2023 10/02/2024 1 1 [facility] for visit Narrative* Diagnostic Procedure Only (Urgent) - Closed Specialty Diagnoses / Procedures Referred By Contac t Referred To Contact [facility] Diagnoses Cervical radiculopathy Chronic left shoulder pain Neck pain Left arm pain Procedures XR CERV OTHER 4V AP/LAT/OBL RADEX SPINE CERVICAL 4 OR 5 VIEWS Cata Whyte, 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 [address] [place] [address] [place] [address] Referral ID Status Reason Start Date Expiration Date V isits Requested Visits Authorized [id number] Closed Auto-Generate d Referral 01/06/2024 02/04/2025 1 1 [facility] for visit Narrative* Diagnostic Procedure Only (Routine) - Closed Specialty Diagnoses / Procedures Referred By Contac t Referred To Contact [facility] Diagnoses Chronic neck pain Procedures XR CERV OTHER 4V AP/LAT/OBL RADEX SPINE CERVICAL 4 OR 5 VIEWS Pablo Bates, DO [address] [place] [address] [place] [address] Referral ID Status Reason Start Date Expiration Date V isits Requested Visits Authorized [id number] Closed Auto-Generate d Referral 04/13/2023 05/12/2024 1 1 [facility] for visit Narrative* Diagnostic Procedure Only (Routine) - Closed Specialty Diagnoses / Procedures Referred By Contac t Referred To Contact [facility] Diagnoses Encounter 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 mammogram for high-risk patient Malignant neoplasm of upper-outer quadrant of right breast in female, estrogen receptor positive (HCC) Procedures KARAN SCREENING W ROSEANNA SCREENING DIGITAL BREAST TOMOSYNTHESIS BI SCREENING MAMMOGRAPHY BI 2-VIEW BREAST INC CAD Sameera Martini, 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 [address] [place] [address] [facility] [address] [place] [address] Referral ID Status Reason Start Date Expiration Date V isits Requested Visits Authorized [id number] Closed Auto-Generate d Referral 08/08/2024 09/04/2025 1 1 [facility] for visit Narrative* Outpatient Procedure (Routine) - Closed Specialty Diagnoses / Procedures Referred By Eleuterio pope Referred To Contact [facility] Diagnoses Throat fullness Esophagus disorder Gastroesophageal reflux disease without esophagitis Esophageal spasm Procedures EGD DIAGNOSTIC ESOPHAGOGASTRODUODENOS COPY TRANSORAL DIAGNOSTIC Cata Whyte 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 [address] [place] [address] Phone: tel: fax: [facility] [address] [place] [address] Referral ID Status Reason Start Date Expiration Date V isits Requested Visits Authorized [id number] Closed Auto-Generate d Referral 03/01/2025 03/01/2026 1 1 [facility] for visit Narrative* MRI/CT (Routine) - Closed Specialty Diagnoses / Procedures Referred By Eleuterio pope Referred To Contact CT IMAGING Diagnoses Paraesophageal hernia Procedures CT ABD/PEL W IVCON CT ABD & PELVIS W/CONTRAST Cosme Montaño MD [address] [facility] [place] [address] Phone: tel: fax: [place] [address] Referral ID Status Reason Start Date Expiration Date V isits Requested Visits Authorized [id number] Closed Auto-Generate d Referral 04/07/2025 05/07/2026 1 1 [facility] for visit Narrative* Diagnostic Procedure Only (Routine) - Closed Specialty Diagnoses / Procedures Referred By Eleuterio pope Referred To Contact [facility] Diagnoses Osteoarthritis of spine with radiculopathy, 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 Falls Procedures XR LUMBAR GENERAL 3V AP/LAT/L5-S1 RADEX SPINE LUMBOSACRAL 2/3 VIEWS Alka Yadav, 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 [address] [place] [address] Phone: tel: fax: [place] [address] Referral ID Status Reason Start Date Expiration Date V isits Requested Visits Authorized [id number] Closed Auto-Generate d Referral 04/20/2025 05/20/2026 1 1 [facility] Diagnostic Procedure Only (Routine) - Closed Specialty Diagnoses / Procedures Referred By Contac t Referred To Contact XR IM[facility] Diagnoses Arthralgia, unspecified joint Chronic left shoulder pain Chronic pain of right knee Neck pain Muscle weakness (generalized) Facial numbness Age-related osteoporosis without current pathological fracture Hiatal hernia Vitamin D deficiency Fibromyalgia Sciatica of right side Psoriasis Procedures XR ANKLE GENERAL 3V AP/LAT/OBL RIGHT RADEX ANKLE COMPLETE MINIMUM 3 VIEWS Jacqueline Calderon PA-C [address] [place] [address] Phone: tel: fax: [place] [address] Referral ID Status Reason Start Date Expiration Date V isits Requested Visits Authorized [id number] Closed Auto-Generate d Referral 05/11/2025 06/10/2026 1 1 [facility] Summary Purpose Family History No Family History Records FoundNo Family History Records FoundNo Family History Records Found Advance Directives No Advanced Directives Records FoundDocuments on File Type Date 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 Advance Directive(s) 03/17/2019 7:56 AM Advance Directive(s) 03/11/2019 9:19 AM Advance Directive Response Recorded Date/ Time Living Will Yes April 21, 2022 10:57am Power of Railroad Supervisor Of Engines No April 21 10:57am Documents on File Type Date 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 Advance Directive(s) 03/17/2019 7:56 AM Advance Directive(s) 03/11/2019 9:19 AM Chief Complaint and Reason for Visit Chief Complaint HEADACHE/CONGESTION/ COVID TEST dizziness Reason for Visit Acute upper respirat ory infection Contact with or suspected exposure to other viral communicable disease Reason for Referral Specialty Diagnoses / Procedures Referred By Contac t Referred To Contact [facility] Diagnoses Osteoarthritis of spine with radiculopathy, lumbar region Chronic neck pain Chronic midline low back pain with bilateral sciatica Procedures CONSULT TO PHYSICAL THERAPY PHYSICAL THERAPY EVALUATION HIGH COMPLEX 45 MINS Pablo Bates, DO [address] [place] [address] [facility] [address] [place] [address] Referral ID Status Reason Start Date Expiration Date Visits Requested Visits Authorized [id number] Authorized PCP Requested Referral Auto-Generate d Referral 04/13/2023 04/12/2024 99 99 Specialty Diagnoses / Procedures Referred By Contac t Referred To Contact [facility] Diagnoses Chronic neck pain Procedures XR CERV OTHER 4V AP/LAT/OBL RADEX SPINE CERVICAL 4 OR 5 VIEWS Pablo Bates, DO [address] [place] [address] [facility] Referral ID Status Reason Start Date Expiration Date V isits Requested Visits Authorized [id number] Closed Auto-Generate d Referral 04/13/2023 05/12/2024 1 1 Specialty Diagnoses / Procedures Referred By Contac t Referred To Contact [facility] Diagnoses Osteoarthritis of spine with radiculopathy, 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 Procedures XR LUMBAR GENERAL 3V AP/LAT/L5-S1 RADEX SPINE LUMBOSACRAL 2/3 VIEWS Pablo Bates, DO [address] [place] [address] [facility] Referral ID Status Reason Start Date Expiration Date V isits Requested Visits Authorized [id number] Closed Auto-Generate d Referral 04/13/2023 05/12/2024 1 1 Specialty Diagnoses / Procedures Referred By Contac t Referred To Contact [facility] Diagnoses Cervical radiculopathy Chronic left shoulder pain Neck pain Left arm pain Procedures CONSULT TO PHYSICAL THERAPY PHYSICAL THERAPY EVALUATION HIGH COMPLEX 45 MINS Cata Whyte, 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 [address] [place] [address] [facility] [address] [place] [address] Referral ID Status Reason Start Date Expiration Date Visits Requested Visits Authorized [id number] Authorized PCP Requested Referral Auto-Generate d Referral 01/06/2024 01/05/2025 99 99 Specialty Diagnoses / Procedures Referred By Contac t Referred To Contact [facility] Diagnoses Cervical radiculopathy Chronic left shoulder pain Neck pain Left arm pain Procedures XR CERV OTHER 4V AP/LAT/OBL RADEX SPINE CERVICAL 4 OR 5 VIEWS Cata Whyte, 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 [address] [place] [address] [place] [address] Referral ID Status Reason Start Date Expiration Date V isits Requested Visits Authorized [id number] Closed Auto-Generate d Referral 01/06/2024 02/04/2025 1 1 Specialty Diagnoses / Procedures Referred By Contac t Referred To Contact XR IMAGING Diagnoses Cervical radiculopathy Chronic left shoulder pain Neck pain Left arm pain Procedures XR SHOULDER GENERAL 3V OR MORE AP/TRUE AP/OTHER LEFT RADEX SHOULDER COMPLETE MINIMUM 2 VIEWS Cata Whyte, 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 [address] [place] [address] [place] [address] Referral ID Status Reason Start Date Expiration Date V isits Requested Visits Authorized [id number] Closed Auto-Generate d Referral 01/06/2024 02/04/2025 1 1 Additional Source Comments INFORMATION SOURCE (unrecogn ized section and content) DATE CREATED AUTHOR 09/26/2021 [facility] DATE CREATED AUTHOR AUTHOR'S ORGANIZ ATION 10/16/2023 [facility] DATE CREATED AUTHOR AUTHOR'S ORGANIZ ATION 07/01/2025 [facility] Source Comments (unrecognize d section and content) In the event this informatio n is protected by the Federal Confidentiality of Alcohol and Drug Abuse Patient Records regulations: The Federal rules restrict any use of the information to criminally investigate or prosecute any alcohol or drug abuse patient.[facility] the event this information is protected by the Federal Confidentiality of Alcohol and Drug Abuse Patient Records regulations: The Federal rules restrict any use of the information to criminally investigate or prosecute any alcohol or drug abuse patient.[facility] HospitalIn the event this information is protected by the Federal Confidentiality of Alcohol and Drug Abuse Patient Records regulations: The Federal rules restrict any use of the information to criminally investigate or prosecute any alcohol or drug abuse patient.[facility] HospitalIn the event this information is protected by the Federal Confidentiality of Alcohol and Drug Abuse Patient Records regulations: The Federal rules restrict any use of the information to criminally investigate or prosecute any alcohol or drug abuse patient.[facility] HospitalIn the event this information is protected by the Federal Confidentiality of Alcohol and Drug Abuse Patient Records regulations: The Federal rules restrict any use of the information to criminally investigate or prosecute any alcohol or drug abuse patient.[facility] HospitalIn the event this information is protected by the Federal Confidentiality of Alcohol and Drug Abuse Patient Records regulations: The Federal rules restrict any use of the information to criminally investigate or prosecute any alcohol or drug abuse patient.[facility] HospitalIn the event this information is protected by the Federal Confidentiality of Alcohol and Drug Abuse Patient Records regulations: The Federal rules restrict any use of the information to criminally investigate or prosecute any alcohol or drug abuse patient.[facility] HospitalIn the event this information is protected by the Federal Confidentiality of Alcohol and Drug Abuse Patient Records regulations: The Federal rules restrict any use of the information to criminally investigate or prosecute any alcohol or drug abuse patient.[facility] HospitalIn the event this information is protected by the Federal Confidentiality of Alcohol and Drug Abuse Patient Records regulations: The Federal rules restrict any use of the information to criminally investigate or prosecute any alcohol or drug abuse patient.[facility] HospitalIn the event this information is protected by the Federal Confidentiality of Alcohol and Drug Abuse Patient Records regulations: The Federal rules restrict any use of the information to criminally investigate or prosecute any alcohol or drug abuse patient.[facility] HospitalIn the event this information is protected by the Federal Confidentiality of Alcohol and Drug Abuse Patient Records regulations: The Federal rules restrict any use of the information to criminally investigate or prosecute any alcohol or drug abuse patient.[facility] HospitalIn the event this information is protected by the Federal Confidentiality of Alcohol and Drug Abuse Patient Records regulations: The Federal rules restrict any use of the information to criminally investigate or prosecute any alcohol or drug abuse patient.[facility] HospitalIn the event this information is protected by the Federal Confidentiality of Alcohol and Drug Abuse Patient Records regulations: The Federal rules restrict any use of the information to criminally investigate or prosecute any alcohol or drug abuse patient.[facility] HospitalIn the event this information is protected by the Federal Confidentiality of Alcohol and Drug Abuse Patient Records regulations: The Federal rules restrict any use of the information to criminally investigate or prosecute any alcohol or drug abuse patient.[facility] HospitalIn the event this information is protected by the Federal Confidentiality of Alcohol and Drug Abuse Patient Records regulations: The Federal rules restrict any use of the information to criminally investigate or prosecute any alcohol or drug abuse patient.[facility] HospitalIn the event this information is protected by the Federal Confidentiality of Alcohol and Drug Abuse Patient Records regulations: The Federal rules restrict any use of the information to criminally investigate or prosecute any alcohol or drug abuse patient.[facility] HospitalIn the event this information is protected by the Federal Confidentiality of Alcohol and Drug Abuse Patient Records regulations: The Federal rules restrict any use of the information to criminally investigate or prosecute any alcohol or drug abuse patient.[facility] HospitalIn the event this information is protected by the Federal Confidentiality of Alcohol and Drug Abuse Patient Records regulations: The Federal rules restrict any use of the information to criminally investigate or prosecute any alcohol or drug abuse patient.[facility] HospitalIn the event this information is protected by the Federal Confidentiality of Alcohol and Drug Abuse Patient Records regulations: The Federal rules restrict any use of the information to criminally investigate or prosecute any alcohol or drug abuse patient.[facility] HospitalIn the event this information is protected by the Federal Confidentiality of Alcohol and Drug Abuse Patient Records regulations: The Federal rules restrict any use of the information to criminally investigate or prosecute any alcohol or drug abuse patient.[facility] HospitalIn the event this information is protected by the Federal Confidentiality of Alcohol and Drug Abuse Patient Records regulations: The Federal rules restrict any use of the information to criminally investigate or prosecute any alcohol or drug abuse patient.[facility] HospitalIn the event this information is protected by the Federal Confidentiality of Alcohol and Drug Abuse Patient Records regulations: The Federal rules restrict any use of the information to criminally investigate or prosecute any alcohol or drug abuse patient.[facility] HospitalIn the event this information is protected by the Federal Confidentiality of Alcohol and Drug Abuse Patient Records regulations: The Federal rules restrict any use of the information to criminally investigate or prosecute any alcohol or drug abuse patient.[facility] HospitalIn the event this information is protected by the Federal Confidentiality of Alcohol and Drug Abuse Patient Records regulations: The Federal rules restrict any use of the information to criminally investigate or prosecute any alcohol or drug abuse patient.[facility] HospitalIn the event this information is protected by the Federal Confidentiality of Alcohol and Drug Abuse Patient Records regulations: The Federal rules restrict any use of the information to criminally investigate or prosecute any alcohol or drug abuse patient.[facility] the event this information is protected by the Federal Confidentiality of Alcohol and Drug Abuse Patient Records regulations: The Federal rules restrict any use of the information to criminally investigate or prosecute any alcohol or drug abuse patient.[facility] HospitalIn the event this information is protected by the Federal Confidentiality of Alcohol and Drug Abuse Patient Records regulations: The Federal rules restrict any use of the information to criminally investigate or prosecute any alcohol or drug abuse patient.[facility] HospitalIn the event this information is protected by the Federal Confidentiality of Alcohol and Drug Abuse Patient Records regulations: The Federal rules restrict any use of the information to criminally investigate or prosecute any alcohol or drug abuse patient.[facility]In the event this information is protected by the Federal Confidentiality of Alcohol and Drug Abuse Patient Records regulations: The Federal rules restrict any use of the information to criminally investigate or prosecute any alcohol or drug abuse patient.[facility] HospitalIn the event this information is protected by the Federal Confidentiality of Alcohol and Drug Abuse Patient Records regulations: The Federal rules restrict any use of the information to criminally investigate or prosecute any alcohol or drug abuse patient.[facility] HospitalIn the event this information is protected by the Federal Confidentiality of Alcohol and Drug Abuse Patient Records regulations: The Federal rules restrict any use of the information to criminally investigate or prosecute any alcohol or drug abuse patient.[facility] HospitalIn the event this information is protected by the Federal Confidentiality of Alcohol and Drug Abuse Patient Records regulations: The Federal rules restrict any use of the information to criminally investigate or prosecute any alcohol or drug abuse patient.[facility] HospitalIn the event this information is protected by the Federal Confidentiality of Alcohol and Drug Abuse Patient Records regulations: The Federal rules restrict any use of the information to criminally investigate or prosecute any alcohol or drug abuse patient.[facility] HospitalIn the event this information is protected by the Federal Confidentiality of Alcohol and Drug Abuse Patient Records regulations: The Federal rules restrict any use of the information to criminally investigate or prosecute any alcohol or drug abuse patient.[facility] HospitalIn the event this information is protected by the Federal Confidentiality of Alcohol and Drug Abuse Patient Records regulations: The Federal rules restrict any use of the information to criminally investigate or prosecute any alcohol or drug abuse patient.[facility] HospitalIn the event this information is protected by the Federal Confidentiality of Alcohol and Drug Abuse Patient Records regulations: The Federal rules restrict any use of the information to criminally investigate or prosecute any alcohol or drug abuse patient.[facility] HospitalIn the event this information is protected by the Federal Confidentiality of Alcohol and Drug Abuse Patient Records regulations: The Federal rules restrict any use of the information to criminally investigate or prosecute any alcohol or drug abuse patient.[facility] HospitalIn the event this information is protected by the Federal Confidentiality of Alcohol and Drug Abuse Patient Records regulations: The Federal rules restrict any use of the information to criminally investigate or prosecute any alcohol or drug abuse patient.[facility] HospitalIn the event this information is protected by the Federal Confidentiality of Alcohol and Drug Abuse Patient Records regulations: The Federal rules restrict any use of the information to criminally investigate or prosecute any alcohol or drug abuse patient.[facility] HospitalIn the event this information is protected by the Federal Confidentiality of Alcohol and Drug Abuse Patient Records regulations: The Federal rules restrict any use of the information to criminally investigate or prosecute any alcohol or drug abuse patient.[facility] HospitalIn the event this information is protected by the Federal Confidentiality of Alcohol and Drug Abuse Patient Records regulations: The Federal rules restrict any use of the information to criminally investigate or prosecute any alcohol or drug abuse patient.[facility] HospitalIn the event this information is protected by the Federal Confidentiality of Alcohol and Drug Abuse Patient Records regulations: The Federal rules restrict any use of the information to criminally investigate or prosecute any alcohol or drug abuse patient.[facility] HospitalIn the event this information is protected by the Federal Confidentiality of Alcohol and Drug Abuse Patient Records regulations: The Federal rules restrict any use of the information to criminally investigate or prosecute any alcohol or drug abuse patient.[facility] HospitalIn the event this information is protected by the Federal Confidentiality of Alcohol and Drug Abuse Patient Records regulations: The Federal rules restrict any use of the information to criminally investigate or prosecute any alcohol or drug abuse patient.[facility] HospitalIn the event this information is protected by the Federal Confidentiality of Alcohol and Drug Abuse Patient Records regulations: The Federal rules restrict any use of the information to criminally investigate or prosecute any alcohol or drug abuse patient.[facility] HospitalIn the event this information is protected by the Federal Confidentiality of Alcohol and Drug Abuse Patient Records regulations: The Federal rules restrict any use of the information to criminally investigate or prosecute any alcohol or drug abuse patient.[facility] HospitalIn the event this information is protected by the Federal Confidentiality of Alcohol and Drug Abuse Patient Records regulations: The Federal rules restrict any use of the information to criminally investigate or prosecute any alcohol or drug abuse patient.[facility] HospitalIn the event this information is protected by the Federal Confidentiality of Alcohol and Drug Abuse Patient Records regulations: The Federal rules restrict any use of the information to criminally investigate or prosecute any alcohol or drug abuse patient.[facility] HospitalIn the event this information is protected by the Federal Confidentiality of Alcohol and Drug Abuse Patient Records regulations: The Federal rules restrict any use of the information to criminally investigate or prosecute any alcohol or drug abuse patient.[facility] HospitalIn the event this information is protected by the Federal Confidentiality of Alcohol and Drug Abuse Patient Records regulations: The Federal rules restrict any use of the information to criminally investigate or prosecute any alcohol or drug abuse patient.[facility] HospitalIn the event this information is protected by the Federal Confidentiality of Alcohol and Drug Abuse Patient Records regulations: The Federal rules restrict any use of the information to criminally investigate or prosecute any alcohol or drug abuse patient.[facility] HospitalIn the event this information is protected by the Federal Confidentiality of Alcohol and Drug Abuse Patient Records regulations: The Federal rules restrict any use of the information to criminally investigate or prosecute any alcohol or drug abuse patient.[facility] HospitalIn the event this information is protected by the Federal Confidentiality of Alcohol and Drug Abuse Patient Records regulations: The Federal rules restrict any use of the information to criminally investigate or prosecute any alcohol or drug abuse patient.[facility] HospitalIn the event this information is protected by the Federal Confidentiality of Alcohol and Drug Abuse Patient Records regulations: The Federal rules restrict any use of the information to criminally investigate or prosecute any alcohol or drug abuse patient.[facility] HospitalIn the event this information is protected by the Federal Confidentiality of Alcohol and Drug Abuse Patient Records regulations: The Federal rules restrict any use of the information to criminally investigate or prosecute any alcohol or drug abuse patient.[facility] HospitalIn the event this information is protected by the Federal Confidentiality of Alcohol and Drug Abuse Patient Records regulations: The Federal rules restrict any use of the information to criminally investigate or prosecute any alcohol or drug abuse patient.[facility] HospitalIn the event this information is protected by the Federal Confidentiality of Alcohol and Drug Abuse Patient Records regulations: The Federal rules restrict any use of the information to criminally investigate or prosecute any alcohol or drug abuse patient.[facility] HospitalIn the event this information is protected by the Federal Confidentiality of Alcohol and Drug Abuse Patient Records regulations: The Federal rules restrict any use of the information to criminally investigate or prosecute any alcohol or drug abuse patient.[facility] HospitalIn the event this information is protected by the Federal Confidentiality of Alcohol and Drug Abuse Patient Records regulations: The Federal rules restrict any use of the information to criminally investigate or prosecute any alcohol or drug abuse patient.[facility] HospitalIn the event this information is protected by the Federal Confidentiality of Alcohol and Drug Abuse Patient Records regulations: The Federal rules restrict any use of the information to criminally investigate or prosecute any alcohol or drug abuse patient.[facility] HospitalIn the event this information is protected by the Federal Confidentiality of Alcohol and Drug Abuse Patient Records regulations: The Federal rules restrict any use of the information to criminally investigate or prosecute any alcohol or drug abuse patient.[facility] HospitalIn the event this information is protected by the Federal Confidentiality of Alcohol and Drug Abuse Patient Records regulations: The Federal rules restrict any use of the information to criminally investigate or prosecute any alcohol or drug abuse patient.[facility] HospitalIn the event this information is protected by the Federal Confidentiality of Alcohol and Drug Abuse Patient Records regulations: The Federal rules restrict any use of the information to criminally investigate or prosecute any alcohol or drug abuse patient.[facility] HospitalIn the event this information is protected by the Federal Confidentiality of Alcohol and Drug Abuse Patient Records regulations: The Federal rules restrict any use of the information to criminally investigate or prosecute any alcohol or drug abuse patient.[facility] HospitalIn the event this information is protected by the Federal Confidentiality of Alcohol and Drug Abuse Patient Records regulations: The Federal rules restrict any use of the information to criminally investigate or prosecute any alcohol or drug abuse patient.[facility] HospitalIn the event this information is protected by the Federal Confidentiality of Alcohol and Drug Abuse Patient Records regulations: The Federal rules restrict any use of the information to criminally investigate or prosecute any alcohol or drug abuse patient.[facility] HospitalIn the event this information is protected by the Federal Confidentiality of Alcohol and Drug Abuse Patient Records regulations: The Federal rules restrict any use of the information to criminally investigate or prosecute any alcohol or drug abuse patient.[facility] HospitalIn the event this information is protected by the Federal Confidentiality of Alcohol and Drug Abuse Patient Records regulations: The Federal rules restrict any use of the information to criminally investigate or prosecute any alcohol or drug abuse patient.[facility] HospitalIn the event this information is protected by the Federal Confidentiality of Alcohol and Drug Abuse Patient Records regulations: The Federal rules restrict any use of the information to criminally investigate or prosecute any alcohol or drug abuse patient.[facility] HospitalIn the event this information is protected by the Federal Confidentiality of Alcohol and Drug Abuse Patient Records regulations: The Federal rules restrict any use of the information to criminally investigate or prosecute any alcohol or drug abuse patient.[facility] Reason for Visit (unrecogniz ed section and content) Reason Comments PT Progress Note Specialty Diagnoses / Procedures Referred By Contac t Referred To Contact [facility] Diagnoses Osteoarthritis of spine with radiculopathy, lumbar region Chronic neck pain Chronic midline low back pain with bilateral sciatica Procedures CONSULT TO PHYSICAL THERAPY PHYSICAL THERAPY EVALUATION HIGH COMPLEX 45 MINS Pablo Bates, DO [address] [place] [address] [facility] [address] [place] [address] Referral ID Status Reason Start Date Expiration Date Visits Requested Visits Authorized [id number] Authorized PCP Requested Referral Auto-Generate d Referral 04/13/2023 04/12/2024 99 99 Reason Comments Prescription Refills Reason Comments Established Patient Reason Comments Patient Update Reason Comments Refill Request Reason Comments change in appointment Appointment moved from [facility] to [facility] Reason Comments Appointment Reason Comments er f/up Was seen in [facility] 5 weeks ago, states since then no longer getting double vision, balance off. No wakes up nausea and units unsteady on feet at times. Reason Comments Results Reason Onset Date Comments Refill Request 08/12/2022 Reason Comments Heartburn Heart burn pm hours and nausea am hours going on for a good long time Reason Onset Date Comments Refill Request 03/04/2023 Reason Comments F/U 3 Month Reason Comments Shingles Vaccine update Reason Onset Date Comments Refill Request 04/27/2023 Reason Comments Rash itching x 1 week Reason Onset Date Comments Refill Request 08/25/2023 Reason Onset Date Comments Refill Request 12/10/2023 Reason Comments Arm Pain Left x 6 months, cov id vaccine in left arm in Dec, pain has improved, does radiate into neck. Reports she feels like she has fluid in her left ear today. Reason Comments PT Eval Specialty Diagnoses / Procedures Referred By Contac t Referred To Contact [facility] Diagnoses Cervical radiculopathy Chronic left shoulder pain Neck pain Left arm pain Procedures CONSULT TO PHYSICAL THERAPY PHYSICAL THERAPY EVALUATION HIGH COMPLEX 45 MINS Cata Whyte, BRUNO.SERVICE ORDER DISPATCHER CHIEF [address] [place] [address] [facility] [address] [place] [address] Referral ID Status Reason Start Date Expiration Date Visits Requested Visits Authorized [id number] Authorized PCP Requested Referral Auto-Generate d Referral 01/06/2024 01/05/2025 99 99 Reason Comments Physical Therapy Reason Onset Date Comments Refill Request 05/25/2024 Reason Comments Pharmacy Call Reason Onset Date Comments Refill Request 06/14/2024 Reason Onset Date Comments Refill Request 08/01/2024 Reason Comments Orders Reason Onset Date Comments Refill Request 01/12/2025 Reason Comments Follow Up ([facility]) EGD follow up. 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 Falls Procedures CONSULT TO PHYSICAL THERAPY [facility]ICAL [facility]AP[facility] 45 MINS Alka Yadav, 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 [address] [place] [address] Phone: tel: fax: [facility] [address] [place] [address] Referral ID Status Reason Start Date Expiration Date Visits Requested Visits Authorized [id number] Authorized PCP Requested Referral Auto-Generate d Referral 04/20/2025 04/20/2026 99 99 Reason Onset Date Comments Refill Request 05/09/2025 Reason Comments Joint Pain Specialty Diagnoses / Procedures Referred By Contac t Referred To Contact Rheumatology Diagnoses Chronic left shoulder pain Neck pain Muscle weakness (generalized) Arthralgia, unspecified joint Procedures CONSULT TO RHEUM/IMMUN DISEASE OFFICE/OUTPATIENT [facility] 60 MINUTES Cata Whyte, 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 [address] [place] [address] Phone: tel: fax: Referral ID Status Reason Start Date Expiration Date V isits Requested Visits Authorized [id number] Closed PCP Requested Referral 03/01/2025 03/01/2026 1 1 Reason Comments Medication Problem Reason Onset Date Comments Refill Request 05/15/2025 Waiting for mail order, requesting short-term supply only Reason Comments Evenity Referral Reason Onset Date Comments Refill Request 05/24/2025 Reason Comments Established Patient Reason Comments Pre-Op Update Reason Comments Anesthesia Consult Specialty Diagnoses / Procedures Referred By Eleuterio pope Referred To Contact Diagnoses Preoperative examination Hiatal hernia Procedures OFFICE/OUTPATIENT [facility] 60 MINUTES Sarika Arrieta APRN.SERVICE ORDER DISPATCHER CHIEF [address] [place] [id number] Phone: tel: fax: Referral ID Status Reason Start Date Expiration Date V isits Requested Visits Authorized [id number] Closed PCP Requested Referral 05/03/2025 05/02/2026 1 1 Reason Comments Follow Up Labs Care Teams (unrecognized sec tion and content) Hydroelectric Production Manager Relationship Specialty Start Date End Date Pablo Bates, DO [address] [place] [address] PCP - General Family Practice 08/19/13 Rosalee Whelan MD, [address] [place] [address] Physician Radiation Oncology 11/26/17 Delmi Huang RN Specialty Director Of National Sales Oncology 02/01/18 Hydroelectric Production Manager Relationship Specialty Start Date End Date Pablo Bates, DO [address] [place] [address] PCP - General Family Practice 08/19/13 Rosalee Whelan MD, [address] [place] [address] Physician Radiation Oncology 11/26/17 Delmi Huang RN Specialty Director Of National Sales Oncology 02/01/18 Hydroelectric Production Manager Relationship Specialty Start Date End Date Pablo Bates, DO [address] [place] [address] PCP - General Family Practice 08/19/13 Rosalee Whelan MD, [address] [facility] [address] Physician Radiation Oncology 11/26/17 Delmi Huang RN Specialty Director Of National Sales Oncology 02/01/18 Hydroelectric Production Manager Relationship Specialty Start Date End Date Pablo Bates, DO [address] [place] [address] PCP - General Family Practice 08/19/13 Rosalee Whelan MD, [address] [place] [address] Physician Radiation Oncology 11/26/17 Delmi Huang RN Specialty Director Of National Sales Oncology 02/01/18 Hydroelectric Production Manager Relationship Specialty Start Date End Date Pablo Bates, DO [address] [place] [address] PCP - General Family Practice 06/23/22 Rosalee Whelan MD, [address] [facility] [place] [address] Physician Radiation Oncology 11/26/17 Delmi Huang RN Specialty Director Of National Sales Oncology 02/01/18 Hydroelectric Production Manager Relationship Specialty Start Date End Date Pablo Bates, DO [address] [place] [address] PCP - General Family Practice 06/23/22 Rosalee Whealn MD, [address] [facility] [place] [address] Physician Radiation Oncology 11/26/17 Delmi Huang RN Specialty Director Of National Sales Oncology 02/01/18 Hydroelectric Production Manager Relationship Specialty Start Date End Date Pablo Bates, DO [address] [place] [address] PCP - General Family Practice 06/23/22 Rosalee Whelan MD, [address] [facility] [place] [address] Physician Radiation Oncology 11/26/17 Delmi Huang RN Specialty Director Of National Sales Oncology 02/01/18 Hydroelectric Production Manager Relationship Specialty Start Date End Date Pablo Bates, DO [address] [place] [address] PCP - General Family Medicine 06/23/22 Rosalee Whelan MD, [address] [place] [address] Physician Radiation Oncology 11/26/17 Delmi Huang RN Specialty Director Of National Sales Oncology 02/01/18 Hydroelectric Production Manager Relationship Specialty Start Date End Date Pablo Bates, DO [address] [place] [address] PCP - General Family Medicine 06/23/22 Rosalee Whelan MD, [address] [place] [address] Physician Radiation Oncology 11/26/17 Delmi Huang RN Specialty Director Of National Sales Oncology 02/01/18 Hydroelectric Production Manager Relationship Specialty Start Date End Date Pablo Bates, DO [address] [place] [address] PCP - General Family Medicine 06/23/22 Rosalee Whelan MD, [address] [facility] [address] Physician Radiation Oncology 11/26/17 Delmi Huang RN Specialty Director Of National Sales Oncology 02/01/18 Hydroelectric Production Manager Relationship Specialty Start Date End Date Pablo Bates, DO [address] [place] [address] PCP - General Family Medicine 06/23/22 Rosalee Whelan MD, [address] [place] [address] Physician Radiation Oncology 11/26/17 Delmi Huang RN Specialty Director Of National Sales Oncology 02/01/18 Hydroelectric Production Manager Relationship Specialty Start Date End Date Pablo Bates, DO [address] [place] [address] PCP - General Family Medicine 06/23/22 Rosalee Whelan MD, [address] [place] [address] Physician Radiation Oncology 11/26/17 Delmi Huang RN Specialty Director Of National Sales Oncology 02/01/18 Hydroelectric Production Manager Relationship Specialty Start Date End Date Pablo Bates, DO [address] [place] [address] PCP - General Family Medicine 06/23/22 Rosalee Whelan MD, [address] [place] [address] Physician Radiation Oncology 11/26/17 Delmi Huang RN Specialty Director Of National Sales Oncology 02/01/18 Hydroelectric Production Manager Relationship Specialty Start Date End Date Pablo Bates, DO [address] [place] [address] PCP - General Family Medicine 06/23/22 Rosalee Whelan MD, [address] [place] [address] Physician Radiation Oncology 11/26/17 Delmi Huang RN Specialty Director Of National Sales Oncology 02/01/18 Hydroelectric Production Manager Relationship Specialty Start Date End Date Pablo Bates, DO [address] [place] [address] PCP - General Family Medicine 06/23/22 Rosalee Whelan MD, [address] [place] [address] Physician Radiation Oncology 11/26/17 Delmi Huang RN Specialty Director Of National Sales Oncology 02/01/18 Hydroelectric Production Manager Relationship Specialty Start Date End Date Pablo Bates DO [address] [place] [address] PCP - General Family Medicine 06/23/22 Rosalee Whelan MD, MD [address] [place] [address] Physician Radiation Oncology 11/26/17 Delmi Huang RN Specialty Director Of National Sales Oncology 02/01/18 Hydroelectric Production Manager Relationship Specialty Start Date End Date Pablo Bates DO [address] [place] [address] PCP - General Family Medicine 06/23/22 Rosalee Whelan MD, [address] [place] [address] Physician Radiation Oncology 11/26/17 Delmi Huang RN Specialty Director Of National Sales Oncology 02/01/18 Hydroelectric Production Manager Relationship Specialty Start Date End Date Pablo Bates DO [address] [place] [address] PCP - General Family Medicine 06/23/22 Rosalee Whelan MD, [address] [place] [address] Physician Radiation Oncology 11/26/17 Delmi Huang RN Specialty Director Of National Sales Oncology 02/01/18 Hydroelectric Production Manager Relationship Specialty Start Date End Date Pablo Bates DO [address] [place] [address] PCP - General Family Medicine 06/23/22 Rosalee Whelan MD, [address] [place] [address] Physician Radiation Oncology 11/26/17 Delmi Huang RN Specialty Director Of National Sales Oncology 02/01/18 Hydroelectric Production Manager Relationship Specialty Start Date End Date Pablo Bates DO [address] [place] [address] PCP - General Family Medicine 06/23/22 Rosalee Whelan MD, [address] [place] [address] Physician Radiation Oncology 11/26/17 Delmi Huang RN Specialty Director Of National Sales Oncology 02/01/18 Hydroelectric Production Manager Relationship Specialty Start Date End Date Pablo Bates DO [address] [place] [address] PCP - General Family Medicine 06/23/22 Rosalee Whelan MD, [address] [place] [address] Physician Radiation Oncology 11/26/17 Delmi Huang RN Specialty Director Of National Sales Oncology 02/01/18 Hydroelectric Production Manager Relationship Specialty Start Date End Date Pablo Bates DO [address] [place] [address] PCP - General Family Medicine 06/23/22 Rosalee Whelan MD, MD [address] [place] [address] Physician Radiation Oncology 11/26/17 Delmi Huagn RN Specialty Director Of National Sales Oncology 02/01/18 Hydroelectric Production Manager Relationship Specialty Start Date End Date Pablo Bates DO [address] [facility] [place] [address] PCP - General Family Medicine 06/23/22 Rosalee Whelan MD [address] [place] [address] Physician Radiation Oncology 11/26/17 Delmi Huang RN Specialty Director Of National Sales Oncology 02/01/18 Hydroelectric Production Manager Relationship Specialty Start Date End Date Pablo Bates DO [address] [place] [address] PCP - General Family Medicine 06/23/22 Rosalee Whelan MD [address] [place] [address] Physician Radiation Oncology 11/26/17 Delmi Huang RN Specialty Director Of National Sales Oncology 02/01/18 Hydroelectric Production Manager Relationship Specialty Start Date End Date Pablo Bates DO [address] [place] [address] PCP - General Family Medicine 06/23/22 Rosalee Whelan MD [address] [place] [address] Physician Radiation Oncology 11/26/17 Delmi Huang RN Specialty Director Of National Sales Oncology 02/01/18 Hydroelectric Production Manager Relationship Specialty Start Date End Date Pablo Bates DO [address] [place] [address] PCP - General Family Medicine 06/23/22 Rosalee Whelan MD [address] [place] [address] Physician Radiation Oncology 11/26/17 Delmi Huang RN Specialty Director Of National Sales Oncology 02/01/18 Hydroelectric Production Manager Relationship Specialty Start Date End Date Pablo Bates DO [address] [place] [address] PCP - General Family Medicine 06/23/22 Rosalee Whelan MD [address] [place] [address] Physician Radiation Oncology 11/26/17 Delmi Huang RN Specialty Director Of National Sales Oncology 02/01/18 Hydroelectric Production Manager Relationship Specialty Start Date End Date Pablo Bates DO [address] [place] [address] PCP - General Family Medicine 06/23/22 Rosalee Whelan MD [address] [place] [address] Physician Radiation Oncology 11/26/17 Delmi Huang RN Specialty Director Of National Sales Oncology 02/01/18 Hydroelectric Production Manager Relationship Specialty Start Date End Date Pablo Bates DO [address] [place] [address] PCP - General Family Medicine 06/23/22 Rosalee Whelan MD [address] [place] [address] Physician Radiation Oncology 11/26/17 Delmi Huang RN Specialty Director Of National Sales Oncology 02/01/18 Hydroelectric Production Manager Relationship Specialty Start Date End Date Pablo Bates DO [address] [place] [address] PCP - General Family Medicine 06/23/22 Rosalee Whelan MD [address] [place] [address] Physician Radiation Oncology 11/26/17 Delmi Huang RN Specialty Director Of National Sales Oncology 02/01/18 Hydroelectric Production Manager Relationship Specialty Start Date End Date Pablo Bates DO [address] [place] [address] PCP - General Family Medicine 06/23/22 Rosalee Whelan MD [address] [place] [address] Physician Radiation Oncology 11/26/17 Delmi Huang RN Specialty Director Of National Sales Oncology 02/01/18 Hydroelectric Production Manager Relationship Specialty Start Date End Date Pablo Bates DO [address] [place] [address] PCP - General Family Medicine 06/23/22 Rosalee Whelan MD [address] [place] [address] Physician Radiation Oncology 11/26/17 Delmi Huang RN Specialty Director Of National Sales Oncology 02/01/18 Hydroelectric Production Manager Relationship Specialty Start Date End Date Pablo Bates DO [address] [place] [address] PCP - General Family Medicine 06/23/22 Rosalee Whelan MD [address] [place] [address] Physician Radiation Oncology 11/26/17 Delmi Huang RN Specialty Director Of National Sales Oncology 02/01/18 Hydroelectric Production Manager Relationship Specialty Start Date End Date Pablo Bates DO [address] [place] [address] PCP - General Family Medicine 06/23/22 Rosalee Whelan MD [address] [place] [address] Physician Radiation Oncology 11/26/17 Delmi Huang RN Specialty Director Of National Sales Oncology 02/01/18 Aishwarya Turner, 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 [address] [place] [address] [facility] 10/16/24 Cata Whyte 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 [address] [place] [address] [facility] 10/16/24 Hydroelectric Production Manager Relationship Specialty Start Date End Date Pablo Bates DO [address] [place] [address] PCP - General Family Medicine 06/23/22 Rosalee Whelan MD [address] [place] [address] Physician Radiation Oncology 11/26/17 Delmi Huang RN Specialty Director Of National Sales Oncology 02/01/18 Aishwarya Turner, 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 [address] [place] [address] [facility] 10/16/24 Cata Whyte, 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 [address] [place] [address] [facility] 10/16/24 Hydroelectric Production Manager Relationship Specialty Start Date End Date Pablo Bates DO [address] [place] [address] PCP - General Family Medicine 06/23/22 Rosalee Whelan MD [address] [place] [address] Physician Radiation Oncology 11/26/17 Delmi Huang RN Specialty Director Of National Sales Oncology 02/01/18 Aishwarya Turner, 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 [address] [place] [address] [employer] [facility] 10/16/24 Cata Whyte APRN.SERVICE ORDER DISPATCHER CHIEF [address] [place] [address] [facility] 10/16/24 Hydroelectric Production Manager Relationship Specialty Start Date End Date Pablo Bates DO [address] [place] [address] PCP - General Family Medicine 06/23/22 Rosalee Whelan MD [address] [place] [address] Physician Radiation Oncology 11/26/17 Delmi Huang RN Specialty Director Of National Sales Oncology 02/01/18 Cata Whyte, 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 [address] [facility] [place] [address] [facility] 10/16/24 Hydroelectric Production Manager Relationship Specialty Start Date End Date Pablo Bates DO [address] [place] [address] PCP - General Family Medicine 06/23/22 Rosalee Whelan MD [address] [place] [address] Physician Radiation Oncology 11/26/17 Delmi Huang RN Specialty Director Of National Sales Oncology 02/01/18 Cata Whyte, 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 [address] [place] [address] [employer] [facility] 10/16/24 Hydroelectric Production Manager Relationship Specialty Start Date End Date Pablo Bates DO [address] [place] [address] PCP - General Family Medicine 06/23/22 Rosalee Whelan MD [address] [facility] [place] [address] Physician Radiation Oncology 11/26/17 Delmi Huang RN Specialty Director Of National Sales Oncology 02/01/18 Cata Whyte, 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 [address] [place] [address] [facility] Hydroelectric Production Manager Relationship Specialty Start Date End Date Pablo Bates DO [address] [place] [address] PCP - General Family Medicine 06/23/22 Rosalee Whelan MD [address] [facility] [place] [address] Physician Radiation Oncology 11/26/17 Delmi Huang RN Specialty Director Of National Sales Oncology 02/01/18 Cata Whyte, 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 [address] [place] [address] [employer] [facility] 10/16/24 Hydroelectric Production Manager Relationship Specialty Start Date End Date Pablo Bates DO [address] [place] [address] PCP - General Family Medicine 06/23/22 Rosalee Whelan MD [address] [place] [address] Physician Radiation Oncology 11/26/17 Delmi Huang RN Specialty Director Of National Sales Oncology 02/01/18 Cata Whyte, 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 [address] [place] [address] [facility] 10/16/[facility] Hydroelectric Production Manager Relationship Specialty Start Date End Date Pablo Bates DO [address] [place] [address] PCP - General Family Medicine 06/23/22 Rosalee Whelan MD [address] [place] [address] Physician Radiation Oncology 11/26/17 Delmi Huang RN Specialty Director Of National Sales Oncology 02/01/18 Cata Whyte, 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 [address] [place] [address] [facility] 10/16/24 Hydroelectric Production Manager Relationship Specialty Start Date End Date Pablo Bates DO [address] [place] [address] PCP - General Family Medicine 06/23/22 Rosalee Whelan MD [address] [place] [address] Physician Radiation Oncology 11/26/17 Delmi Huang RN Specialty Director Of National Sales Oncology 02/01/18 Cata Whyte, 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 [address] [place] [address] [facility] 10/16/24 Hydroelectric Production Manager Relationship Specialty Start Date End Date Pablo Bates DO [address] [place] [address] PCP - General Family Medicine 06/23/22 Rosalee Whelan MD [address] [address] Physician Radiation Oncology 11/26/17 Delmi Huang RN Specialty Director Of National Sales Oncology 02/01/18 Cata Whyte, 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 [address] [place] [address] [facility] 10/16/24 Hydroelectric Production Manager Relationship Specialty Start Date End Date Pablo Bates DO [address] [place] [address] PCP - General Family Medicine 06/23/22 Rosalee Whelan MD [address] [address] Physician Radiation Oncology 11/26/17 Delmi Huang RN Specialty Director Of National Sales Oncology 02/01/18 Cata Whyte, 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 [address] [place] [address] [facility] 10/16/24 Alka Yadav 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 [address] [place] [address] [facility] 04/24/25 Hydroelectric Production Manager Relationship Specialty Start Date End Date Pablo Bates DO [address] [place] [address] PCP - General Family Medicine 06/23/22 Rosalee Whelan MD [address] [place] [address] Physician Radiation Oncology 11/26/17 Delmi Huang RN Specialty Director Of National Sales Oncology 02/01/18 Cata Whyte APRN.SERVICE ORDER DISPATCHER CHIEF [address] [place] [address] [facility] 10/16/24 Alka Yadav, BRUNO.SERVICE ORDER DISPATCHER CHIEF [address] [place] [address] [facility] 04/24/25 Hydroelectric Production Manager Relationship Specialty Start Date End Date Pablo Bates DO [address] [place] [address] PCP - General Family Medicine 06/23/22 Rosalee Whelan MD [address] [place] [address] Physician Radiation Oncology 11/26/17 Delmi uHang RN Specialty Director Of National Sales Oncology 02/01/18 Cata Whyte, 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 [address] [place] [address] [facility] 10/16/24 Alka Yadav APRN.SERVICE ORDER DISPATCHER CHIEF [address] [place] [address] [facility] 04/24/25 Hydroelectric Production Manager Relationship Specialty Start Date End Date Pablo Bates DO [address] [place] [address] PCP - General Family Medicine 06/23/22 Rosalee Whelan MD [address] [address] Physician Radiation Oncology 11/26/17 Delmi Huang, RN Specialty Director Of National Sales Oncology 02/01/18 Cata Whyte, BRUNO.SERVICE ORDER DISPATCHER CHIEF [address] [place] [address] [facility] 10/16/24 Alka Yadav, 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 [address] [place] [address] [facility] 04/24/25 Hydroelectric Production Manager Relationship Specialty Start Date End Date Pablo Bates DO [address] [place] [address] PCP - General Family Medicine 06/23/22 Rosalee Whelan MD [address] [address] Physician Radiation Oncology 11/26/17 Delmi Huang, RN Specialty Director Of National Sales Oncology 02/01/18 Cata Whyte, 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 [address] [place] [address] [facility] 10/16/24 Alka Yadav APRN.SERVICE ORDER DISPATCHER CHIEF [address] [place] [address] [facility] 04/24/25 Hydroelectric Production Manager Relationship Specialty Start Date End Date Pablo Bates DO [address] [place] [address] PCP - General Family Medicine 06/23/22 Rosalee Whelan MD [address] [place] [address] Physician Radiation Oncology 11/26/17 Delmi Huang RN Specialty Director Of National Sales Oncology 02/01/18 Cata Whyte APRN.SERVICE ORDER DISPATCHER CHIEF [address] [place] [address] [facility] 10/16/24 Alka Yadav APRN.SERVICE ORDER DISPATCHER CHIEF [address] [place] [address] [facility] 04/24/25 Hydroelectric Production Manager Relationship Specialty Start Date End Date Pablo Bates DO [address] [place] [address] PCP - General Family Medicine 06/23/22 Rosalee Whelan MD [address] [place] [address] Physician Radiation Oncology 11/26/17 Delmi Huang RN Specialty Director Of National Sales Oncology 02/01/18 Cata Whyte APRN.SERVICE ORDER DISPATCHER CHIEF [address] [place] [address] [facility] 10/16/24 Alka Yadav APRN.SERVICE ORDER DISPATCHER CHIEF [address] [place] [address] [facility] 04/24/25 Hydroelectric Production Manager Relationship Specialty Start Date End Date Pablo Bates DO [address] [place] [address] PCP - General Family Medicine 06/23/22 Rosalee Whelan MD [address] [place] [address] Physician Radiation Oncology 11/26/17 Delmi Huang RN Specialty Director Of National Sales Oncology 02/01/18 Cata Whyte APRN.SERVICE ORDER DISPATCHER CHIEF [address] [place] [address] [facility] 10/16/24 Alka Yadav APRN.SERVICE ORDER DISPATCHER CHIEF [address] [place] [address] [facility] 04/24/25 Hydroelectric Production Manager Relationship Specialty Start Date End Date Pablo Bates DO [address] [place] [address] PCP - General Family Medicine 06/23/22 Rosalee Whelan MD [address] [place] [address] Physician Radiation Oncology 11/26/17 Delmi Huang RN Specialty Director Of National Sales Oncology 02/01/18 Cata Whyte APRN.SERVICE ORDER DISPATCHER CHIEF [address] [place] [address] [facility] 10/16/24 Alka Yadav APRN.SERVICE ORDER DISPATCHER CHIEF [address] [place] [address] [facility] 04/24/25 Hydroelectric Production Manager Relationship Specialty Start Date End Date Pablo Bates DO [address] [place] [address] PCP - General Family Medicine 06/23/22 Rosalee Whelan MD [address] [place] [address] Physician Radiation Oncology 11/26/17 Delmi Huang RN Specialty Director Of National Sales Oncology 02/01/18 Cata Whyte, 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 [address] [place] [address] [facility] 10/16/24 Alka Yadav, 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 [address] [place] [address] [facility] 04/24/25 Hydroelectric Production Manager Relationship Specialty Start Date End Date Pablo aBtes DO [address] [place] [address] PCP - General Family Medicine 06/23/22 Rosalee Whelan MD [address] [address] [facility] [place] [address] Physician Radiation Oncology 11/26/17 Delmi Huang RN Specialty Director Of National Sales Oncology 02/01/18 Cata Whyte, 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 [address] [place] [address] [facility] 10/16/24 Alka Yadav 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 [address] [place] [address] [facility] 04/24/25 Hydroelectric Production Manager Relationship Specialty Start Date End Date Pablo Bates DO [address] [place] [address] PCP - General Family Medicine 06/23/22 Rosalee Whelan MD [address] [facility] [place] [address] Physician Radiation Oncology 11/26/17 Delmi Huang RN Specialty Director Of National Sales Oncology 02/01/18 Cata Whyte, 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 [address] [place] [address] [facility] 10/16/24 Alka Yadav, 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 [address] [place] [address] [facility] 04/24/25 Hydroelectric Production Manager Relationship Specialty Start Date End Date Pablo Bates DO [address] [place] [address] PCP - General Family Medicine 06/23/22 Rosalee Whelan MD [address] [facility] [place] [address] Physician Radiation Oncology 11/26/17 Delmi Huang RN Specialty Director Of National Sales Oncology 02/01/18 Cata Whyte, 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 [address] [place] [address] [facility] 10/16/24 Alka Yadav 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 [address] [place] [address] [facility] 04/24/25 Hydroelectric Production Manager Relationship Specialty Start Date End Date Pablo Bates DO [address] [place] [address] PCP - General Family Medicine 06/23/22 Rosalee Whelan MD [address] [place] [address] Physician Radiation Oncology 11/26/17 Delmi Huang RN Specialty Director Of National Sales Oncology 02/01/18 Cata Whyte, 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 [address] [place] [address] [facility] 10/16/24 Alka Yadav, 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 [address] [place] [address] [facility] 04/24/25 Hydroelectric Production Manager Relationship Specialty Start Date End Date Pablo Bates DO [address] [place] [address] PCP - General Family Medicine 06/23/22 Rosalee Whelan MD [address] [place], [place] [address] [phone] Physician Radiation Oncology 11/26/17 Delmi Huang RN Specialty Director Of National Sales Oncology 02/01/18 Cata Whyte, 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 [address] [place] [address] [facility] 10/16/24 Alka Yadav, 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 [address] [place], [place] [address] [facility] 04/24/25 Hydroelectric Production Manager Relationship Specialty Start Date End Date Pablo Bates DO [address] [place], [place] [address] PCP - General Family Medicine 06/23/22 Rosalee Whelan MD [address] [place], [place] [id number] Physician Radiation Oncology 11/26/17 Delmi Huang RN Specialty Director Of National Sales Oncology 02/01/18 Cata Whyte APRN.SERVICE ORDER DISPATCHER CHIEF [address] [place], [place] [address] [facility] 10/16/24 Alka Yadav, 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 [address] [place], [place] [id number] [facility] 04/24/25 Goals (unrecognized section and content) Goals may be documented in a n alternate section FOR RECORDS PERTAINING TO PATIENTS WHO ARE OR HAVE BEEN ENROLLED IN A CHEMICAL DEPENDENCY/SUBSTANCEABUSE PROGRAM, SOME INFORMATION MAY BE OMITTED. This clinical summary was aggregated from multiple sources. Caution should be exercised in using it in the provision of clinical care. This summary normalizes information from multiple sources, and as a consequence, information in this document may materially change the coding, format and clinical context of patient data. In addition, data may be omitted in some cases. CLINICAL DECISIONS SHOULD BE BASED ON THE PRIMARY CLINICAL RECORDS. [employer] provides no warranty or guarantee of the accuracy or completeness of information in this document.
== END 2025-07-02 21:12 | disposition home or self-care (01) ==
PROVIDERS: Emergency Provider Emergency Medicine; PCP Student in an Organized Health Care Education/Training Program; Visit Provider Emergency Medicine
DX: T81.49XA Infection following a procedure, other surgical site, initial encounter (principal); K44.9 Diaphragmatic hernia without obstruction or gangrene; Z87.891 Personal history of nicotine dependence; Y83.8 Other surgical procedures as the cause of abnormal reaction of the patient, or of later complication, without mention of misadventure at the time of the procedure
CPT/HCPCS: 99282